=== PATIENT | female | born 1960 | race Caucasian/White ===

== ENCOUNTER 2021-08-21 14:14 | Inpatient (IN) | payer MEDICAID ==
[~2021-08-21] VITALS: Ht 177.8 cm; Wt 107.5 kg
--- NOTE | 2021-08-21 14:44 | NUR ---
BIBRA 81 FOR C/O SOB AND DIZZINESS. OXYGEN SATURATION IN ROOM AIR IS AT 91%. RESPIRATION REGULAR. DENIES PAIN. ATTACHED TO THE MONITOR.
[2021-08-21] MEDS ORDERED: DEXAMETHASONE SOD PHOSPHATE 6 MG in IV D5W 50 ML IV ONE (15:00)
--- NOTE | 2021-08-21 15:02 | NUR ---
JANITORIAL ACCOUNT MANAGER AT PT'S BEDSIDE
--- NOTE | 2021-08-21 15:18 | NUR ---
LAC #20G S/L; PATENT AND INTACT. BLOOD COLLECTED AND SENT TO LAB
[2021-08-21] MEDS ORDERED: DEXAMETHASONE SOD PHOSPHATE 10 MG/ML VIAL ONE (15:24)
[2021-08-21 15:30] LABS: BASOPHILS % (AUTO) 0.7 % (0.0-2.0); EOSINOPHILS % (AUTO) 1.3 % (0.0-6.0); HEMATOCRIT 43 % (33-45); HEMOGLOBIN 14.6 g/dL (11.5-14.8); LYMPHOCYTES # (AUTO) 0.9 K/uL (0.8-4.8); LYMPHOCYTES % (AUTO) 14.9 % (20.0-44.0); MEAN CORPUSCULAR HGB CONC 34 g/dl (31.0-36.0); MEAN CORPUSCULAR VOLUME 89 fL (82-100); MONOCYTES # (AUTO) 0.6 K/uL (0.1-1.30); MONOCYTES % (AUTO) 9.5 % (2.0-12.0); NEUTROPHILS # (AUTO) 4.5 K/uL (1.8-8.9); NEUTROPHILS % (AUTO) 73.6 % (43.0-81.0); PLATELET COUNT (AUTO) 173 K/uL (150-450); RED BLOOD CELL COUNT(AUTO) 4.83 MIL/uL (4.0-5.2); WHITE BLOOD COUNT (AUTO) 6.1 K/uL (4.3-11.0)
[2021-08-21] MEDS ORDERED: DEXAMETHASONE SOD PHOSPHATE 10 MG/ML VIAL IV ONE (15:30)
--- NOTE | 2021-08-21 15:47 | NUR ---
COVID SWAB DONE AND SENT TO THE LAB
[2021-08-21 15:48] LABS: CARBON DIOXIDE 31 mmol/L (21-32); CHLORIDE 101 mmol/L (98-107); GLUCOSE 210 mg/dL (74-106); POTASSIUM 3.9 mmol/L (3.5-5.1); SODIUM SERUM 137 mmol/L (136-145); UREA NITROGEN, BLOOD 16 mg/dL (7-18)
[2021-08-21 15:53] LABS: CREATINE KINASE, TOTAL 150 U/L (26-192)
[2021-08-21] MEDS ORDERED: IV NS 0.9% 1,000 ML BAG IV ONE (16:00)
[2021-08-21 16:03] LABS: ALANINE AMINOTRANSFERASE 35 U/L (12-78); ALBUMIN 3.5 g/dL (3.4-5.0); ALKALINE PHOSPHATASE 122 U/L (46-116); ASPARTATE AMINOTRANSFERASE 21 U/L (15-37); BILIRUBIN,TOTAL 0.7 mg/dL (0.2-1.0); TOTAL PROTEIN, SERUM 7.2 g/dL (6.4-8.2)
--- NOTE | 2021-08-21 16:12 | NUR ---
PT TOLERATING O2 3LPM N/C AT 94%. PT A/OX4. OFFERED BSC BUT PT COULD NOT URINATE AT THIS TIME; WILL TRY AGAIN LATER. IVF LAC #20G NS 1000ML
--- NOTE | 2021-08-21 16:20 | NUR ---
UNABLE TO PROVIDE URINE AT THIS TIME
--- NOTE | 2021-08-21 16:51 | NUR ---
[facility] CALLED DIRECTOR OF BROADCAST PAGED.
[2021-08-21] MEDS ORDERED: ACETAMINOPHEN 325 MG TABLET ONE (17:22)
[2021-08-21] MEDS ORDERED: ACETAMINOPHEN 325 MG TABLET PO ONE (17:30)
[2021-08-21] MEDS ORDERED: DEXTROSE 50%-WATER 50 ML DISP.SYRIN IV PRN (17:30)
[2021-08-21] MEDS ORDERED: ONDANSETRON HCL/PF 4 MG/2 ML VIAL IVP PRN (17:30)
[2021-08-21 17:37] LABS: C-REACTIVE PROTEIN 1.8 mg/dL (0.0-0.9)
--- NOTE | 2021-08-21 17:43 | NUR ---
COVID ANTIGEN COLLECTED AND SENT TO LAB
[2021-08-21] MEDS ORDERED: AZITHROMYCIN 500 MG in IV D5W 250 ML IV SCH (18:00)
[2021-08-21] MEDS ORDERED: INSULIN REGULAR, HUMAN 100 UNIT/ML 10 ML VIAL ONE (18:12)
--- NOTE | 2021-08-21 18:12 | NUR ---
NO AVAILABLE BED YET PER NURSING SUP
[2021-08-21] MEDS: BLOOD SUGAR DIAGNOSTIC 1 EACH STRIP IN SCH ×2 (18:45→22:18)
--- NOTE | 2021-08-21 18:45 | NUR ---
PT HAVING CARDIAC DINNER ORDERED ATE 50%; TOLERATING WELL. BS 198; ADMINISTERED 3 UNITS PER SLIDING SCALE ORDER; R THIGH
[2021-08-21] MEDS: INSULIN REGULAR, HUMAN 100 UNIT/ML 3 ML VIAL SQ PRN ×2 (18:46→22:19)
--- NOTE | 2021-08-21 18:47 | NUR ---
PT SEEN BY TANIA SCHULER
[2021-08-21] MEDS ORDERED: ATEN25TA PO (19:32)
[2021-08-21] MEDS ORDERED: INSU100I26 SQ (19:32)
[2021-08-21] MEDS ORDERED: ATOR20TA PO (19:32)
[2021-08-21] MEDS ORDERED: GABA-532 PO (19:32)
[2021-08-21] MEDS ORDERED: INSU100C10 SQ (19:32)
--- NOTE | 2021-08-21 23:02 | NUR ---
REPORT GIVEN TO TOSHIA GONCALVES RN
--- NOTE | 2021-08-21 23:05 | NUR ---
RN NOTES RECEIVED ER ADMISSION REPORT FROM AMANDA HANNA. ALL PERTINENT ADMISSION INFO REGARDING PT NOTED. WILL WAIT FOR PT TO BE TRANSFERRED TO UNIT AND ADDRESS NEEDS ACCORDINGLY. PRINTING EQUIPMENT MECHANIC APPRENTICE MADE AWARE.
--- NOTE | 2021-08-21 23:15 | NUR ---
RN NOTES RECEIVED PT FROM ER VIA BOBBY ACCOMPANIED BY 2 ER STAFF AND TRANSFERRED TO BED VIA 2 PERSON ASSIST. PT IS A/OX4; ON 3L OF O2 VIA NC , STILL WITH NOTED SOB UPON EXERTION. COMPREHENSIVE PHYSICAL ASSESSMENT AND PATIENT CARE DONE. CALL LIGHT WITHIN REACH, SAFETY MEASURES AND ISOLATION PRECAUTION IN PLACE, WILL CONTINUE MONITOR AND ASSESS THROUGHOUT THE SHIFT. WILL CARRY OUT MD ORDERS ACCORDINGLY. FRONTEND ENGINEER MADE AWARE.
--- NOTE | 2021-08-21 23:20 | NUR ---
PT WAS TRANSFERRED TO FIRST FLOOR UNDER ACLS
--- NOTE | 2021-08-21 23:20 | NUR ---
PT TRANSFERRED TO [facility]-T VIA ACLS & CONTACT DROPLET ISO PRECAUTION. VSS. PT ON O2 3LPM VIA N/C. ALL BELONGINGS WITH PT.
[2021-08-21] MEDS: ACETAMINOPHEN 325 MG TABLET PO PRN (23:41)
[2021-08-22] VITALS: BP 141/78
[2021-08-22] MEDS ORDERED: CIPR2.5D14 EACHEYE (02:50)
[2021-08-22 04:00] VITALS: BP 141/78
--- NOTE | 2021-08-22 04:00 | NUR ---
RN NOTES NO NOTED CHANGES IN PATIENT CONDITION AT THIS TIME; PATIENT VITALS STABLE, NO SIGNS OF ACUTE RESPIRATORY DISTRESS. WILL CONTINUE TO MONITOR AND REASSESS FOR ANY CHANGES THROUGHOUT THE SHIFT.
--- NOTE | 2021-08-22 04:00 | NUR ---
RN NOTES ATTEMPT TO COLLECT URINE @ 0200, PER RESIDENT SHE JUST URINATE, INSTRUCT THE PATIENT IF SHE FEEL THE URGE TO URINATE CALL OR NOTIFIED THE NURSE TO HELP HER TO COLLECT THE URINE. SINCE THEN THE PATIENT IS SLEEPING, UNABLE TO COLLECT URINE.
[2021-08-22 06:56] LABS: BASOPHILS % (AUTO) 0.6 % (0.0-2.0); HEMATOCRIT 39 % (33-45); HEMOGLOBIN 13.4 g/dL (11.5-14.8); LYMPHOCYTES # (AUTO) 0.9 K/uL (0.8-4.8); MEAN CORPUSCULAR HGB CONC 35 g/dl (31.0-36.0); MEAN CORPUSCULAR VOLUME 87 fL (82-100); MONOCYTES # (AUTO) 0.3 K/uL (0.1-1.30); MONOCYTES % (AUTO) 6.1 % (2.0-12.0); NEUTROPHILS # (AUTO) 4.1 K/uL (1.8-8.9); NEUTROPHILS % (AUTO) 76.3 % (43.0-81.0); PLATELET COUNT (AUTO) 176 K/uL (150-450); RED BLOOD CELL COUNT(AUTO) 4.41 MIL/uL (4.0-5.2); WHITE BLOOD COUNT (AUTO) 5.4 K/uL (4.3-11.0)
--- NOTE | 2021-08-22 07:05 | NUR ---
RN CLOSING NOTE: PATIENT REMAINS IN ROOM IN NO SIGNS OF RESPIRATORY DISTRESS, PATIENT STILL ON 3L OF 02 VIA NC ;TOLERATING WELL SATURATING @ >95% SP02. SAFETY MEASURES IMPLEMENTED, BED IN LOWEST POSITION, LOCKED, SIDE RAILS UP, CALL LIGHT WITHIN REACH. ALL NEEDS AND ORDERS ADDRESSED DURING THE SHIFT. IV ACCESS MAINTAINED INTACT, SECURED AND FLUSHING WELL. ALL DUE MEDS GIVEN ORDERED & SCHEDULED ; PATIENT TOLERATED WELL. PATIENT KEPT CLEAN AND COMFORTABLE WITHIN THE SHIFT. PATIENT ENDORSED TO INCOMING SHIFT RN WITH STABLE VITAL SIGN AND FOR CONTINUITY OF CARE.
[2021-08-22 07:16] LABS: BILIRUBIN,TOTAL 0.5 mg/dL (0.2-1.0); CALCIUM, SERUM 8.3 mg/dL (8.5-10.1); CREATININE 0.8 mg/dL (0.6-1.3); MAGNESIUM 1.7 mg/dL (1.8-2.4); PHOSPHORUS 2.9 mg/dL (2.5-4.9); POTASSIUM 3.8 mmol/L (3.5-5.1); TOTAL PROTEIN, SERUM 6.4 g/dL (6.4-8.2)
[2021-08-22 08:00] VITALS: BP 124/71
--- NOTE | 2021-08-22 08:00 | NUR ---
RN NOTES SEEN PATIENT SITING EGE OF THE BED, ON O2-3LNC, NO ACUTE RESPIRATORY DISTRESS, BS-299 MG/DL COVERAGE GVEN, ALSO ADMINISTERED DUE MEDICATION. PATIENT A/O X4, WAS COMPLAINING OF HEADACHE. PATIENT GOING BATHROOM SELF, TOLERATED BREAKFAST WELL. CALL LIGHT WITHIN TO REACH. WILL FOLLOW UP.
[2021-08-22 08:27] LABS: THYROID STIMULATING HORMONE 0.29 uIU/mL (0.358-3.74)
[2021-08-22 08:31] LABS: C-REACTIVE PROTEIN 1.3 mg/dL (0.0-0.9)
[2021-08-22 08:39] LABS: BILIRUBIN,URINE NEGATIVE (NEGATIVE); COLOR,URINE YELLOW (YELLOW); LEUKOCYTE ESTERASE ,URINE TRACE (NEGATIVE); NITRITE, URINE NEGATIVE (NEGATIVE); PROTEIN,URINE NEGATIVE (NEGATIVE); UGLUCOSE 500 MG/DL mg/dL (NEGATIVE); UROBILINOGEN,URINE 0.2 EU/dL (0.2)
[2021-08-22] MEDS ORDERED: DEXAMETHASONE SOD PHOSPHATE 10 MG/ML VIAL IV SCH (09:00)
[2021-08-22 09:08] LABS: BACTERIA,URINE Few /HPF (None Seen); SQUAMOUS EPITHELIAL CELL,UR Few /HPF (None Seen); WBC,URINE 51-80 /HPF (0-3)
[2021-08-22] MEDS: BLOOD SUGAR DIAGNOSTIC 1 EACH STRIP IN SCH ×4 (09:25→21:22)
[2021-08-22] MEDS: DEXAMETHASONE 4 MG TABLET PO SCH (09:25)
[2021-08-22] MEDS: INSULIN REGULAR, HUMAN 100 UNIT/ML 3 ML VIAL SQ PRN ×4 (09:39→21:24)
--- NOTE | 2021-08-22 10:00 | NUR ---
RN NOTES PATIENT REFUSED REMDESEVIRE INFUSION. PATIENT NOTED WANT TO SPEAK HOSPITALIST FOR COMPLICATION OF MEDICATION. NOTIFIED AIRCRAFT LANDING GEAR INSPECTOR ASHLEY CUEVAS.
[2021-08-22 12:00] VITALS: BP 139/77
[2021-08-22] MEDS: Magnesium 1GM/D5W 100ML PREMIX 100 ML IV SCH ×2 (12:38→13:56)
[2021-08-22 16:00] VITALS: BP 152/98
[2021-08-22] MEDS: ATENOLOL 25 MG TABLET PO SCH (16:46)
[2021-08-22] MEDS ORDERED: REMDESIVIR (CHARGED) 200 MG, *LOADING DOSE 1 EA in IV NS 0.9% 210 ML IV ONE (17:00)
[2021-08-22] MEDS ORDERED: GABAPENTIN 300 MG CAPSULE PO SCH (17:00)
--- NOTE | 2021-08-22 18:30 | NUR ---
RN NOTES PATIENT STABLE FINISHED RAMDESEVIR BLOUSE 250ML INFUSION ON LEFT UA INTACT AT THIS TIME, BS- 333 MG/DL COVERAGE GIVEN, DUE MEDICATION ADMINISTERED, CALL LIGHT WITHIN TO REACH. NO SOB NOTED ON O2-3LNC. ASSIST BACK TO THE BED. ENDORSED ONCOMING NURSE FOLLOW PLAN OF CARE.
--- NOTE | 2021-08-22 19:35 | NUR ---
RN NOTE PT RECEIVED IN BED. PT IS ON 3L OF O2 VIA NC SHOWING NO S/S OF RESP DISTRESS. BREATHING EVEN AND UNLABORED. ON PHYSICIAN GYNECOLOGIST SHOWING NSR WITH PVC'S. PT IS ABLE TO AMBULATE. SKIN INTACT. ON CARDIAC DIET. IV ACCESS NOTED LEFT AC #20, LINE FLUSHED, PATENT, AND INTACT WITH NO S/S OF INFILTRATION. ALL SAFETY MEASURES IMPLEMENTED. CALL LIGHT WITHIN REACH. BED ALARM ON. BED LOCKED AND IN LOWEST POSITION. WILL CONTINUE TO MONITOR AND ASSESS FOR ANY CHANGES DURING SHIFT.
[2021-08-22 20:00] VITALS: BP 149/78
[2021-08-22] MEDS: GABAPENTIN 300 MG CAPSULE PO SCH (21:06)
--- NOTE | 2021-08-22 21:10 | NUR ---
RN NOTE PT ONLY WANTED TO TAKE ONE TABLET OF NEURONTIN 300MG DUE TO TAKING NEURONTIN AROUND 1620 DURING DAY SHIFT. 2ND NEURONTIN TABLET IN PATIENT CASSETTE.
[2021-08-22] MEDS ORDERED: INSULIN GLARGINE, 100 UNIT/ML CARTRIDGE SQ SCH (22:00)
[2021-08-23] VITALS: BP 144/68
[2021-08-23 04:00] VITALS: BP 115/53
[2021-08-23 06:45] LABS: ALBUMIN 3.1 g/dL (3.4-5.0); BILIRUBIN,DIRECT 0.1 mg/dL (0.0-0.2); BILIRUBIN,TOTAL 0.4 mg/dL (0.2-1.0); CALCIUM, SERUM 8.3 mg/dL (8.5-10.1); CREATININE 1.1 mg/dL (0.6-1.3); MAGNESIUM 2.2 mg/dL (1.8-2.4); POTASSIUM 3.9 mmol/L (3.5-5.1); TOTAL PROTEIN, SERUM 6.5 g/dL (6.4-8.2)
[2021-08-23 06:50] LABS: BASOPHILS % (AUTO) 0.4 % (0.0-2.0); HEMATOCRIT 40 % (33-45); HEMOGLOBIN 13.7 g/dL (11.5-14.8); LYMPHOCYTES # (AUTO) 1.3 K/uL (0.8-4.8); LYMPHOCYTES % (AUTO) 23.8 % (20.0-44.0); MEAN CORPUSCULAR HGB CONC 34 g/dl (31.0-36.0); MEAN CORPUSCULAR VOLUME 89 fL (82-100); MONOCYTES # (AUTO) 0.5 K/uL (0.1-1.30); NEUTROPHILS # (AUTO) 3.7 K/uL (1.8-8.9); NEUTROPHILS % (AUTO) 66.8 % (43.0-81.0); PLATELET COUNT (AUTO) 181 K/uL (150-450); RED BLOOD CELL COUNT(AUTO) 4.51 MIL/uL (4.0-5.2); WHITE BLOOD COUNT (AUTO) 5.6 K/uL (4.3-11.0)
--- NOTE | 2021-08-23 07:04 | NUR ---
RN NOTE NO CHANGES IN PT CONDITION DURING SHIFT. PT IS ON 3L OF O2 VIA NC SHOWING NO S/S OF RESP DISTRESS. BREATHING EVEN AND UNLABORED. IV ACCESS NOTED LEFT AC #20, LINE FLUSHED, PATENT, AND INTACT WITH NO S/S OF INFILTRATION. ALL DUE MEDS GIVEN ORDERED. PT KEPT CLEAN AND COMFORTABLE. ALL SAFETY MEASURES IMPLEMENTED. CALL LIGHT WITHIN REACH. BED ALARM ON. BED LOCKED AND IN LOWEST POSITION. WILL ENDORSE TO MORNING SHIFT RN FOR DARYA.
[2021-08-23] MEDS: BLOOD SUGAR DIAGNOSTIC 1 EACH STRIP IN SCH ×4 (07:30→23:07)
[2021-08-23 09:00] VITALS: BP 138/76
[2021-08-23] MEDS ORDERED: ATENOLOL 25 MG TABLET PO SCH (09:00)
[2021-08-23] MEDS: GABAPENTIN 300 MG CAPSULE PO SCH ×2 (09:04→22:01)
[2021-08-23] MEDS: ATORVASTATIN 10 MG TABLET PO SCH (09:06)
[2021-08-23] MEDS: DEXAMETHASONE 4 MG TABLET PO SCH (09:06)
[2021-08-23] MEDS: ATENOLOL 25 MG TABLET PO SCH (09:08)
[2021-08-23] MEDS: *INSULIN REGULAR(HUMULIN R)HUM 100 UNIT/ML VIAL SQ PRN ×2 (09:20→23:06)
[2021-08-23] MEDS: ENOXAPARIN SODIUM 40 MG/0.4 ML DISP.SYRIN SQ SCH (09:45)
--- NOTE | 2021-08-23 10:30 | NUR ---
RN NOTE NOTIFIED ASHLEY CUEVAS NP RE: PT'S REQUEST TO RENEW HCTZ .
[2021-08-23 12:00] VITALS: BP 153/83
[2021-08-23] MEDS: HYDROCHLOROTHIAZIDE 25 MG TABLET PO SCH (12:58)
--- NOTE | 2021-08-23 15:58 | NUR ---
PATIENT TRANSFERRED TO [facility] , ALL VS WERE STABLE DURING TRANSFER AND D/C OF IV'S THE HR AND B/P RAISED TO 170/82 AND A PULSE OF 84 , G-TUBE INTACT, WOUND AREAS CLEANSED AND TREATED, PATIENT DRY AND CLEAN, SAFE TRANSFER FROM [facility] TO [facility] TO AMBULANCE FOR TRANSFER, 2 OIL INSPECTOR LIFT AND TRANSFERRED OUT, SAFE TRANSFER INTO AMBULANCE, FACILITY AWARE OF PATIENT TO TRANSFER, ALL DOCUMENTATION, MED ORDERS, AND INFORMATION SENT IN FILE WITH TWO OIL INSPECTOR TO BE GIVEN TO SUPERVISING CHARGE NURSE AT FACILITY. NO SIGNIFICANT CHANGES DURING AM SHIFT, NO SOB , AND NO DISTRESS NOTED. Addendum: 08/23/21 at 1714 by CANDIE GARCIA RN CHARTED ON INCORRECT PATIENT, ERROR, FOR ANOTHER PATIENT
[2021-08-23 16:00] VITALS: BP 130/80
[2021-08-23] MEDS ORDERED: REMDESIVIR (CHARGED) 100 MG in IV NS 0.9% 230 ML IV SCH (17:00)
[2021-08-23] MEDS: REMDESIVIR (CHARGED) 100 MG in IV NS 0.9% 100 ML IV SCH (17:16)
--- NOTE | 2021-08-23 19:04 | NUR ---
PATIENT TOOK NC AND BREATHING TDEVICE OFF OFTEN DURING SHIFT, REDIRECTED IMPORTANCE OF KEEPING THE NC INPLACE IN ORDER TO RECEIVE ENOUGH 02 TO MAINTAIN A NORMAL 02 LEVEL, UNDERSTOOD BUT WOULD STILL TAKE OFF DEVICE OFTEN, NO ADVERSE REACTIONS NOTED TO MEDICATIONS PROVIDED DURING AM SHIFT, IV SITE INTACT PATENT FLUSHING WELL, REPOSITIONED Q 2 HOURS OR MORE PATIENT ABLE TO REPOSITION SELF, BED LOW TO FLOOR, WHEELS LOCKED, ALL SAFETY MEASURES IN PLACE, CALL LIGHT IN REACH.
--- NOTE | 2021-08-23 19:35 | NUR ---
RN NOTE PT RECEIVED IN BED. PT IS ON 3L OF O2 VIA NC SHOWING NO S/S OF RESP DISTRESS. BREATHING EVEN AND UNLABORED. SKIN INTACT. ON CARDIAC DIET. IV ACCESS NOTED LEFT AC #20, LINE FLUSHED, PATENT, AND INTACT WITH NO S/S OF INFILTRATION. ALL SAFETY MEASURES IMPLEMENTED. CALL LIGHT WITHIN REACH. BED ALARM ON. BED LOCKED AND IN LOWEST POSITION. WILL CONTINUE TO MONITOR AND ASSESS FOR ANY CHANGES DURING SHIFT.
[2021-08-23 20:00] VITALS: BP 133/71
--- NOTE | 2021-08-23 23:00 | NUR ---
RN NOTE PT BLOOD SUGAR WAS 402 INITIALLY, AND 410 AFTER SECOND CHECK. SPOKE WITH DR. GUZMAN ABOUT PT BLOOD SUGAR BEING ELEVATED, DR. GUZMAN ORDERED ADDITIONAL 10 UNITS OF INSULIN. TOTAL OF 20 UNITS OF REGULAR INSULIN. WILL RE-ASSESS AND CONTINUE TO MONITOR FOR ANY CHANGES.
[2021-08-23] MEDS: INSULIN GLARGINE, 100 UNIT/ML CARTRIDGE SQ SCH (23:07)
[2021-08-23] MEDS ORDERED: INSULIN REGULAR, HUMAN 100 UNIT/ML 10 ML VIAL SQ ONE (23:30)
[2021-08-24] VITALS: BP 150/75
--- NOTE | 2021-08-24 02:15 | NUR ---
RN NOTE SPOKE WITH DR. GUZMAN ABOUT EXPERIENCING ANXIETY AT TIMES AND UNABLE TO SLEEP. ORDERED ATIVAN 1MG PO Q6H PRN. ORDER NOTED.
[2021-08-24] MEDS ORDERED: LORAZEPAM 1 MG TABLET PO PRN (02:30)
[2021-08-24 04:00] VITALS: BP 115/57
--- NOTE | 2021-08-24 07:20 | NUR ---
RN OPENING NOTE RECEIVE REPORT FROM PHARMACY INTAKE TECHNICIAN NURSE. PATIENT IN STABLE CONDITION AT TIME OF REPORT. RECEIVING OXYGEN VIA NC AT 3L/MIN. PATIENT AMBULATE AND SKIN INTACT. BLOOD SUGAR WAS ABOVE 400 AT PHARMACY INTAKE TECHNICIAN. WILL FOLLOW UP WITH AM BLOOD SUGAR. WILL FOLLOW UP AM LABS. PROPER ISOLATION PRECAUTION IN PLACE. ALL SAFETY MEASURE IN PLACE. BED ON LOWEST POSITION WITH HOB ELEVATED. CALL LIGHT WITHIN REACH. WILL CONTINUE TO MONITOR.
[2021-08-24 07:43] LABS: BASOPHILS % (AUTO) 0.4 % (0.0-2.0); HEMATOCRIT 41 % (33-45); HEMOGLOBIN 13.9 g/dL (11.5-14.8); LYMPHOCYTES # (AUTO) 1.7 K/uL (0.8-4.8); LYMPHOCYTES % (AUTO) 27.2 % (20.0-44.0); MEAN CORPUSCULAR HGB CONC 34 g/dl (31.0-36.0); MEAN CORPUSCULAR VOLUME 88 fL (82-100); MONOCYTES # (AUTO) 0.6 K/uL (0.1-1.30); MONOCYTES % (AUTO) 9.2 % (2.0-12.0); NEUTROPHILS # (AUTO) 3.9 K/uL (1.8-8.9); NEUTROPHILS % (AUTO) 63.2 % (43.0-81.0); PLATELET COUNT (AUTO) 176 K/uL (150-450); RED BLOOD CELL COUNT(AUTO) 4.64 MIL/uL (4.0-5.2); WHITE BLOOD COUNT (AUTO) 6.2 K/uL (4.3-11.0)
[2021-08-24 07:56] LABS: BILIRUBIN,TOTAL 0.4 mg/dL (0.2-1.0); CREATININE 0.9 mg/dL (0.6-1.3); MAGNESIUM 2.3 mg/dL (1.8-2.4); POTASSIUM 3.8 mmol/L (3.5-5.1); TOTAL PROTEIN, SERUM 6.4 g/dL (6.4-8.2)
[2021-08-24 08:00] VITALS: BP 121/84
[2021-08-24] MEDS: BLOOD SUGAR DIAGNOSTIC 1 EACH STRIP IN SCH ×4 (08:05→22:11)
[2021-08-24] MEDS: DEXAMETHASONE 4 MG TABLET PO SCH (08:07)
[2021-08-24] MEDS: ATORVASTATIN 10 MG TABLET PO SCH (08:10)
[2021-08-24] MEDS: GABAPENTIN 300 MG CAPSULE PO SCH ×2 (08:10→21:47)
[2021-08-24] MEDS: ENOXAPARIN SODIUM 40 MG/0.4 ML DISP.SYRIN SQ SCH (08:11)
[2021-08-24] MEDS: INSULIN REGULAR, HUMAN 100 UNIT/ML 3 ML VIAL SQ PRN ×2 (08:12→17:18)
[2021-08-24] MEDS: ATENOLOL 25 MG TABLET PO SCH (08:29)
[2021-08-24] MEDS: HYDROCHLOROTHIAZIDE 25 MG TABLET PO SCH (08:29)
[2021-08-24 12:00] VITALS: BP 121/84
[2021-08-24] MEDS: *INSULIN REGULAR(HUMULIN R)HUM 100 UNIT/ML VIAL SQ PRN ×2 (12:16→22:13)
[2021-08-24 16:00] VITALS: BP 116/72
[2021-08-24] MEDS: REMDESIVIR (CHARGED) 100 MG in IV NS 0.9% 100 ML IV SCH (17:03)
--- NOTE | 2021-08-24 19:07 | NUR ---
RN CLOSING NOTE PATIENT IN STABLE CONDITION WITH NO SIGN OF DISTRESS THROUGH OUT SHIFT. REMAIN ON NC AT 3L/MIN. O2 SAT 93% AND ABOVE. BLOOD SUGAR AT [address] CARMICHAEL WAS NOTIFIED. 15 UNITS OF REGULAR INSULIN WAS GIVEN PER SCALE. NO ADDITIONAL ORDER WAS FROM DR. CARMICHAEL. PROPER PRECAUTION IN PLACE. ALL SAFETY MEASURE IN PLACE. BED ON LOWEST POSITION WITH HOB ELEVATED. 3 SIDE RAIL UP. CALL LIGHT WITHIN REACH. WILL CONTINUE TO MONITOR AND GIVE REPORT TO GRINDER AND HONER OPERATOR AUTOMATIC NURSE.
--- NOTE | 2021-08-24 19:50 | NUR ---
RN NOTE PT RECEIVED IN BED. PT IS ON 3L OF O2 VIA NC SHOWING NO S/S OF RESP DISTRESS. BREATHING EVEN AND UNLABORED. SKIN INTACT. DAY SHIFT RN MENTIONED THAT PT BLOOD SUGAR WAS ELEVATED AT 471 AND 15 UNITS OF INSULIN WAS ADMINISTERED AND PER DR. CARMICHAEL, NO FURTHER ORDERS AT THIS TIME. WILL MONITOR BLOOD SUGAR DURING SHIFT. IV ACCESS NOTED ON LEFT AC #20. LINE FLUSHED, PATENT, AND INTACT WITH NO S/S OF INFILTRATION. ALL SAFETY MEASURES IMPLEMENTED. CALL LIGHT WITHIN REACH. BED ALARM ON. BED LOCKED AND IN LOWEST POSITION. WILL CONTINUE TO MONITOR AND ASSESS FOR ANY CHANGES DURING SHIFT.
[2021-08-24 20:00] VITALS: BP 144/72
--- NOTE | 2021-08-24 22:11 | NUR ---
RN NOTE PT BLOOD SUGAR IS 321. WILL ADMINISTER INSULIN PER SLIDING SCALE.
[2021-08-24] MEDS: INSULIN GLARGINE, 100 UNIT/ML CARTRIDGE SQ SCH (22:13)
[2021-08-25] VITALS: BP 134/84
[2021-08-25 04:00] VITALS: BP 118/63
[2021-08-25 06:47] LABS: BASOPHILS % (AUTO) 0.5 % (0.0-2.0); EOSINOPHILS % (AUTO) 0.1 % (0.0-6.0); HEMATOCRIT 44 % (33-45); HEMOGLOBIN 15.3 g/dL (11.5-14.8); LYMPHOCYTES # (AUTO) 2.2 K/uL (0.8-4.8); MEAN CORPUSCULAR HGB CONC 35 g/dl (31.0-36.0); MEAN CORPUSCULAR VOLUME 88 fL (82-100); MONOCYTES # (AUTO) 0.9 K/uL (0.1-1.30); MONOCYTES % (AUTO) 9.7 % (2.0-12.0); NEUTROPHILS # (AUTO) 5.8 K/uL (1.8-8.9); NEUTROPHILS % (AUTO) 64.7 % (43.0-81.0); PLATELET COUNT (AUTO) 166 K/uL (150-450); RED BLOOD CELL COUNT(AUTO) 5.01 MIL/uL (4.0-5.2); WHITE BLOOD COUNT (AUTO) 8.9 K/uL (4.3-11.0)
--- NOTE | 2021-08-25 06:51 | NUR ---
RN NOTE NO CHANGES IN PT CONDITION DURING SHIFT. PT IS ON 3L OF O2 VIA NC SHOWING NO S/S OF RESP DISTRESS. BREATHING EVEN AND UNLABORED WITH OXYGEN SATURATION >93%. PT IS ABLE TO AMBULATE WITHOUT FEELING SOB OR FATIGUE. IV ACCESS NOTED LEFT AC #20, LINE FLUSHED, PATENT, AND INTACT WITH NO S/S OF INFILTRATION. ALL DUE MEDS GIVEN ORDERED. PT KEPT CLEAN AND COMFORTABLE. ALL SAFETY MEASURES IMPLEMENTED. CALL LIGHT WITHIN REACH. BED ALARM ON. BED LOCKED AND IN LOWEST POSITION. WILL ENDORSE TO MORNING SHIFT RN FOR DARYA.
[2021-08-25 07:16] LABS: CALCIUM, SERUM 8.9 mg/dL (8.5-10.1); MAGNESIUM 2.1 mg/dL (1.8-2.4); PHOSPHORUS 3.4 mg/dL (2.5-4.9); POTASSIUM 3.6 mmol/L (3.5-5.1)
[2021-08-25] MEDS: BLOOD SUGAR DIAGNOSTIC 1 EACH STRIP IN SCH ×4 (07:30→21:48)
[2021-08-25 08:00] VITALS: BP 122/75
--- NOTE | 2021-08-25 08:08 | NUR ---
RN OPENING NOTE PATIENT RECEIVED IN BED, AWAKE. PATIENT ON 3L O2 NC WITH NO SIGNS OF LABORED BREATHING AT THIS TIME. LEFT AC 20G IN PLACE, PATENT WITH NO SIGNS OF INFILTRATION. BED LOCKED AND IN LOWEST POSITION, CALL LIGHT WITHIN REACH, 3 SIDE RAILS UP. ALL SAFETY MEASURES IMPLEMENTED. WILL CONTINUE TO MONITOR.
[2021-08-25] MEDS: HYDROCHLOROTHIAZIDE 25 MG TABLET PO SCH (09:23)
[2021-08-25] MEDS: DEXAMETHASONE 4 MG TABLET PO SCH (09:24)
[2021-08-25] MEDS: ATORVASTATIN 10 MG TABLET PO SCH (09:24)
[2021-08-25] MEDS: ATENOLOL 25 MG TABLET PO SCH (09:24)
[2021-08-25] MEDS: GABAPENTIN 300 MG CAPSULE PO SCH ×2 (09:24→21:48)
[2021-08-25] MEDS: ENOXAPARIN SODIUM 40 MG/0.4 ML DISP.SYRIN SQ SCH (09:25)
[2021-08-25 12:00] VITALS: BP 124/76
[2021-08-25] MEDS: *INSULIN REGULAR(HUMULIN R)HUM 100 UNIT/ML VIAL SQ PRN ×2 (12:13→22:18)
[2021-08-25 15:48] LABS: BILIRUBIN,DIRECT 0.2 mg/dL (0.0-0.2); BILIRUBIN,TOTAL 0.5 mg/dL (0.2-1.0); TOTAL PROTEIN, SERUM 6.3 g/dL (6.4-8.2)
[2021-08-25 16:00] VITALS: BP 123/70
[2021-08-25] MEDS: REMDESIVIR (CHARGED) 100 MG in IV NS 0.9% 100 ML IV SCH (16:44)
[2021-08-25] MEDS: INSULIN REGULAR, HUMAN 100 UNIT/ML 3 ML VIAL SQ PRN (18:01)
--- NOTE | 2021-08-25 18:09 | NUR ---
RN NOTE PATIENT'S BLOOD SUGAR 430. 15 UNITS OF REGULAR INSULIN ADMINISTERED PER ORDERED SLIDING SCALE. DO JANY NOTIFIED. NO NEW ORDERS AT THIS TIME. WILL CONTINUE TO MONITOR.
--- NOTE | 2021-08-25 18:46 | NUR ---
RN CLOSING NOTE PATIENT IN BED, AWAKE, A&OX4. PATIENT ON 3L O2 NC WITH NO SIGNS OF LABORED BREATHING AT THIS TIME. LEFT AC 20G IV IN PLACE, PATENT WITH NO SIGNS OF INFILTRATION. ALL NEEDS ATTENDED DURING SHIFT. NO SIGNS OF DISTRESS NOTED AT THIS TIME. BED LOCKED AND IN LOWEST POSITION, CALL LIGHT WITHIN REACH, 3 SIDE RAILS UP. ALL SAFETY MEASURES IMPLEMENTED. WILL ENDORSE TO SWATCHER NURSE.
--- NOTE | 2021-08-25 19:32 | NUR ---
RN NOTES RECEIVED CARE OF PATIENT WHILE PATIENT IN BED, AWAKE, A&OX4. PATIENT ABLE TO VERBALIZE NEEDS. PATIENT ON 3L O2 NC WITH NO SIGNS OF LABORED BREATHING/ SOB, O2 SAT 95% AT THIS TIME. LEFT AC 20G IV IN PLACE, PATENT WITH NO SIGNS OF INFILTRATION. NO SIGNIFICANT FINDINGS UPON INITIAL NURSING ASSESSMENTS. NO SIGNS OF DISTRESS NOTED AT THIS TIME. ALL SAFETY MEASURES PUT IN PLACE. BED LOCKED AND IN LOWEST POSITION, CALL LIGHT WITHIN REACH, 3 SIDE RAILS UP. WILL CONTINUE TO MONITOR FOR ANY CHANGES.
[2021-08-25 20:00] VITALS: BP 115/54
[2021-08-25] MEDS: INSULIN GLARGINE, 100 UNIT/ML CARTRIDGE SQ SCH (22:21)
[2021-08-26] VITALS: BP 129/66
[2021-08-26 04:00] VITALS: BP 142/75
[2021-08-26 06:37] LABS: BASOPHILS % (AUTO) 0.6 % (0.0-2.0); HEMATOCRIT 43 % (33-45); HEMOGLOBIN 14.7 g/dL (11.5-14.8); LYMPHOCYTES # (AUTO) 1.6 K/uL (0.8-4.8); LYMPHOCYTES % (AUTO) 24.2 % (20.0-44.0); MEAN CORPUSCULAR HGB CONC 34 g/dl (31.0-36.0); MEAN CORPUSCULAR VOLUME 88 fL (82-100); MONOCYTES # (AUTO) 0.6 K/uL (0.1-1.30); MONOCYTES % (AUTO) 9.8 % (2.0-12.0); NEUTROPHILS # (AUTO) 4.2 K/uL (1.8-8.9); NEUTROPHILS % (AUTO) 65.4 % (43.0-81.0); PLATELET COUNT (AUTO) 148 K/uL (150-450); RED BLOOD CELL COUNT(AUTO) 4.89 MIL/uL (4.0-5.2); WHITE BLOOD COUNT (AUTO) 6.4 K/uL (4.3-11.0)
[2021-08-26 07:10] LABS: ALBUMIN 3.1 g/dL (3.4-5.0); BILIRUBIN,DIRECT 0.2 mg/dL (0.0-0.2); BILIRUBIN,TOTAL 0.6 mg/dL (0.2-1.0); CALCIUM, SERUM 8.6 mg/dL (8.5-10.1); MAGNESIUM 1.7 mg/dL (1.8-2.4); PHOSPHORUS 3.7 mg/dL (2.5-4.9); POTASSIUM 3.6 mmol/L (3.5-5.1); TOTAL PROTEIN, SERUM 6.7 g/dL (6.4-8.2)
--- NOTE | 2021-08-26 07:30 | NUR ---
RN MORNING NOTE PT RECEIVED IN BED A/OX4 AND CURRENTLY STABLE. PT CURRENTLY ON 3L O2 VIA NC SAT 92% TOLERATING WELL WITH NO SIGNS OF LABORED BREATHING OR DISTRESS. PT HAS L AC 20G IV ACCESS PATENT AND FLUSHING WELL. ALL SAFETY MEASURES ARE IN PLACE PER HOSPITAL PROTOCOL. WILL CONTINUE TO MONITOR PT THIS SHIFT.
--- NOTE | 2021-08-26 07:36 | NUR ---
RN CLOSING NOTES WILL ENDORSE PATIENT TO DAY SHIFT NURSE WHILE PATIENT IS IN BED, AWAKE, A&OX4. PATIENT ABLE TO VERBALIZE NEEDS. PATIENT ON 3L O2 NC WITH NO SIGNS OF LABORED BREATHING/ SOB, O2 SAT 96% AT THIS TIME. LEFT AC 20G IV IN PLACE, PATENT WITH NO SIGNS OF INFILTRATION. NO SIGNIFICANT FINDINGS UPON ALL NURSING ASSESSMENTS DONE THROUGHOUT THE SHIFT. NO SIGNS OF DISTRESS NOTED AT THIS TIME. ALL SAFETY MEASURES PUT IN PLACE. BED LOCKED AND IN LOWEST POSITION, CALL LIGHT WITHIN REACH, 3 SIDE RAILS UP. WILL ENDORSE TO DAY SHIFT NURSE FOR DARYA.
[2021-08-26 08:00] VITALS: BP 112/56
[2021-08-26] MEDS: BLOOD SUGAR DIAGNOSTIC 1 EACH STRIP IN SCH ×4 (08:05→22:19)
[2021-08-26] MEDS: *INSULIN REGULAR(HUMULIN R)HUM 100 UNIT/ML VIAL SQ PRN ×3 (08:33→22:16)
[2021-08-26] MEDS: GABAPENTIN 300 MG CAPSULE PO SCH ×2 (09:29→21:10)
[2021-08-26] MEDS: ATENOLOL 25 MG TABLET PO SCH (09:30)
[2021-08-26] MEDS: DEXAMETHASONE 4 MG TABLET PO SCH (09:31)
[2021-08-26] MEDS: ATORVASTATIN 10 MG TABLET PO SCH (09:31)
[2021-08-26] MEDS: HYDROCHLOROTHIAZIDE 25 MG TABLET PO SCH (09:32)
[2021-08-26] MEDS: ENOXAPARIN SODIUM 40 MG/0.4 ML DISP.SYRIN SQ SCH (09:37)
[2021-08-26] MEDS ORDERED: MAGNESIUM OXIDE 400 MG TABLET PO ONE (11:00)
[2021-08-26 12:00] VITALS: BP 104/51
[2021-08-26] MEDS: ACETAMINOPHEN 325 MG TABLET PO PRN ×2 (12:16→21:10)
[2021-08-26] MEDS ORDERED: ASPI-1169 PO (15:15)
[2021-08-26] MEDS ORDERED: DEXA6TAB6 PO (15:15)
[2021-08-26 16:00] VITALS: BP 141/83
[2021-08-26] MEDS: REMDESIVIR (CHARGED) 100 MG in IV NS 0.9% 100 ML IV SCH (17:20)
[2021-08-26] MEDS ORDERED: MUPIROCIN OINT 2% 22 GM TUBE NS SCH (18:00)
[2021-08-26] MEDS: INSULIN REGULAR, HUMAN 100 UNIT/ML 3 ML VIAL SQ PRN (18:58)
--- NOTE | 2021-08-26 19:38 | NUR ---
RN NOTES RECEIVED CARE OF PATIENT WHILE PATIENT IN BED, SLEEPING BUT WAKES UP TO NAME, A&OX4. PATIENT ABLE TO VERBALIZE NEEDS. PATIENT ON 3L O2 NC WITH NO SIGNS OF LABORED BREATHING/ SOB, O2 SAT 96% AT THIS TIME. LEFT AC 20G IV IN PLACE, PATENT WITH NO SIGNS OF INFILTRATION. NO SIGNIFICANT FINDINGS UPON INITIAL NURSING ASSESSMENTS. NO SIGNS OF DISTRESS NOTED AT THIS TIME. ALL SAFETY MEASURES PUT IN PLACE. BED LOCKED AND IN LOWEST POSITION, CALL LIGHT WITHIN REACH, 3 SIDE RAILS UP. WILL CONTINUE TO MONITOR FOR ANY CHANGES.
[2021-08-26 20:00] VITALS: BP 138/73
--- NOTE | 2021-08-26 20:12 | NUR ---
RN CLOSING NOTE PT IS SITTING AT BEDSIDE A/OX4 AND CURRENTLY STABLE. PT CURRENTLY ON 3L O2 VIA NC SAT 93% TOLERATING WELL WITH NO SIGNS OF LABORED BREATHING OR DISTRESS. PT HAS L AC 20G IV ACCESS PATENT AND FLUSHING WELL. PT RECEIVED 3 OF 4 REMDESIVIR. PT WILL BE DC'D TODAY AT 2100. ALL SAFETY MEASURES ARE IN PLACE PER HOSPITAL PROTOCOL. WILL ENDORSE TO KNITTING MACHINE FIXER HEAD NURSE FOR DARYA.
--- NOTE | 2021-08-26 21:20 | NUR ---
2119 PATIENT WITH COMPLAIN OF CHEST DISCOMFORT WHEN BREATHING AND COUGHING. VITAL SIGNS TAKEN FOLLOWS: B/P 144/89 HR 87, O2 SAT 94% ON 3LITERS NC. PATIENT IN BED AND IN NO APPARENT DISTRESS. CEMENTING MACHINE OPERATOR [facility] MADE AWARE WITH ORDER TO HOLD DISCHARGE TONIGHT. ORDER NOTED. PATIENT BEING MONITORED CLOSELY.
[2021-08-26] MEDS: INSULIN GLARGINE, 100 UNIT/ML CARTRIDGE SQ SCH (22:17)
[2021-08-27] VITALS: BP 109/53
[2021-08-27] MEDS: ACETAMINOPHEN 325 MG TABLET PO PRN (03:30)
[2021-08-27 04:00] VITALS: BP 110/69
[2021-08-27] MEDS ORDERED: HYDROCODONE/APAP 10/325MG TABLET PO PRN (05:30)
--- NOTE | 2021-08-27 06:43 | NUR ---
RN CLOSING NOTES PATIENT WAS CLOSELY MONITORED THROUGHOUT SHIFT FOR NEW ONSET OF CHEST PAIN UPON BREATHING AND COUGHING. ALL VITAL SIGNS TAKEN FELL WITHIN NORMAL RANGES. LATEST VITAL SIGNS TAKEN: TEMP 99.0, HR 92, RESP 20, O2 SAT 93%, BP 110/69. PATIENT IS ON 3 L O2 THERAPY VIA NC, NO SOB NOTED. PATIENT REMAINS A/OX4, ABLE TO VERBALIZE NEEDS. LEFT AC 20G IV IN PLACE, PATENT WITH NO SIGNS OF INFILTRATION. ALL SAFETY MEASURES PUT IN PLACE. BED LOCKED AND IN LOWEST POSITION, CALL LIGHT WITHIN REACH, 3 SIDE RAILS UP. WILL ENDORSE TO DAY SHIFT NURSE FOR DARYA.
[2021-08-27 07:00] LABS: ALBUMIN 2.8 g/dL (3.4-5.0); BILIRUBIN,DIRECT 0.2 mg/dL (0.0-0.2); BILIRUBIN,TOTAL 0.8 mg/dL (0.2-1.0); CALCIUM, SERUM 8.6 mg/dL (8.5-10.1); CREATININE 0.9 mg/dL (0.6-1.3); MAGNESIUM 1.5 mg/dL (1.8-2.4); POTASSIUM 3.4 mmol/L (3.5-5.1)
[2021-08-27] MEDS: BLOOD SUGAR DIAGNOSTIC 1 EACH STRIP IN SCH ×2 (07:30→12:57)
--- NOTE | 2021-08-27 07:30 | NUR ---
RN OPENING NOTE PT IS SITTING AT BEDSIDE A/OX4 AND CURRENTLY STABLE. PT CURRENTLY ON 3L O2 VIA NC SAT 93% TOLERATING WELL WITH NO SIGNS OF LABORED BREATHING OR DISTRESS. PT HAS L AC 20G IV ACCESS PATENT AND FLUSHING WELL. PT WILL BE DC'D TODAY AT 2100. PT SCHEDULED FOR DC LATER THIS AFTERNOON OR EVENING. ALL SAFETY MEASURES ARE IN PLACE PER HOSPITAL PROTOCOL. WILL CONTINUE TO MONITOR THIS SHIFT..
[2021-08-27] MEDS: *INSULIN REGULAR(HUMULIN R)HUM 100 UNIT/ML VIAL SQ PRN ×2 (08:38→13:50)
[2021-08-27] MEDS: DEXAMETHASONE 4 MG TABLET PO SCH (08:39)
[2021-08-27 08:40] VITALS: BP 113/86
[2021-08-27] MEDS: GABAPENTIN 300 MG CAPSULE PO SCH (08:40)
[2021-08-27] MEDS: ATORVASTATIN 10 MG TABLET PO SCH (08:40)
[2021-08-27] MEDS: HYDROCHLOROTHIAZIDE 25 MG TABLET PO SCH (08:40)
[2021-08-27] MEDS: ATENOLOL 25 MG TABLET PO SCH (08:40)
[2021-08-27] MEDS: ENOXAPARIN SODIUM 40 MG/0.4 ML DISP.SYRIN SQ SCH (08:46)
[2021-08-27] MEDS ORDERED: MAGNESIUM OXIDE 400 MG TABLET PO ONE (10:00)
[2021-08-27] MEDS ORDERED: POTASSIUM CHLORIDE 20 MEQ TAB.PRT.SR PO SCH (10:00)
--- NOTE | 2021-08-27 17:10 | NUR ---
OCULARIST PT DISCHARGED. ALL FORMS AND DOCUMENTS ENDORSED AND GIVEN TO PATIENT ALONG WITH BELONGINGS. PT STABLE AT TIME OF DISCHARGE. ENDORSED AND GAVE REPORT TO [employer] PROFESSIONAL [employer] #[phone].
== END 2021-08-27 17:04 | disposition home or self-care (01) | DRG 137 ==
LOC: ER 14:18 → TRANSITION 17:54 → TELE1 22:28
PROVIDERS: ADMIT Registered Nurse; ATTEND Student in an Organized Health Care Education/Training Program
DX: U07.1 COVID-19 (principal); J96.01 Acute respiratory failure with hypoxia; J12.82 Pneumonia due to coronavirus disease 2019; I10 Essential (primary) hypertension; E66.01 Morbid (severe) obesity due to excess calories; E11.9 Type 2 diabetes mellitus without complications; Z68.35 Body mass index [BMI] 35.0-35.9, adult; Z88.8 Allergy status to other drugs, medicaments and biological substances
CPT/HCPCS: 36415; 71045-TC; 80048-TC; 80053-TC; 80061-TC; 80076-TC; 81001; 82550-TC; 82728-TC; 82962-TC; 83605-TC; 83615-TC; 83735-TC; 83880; 84100-TC; 84443-TC; 84484-TC; 85025-TC; 85378-TC; 85610-TC; 85730-TC; 86140-TC; 86803; 87040-TC; 87081-TC; 87086-TC; 87806; A4216; G0378; J0456; J1100; J1650; J1815; J2405; J3475; J7030; J7050; J7060; J8540; U0003

== ENCOUNTER 2021-08-31 20:43 | Inpatient (IN) | payer MEDICAID ==
[~2021-08-31] VITALS: Ht 152.4 cm; Wt 92.5 kg
[~2021-08-31 20:43] MED LIST: ASPI-1169 PO; ATEN25TA PO; ATOR20TA PO; DEXA6TAB6 PO; GABA-532 PO; INSU100C10 SQ; INSU100I26 SQ
--- NOTE | 2021-08-31 20:49 | NUR ---
LORENA, SON: [phone]
--- NOTE | 2021-08-31 21:05 | NUR ---
PT BIB [facility] AMBULANCE. C/O SOB, SAT 53% ON RA. PT A/O X4, BREATHING QUICKLY WITH LABORED BREATHING. PT ATTACHED TO MONITOR & POX, RECEIVING 10L O2 VIA SIMPLE MASK. MD AT BEDSIDE FOR EVAL, RT AT BEDSIDE. LAC G#20 INITIATED, BLOOD SENT TO LAB. GIVEN BLANKET AND CALL LIGHT. WILL CONTINUE TO MONITOR.
[2021-08-31] MEDS ORDERED: DEXAMETHASONE SOD PHOSPHATE 10 MG/ML VIAL ONE (21:08)
[2021-08-31] MEDS ORDERED: MEROPENEM 1 G VIAL IV ONE (21:09)
[2021-08-31] MEDS ORDERED: VANCOMYCIN 1 GM VIAL ONE (21:09)
--- NOTE | 2021-08-31 21:15 | NUR ---
xray at bedside.
[2021-08-31] MEDS ORDERED: VANCOMYCIN 1 GM in IV D5W 250 ML IV ONE (21:30)
[2021-08-31] MEDS ORDERED: DEXAMETHASONE SOD PHOSPHATE 10 MG/ML VIAL IV ONE (21:30)
[2021-08-31] MEDS ORDERED: MEROPENEM 1,000 MG in IV NS 0.9% 100 ML IV ONE (21:30)
--- NOTE | 2021-08-31 21:30 | NUR ---
high flow settings 40L 85% o2 saturating 86%
[2021-08-31 21:34] LABS: BASOPHILS % (AUTO) 0.2 % (0.0-2.0); HEMATOCRIT 46 % (33-45); HEMOGLOBIN 15.8 g/dL (11.5-14.8); LYMPHOCYTES # (AUTO) 0.8 K/uL (0.8-4.8); LYMPHOCYTES % (AUTO) 7.8 % (20.0-44.0); MEAN CORPUSCULAR HGB CONC 34 g/dl (31.0-36.0); MEAN CORPUSCULAR VOLUME 89 fL (82-100); MONOCYTES # (AUTO) 0.5 K/uL (0.1-1.30); MONOCYTES % (AUTO) 5.2 % (2.0-12.0); NEUTROPHILS # (AUTO) 8.5 K/uL (1.8-8.9); NEUTROPHILS % (AUTO) 86.8 % (43.0-81.0); PLATELET COUNT (AUTO) 143 K/uL (150-450); RED BLOOD CELL COUNT(AUTO) 5.19 MIL/uL (4.0-5.2); WHITE BLOOD COUNT (AUTO) 9.8 K/uL (4.3-11.0)
--- NOTE | 2021-08-31 21:35 | NUR ---
covid swab sent to lab
[2021-08-31 21:44] LABS: D-DIMER 1.19 mg/L(FEU (0.17-0.50)
[2021-08-31 21:47] LABS: CALCIUM, SERUM 8.7 mg/dL (8.5-10.1); CARBON DIOXIDE 31 mmol/L (21-32); CHLORIDE 97 mmol/L (98-107); CREATININE 1.2 mg/dL (0.6-1.3); GLUCOSE 327 mg/dL (74-106); SODIUM SERUM 135 mmol/L (136-145); UREA NITROGEN, BLOOD 30 mg/dL (7-18)
--- NOTE | 2021-08-31 21:50 | NUR ---
RT NOTE HIGH FLOW SETTINGS TITRATED TO 100% DUE TO DESAT.
[2021-08-31 21:52] LABS: ALANINE AMINOTRANSFERASE 30 U/L (12-78); ALKALINE PHOSPHATASE 104 U/L (46-116); ASPARTATE AMINOTRANSFERASE 19 U/L (15-37); BILIRUBIN,DIRECT 0.2 mg/dL (0.0-0.2); BILIRUBIN,TOTAL 0.7 mg/dL (0.2-1.0)
[2021-08-31 22:12] LABS: C-REACTIVE PROTEIN 23.3 mg/dL (0.0-0.9)
--- NOTE | 2021-08-31 22:45 | NUR ---
urine sent to lab
[2021-08-31 23:01] LABS: BILIRUBIN,URINE Negative (NEGATIVE); COLOR,URINE YELLOW (YELLOW); LEUKOCYTE ESTERASE ,URINE Negative (NEGATIVE); NITRITE, URINE Negative (NEGATIVE); PH,URINE 5.5 (5.0-8.0); PROTEIN,URINE >=300 mg/dl (NEGATIVE); UGLUCOSE 500 MG/DL mg/dL (NEGATIVE); UROBILINOGEN,URINE 0.2 EU/dL (0.2)
[2021-08-31 23:02] LABS: BACTERIA,URINE Rare /HPF (None Seen); SQUAMOUS EPITHELIAL CELL,UR Few /HPF (None Seen); WBC,URINE NONE SEEN /HPF (0-3)
--- NOTE | 2021-08-31 23:28 | NUR ---
rt at bedside
--- NOTE | 2021-08-31 23:29 | NUR ---
ana taylor at bedside
[2021-08-31 23:52] LABS: ABG BASE EXCESS 2.3 mmol/L; ABG PCO2 39.3 mmHg (35.0-45.0); ABG PH 7.445 (7.350-7.450); ABG PO2 51.2 mmHg (75.0-100.0); COHb 0.8 % (0.5-1.5); MetHb 0.4 % (0.0-1.5); O2Hb 87.3 % (94.0-97.0); SITE, ABG Right Radial; VENT MODE, BG HFNC 40L 100%
--- NOTE | 2021-08-31 23:58 | NUR ---
RT NOTE ABG DRAWN AND RESULTS GIVEN TO DR. ROLAND. 15L NON REBREATHER ADDED OVER HIGH FLOW CANNULA PER MD ORDER.
[2021-09-01] VITALS (22 sets, daily range): BP systolic 92–167; BP diastolic 49–90
[2021-09-01] MEDS ORDERED: *INSULIN REGULAR(HUMULIN R)HUM 100 UNIT/ML VIAL SQ PRN
[2021-09-01] MEDS ORDERED: ONDANSETRON HCL/PF 4 MG/2 ML VIAL IVP PRN
[2021-09-01] MEDS ORDERED: INSULIN REGULAR, HUMAN 100 UNIT/ML 3 ML VIAL SQ PRN
[2021-09-01] MEDS ORDERED: ALBUTEROL SULFATE 8 GM HFA.AER.AD IH PRN
[2021-09-01] MEDS ORDERED: ACETAMINOPHEN 650 MG/SUPP.RECT RC PRN
--- NOTE | 2021-09-01 00:19 | NUR ---
room 261 icu
--- NOTE | 2021-09-01 01:03 | NUR ---
PER SON, CASSIE, GIVES AUTHORIZATION FOR INTUBATION. 2ND RN, AMA, VERIFIED VIA PHONE
--- NOTE | 2021-09-01 01:09 | NUR ---
ATTEMPTED TO GIVE REPORT. RN ON BREAK. WILL CALL ME BACK
--- NOTE | 2021-09-01 01:28 | NUR ---
ATTEMPTED TO GIVE REPORT, RN ON BREAK.
--- NOTE | 2021-09-01 01:42 | NUR ---
ATTEMPTED TO GIVE REPORT, RN IN PT ROOM
--- NOTE | 2021-09-01 01:49 | NUR ---
REPORT GIVEN TO AMANDA SAENZ FOR DARYA
--- NOTE | 2021-09-01 02:04 | NUR ---
ADMIT NOTE RECEIVED PATIENT FROM ER, TRANSFERRED TO ROOM 261 PER ACLS PROTOCOL. SAFELY TRANSFERRED TO BED. ADMITTING DIAGNOSIS: ACUTE RESPIRATORY FAILURE AND COVID 19 PNA. ON ISOLATION PRECAUTIONS. PATIENT IS ALERT AND ORIENTED X4, ABLE TO MAKE NEEDS KNOWN. ON DOUBLE SET UP HFNC 40L 100% AND NRB 15L, O2 SAT 83%. NOTED WITH TACHYPNEA, COUGHING, AND RUNNY NOSE. COMPLAINED OF HEADACHE AND NECK PAIN, REQUESTING FOR TYLENOL. WILL ADMINISTER PRN. IV ACCESS ON GAB #18 AND LAC #20 PATENT AND INTACT. SKIN ASSESSMENT DONE, NOTED WITH RIGHT LOWER QUADRANT ABDOMEN BRUISE AND PERINEUM/ABDOMINAL FOLDS RASHES. KEPT CLEAN AND DRY. ORIENTED PATIENT TO ROOM AND USE OF CALL LIGHT. BED LOCKED AND IN LOWEST POSITION. CALL LIGHT WITHIN REACH.
[2021-09-01] MEDS ORDERED: ENOXAPARIN SODIUM 100 MG/ML DISP.SYRIN SQ ONE ×2 (02:33)
[2021-09-01] MEDS ORDERED: MEROPENEM 1 G in IV NS 0.9% 100 ML IV ONE (05:00)
[2021-09-01] MEDS ORDERED: MEROPENEM 1 G VIAL IV ONE (05:35)
[2021-09-01 05:54] LABS: BASOPHILS % (AUTO) 0.2 % (0.0-2.0); HEMATOCRIT 41 % (33-45); HEMOGLOBIN 14.4 g/dL (11.5-14.8); LYMPHOCYTES # (AUTO) 0.6 K/uL (0.8-4.8); LYMPHOCYTES % (AUTO) 6.6 % (20.0-44.0); MEAN CORPUSCULAR HGB CONC 35 g/dl (31.0-36.0); MEAN CORPUSCULAR VOLUME 88 fL (82-100); MONOCYTES # (AUTO) 0.6 K/uL (0.1-1.30); MONOCYTES % (AUTO) 6.1 % (2.0-12.0); NEUTROPHILS # (AUTO) 7.9 K/uL (1.8-8.9); NEUTROPHILS % (AUTO) 87.1 % (43.0-81.0); PLATELET COUNT (AUTO) 164 K/uL (150-450); RED BLOOD CELL COUNT(AUTO) 4.66 MIL/uL (4.0-5.2)
--- NOTE | 2021-09-01 06:58 | NUR ---
WOUND CARE CONSULT: REVIEWED CHART, NURSING DOCUMENTATION AND PHOTO WHICH INDICATES DISCOLORATION TO ABDOMEN AND RASH TO ABDOMINAL/GROIN FOLDS AND PERINEUM, PRESENT ON ADMISSION. RECOMMENDATIONS MADE FOR SKIN PROTECTION. DISCUSSED WITH NURSING STAFF. PT IS ON [place] ISOFLEX LOW AIRLOSS BED. MD IN AGREEMENT WITH PLAN OF CARE.
[2021-09-01] MEDS ORDERED: Z GUARD REMEDY 2 OZ OINT TP PRN (07:00)
[2021-09-01 07:13] LABS: ALBUMIN 2.5 g/dL (3.4-5.0); BILIRUBIN,TOTAL 0.5 mg/dL (0.2-1.0); CALCIUM, SERUM 8.4 mg/dL (8.5-10.1); CREATININE 0.9 mg/dL (0.6-1.3); POTASSIUM 3.9 mmol/L (3.5-5.1); TOTAL PROTEIN, SERUM 6.9 g/dL (6.4-8.2)
[2021-09-01] MEDS ORDERED: BLOOD SUGAR DIAGNOSTIC 1 EACH STRIP VI SCH (07:30)
--- NOTE | 2021-09-01 07:30 | NUR ---
OPENING NOTE: REPORT RECEIVED FROM GORDON PATEL. PT ALERT OX3, REPOSITIONS SIDE TO SIDE INDEPENDENTLY. PT IS ON DOUBLE SET UP HIGH FLOW AND NRB MASK. PT IS COVID POSITIVE FROM 08/21 FROM PREVIOUS HOSPITALIZATION. PT CHECKED ON HOURLY AND PRN BY NURSING STAFF.
--- NOTE | 2021-09-01 07:30 | NUR ---
RN NOTE PATIENT IS ALERT AND ORIENTED X4. ON DOUBLE SET UP HFNC 40L 100% AND NRB 15L, O2 SAT 83-88%. IV ACCESS ON GAB #18 AND LAC #20 PATENT AND INTACT. ASSISTED PATIENT ON BEDPAN, WITH X1 SOFT BROWN BM. KEPT CLEAN AND DRY. HENNING CATH DRAINED 700CC YELLOW VERONICA URINE. BED LOCKED AND IN LOWEST POSITION. CALL LIGHT WITHIN REACH. ENDORSED TO AM SHIFT.
[2021-09-01] MEDS ORDERED: DEXTROSE 50%-WATER 50 ML DISP.SYRIN IV PRN ×2 (08:00)
[2021-09-01 08:22] LABS: C-REACTIVE PROTEIN 18.4 mg/dL (0.0-0.9)
[2021-09-01] MEDS ORDERED: CLOTRIMAZOLE 1% 15 GM TUBE TP SCH (09:00)
[2021-09-01] MEDS: DEXAMETHASONE SOD PHOSPHATE 4 MG/ML VIAL IV SCH (09:22)
[2021-09-01] MEDS: PANTOPRAZOLE 40 MG VIAL IV SCH (09:23)
[2021-09-01] MEDS: GABAPENTIN 100 MG CAPSULE PO SCH ×2 (09:23→16:52)
[2021-09-01] MEDS: ATENOLOL 25 MG TABLET PO SCH (09:24)
[2021-09-01] MEDS: ASPIRIN 81 MG TAB.CHEW PO SCH (09:28)
[2021-09-01] MEDS: Z GUARD REMEDY 2 OZ OINT TP SCH (09:29)
[2021-09-01] MEDS: LEVOFLOXACIN 750 MG /D5W 150ML 750 MG in PREMIX 1 EA IV SCH (11:06)
[2021-09-01] MEDS: INSULIN REGULAR, HUMAN 100 UNIT/ML 3 ML VIAL SQ PRN ×3 (12:00→22:14)
[2021-09-01] MEDS: BLOOD SUGAR DIAGNOSTIC 1 EACH STRIP IN SCH ×3 (12:22→22:10)
[2021-09-01] MEDS ORDERED: diphenhydrAMINE HCL 50 MG/ML VIAL IV ONE (12:30)
[2021-09-01] MEDS ORDERED: ACETAMINOPHEN 650 MG/20.3 ML UDC PO ONE (12:30)
[2021-09-01] MEDS ORDERED: TOCILIZUMAB 800 MG in IV NS 0.9% 60 ML IV ONE (13:00)
[2021-09-01] MEDS ORDERED: ENOXAPARIN SODIUM 100 MG/ML DISP.SYRIN SQ SCH (14:00)
[2021-09-01] MEDS: ENOXAPARIN SODIUM 40 MG/0.4 ML DISP.SYRIN SQ SCH (16:53)
[2021-09-01] MEDS ORDERED: MEROPENEM 1 G in IV NS 0.9% 100 ML IV SCH (18:00)
--- NOTE | 2021-09-01 18:53 | NUR ---
END OF SHIFT NOTE: PT SIT UP AT SIDE OF BED SEVERAL TIMES TODAY, APPEARS TO BREATHE EASIER AT SIDE OF BED. PT GOT UP TO BEDSIDE CHAIR X1 TODAY FOR 30 MIN WITHOUT DIFFICULTY. ACTEMRA GIVEN TODAY PER MD ORDERS. BM X1 THIS AM. PT COOPERATIVE. PT CHECKED ON HOURLY AND PRN BY NURSING STAFF.
--- NOTE | 2021-09-01 19:40 | NUR ---
RN NOTE OPENING ICU REC'D PT IN BED, A/O X4 PT IS SITTING ON SIDE OF THE BED. ON HIGH FLOW NASAL CANNULA 40L AT 100% WITH NONREBREATHER AT 15LPM. PT IS AFEBRILE. SINUS RHYTHM ON MONITOR WITH HR 70S. PT HAS LAC #20 FLUSHING WELL. HENNING CATH PRESENT DRAINING YELLOW URINE. DENIES PAIN. ALL NEEDS ATTENDED AT THIS TIME. SAFETY MEASURES IN PLACE. BED LOCKED IN LOWEST POSITION WITH BED ALARM ON. CALL LIGHT WITHIN REACH, WILL CONT TO MONITOR.
[2021-09-01] MEDS ORDERED: VANCOMYCIN 1 GM in IV D5W 250 ML IV SCH (21:00)
--- NOTE | 2021-09-01 21:37 | NUR ---
RN NOTE NOTIFIED OPTOMECHANICAL ENGINEER GANGA HU REGARDING PT NPO. PT IS ALERT, ABLE TO FOLLOW COMMANDS AND SWALLOW SAFELY PER NURS EVAL. ORDERS TO CHANGE DIET TO CCHO AND ACCU CHECK ACHS CARRIED OUT
[2021-09-01] MEDS: CLOTRIMAZOLE 1% 15 GM TUBE TP SCH (21:42)
[2021-09-01] MEDS: ATORVASTATIN 40 MG TABLET PO SCH (21:51)
[2021-09-01] MEDS: INSULIN GLARGINE, 100 UNIT/ML CARTRIDGE SQ SCH (22:14)
[2021-09-01] MEDS: IV NS 0.9% 250 ML IV PRN (23:27)
[2021-09-02] VITALS (24 sets, daily range): BP systolic 100–155; BP diastolic 47–92
[2021-09-02] MEDS: ENOXAPARIN SODIUM 40 MG/0.4 ML DISP.SYRIN SQ SCH ×2 (03:06→16:17)
[2021-09-02 05:07] LABS: BASOPHILS % (AUTO) 0.6 % (0.0-2.0); HEMATOCRIT 44 % (33-45); HEMOGLOBIN 15.2 g/dL (11.5-14.8); LYMPHOCYTES % (AUTO) 20.8 % (20.0-44.0); MEAN CORPUSCULAR HGB CONC 35 g/dl (31.0-36.0); MEAN CORPUSCULAR VOLUME 88 fL (82-100); MONOCYTES # (AUTO) 0.4 K/uL (0.1-1.30); MONOCYTES % (AUTO) 8.5 % (2.0-12.0); NEUTROPHILS # (AUTO) 3.5 K/uL (1.8-8.9); NEUTROPHILS % (AUTO) 70.1 % (43.0-81.0); PLATELET COUNT (AUTO) 168 K/uL (150-450); RED BLOOD CELL COUNT(AUTO) 4.96 MIL/uL (4.0-5.2)
[2021-09-02 05:23] LABS: CALCIUM, SERUM 8.2 mg/dL (8.5-10.1); CREATININE 0.9 mg/dL (0.6-1.3); POTASSIUM 4.6 mmol/L (3.5-5.1)
--- NOTE | 2021-09-02 06:54 | NUR ---
RN NOTE CLOSING ICU NO SIGNIFICANT CHANGES IN PT CONDITION. REMAINS ON HIGHFLOW AND NON REBREATHER O2 SAT 84-91% THROUGHOUT SHIFT. POSITIONAL. PT BETTER WHEN SITTING UP. PT DENIES PAIN. PT OCCASIONALLY ANXIOUS, BUT COOPERATIVE WITH CARE. ALL NEEDS ATTENDED. GAMAL CARE/WOUND CARE PROVIDED. SAFETY MEASURES IN PLACE. WILL ENDORSE CARE TO DAY SHIFT RN FOR CONTINUATION OF CARE.
[2021-09-02 07:34] LABS: ABG OXYGEN SATURATION 85.5 % (92.0-98.5); ABG PCO2 54.8 mmHg (35.0-45.0); ABG PH 7.405 (7.350-7.450); ABG PO2 49.9 mmHg (75.0-100.0); AaDO2 608.3 mmHg; COHb 0.4 % (0.5-1.5); MetHb 0.1 % (0.0-1.5); O2Hb 85.1 % (94.0-97.0); SITE, ABG Right Radial; VENT MODE, BG HFNC + NRB 40L 100%
[2021-09-02] MEDS: BLOOD SUGAR DIAGNOSTIC 1 EACH STRIP IN SCH ×5 (07:58→22:27)
--- NOTE | 2021-09-02 09:00 | NUR ---
Patient request to go to the bedside chair.Patient assisted and linen change provided. Patient teaching done regarding focusing on breathing due to 02 being 84% and patient being on the phone. Patient non compliant and continues to communicate and 02 saturation of 84-85%. Dr Madrid made aware.Patient will be monitored.
[2021-09-02] MEDS: Z GUARD REMEDY 2 OZ OINT TP SCH (09:04)
[2021-09-02] MEDS: CLOTRIMAZOLE 1% 15 GM TUBE TP SCH ×2 (09:04→21:06)
[2021-09-02] MEDS: PANTOPRAZOLE 40 MG VIAL IV SCH (09:29)
[2021-09-02] MEDS: ASPIRIN 81 MG TAB.CHEW PO SCH (09:29)
[2021-09-02] MEDS: DEXAMETHASONE SOD PHOSPHATE 4 MG/ML VIAL IV SCH (09:29)
[2021-09-02] MEDS: GABAPENTIN 100 MG CAPSULE PO SCH ×2 (09:29→16:16)
[2021-09-02] MEDS: ATENOLOL 25 MG TABLET PO SCH (09:30)
[2021-09-02] MEDS: INSULIN REGULAR, HUMAN 100 UNIT/ML 3 ML VIAL SQ PRN ×4 (09:31→22:29)
--- NOTE | 2021-09-02 10:30 | NUR ---
Patient assisted back to bed.
--- NOTE | 2021-09-02 10:54 | NUR ---
Patient stated that greeting card writer is telling all the other staff to look at her and check on her through the window. Patient reassured that those staff members are helping other patient. Patient provided decreased stimuli and non nursing interventions to help with relaxation and agitation
--- NOTE | 2021-09-02 19:00 | NUR ---
RN NOTE RECEIVED PATIENT SEATED UPRIGHT IN BED, AO X 4, IN NO S/SX OF ACUTE DISTRESS AT THIS TIME. SATURATION AT 90% ON 40L VIA HIGH FLOW NC, AND 15L VIA NRB, SR ON THE MONITOR, HR IS 67. NOTED IV SITE AT LAC 20G, AND PHIL MIDLINE, ALL HUBS PATENT AND FLUSHING WELL, NO S/S OF INFECTION. HENNING CATHETER CONNECTED TO URINE BAG IN PLACE, DRAINING TO A CLEAR, YELLOW OUTPUT. SAFETY MEASURES IMPLEMENTED. PATIENT BED ALARM IS ON. HEAD OF BED ELEVATED. BED IS LOCKED, IN LOWEST POSITION AND SIDE RAILS UP. CALL LIGHT WITHIN REACH OF THE PATIENT. WILL CONTINUE TO MONITOR AND REASSESS FOR ANY CHANGES.
--- NOTE | 2021-09-02 19:14 | NUR ---
VACUUM FURNACE OPERATOR CLOSING NOTES Patient currently sitting at the edge of her bed with feet dangling on the side on non rebreather mask at 15 liters and high flow nasal cannula 40 liters with fi02 of 100%. Patient noted with saturation of 91%. Left upper arm midline saline lock,Patient noted with urine output of 500 cc during shift. Patient teaching done during shift for proning and the benefits but refused. Patient refused to lay down on her bed during shift. Endorsed to next shift for DARYA.
[2021-09-02] MEDS: ATORVASTATIN 40 MG TABLET PO SCH (21:37)
[2021-09-02] MEDS: INSULIN GLARGINE, 100 UNIT/ML CARTRIDGE SQ SCH (21:55)
[2021-09-02] MEDS ORDERED: INSULIN REGULAR, HUMAN 100 UNIT/ML 3 ML VIAL SQ PRN (22:00)
[2021-09-02] MEDS ORDERED: DEXTROSE 50%-WATER 50 ML DISP.SYRIN IV PRN (22:30)
[2021-09-03] VITALS (28 sets, daily range): BP systolic 90–171; BP diastolic 43–80
[2021-09-03] MEDS: ENOXAPARIN SODIUM 40 MG/0.4 ML DISP.SYRIN SQ SCH ×2 (03:16→15:49)
[2021-09-03 05:06] LABS: CALCIUM, SERUM 8.4 mg/dL (8.5-10.1)
[2021-09-03 05:11] LABS: BASOPHILS % (AUTO) 0.4 % (0.0-2.0); EOSINOPHILS % (AUTO) 0.2 % (0.0-6.0); HEMATOCRIT 45 % (33-45); HEMOGLOBIN 15.4 g/dL (11.5-14.8); LYMPHOCYTES # (AUTO) 1.6 K/uL (0.8-4.8); LYMPHOCYTES % (AUTO) 26.4 % (20.0-44.0); MEAN CORPUSCULAR HGB CONC 34 g/dl (31.0-36.0); MEAN CORPUSCULAR VOLUME 88 fL (82-100); MONOCYTES # (AUTO) 0.5 K/uL (0.1-1.30); MONOCYTES % (AUTO) 7.9 % (2.0-12.0); NEUTROPHILS # (AUTO) 3.9 K/uL (1.8-8.9); NEUTROPHILS % (AUTO) 65.1 % (43.0-81.0); PLATELET COUNT (AUTO) 172 K/uL (150-450); RED BLOOD CELL COUNT(AUTO) 5.11 MIL/uL (4.0-5.2)
[2021-09-03] MEDS: IV NS 0.9% 250 ML IV PRN (06:30)
[2021-09-03] MEDS: ASPIRIN 81 MG TAB.CHEW PO SCH (08:28)
[2021-09-03] MEDS: BLOOD SUGAR DIAGNOSTIC 1 EACH STRIP IN SCH ×4 (08:28→21:35)
[2021-09-03] MEDS: INSULIN REGULAR, HUMAN 100 UNIT/ML 3 ML VIAL SQ PRN ×4 (08:28→21:37)
[2021-09-03] MEDS: GABAPENTIN 100 MG CAPSULE PO SCH ×2 (08:29→17:04)
[2021-09-03] MEDS: DEXAMETHASONE SOD PHOSPHATE 4 MG/ML VIAL IV SCH (08:29)
[2021-09-03] MEDS: PANTOPRAZOLE 40 MG TABLET.DR PO SCH (08:29)
[2021-09-03] MEDS: ATENOLOL 25 MG TABLET PO SCH (08:29)
[2021-09-03] MEDS: Z GUARD REMEDY 2 OZ OINT TP SCH (08:30)
[2021-09-03] MEDS: CLOTRIMAZOLE 1% 15 GM TUBE TP SCH ×2 (08:30→21:10)
[2021-09-03] MEDS: LEVOFLOXACIN 750 MG /D5W 150ML 750 MG in PREMIX 1 EA IV SCH (11:20)
--- NOTE | 2021-09-03 12:00 | NUR ---
Patient given a bed bath.
--- NOTE | 2021-09-03 12:05 | NUR ---
Patient currently on high flow only 40 liters 100% fi02 with 02 sat of 90-92%. will closely monitor
--- NOTE | 2021-09-03 15:05 | NUR ---
Legal Billing Specialist made aware by tech that patient called for help. Legal Billing Specialist went by the room and started applying PPE. Patient noted with agitation and triggered by tech writer not coming to the room. Patient made aware that staff will need PPE to prevent exposure and unable to open the door to find out what she needs. Patient was approached in calming manner and per patient she is feeling cantu and apologized to the tech writer. Patient teaching done regarding covid protocols.
--- NOTE | 2021-09-03 18:05 | NUR ---
Patient noted with 02 of 84% and back on double 02 set up of non rebreather 15 liters and high anastasiya 40 liters at 100%.
--- NOTE | 2021-09-03 18:55 | NUR ---
PREMIUM SERVICE REPRESENTATIVE CLOSING NOTES Patient currently sitting at the edge of her bed with feet dangling on the side on non rebreather mask at 15 liters and high flow nasal cannula 40 liters with fi02 of 100%. Patient noted with saturation of 87-88%. Left upper arm midline running tko,Patient noted with urine output of 1000 cc during shift. Will endorsed to next shift for DARYA.
--- NOTE | 2021-09-03 19:00 | NUR ---
RN NOTE RECEIVED PATIENT SEATED UPRIGHT IN BED, AO X 4, IN NO S/SX OF ACUTE DISTRESS AT THIS TIME. SATURATION AT 90% ON 40L VIA HIGH FLOW NC, AND 15L VIA NRB, SR ON THE MONITOR, HR IS 65. NOTED IV SITE AT LAC 20G, AND PHIL MIDLINE 18G, ALL HUBS PATENT AND FLUSHING WELL, NO S/S OF INFECTION. HENNING CATHETER CONNECTED TO URINE BAG IN PLACE, DRAINING TO A CLEAR, YELLOW OUTPUT. SAFETY MEASURES IMPLEMENTED. PATIENT BED ALARM IS ON. HEAD OF BED ELEVATED. BED IS LOCKED, IN LOWEST POSITION AND SIDE RAILS UP. CALL LIGHT WITHIN REACH OF THE PATIENT. WILL CONTINUE TO MONITOR AND REASSESS FOR ANY CHANGES.
[2021-09-03] MEDS: ATORVASTATIN 40 MG TABLET PO SCH (21:10)
[2021-09-03] MEDS: INSULIN GLARGINE, 100 UNIT/ML CARTRIDGE SQ SCH (21:38)
[2021-09-04] VITALS (24 sets, daily range): BP systolic 70–159; BP diastolic 41–90
[2021-09-04] MEDS: ENOXAPARIN SODIUM 40 MG/0.4 ML DISP.SYRIN SQ SCH ×2 (02:08→14:49)
[2021-09-04 05:53] LABS: CALCIUM, SERUM 8.7 mg/dL (8.5-10.1); CREATININE 0.9 mg/dL (0.6-1.3); POTASSIUM 3.7 mmol/L (3.5-5.1)
[2021-09-04 05:59] LABS: BASOPHILS # (AUTO) 0.1 K/uL (0.0-0.2); BASOPHILS % (AUTO) 0.7 % (0.0-2.0); EOSINOPHILS % (AUTO) 0.9 % (0.0-6.0); HEMATOCRIT 43 % (33-45); HEMOGLOBIN 14.8 g/dL (11.5-14.8); LYMPHOCYTES # (AUTO) 1.8 K/uL (0.8-4.8); LYMPHOCYTES % (AUTO) 25.2 % (20.0-44.0); MEAN CORPUSCULAR HGB CONC 34 g/dl (31.0-36.0); MEAN CORPUSCULAR VOLUME 88 fL (82-100); MONOCYTES # (AUTO) 0.4 K/uL (0.1-1.30); MONOCYTES % (AUTO) 6.1 % (2.0-12.0); NEUTROPHILS # (AUTO) 4.8 K/uL (1.8-8.9); NEUTROPHILS % (AUTO) 67.1 % (43.0-81.0); PLATELET COUNT (AUTO) 201 K/uL (150-450); RED BLOOD CELL COUNT(AUTO) 4.92 MIL/uL (4.0-5.2); WHITE BLOOD COUNT (AUTO) 7.1 K/uL (4.3-11.0)
[2021-09-04 06:18] LABS: C-REACTIVE PROTEIN 2.3 mg/dL (0.0-0.9)
--- NOTE | 2021-09-04 07:10 | NUR ---
RN NOTE PATIENT ASLEEP IN BED ON SIDE LYING POSITION, HOB ELEVATED, NO SIGN OF ACUTE DISTRESS NOTED, SATURATION AT 90% ON 40 LPM VIA HIGH FLOW NC AT 100% FIO2, AND 15 LPM VIA NRB. REPORT GIVEN TO SUNIL PATEL FOR CONTINUATION OF CARE
--- NOTE | 2021-09-04 07:30 | NUR ---
CHEST PAINTING AND SEALING SUPERVISOR AM NOTE RECEIVED PATIENT ASLEEP, RESPONDS TO NAME AND TOUCH, AO X 4, IN NO S/SX OF ACUTE DISTRESS AT THIS TIME. SATURATION AT 86-88% ON 40L VIA HIGH FLOW NC, AND 15L VIA NRB, SR ON THE MONITOR, HR IS 74. NOTED IV SITE AT LAC 20G, AND PHIL MIDLINE 18G, ALL HUBS PATENT AND FLUSHING WELL, NO S/S OF INFECTION. HENNING CATHETER CONNECTED TO URINE BAG IN PLACE, DRAINING TO A CLEAR, YELLOW OUTPUT. SAFETY MEASURES IMPLEMENTED. PATIENT BED ALARM IS ON. HEAD OF BED ELEVATED. BED IS LOCKED, IN LOWEST POSITION AND SIDE RAILS UP. POC DISCUSSED, VERBALIZED UNDERSTANDING. CALL LIGHT WITHIN REACH OF THE PATIENT. WILL CONTINUE TO MONITOR AND REASSESS FOR ANY CHANGES.
[2021-09-04] MEDS: BLOOD SUGAR DIAGNOSTIC 1 EACH STRIP IN SCH ×4 (07:35→21:26)
[2021-09-04] MEDS: GABAPENTIN 100 MG CAPSULE PO SCH ×2 (08:57→16:52)
[2021-09-04] MEDS: ATENOLOL 25 MG TABLET PO SCH (08:57)
[2021-09-04] MEDS: ASPIRIN 81 MG TAB.CHEW PO SCH (08:57)
[2021-09-04] MEDS: DEXAMETHASONE SOD PHOSPHATE 4 MG/ML VIAL IV SCH (08:58)
[2021-09-04] MEDS: CLOTRIMAZOLE 1% 15 GM TUBE TP SCH ×2 (08:58→20:18)
[2021-09-04] MEDS: PANTOPRAZOLE 40 MG TABLET.DR PO SCH (08:58)
[2021-09-04] MEDS: Z GUARD REMEDY 2 OZ OINT TP SCH (08:59)
--- NOTE | 2021-09-04 09:30 | NUR ---
RN NOTES DUE MEDS GIVEN
[2021-09-04] MEDS: INSULIN REGULAR, HUMAN 100 UNIT/ML 3 ML VIAL SQ PRN ×3 (12:32→21:31)
[2021-09-04] MEDS: IV NS 0.9% 250 ML IV PRN (14:43)
--- NOTE | 2021-09-04 18:35 | NUR ---
LINING CASER CLOSING NOTE PATIENT SITTING IN BED, AO X 4, IN NO S/SX OF ACUTE DISTRESS AT THIS TIME. SATURATION AT 80-97% ON 40L VIA HIGH FLOW NC, AND 15L VIA NRB, SR ON THE MONITOR, HR IS 70s - 80s. NOTED IV SITE AT LAC 20G, AND PHIL MIDLINE 18G, ALL HUBS PATENT AND FLUSHING WELL, NO S/S OF INFECTION. HENNING CATHETER CONNECTED TO URINE BAG IN PLACE, DRAINING TO A CLEAR, YELLOW OUTPUT. 950 ML TOTAL OUTPUT. SAFETY MEASURES IMPLEMENTED. PATIENT BED ALARM IS ON. HEAD OF BED ELEVATED. BED IS LOCKED, IN LOWEST POSITION AND SIDE RAILS UP. CALL LIGHT WITHIN REACH OF THE PATIENT. ALL NEEDS MET AT THIS TIME. PATIENT RECEIVED BREATHING TREAMENT C/O RT. PM CARE DONE EARLIER. WILL ENDORSE TO NEXT SHIFT FOR DARYA.
--- NOTE | 2021-09-04 19:10 | NUR ---
RN NOTE RECEIVED PATIENT IN SITTING ON BED RESTING ALERT ORIETNEDX4 VERBALLY RESPONSIVE ON 40L HIGH FLOW OXYGEN FIO2:100% AND 15L NON REBREATHER MASK O2:82-90% IV SITE IS ON LEFT UPPER ARM MIDLINE AND LEFT AC INTACT PATENT,CONTIENT BOWEL/BLADDER,SAFETY MEASURE IMPLEMENT BED IN LOW POSITION AND LOCKED CALL LIGHT WITHIN REACH CONTINUE TO MONITOR. Addendum: 09/04/21 at 2050 by REBEKAH ARENAS RN HENNING IN PLACE URINE DRAINING YELLOW AND CLEAR BY GRAVITY.
[2021-09-04] MEDS: ATORVASTATIN 40 MG TABLET PO SCH (21:19)
[2021-09-04] MEDS: INSULIN GLARGINE, 100 UNIT/ML CARTRIDGE SQ SCH (21:29)
[2021-09-05] VITALS (24 sets, daily range): BP systolic 107–160; BP diastolic 51–126
[2021-09-05] MEDS: ENOXAPARIN SODIUM 40 MG/0.4 ML DISP.SYRIN SQ SCH ×2 (02:51→15:04)
[2021-09-05] MEDS ORDERED: NA PHOS,M-B/NA PHOS,DI-BA 1 EA ENEMA RC ONE (03:30)
--- NOTE | 2021-09-05 03:40 | NUR ---
RN NOTE PATIENT COMPLAINING NO BOWEL MOVEMENT SINCE SHE HOSPITALIZED CALLED DR AMADA ADAM HE ORDERED FLEET ENEMA NOTED AND CARRIED OUT.
[2021-09-05] MEDS ORDERED: NA PHOS,M-B/NA PHOS,DI-BA 1 EA ENEMA RC PRN (04:00)
[2021-09-05] MEDS ORDERED: DOCUSATE SODIUM 100 MG CAPSULE PO ONE (05:30)
[2021-09-05 05:39] LABS: CALCIUM, SERUM 8.8 mg/dL (8.5-10.1); CREATININE 0.9 mg/dL (0.6-1.3); POTASSIUM 4.1 mmol/L (3.5-5.1)
[2021-09-05 05:41] LABS: BASOPHILS # (AUTO) 0.1 K/uL (0.0-0.2); BASOPHILS % (AUTO) 0.6 % (0.0-2.0); EOSINOPHILS % (AUTO) 1.5 % (0.0-6.0); HEMATOCRIT 43 % (33-45); HEMOGLOBIN 15.1 g/dL (11.5-14.8); LYMPHOCYTES # (AUTO) 1.7 K/uL (0.8-4.8); MEAN CORPUSCULAR HGB CONC 35 g/dl (31.0-36.0); MEAN CORPUSCULAR VOLUME 87 fL (82-100); MONOCYTES # (AUTO) 0.5 K/uL (0.1-1.30); MONOCYTES % (AUTO) 4.8 % (2.0-12.0); NEUTROPHILS # (AUTO) 7.7 K/uL (1.8-8.9); NEUTROPHILS % (AUTO) 76.1 % (43.0-81.0); PLATELET COUNT (AUTO) 171 K/uL (150-450); RED BLOOD CELL COUNT(AUTO) 4.98 MIL/uL (4.0-5.2); WHITE BLOOD COUNT (AUTO) 10.1 K/uL (4.3-11.0)
[2021-09-05] MEDS ORDERED: DOCUSATE SODIUM 100 MG CAPSULE PO PRN (06:00)
--- NOTE | 2021-09-05 06:37 | NUR ---
RN NOTE PATIENT REMAINS ALERT ORIENTED X4 VERBALLY RESPONSIVE ON HIGH FLOW OXYGEN 40L FIO2:100% AND NON REBREATHER MASK 15L O2:81-91 HR ON MONITOR SINUS RHYTHM 69.IV SITE IS ON LEFT UPPER ARM MIDLINE AND LEFT FOREARM INTACT PATENT,HENNING CATHETER IN PLACE.URINE DRAINING YELLOW AND CLEAR BY GRAVITY.SHE HAD ONE BOWEL MOVEMENT IN SHIFT,ALL DUE MEDS GIVEN MD ORDERED KEPT CLEAN AND DRY ALL THE TIME,KEPT COMFORTABLE ALL NEEDS MET,ENDORSE NEXT COMING SHIFT FOR CONTINUATION OF CARE.
--- NOTE | 2021-09-05 07:10 | NUR ---
RN OPENING NOTES RECEIVED PT AWAKE IN BED AT THIS TIME. AOX4, ABLE TO VERBALIZE NEEDS. PT NOTED ON HIGH FLOW 40L@ 100% FIO2 AND NON REBREATHER @ 15LPM SATURATING IN THE 90S. NO S/O OF ANY ACUTE DISTRESS NOTED. SAFETY PRECAUTIONS MAINTAINED AT ALL TIMES. WILL CONTINUE TO MONITOR
[2021-09-05] MEDS: BLOOD SUGAR DIAGNOSTIC 1 EACH STRIP IN SCH ×4 (08:17→21:08)
[2021-09-05] MEDS: GABAPENTIN 100 MG CAPSULE PO SCH ×2 (09:08→16:20)
[2021-09-05] MEDS: ASPIRIN 81 MG TAB.CHEW PO SCH (09:08)
[2021-09-05] MEDS: PANTOPRAZOLE 40 MG TABLET.DR PO SCH (09:08)
[2021-09-05] MEDS: ATENOLOL 25 MG TABLET PO SCH (09:09)
[2021-09-05] MEDS: DEXAMETHASONE SOD PHOSPHATE 4 MG/ML VIAL IV SCH (09:10)
[2021-09-05] MEDS: INSULIN REGULAR, HUMAN 100 UNIT/ML 3 ML VIAL SQ PRN ×4 (09:13→21:10)
[2021-09-05] MEDS: CLOTRIMAZOLE 1% 15 GM TUBE TP SCH ×2 (09:15→21:08)
[2021-09-05] MEDS: Z GUARD REMEDY 2 OZ OINT TP SCH (09:26)
[2021-09-05] MEDS: LEVOFLOXACIN 750 MG /D5W 150ML 750 MG in PREMIX 1 EA IV SCH (11:01)
[2021-09-05] MEDS: IV NS 0.9% 250 ML IV PRN (15:01)
--- NOTE | 2021-09-05 18:17 | NUR ---
RN CLOSING NOTE Patient in bed at this time. patient remains stable throughout shift. all care, needs, medications and treatment performed as anticipated per order. pt kept clean and dry. safety precaution maintained. will endorse to [facility] shift lead nurse for angle
--- NOTE | 2021-09-05 20:11 | NUR ---
RN NOTE PATIENT SITTING ON BED RESTING. ALERT AND ORIENTED X4. VERBALLY RESPONSIVE. ON 40L HIGH FLOW OXYGEN FIO2 100% AND 15L NON REBREATHER MASK, O2 SAT 88%. IV ACCESS ON LEFT UPPER ARM MIDLINE AND LEFT AC#20 INTACT AND PATENT. HENNING CATH NOTED DRAINING YELLOW URINE VIA GRAVITY. SAFETY MEASURES IMPLEMENTED. BED LOCKED AND IN LOWEST POSITION. CALL LIGHT WITHIN REACH. ALL NEEDS ANTICIPATED.
[2021-09-05] MEDS: ATORVASTATIN 40 MG TABLET PO SCH (21:08)
[2021-09-05] MEDS: INSULIN GLARGINE, 100 UNIT/ML CARTRIDGE SQ SCH (21:10)
[2021-09-06] VITALS (55 sets, daily range): BP systolic 45–182; BP diastolic 31–108
[2021-09-06] MEDS: ENOXAPARIN SODIUM 40 MG/0.4 ML DISP.SYRIN SQ SCH ×2 (02:53→16:29)
[2021-09-06 05:20] LABS: CALCIUM, SERUM 8.8 mg/dL (8.5-10.1); CREATININE 0.9 mg/dL (0.6-1.3); POTASSIUM 3.8 mmol/L (3.5-5.1)
[2021-09-06] MEDS ORDERED: hydrOXYzine 10 MG TABLET PO PRN (05:30)
[2021-09-06] MEDS ORDERED: hydrOXYzine HCL SYRUP 10 MG/5 ML UDC PO PRN (05:30)
--- NOTE | 2021-09-06 05:30 | NUR ---
RN NOTE PATIENT STATED SHE IS FEELING ANXIOUS AND REQUESTING FOR PRN MEDICATIONS. PATIENT ON HFNC 40 L FIO2 100% O2 SAT 85-88%. NOTIFIED RAMY ADAM WITH NEW ORDERS FOR ATARAX 50MG PO Q8H PRN, NOTED AND CARRIED OUT.
[2021-09-06 05:35] LABS: BASOPHILS # (AUTO) 0.1 K/uL (0.0-0.2); BASOPHILS % (AUTO) 1.1 % (0.0-2.0); EOSINOPHILS % (AUTO) 1.8 % (0.0-6.0); HEMATOCRIT 46 % (33-45); HEMOGLOBIN 15.9 g/dL (11.5-14.8); LYMPHOCYTES # (AUTO) 1.7 K/uL (0.8-4.8); LYMPHOCYTES % (AUTO) 13.8 % (20.0-44.0); MEAN CORPUSCULAR HGB CONC 34 g/dl (31.0-36.0); MEAN CORPUSCULAR VOLUME 87 fL (82-100); MONOCYTES # (AUTO) 0.4 K/uL (0.1-1.30); MONOCYTES % (AUTO) 3.3 % (2.0-12.0); NEUTROPHILS # (AUTO) 9.9 K/uL (1.8-8.9); PLATELET COUNT (AUTO) 210 K/uL (150-450); RED BLOOD CELL COUNT(AUTO) 5.31 MIL/uL (4.0-5.2); WHITE BLOOD COUNT (AUTO) 12.4 K/uL (4.3-11.0)
--- NOTE | 2021-09-06 07:25 | NUR ---
RN NOTE PATIENT SITTING ON BED RESTING. ALERT AND ORIENTED X4. CONTINUES ON 40L HIGH FLOW OXYGEN FIO2 100% AND 15L NON REBREATHER MASK, O2 SAT 88%. IV ACCESS ON LEFT UPPER ARM MIDLINE AND LEFT AC#20 INTACT AND PATENT. NOTED WITH X2 SOFT BROWN BM DURING THIS SHIFT. ALL NEEDS ATTENDED PROMPTLY. SAFETY MEASURES IMPLEMENTED. BED LOCKED AND IN LOWEST POSITION. CALL LIGHT WITHIN REACH. ENDORSED TO AM SHIFT.
--- NOTE | 2021-09-06 07:49 | NUR ---
SHELL WORKER OPENING NOTE RECEIVED REPORT FROM PM NURSE.PATIENT SITTING ON THE EDGE OF THE BED . INSTRUCTED ABOUT SAFETY AND FALL PRECAUTIONS PATIENT REFUSED TO GO BACK TO BED AND STAY IN THE BED WITH HEAD END ELEVATED.PATIENT STATED THAT PATIENT FEEL COMFORTABLE IN THIS POSITION.ALERT AND ORIENTED X4. CONTINUES ON 40L HIGH FLOW OXYGEN FIO2 100% AND 15L NON REBREATHER MASK, O2 SAT 87%. IV ACCESS ON LEFT UPPER ARM MIDLINE AND LEFT AC#20 INTACT AND PATENT. SAFETY MEASURES IN PLACE.BED IS LOW AND IN LOCKED POSITION.CALL LIGHT IN REACH.SRX2.WILL CONTINUE TO MONITOR.
[2021-09-06] MEDS: ASPIRIN 81 MG TAB.CHEW PO SCH (08:03)
[2021-09-06] MEDS: ATENOLOL 25 MG TABLET PO SCH (08:03)
[2021-09-06] MEDS: DEXAMETHASONE SOD PHOSPHATE 4 MG/ML VIAL IV SCH (08:03)
[2021-09-06] MEDS: GABAPENTIN 100 MG CAPSULE PO SCH ×2 (08:03→16:29)
[2021-09-06] MEDS: PANTOPRAZOLE 40 MG TABLET.DR PO SCH (08:03)
[2021-09-06] MEDS: BLOOD SUGAR DIAGNOSTIC 1 EACH STRIP IN SCH ×4 (08:04→23:26)
[2021-09-06] MEDS: CLOTRIMAZOLE 1% 15 GM TUBE TP SCH ×2 (08:04→21:49)
[2021-09-06] MEDS: Z GUARD REMEDY 2 OZ OINT TP SCH (08:04)
[2021-09-06] MEDS: ACETAMINOPHEN 325 MG TABLET PO PRN (10:30)
[2021-09-06] MEDS ORDERED: HYDROCODONE/APAP 5/325MG TABLET PO STA (11:44)
[2021-09-06] MEDS: INSULIN REGULAR, HUMAN 100 UNIT/ML 3 ML VIAL SQ PRN ×2 (11:46→19:40)
--- NOTE | 2021-09-06 13:45 | NUR ---
PATIENT O2 SAT IN BETWEEN 78-83%.STAT ABG ORDERED.PATIENT STILL AXOX4.RT MADE AWARE.
[2021-09-06 13:46] LABS: ABG BASE EXCESS 4.2 mmol/L; ABG OXYGEN SATURATION 75.5 % (92.0-98.5); ABG PCO2 63.2 mmHg (35.0-45.0); ABG PH 7.329 (7.350-7.450); ABG PO2 42.7 mmHg (75.0-100.0); AaDO2 607.1 mmHg; COHb 0.9 % (0.5-1.5); MetHb 0.2 % (0.0-1.5); O2Hb 74.7 % (94.0-97.0); SITE, ABG Right Radial; VENT MODE, BG NRB+HFNC 40L 100%
--- NOTE | 2021-09-06 15:15 | NUR ---
RT NOTE RT CALLED TO BEDSIDE DUE TO PATIENT INCREASED WOB AND LOW SATURATIONS. DR. HOWE MADE AWARE. ER WAS CALLED TO BEDSIDE TO INTUBATE. VENT SETTINGS CHARTED. ETT 7.5@23CM LIP LINE. TUBE PATENT AND SECURE. VENT ALARMS ON AND AUDIBLE. BVM AT HOB AND VENT PLUGGED IN RED OUTLET. WILL DRAW ABG IN 1 HOUR. Addendum: 09/06/21 at 1606 by ZONIA MOORE RT COLOR CHANGE ON CO2 MONITOR. EQUAL AND BILATERAL CHEST RISE AND BREATH SOUNDS. WILL CONTINUE TO MONITOR.
--- NOTE | 2021-09-06 15:30 | NUR ---
PATIENT HAD SOB,SATURATING IN 69-75%.STAT ABG DONE RELAYED RESULT TO .RECEIVED ORDER TO INTUBATE.FAMILY MADE AWARE.PATIENT IS AXOX4.SPOKE TO FAMILY AND PATIENT .OK TO INTUBATE.ER DR MADE AWARE.PATIENT GOT INTUBATED AT 1515,ETT 04/09@LIP LEVEL.ALL NEEDS MET.HENNING CATH INSERTED.STARTED ON PROPOFOL@1530.SEE IV SPREAD SHEET.
[2021-09-06] MEDS: NOREPINEPHRINE 8 MG in IV NS 0.9% 242 ML IV PRN (16:20)
[2021-09-06 16:50] LABS: ABG BASE EXCESS 2.2 mmol/L; ABG OXYGEN SATURATION 85.2 % (92.0-98.5); ABG PCO2 49.1 mmHg (35.0-45.0); ABG PH 7.378 (7.350-7.450); ABG PO2 51.1 mmHg (75.0-100.0); AaDO2 612.8 mmHg; COHb 0.8 % (0.5-1.5); MetHb 0.3 % (0.0-1.5); O2Hb 84.3 % (94.0-97.0); SITE, ABG Right Radial; VENT MODE, BG AC 26 500 100% +12
--- NOTE | 2021-09-06 16:58 | NUR ---
MADE AWARE ABOUT POST INTUBATION ABG.GOT NEW ORDER FOR PEEP-14.RT MADE AWARE.FAMILY VISITED PATIENT WITH BOTH SONS AND AND GRAND DAUGHTER,ANSWERED ALL QUESTIONS BY CHARGE NURSE AND ME.BELONGINGS SENT WITH FAMILY PHONE AND METAL TILE SETTER, PURSE WITH CREDIT CARDS,2 BRACELET AND EAR RINGS, SIGNED FOR THE BELONGINGS PER SON.2 BRACELET WITH PATIENT IN BOTH HANDS.RECEIVED CONSENT FOR PICC LINE FROM SON CASSIE, EXPLAINED THE PROCEDURE AND ANSWERED ALL QUESTIONS.STARTED ON PROPOFOL AFTER INTUBATION.
[2021-09-06] MEDS ORDERED: PROPOFOL 100 ML IV PRN (17:00)
[2021-09-06] MEDS: PROPOFOL 10MG/ML 50ML 50 ML IV PRN ×2 (18:02→21:03)
--- NOTE | 2021-09-06 18:30 | NUR ---
INSULIN NOT ADMINISTERED. MADE AWARE THAT PATIENT IS NPO NOT ON ANY IVF.WILL FOLLOW UP IN AM.CHANGE ACCUCHECK O Q6H.
--- NOTE | 2021-09-06 19:38 | NUR ---
ENDORSED TO PM NURSE FOR DARYA.PATIENT IS INTUBATED.TOLERATING VENT SETTINGS WELL .ON LEVO AND DIPRIVAN.ALL NEEDS MET.SAFETY AND ASPIRATION MEASURES IN PLACE.
--- NOTE | 2021-09-06 20:10 | NUR ---
RN NOTE PATIENT SEDATED. ON [facility], TOLERATING SETTINGS WELL. NO S/S OF ACUTE DISTRESS. IV ACCESS ON LEFT UPPER ARM MIDLINE AND LEFT AC#20 INTACT AND PATENT. DIPRIVAN INFUSING @ 30MCG AND LEVO @ 0.06. NO S/S OF INFILTRATION. HENNING CATH NOTED DRAINING YELLOW URINE VIA GRAVITY. SAFETY MEASURES IMPLEMENTED. BED LOCKED AND IN LOWEST POSITION. CALL LIGHT WITHIN REACH. WILL CONTINUE TO MONITOR. Addendum: 09/07/21 at 0053 by GORDON DIAZ RN LEVO @ 0.04, NOT 0.06
[2021-09-06] MEDS ORDERED: ETOMIDATE 2 MG/ML VIAL IV ONE (20:42)
[2021-09-06] MEDS ORDERED: ROCURONIUM BROMIDE 50 MG/5 ML IV ONE (20:42)
[2021-09-06] MEDS: ATORVASTATIN 40 MG TABLET PO SCH (21:51)
[2021-09-06] MEDS: INSULIN GLARGINE, 100 UNIT/ML CARTRIDGE SQ SCH (23:00)
--- NOTE | 2021-09-06 23:30 | NUR ---
RN NOTE PATIENT BS 197 AND IS CURRENTLY NPO AND WITH NO IVF. INFORMED RAMY JAIR WITH ORDERS OK TO HOLD LANTUS AND SLIDING SCALE INSULIN.
[2021-09-07] VITALS (42 sets, daily range): BP systolic 91–130; BP diastolic 58–81
[2021-09-07] MEDS: PROPOFOL 10MG/ML 50ML 50 ML IV PRN ×11 (00:02→23:31)
[2021-09-07] MEDS: ENOXAPARIN SODIUM 40 MG/0.4 ML DISP.SYRIN SQ SCH ×2 (03:12→16:04)
[2021-09-07 04:51] LABS: BASOPHILS # (AUTO) 0.2 K/uL (0.0-0.2); EOSINOPHILS % (AUTO) 1.4 % (0.0-6.0); HEMATOCRIT 42 % (33-45); HEMOGLOBIN 14.2 g/dL (11.5-14.8); LYMPHOCYTES # (AUTO) 3.2 K/uL (0.8-4.8); LYMPHOCYTES % (AUTO) 14.7 % (20.0-44.0); MEAN CORPUSCULAR HGB CONC 33 g/dl (31.0-36.0); MEAN CORPUSCULAR VOLUME 88 fL (82-100); MONOCYTES # (AUTO) 0.8 K/uL (0.1-1.30); MONOCYTES % (AUTO) 3.6 % (2.0-12.0); NEUTROPHILS # (AUTO) 17.2 K/uL (1.8-8.9); NEUTROPHILS % (AUTO) 79.3 % (43.0-81.0); PLATELET COUNT (AUTO) 279 K/uL (150-450); RED BLOOD CELL COUNT(AUTO) 4.85 MIL/uL (4.0-5.2); WHITE BLOOD COUNT (AUTO) 21.7 K/uL (4.3-11.0)
[2021-09-07 05:41] LABS: CREATININE 0.9 mg/dL (0.6-1.3); POTASSIUM 3.8 mmol/L (3.5-5.1)
[2021-09-07] MEDS: BLOOD SUGAR DIAGNOSTIC 1 EACH STRIP IN SCH ×3 (06:39→18:29)
--- NOTE | 2021-09-07 08:00 | NUR ---
RN NOTE PT TEMP 100.1. TYLENOL GIVEN NG TUBE. WILL FOLLOW UP
--- NOTE | 2021-09-07 08:00 | NUR ---
RN NOTE PT OBTUNDED ON A VENT - SETTINGS AT TRACH 04/09, AC 26, TV 460, FI02 90%, PEEP 14. TELE READING SBRADY 50-60'S. R NGT PLACED AND NPO. PHIL PANDYALINE AND GAB PIC FLUSHED AND INTACT. IV FLUIDS ARE LEVO AT 0.02MCG/KG/MIN AND DIPROVAN 30MCG/KG/MIN. PT TRIGLYCERIDES ARE 224, SPOKE TO DR. HOWE. INSTRUCTED TO REDRAW TRIGLYCERIDES 12/22 AM LABS.
[2021-09-07 08:03] LABS: BAND % (MANUAL) 1 % (0.0-5.0); EOSINOPHILS % (MANUAL) 1 % (0-4); LYMPHOCYTES % (MANUAL) 6 % (16-48); MONOCYTES % (MANUAL) 4 % (0-11.0); NEUTROPHILS % (MANUAL) 88 (42-76)
[2021-09-07 08:24] LABS: ABG BASE EXCESS 2.7 mmol/L; ABG OXYGEN SATURATION 91.5 % (92.0-98.5); ABG PCO2 35.2 mmHg (35.0-45.0); ABG PH 7.483 (7.350-7.450); ABG PO2 60.6 mmHg (75.0-100.0); COHb 0.5 % (0.5-1.5); MetHb 0.1 % (0.0-1.5); PEEP,BG 14 cm H2O; SITE, ABG Right Radial; VT, ABG 500 mL
[2021-09-07] MEDS: GABAPENTIN 100 MG CAPSULE PO SCH ×2 (08:31→16:04)
[2021-09-07] MEDS: ASPIRIN 81 MG TAB.CHEW PO SCH (08:31)
[2021-09-07] MEDS: DEXAMETHASONE SOD PHOSPHATE 4 MG/ML VIAL IV SCH (08:31)
[2021-09-07] MEDS: ATENOLOL 25 MG TABLET PO SCH ×2 (08:32→08:55)
[2021-09-07] MEDS: Z GUARD REMEDY 2 OZ OINT TP SCH (08:32)
[2021-09-07] MEDS: PANTOPRAZOLE 40 MG TABLET.DR PO SCH (08:32)
[2021-09-07] MEDS: CLOTRIMAZOLE 1% 15 GM TUBE TP SCH ×2 (08:32→21:16)
[2021-09-07] MEDS: ACETAMINOPHEN 325 MG TABLET PO PRN (09:09)
--- NOTE | 2021-09-07 10:51 | NUR ---
RN NOTE SPOKE WITH DIETARY PT ON TUBE FEEDING 20 CC GLUCERNA 1.2 X 24HRS. TITRATE TO 30CC IF TOLERABLE
[2021-09-07] MEDS ORDERED: LEVOFLOXACIN (250MG) 250 MG TABLET PO SCH (11:00)
--- NOTE | 2021-09-07 11:31 | NUR ---
RN NOTE BS 166. PT NPO WILL HOLD INSULIN
[2021-09-07] MEDS: NOREPINEPHRINE 8 MG in IV NS 0.9% 242 ML IV PRN (15:40)
[2021-09-07] MEDS: INSULIN REGULAR, HUMAN 100 UNIT/ML 3 ML VIAL SQ PRN (18:53)
--- NOTE | 2021-09-07 19:47 | NUR ---
RT NOTE PT RECEIVED INTUBATED WITH 7.5 ET TUBE @ 23 CM. CUFF CHECKED. INCREASED FIO2 TO 100% DUE TO LOW SPO2 @ 86%. SUCTION DONE, SMALL THICK SECRETIONS NOTED. ALARMS ON AND AUDIBLE VENT PLUGGED TO RED OUTLET. AMBU BAG @ BEDSIDE. AMANDA LEYVA NOTIFIED.
--- NOTE | 2021-09-07 20:00 | NUR ---
RN NOTE PATIENT SEDATED. ON [facility] VENT, TOLERATING SETTINGS WELL. NO S/S OF RESPIRATORY DISTRESS. IV ACCESS ON LEFT UPPER ARM MIDLINE AND GAB PICC LINE INTACT AND PATENT. DIPRIVAN INFUSING @ 35MCG. NO S/S OF INFILTRATION. HENNING CATH NOTED DRAINING YELLOW URINE VIA GRAVITY. KEPT COMFORTABLE. SAFETY MEASURES IMPLEMENTED. BED LOCKED AND IN LOWEST POSITION. CALL LIGHT WITHIN REACH. WILL CONTINUE TO MONITOR.
[2021-09-07] MEDS: ATORVASTATIN 40 MG TABLET PO SCH (21:16)
[2021-09-07] MEDS: INSULIN GLARGINE, 100 UNIT/ML CARTRIDGE SQ SCH (23:44)
--- NOTE | 2021-09-07 23:44 | NUR ---
RN NOTE NOTIFIED LACY MARIN PATIENT'S BLOOD SUGAR 123, ON GLUCERNA 1.2 @ 20CC/HR AND WITH NO DEXTROSE IVF. LACY MARIN WITH ORDERS TO HOLD LANTUS 75 UNIT DOSE TONIGHT.
[2021-09-08] VITALS (47 sets, daily range): BP systolic 66–187; BP diastolic 44–110
[2021-09-08] MEDS: INSULIN REGULAR, HUMAN 100 UNIT/ML 3 ML VIAL SQ PRN ×5 (00:31→23:22)
[2021-09-08] MEDS: BLOOD SUGAR DIAGNOSTIC 1 EACH STRIP IN SCH ×5 (00:31→23:23)
[2021-09-08] MEDS: PROPOFOL 10MG/ML 50ML 50 ML IV PRN ×9 (01:41→15:28)
[2021-09-08] MEDS: ENOXAPARIN SODIUM 40 MG/0.4 ML DISP.SYRIN SQ SCH ×2 (03:41→15:54)
--- NOTE | 2021-09-08 07:14 | NUR ---
RN NOTE PATIENT SEDATED. ON [facility] VENT, TOLERATING SETTINGS WELL. NO S/S OF RESPIRATORY DISTRESS. IV ACCESS ON LEFT UPPER ARM MIDLINE AND GAB PICC LINE INTACT AND PATENT. DIPRIVAN INFUSING @ 40MCG. NO S/S OF INFILTRATION. HENNING CATH NOTED DRAINING VERONICA URINE OUTPUT 450CC. HAD X1 BM, KEPT CLEAN AND DRY. SAFETY MEASURES IMPLEMENTED. BED LOCKED AND IN LOWEST POSITION. CALL LIGHT WITHIN REACH. ENDORSED TO AM SHIFT.
--- NOTE | 2021-09-08 07:30 | NUR ---
RN NOTES PT FOUND SEMI FOWLERS DISPLAYING NO S/S OF DISTRESS, FLACC = 0, RIKERS = 3 AND BILATERAL RISE AND FALL OF THE CHEST OBSERVED. L UA MIDLINE AND R UA PICC ARE PATIENT AND INTACT. 60 ML RESIDUAL MEASURED. HENNING CATH BELOW PATIENT DRAINING BY GRAVITY. VSS, RN WILL MONITOR AND TREAT PT THROUGHOUT SHIFT. SAFETY MEASURES IN PLACE, BED LOCKED AND IN LOWEST POSITION, SIDE RAILS UPX2, CALL LIGHT WITHIN REACH, BED ALARM ARMED.
[2021-09-08] MEDS: DEXAMETHASONE SOD PHOSPHATE 4 MG/ML VIAL IV SCH (08:53)
[2021-09-08] MEDS: PANTOPRAZOLE 40 MG VIAL IV SCH (08:53)
[2021-09-08] MEDS: PROSOURCE / PROSTAT (PYXIS) 30 ML UDC NG SCH (08:53)
[2021-09-08] MEDS: ASPIRIN 81 MG TAB.CHEW PO SCH (08:53)
[2021-09-08] MEDS: GABAPENTIN 100 MG CAPSULE PO SCH ×2 (08:53→17:20)
[2021-09-08] MEDS: ATENOLOL 25 MG TABLET PO SCH (08:54)
[2021-09-08] MEDS: Z GUARD REMEDY 2 OZ OINT TP SCH (08:55)
[2021-09-08] MEDS: CLOTRIMAZOLE 1% 15 GM TUBE TP SCH ×2 (08:55→21:11)
[2021-09-08 09:30] LABS: BASOPHILS # (AUTO) 0.1 K/uL (0.0-0.2); BASOPHILS % (AUTO) 0.4 % (0.0-2.0); HEMATOCRIT 39 % (33-45); LYMPHOCYTES # (AUTO) 1.8 K/uL (0.8-4.8); LYMPHOCYTES % (AUTO) 12.3 % (20.0-44.0); MEAN CORPUSCULAR HGB CONC 34 g/dl (31.0-36.0); MEAN CORPUSCULAR VOLUME 89 fL (82-100); MONOCYTES # (AUTO) 0.7 K/uL (0.1-1.30); MONOCYTES % (AUTO) 4.8 % (2.0-12.0); NEUTROPHILS # (AUTO) 11.9 K/uL (1.8-8.9); NEUTROPHILS % (AUTO) 80.5 % (43.0-81.0); PLATELET COUNT (AUTO) 184 K/uL (150-450); RED BLOOD CELL COUNT(AUTO) 4.36 MIL/uL (4.0-5.2); WHITE BLOOD COUNT (AUTO) 14.7 K/uL (4.3-11.0)
[2021-09-08] MEDS: FENTANYL CITRAT IV 2,500 MCG in IV NS 0.9% 200 ML IV PRN (11:23)
[2021-09-08] MEDS: MIDAZOLAM HCL 100 MG in IV NS 0.9% 80 ML IV PRN (11:24)
--- NOTE | 2021-09-08 19:05 | NUR ---
RECEIVED PT ON BED ORALLY INTUBATED WITH ETT 7/23CM LIP VENTS SETTING PER MD FIO2 80% PEEP 14 SPO2 88-90% PT IS SEDATED WITH FENTANYL 200 MCG/HR AND VERSED 6 MCG/HR TELE MONITOR READS SINUS RHYTHM 60-70 HAVE RNARE NGT WITH ONGOING GLUCERNA @ 15ML/HR PLACEMENT WAS CHECKED, RESIDUAL >150 WILL HOLD FEEDING AND RECHECKED AGAIN AFTER AN HOUR, HAVE BILATERAL WRIST SOFT RESTRAINTS CIRCULATION WILL BE MONITOR REGULARLY HENNING ON PLACE WITH YELLOW URINE DRAINING VIA GRAVITY, BED ON LOWEST POSITION AND LOCKED SIDE RAILS UP X2 WILL CONT TO MONITOR
--- NOTE | 2021-09-08 19:42 | NUR ---
REPORTED TO HOSPITALIST KAREN MARIN THAT BLOOD CULTURE PRELIM CAME BACK WITH RESULT OF POSITIVE COCCI IN CLUSTER AND PT IS NOT ON ABX OR ID CONSULT, HOSPITALIST MADE AN ORDER AND WILL CARRIED OUT
--- NOTE | 2021-09-08 19:54 | NUR ---
RN NOTES PT FOUND SEMI FOWLERS DISPLAYING NO S/S OF DISTRESS, FLACC = 0, RIKERS = 3 AND BILATERAL RISE AND FALL OF THE CHEST OBSERVED. L UA MIDLINE AND R UA PICC ARE PATIENT AND INTACT. 80 ML RESIDUAL MEASURED. HENNING CATH BELOW PATIENT DRAINING BY GRAVITY. SBAR AND REPORT GIVEN TO HEAD CONCIERGE RN, ALL QUESTIONS ANSWERED. SAFETY MEASURES IN PLACE, BED LOCKED AND IN LOWEST POSITION, SIDE RAILS UPX2, CALL LIGHT WITHIN REACH, BED ALARM ARMED. PT ENDORSED IN STABLE CONDITION FOR DARYA.
[2021-09-08] MEDS ORDERED: VANCOMYCIN 1.5 GM in IV D5W 500 ML IV ONE (20:30)
[2021-09-08] MEDS ORDERED: VANCOMYCIN 1 GM VIAL ONE (21:11)
--- NOTE | 2021-09-08 21:15 | NUR ---
CLEANING AND MAINTENANCE WORKER MADE ME AWARE THAT PT HAVE AND EPISODE OF PVC AND THE RHYTHM CHANGE FROM SINUS RHYTHM TO VTACH, ALSO PT DESATURATE TO 80%, I STOP THE VANCOMYCIN WHICH IS RECENTLY STARTED AND INFORMED THE HOSPITALIST LACY,WILL CONT TO MONITOR THE PT
--- NOTE | 2021-09-08 21:18 | NUR ---
I CHECKED THE PT AND DID NOT SEE ANY REDNESS OF THE BODY BUT HE HR START STARTED TO DECREASE AND COME BACK TO SINUS RHYTHM AFTER I STOP THE VANCOMYCIN, HOSPITALIST MADE AWARE, WILL CONT TO MONITOR THE PT
[2021-09-08] MEDS ORDERED: NOREPINEPHRINE 8MG/250ML RTU 250 ML IV ONE (21:38)
[2021-09-08] MEDS: PIPERACILLIN /TAZOBACTAM 3.375 G in IV D5W 50 ML IV SCH (21:39)
[2021-09-08] MEDS: ATORVASTATIN 40 MG TABLET PO SCH (21:40)
[2021-09-08] MEDS: NOREPINEPHRINE 8 MG in IV NS 0.9% 242 ML IV PRN (21:41)
--- NOTE | 2021-09-08 21:48 | NUR ---
RT NOTE fio2 increased to 100% due to SPO2 desaturating to 74%. RN aware. Will continue to monitor. Addendum: 09/08/21 at 2148 by ANDREY HENRIQUEZ RT Amended: Links added.
[2021-09-08] MEDS: INSULIN GLARGINE, 100 UNIT/ML CARTRIDGE SQ SCH (22:00)
--- NOTE | 2021-09-08 22:05 | NUR ---
INFORMED HOSPITALIST LACY SCHULER ABOUT THE LANTUS 75 UNITS ORDER AND PT BG OF 223, WITH ORDER TO JUST GIVE 50 UNITS LANTUS X1 NOW AND CHANGE THE SSI TO MODERATE TF Q6H NOTED AND CARRIED OUT
[2021-09-08] MEDS ORDERED: INSULIN GLARGINE, 100 UNIT/ML CARTRIDGE SQ ONE (22:30)
[2021-09-09] VITALS (92 sets, daily range): BP systolic 67–145; BP diastolic 39–85
[2021-09-09] MEDS: IV NS 0.9% 250 ML IV PRN ×2 (01:01→21:00)
[2021-09-09] MEDS: FENTANYL CITRAT IV 2,500 MCG in IV NS 0.9% 200 ML IV PRN ×2 (01:09→14:01)
[2021-09-09] MEDS: ENOXAPARIN SODIUM 40 MG/0.4 ML DISP.SYRIN SQ SCH ×2 (03:25→16:31)
[2021-09-09] MEDS: PIPERACILLIN /TAZOBACTAM 3.375 G in IV D5W 50 ML IV SCH ×4 (03:30→21:19)
[2021-09-09 05:17] LABS: CALCIUM, SERUM 8.4 mg/dL (8.5-10.1); POTASSIUM 3.7 mmol/L (3.5-5.1)
[2021-09-09] MEDS: BLOOD SUGAR DIAGNOSTIC 1 EACH STRIP IN SCH ×4 (05:31→23:17)
[2021-09-09] MEDS: INSULIN REGULAR, HUMAN 100 UNIT/ML 3 ML VIAL SQ PRN ×4 (05:33→23:18)
--- NOTE | 2021-09-09 06:28 | NUR ---
PT ON BED STILL ORALLY INTUBATED WITH VENT SETTING PER MD ORDER FIO2 90% SPO2 86-89% NO SIGN OF RESPIRATORY DISTRESS, BEDSIDE MONITOR READS SINUS KIRSTIE 50'S STILL ON LEVOPHED @ 0.02 MCG/KG/MIN, VERSED @ 6 MCG/HR AND FENTANYL @ 200 MCG/HR INFUSING VIA GAB PIC, NO SIGNIFICANT CHANGES ON CONDITION NOTED, ALL NEEDS MET, STILL ON BILATERAL WRIST SOFT RESTRAINT FOR SELF EXTUBATION PRECAUTION CIRCULATION WAS MONITOR AND CHECKED REGULARLY BED ON LOWEST POSITION AND LOCKED SIDERAILS UP X2 WILL CONT TO
[2021-09-09] MEDS: MIDAZOLAM HCL 100 MG in IV NS 0.9% 80 ML IV PRN (07:01)
--- NOTE | 2021-09-09 07:10 | NUR ---
RN NOTES RECEIVED PT IN BED ORALLY INTUBATED WITH ETT 7/23CM, TOLERATING VENT SETTINGS WELL. SEDATED WITH FENTANYL 200 MCG/HR AND VERSED 6 MCG/HR. TELE MONITOR READS SB AT THIS TIME. R NARE NGT IN PLACE WITH ONGOING GLUCERNA @15ML/HR. PLACEMENT CHECKED. RESIDUAL >80ML. BILATERAL SOFT WRIST RESTRAINTS IN PLACE. CIRCULATION CHECKED PER PROTOCOL. HENNING CATH IN PLACE DRAINING YELLOW COLORED URINE VIA GRAVITY. SAFETY MEASURES IN PLACE. BED LOCKED AND IN LOWEST POSITION WITH SIDE RAILS UP X3. WILL CONTINUE TO MONITOR.
[2021-09-09] MEDS: DEXAMETHASONE SOD PHOSPHATE 4 MG/ML VIAL IV SCH (08:50)
[2021-09-09] MEDS: GABAPENTIN 100 MG CAPSULE PO SCH (08:50)
[2021-09-09] MEDS: PANTOPRAZOLE 40 MG VIAL IV SCH (08:50)
[2021-09-09] MEDS: ASPIRIN 81 MG TAB.CHEW PO SCH (08:50)
[2021-09-09] MEDS: PROSOURCE / PROSTAT (PYXIS) 30 ML UDC NG SCH (08:50)
[2021-09-09] MEDS: ATENOLOL 25 MG TABLET PO SCH (08:51)
[2021-09-09] MEDS: CLOTRIMAZOLE 1% 15 GM TUBE TP SCH ×2 (08:51→20:34)
[2021-09-09] MEDS: Z GUARD REMEDY 2 OZ OINT TP SCH (08:52)
[2021-09-09] MEDS: VANCOMYCIN 1 GM in IV D5W 250 ML IV SCH ×2 (09:00→20:34)
[2021-09-09] MEDS ORDERED: PHARMACY TO CHANGE PO MEDS TO GT/NG XX PRN (10:00)
[2021-09-09] MEDS ORDERED: hydrOXYzine 10 MG TABLET GT PRN (10:09)
[2021-09-09] MEDS ORDERED: DOCUSATE SODIUM LIQ 100 MG/10 ML UDC GT PRN (10:30)
[2021-09-09] MEDS ORDERED: DOCUSATE SODIUM LIQ 100 MG/10 ML UDC PO PRN (10:30)
[2021-09-09] MEDS: LEVOFLOXACIN (250MG) 250 MG TABLET GT SCH (11:10)
[2021-09-09] MEDS: GABAPENTIN 100 MG CAPSULE GT SCH (16:29)
[2021-09-09] MEDS: GLUCERNA 1.2 1,000 ML BOTTLE NG PRN (17:36)
--- NOTE | 2021-09-09 19:12 | NUR ---
RN NOTES NO SIGNIFICANT CHANGES THROUGHOUT THE SHIFT. TOLERATING VENT SETTINGS WELL. NO SOB OR ANY RESPIRATORY DISTRESS NOTED. ALL DUE MEDS GIVEN. NEEDS ATTENDED. KEPT CLEAN AND COMFORTABLE. ENDORSED TO NIGHT RN FOR DARYA.
--- NOTE | 2021-09-09 19:15 | NUR ---
RECEIVED PT ON BED ORALLY INTUBATED WITH ETT 7/23CM LIP VENTS SETTING PER MD FIO2 100% PEEP 14 SPO2 86-90% PT IS SEDATED WITH FENTANYL 200 MCG/HR AND VERSED 6 MCG/HR TELE MONITOR READS SINUS KIRSTIE HAVE RNARE NGT WITH ONGOING GLUCERNA @ 15ML/HR PLACEMENT WAS CHECKED, RESIDUAL >200 WILL HOLD FEEDING AND RECHECKED AGAIN AFTER AN HOUR, HAVE BILATERAL WRIST SOFT RESTRAINTS CIRCULATION WILL BE MONITOR REGULARLY HENNING ON PLACE WITH YELLOW URINE DRAINING VIA GRAVITY, BED ON LOWEST POSITION AND LOCKED SIDE RAILS UP X2 WILL CONT TO MONITOR
--- NOTE | 2021-09-09 20:32 | NUR ---
PER AM SHIFT NURSE DR PIPER ORDER TO HOLD THE VANCOMYCIN DUE TO THE REACTION YESTERDAY, WILL F/U AGAIN TOMORROW
--- NOTE | 2021-09-09 20:37 | NUR ---
RT NOTE LATE ENTRY: FIO2 TITRATED TO 80%. NO DESATURATION NOTED. RN AWARE. WILL CONTINUE TO MONITOR Addendum: 09/09/21 at 2351 by ANDREY HENRIQUEZ RT Amended: Links added.
--- NOTE | 2021-09-09 21:20 | NUR ---
INFORMED FLUX CORE WELDER HOSPITALIST LACY SCHULER ABOUT BLOOD SUGAR OF 191 AND AN ORDER OF LANTUS 75 UNITS SQ QHS, AND INFORMED HER THAT PT RESIDUAL IS >180 ML WITH ORDER TO CHANGE LANTUS TO 50 UNITS QHS NOTED AND CARRIED OUT
[2021-09-09] MEDS: INSULIN GLARGINE, 100 UNIT/ML CARTRIDGE SQ SCH (21:34)
[2021-09-09] MEDS ORDERED: ATORVASTATIN 40 MG TABLET GT SCH (22:00)
[2021-09-09] MEDS: NOREPINEPHRINE 8 MG in IV NS 0.9% 242 ML IV PRN (23:47)
[2021-09-10] VITALS (95 sets, daily range): BP systolic 77–154; BP diastolic 49–87
[2021-09-10] MEDS: ENOXAPARIN SODIUM 40 MG/0.4 ML DISP.SYRIN SQ SCH ×2 (02:08→15:32)
[2021-09-10] MEDS: MIDAZOLAM HCL 100 MG in IV NS 0.9% 80 ML IV PRN (02:09)
[2021-09-10] MEDS: PIPERACILLIN /TAZOBACTAM 3.375 G in IV D5W 50 ML IV SCH ×4 (03:14→21:15)
[2021-09-10] MEDS: FENTANYL CITRAT IV 2,500 MCG in IV NS 0.9% 200 ML IV PRN ×2 (04:31→21:10)
[2021-09-10] MEDS: INSULIN REGULAR, HUMAN 100 UNIT/ML 3 ML VIAL SQ PRN ×4 (05:32→23:15)
[2021-09-10] MEDS: BLOOD SUGAR DIAGNOSTIC 1 EACH STRIP IN SCH ×4 (05:33→23:14)
--- NOTE | 2021-09-10 06:43 | NUR ---
PT ON BED STILL ORALLY INTUBATED WITH VENT SETTING PER MD ORDER FIO2 90% SPO2 86-89% NO SIGN OF RESPIRATORY DISTRESS, BEDSIDE MONITOR READS SINUS KIRSTIE 50'S STILL ON LEVOPHED @ 0.02 MCG/KG/MIN, VERSED @ 5 MCG/HR AND FENTANYL @ 175 MCG/HR INFUSING VIA GAB PIC, NO SIGNIFICANT CHANGES ON CONDITION NOTED, ALL NEEDS MET, STILL ON BILATERAL WRIST SOFT RESTRAINT FOR SELF EXTUBATION PRECAUTION CIRCULATION WAS MONITOR AND CHECKED REGULARLY BED ON LOWEST POSITION AND LOCKED SIDERAILS UP X2 WILL CONT TO MONITOR
--- NOTE | 2021-09-10 07:10 | NUR ---
RN NOTES RECEIVED PT IN BED ORALLY INTUBATED WITH ETT 7/23CM, TOLERATING VENT SETTINGS WELL. SEDATED WITH FENTANYL 175MCG/HR AND VERSED 5MCG/HR. TELE MONITOR READS SB AT THIS TIME. R NARE NGT IN PLACE, PLACEMENT CHECKED. FEEDING ON HOLD. RESIDUAL >150ML. BILATERAL SOFT WRIST RESTRAINTS IN PLACE. CIRCULATION CHECKED PER PROTOCOL. HENNING CATH IN PLACE DRAINING YELLOW COLORED URINE VIA GRAVITY. SAFETY MEASURES IN PLACE. BED LOCKED AND IN LOWEST POSITION WITH SIDE RAILS UP X3. WILL CONTINUE TO MONITOR.
[2021-09-10 08:21] LABS: CALCIUM, SERUM 8.6 mg/dL (8.5-10.1); POTASSIUM 3.8 mmol/L (3.5-5.1)
[2021-09-10] MEDS: DEXAMETHASONE SOD PHOSPHATE 4 MG/ML VIAL IV SCH (08:40)
[2021-09-10] MEDS: GABAPENTIN 100 MG CAPSULE GT SCH ×2 (08:40→16:29)
[2021-09-10] MEDS: ASPIRIN 81 MG TAB.CHEW GT SCH (08:40)
[2021-09-10] MEDS: PROSOURCE / PROSTAT (PYXIS) 30 ML UDC NG SCH (08:40)
[2021-09-10] MEDS: PANTOPRAZOLE 40 MG/PACK PACK GT SCH (08:40)
[2021-09-10] MEDS: Z GUARD REMEDY 2 OZ OINT TP SCH (08:41)
[2021-09-10] MEDS: CLOTRIMAZOLE 1% 15 GM TUBE TP SCH ×2 (08:41→21:15)
[2021-09-10] MEDS ORDERED: ATENOLOL 25 MG TABLET GT SCH (09:00)
[2021-09-10 09:27] LABS: ABG BASE EXCESS 5.4 mmol/L; ABG OXYGEN SATURATION 88.8 % (92.0-98.5); ABG PCO2 42.1 mmHg (35.0-45.0); ABG PH 7.466 (7.350-7.450); AaDO2 469.2 mmHg; COHb 0.6 % (0.5-1.5); MetHb 0.3 % (0.0-1.5); PEEP,BG 14 cm H2O; SITE, ABG Right Radial; VT, ABG 460 mL
[2021-09-10] MEDS: ASCORBIC ACID 500 MG TABLET GT SCH (10:50)
[2021-09-10] MEDS: CHOLECALCIFEROL 1,000 UNIT TABLET (VIT D3) GT SCH (10:50)
[2021-09-10] MEDS: VANCOMYCIN 1 GM in IV D5W 250 ML IV SCH ×2 (15:31→20:18)
--- NOTE | 2021-09-10 19:05 | NUR ---
RECEIVED PT ON BED ORALLY INTUBATED WITH ETT 7/23CM LIP VENTS SETTING PER MD FIO2 80% PEEP 15 SPO2 85% PT IS SEDATED WITH FENTANYL 175 MCG/HR AND VERSED 5 MCG/HR TELE MONITOR READS SINUS KIRSTIE 50's HAVE RNARE NGT WITH ONGOING GLUCERNA @ 15ML/HR PLACEMENT WAS CHECKED, RESIDUAL >200 WILL HOLD FEEDING AND RECHECKED AGAIN AFTER AN HOUR, HAVE BILATERAL WRIST SOFT RESTRAINTS CIRCULATION WILL BE MONITOR REGULARLY HENNING ON PLACE WITH YELLOW URINE DRAINING VIA GRAVITY, BED ON LOWEST POSITION AND LOCKED SIDE RAILS UP X2 WILL CONT TO MONITOR
[2021-09-10] MEDS: INSULIN GLARGINE, 100 UNIT/ML CARTRIDGE SQ SCH (21:35)
[2021-09-11] VITALS (96 sets, daily range): BP systolic 76–155; BP diastolic 43–93
[2021-09-11] MEDS: MIDAZOLAM HCL 100 MG in IV NS 0.9% 80 ML IV PRN (00:03)
[2021-09-11] MEDS: NOREPINEPHRINE 8 MG in IV NS 0.9% 242 ML IV PRN (01:33)
[2021-09-11] MEDS: PIPERACILLIN /TAZOBACTAM 3.375 G in IV D5W 50 ML IV SCH ×4 (03:59→22:46)
[2021-09-11] MEDS: IV NS 0.9% 250 ML IV PRN (05:01)
[2021-09-11] MEDS: BLOOD SUGAR DIAGNOSTIC 1 EACH STRIP IN SCH ×4 (05:28→23:05)
[2021-09-11] MEDS: INSULIN REGULAR, HUMAN 100 UNIT/ML 3 ML VIAL SQ PRN ×3 (05:29→18:25)
--- NOTE | 2021-09-11 06:48 | NUR ---
PT ON BED STILL ORALLY INTUBATED WITH VENT SETTING PER MD ORDER FIO2 100% SPO2 86-89% NO SIGN OF RESPIRATORY DISTRESS, BEDSIDE MONITOR READS SINUS KIRSTIE 40'S STILL ON LEVOPHED @ 0.01 MCG/KG/MIN, VERSED @ 5 MCG/HR AND FENTANYL @ 175 MCG/HR INFUSING VIA GAB PIC, NO SIGNIFICANT CHANGES ON CONDITION NOTED, ALL NEEDS MET, STILL ON BILATERAL WRIST SOFT RESTRAINT FOR SELF EXTUBATION PRECAUTION CIRCULATION WAS MONITOR AND CHECKED REGULARLY BED ON LOWEST POSITION AND LOCKED SIDERAILS UP X2 WILL CONT TO MONITOR
[2021-09-11 07:28] LABS: BASOPHILS % (AUTO) 0.3 % (0.0-2.0); EOSINOPHILS % (AUTO) 1.4 % (0.0-6.0); HEMATOCRIT 40 % (33-45); LYMPHOCYTES # (AUTO) 1.2 K/uL (0.8-4.8); LYMPHOCYTES % (AUTO) 8.8 % (20.0-44.0); MEAN CORPUSCULAR HGB CONC 33 g/dl (31.0-36.0); MEAN CORPUSCULAR VOLUME 90 fL (82-100); MONOCYTES # (AUTO) 0.6 K/uL (0.1-1.30); MONOCYTES % (AUTO) 4.3 % (2.0-12.0); NEUTROPHILS # (AUTO) 11.6 K/uL (1.8-8.9); NEUTROPHILS % (AUTO) 85.2 % (43.0-81.0); PLATELET COUNT (AUTO) 179 K/uL (150-450); RED BLOOD CELL COUNT(AUTO) 4.42 MIL/uL (4.0-5.2); WHITE BLOOD COUNT (AUTO) 13.6 K/uL (4.3-11.0)
--- NOTE | 2021-09-11 07:30 | NUR ---
RN NOTES PT FOUND SEMI FOWLERS DISPLAYING NO S/S OF DISTRESS, FLACC = 0, RIKERS = 3 AND BILATERAL RISE AND FALL OF THE CHEST OBSERVED. BILATERAL SOFT RESTRAINTS APPLIED, PULSES PALPATED AND CAP REFILL < 3 SECONDS BILATERALLY. R UA PICC & L UA ML BOTH PATIENT AND INTACT. RESIDUAL > 150 ML, FEEDING RATE REDUCED. RN WILL MONITOR AND TREAT PT THROUGHOUT SHIFT. SAFETY MEASURES IN PLACE, BED LOCKED AND IN LOWEST POSITION, SIDE RAILS UPX2, CALL LIGHT WITHIN REACH, HOB > 30 DEGREES, BED ALARM ARMED.
[2021-09-11] MEDS: ASCORBIC ACID 500 MG TABLET GT SCH (08:20)
[2021-09-11] MEDS: Z GUARD REMEDY 2 OZ OINT TP SCH (08:20)
[2021-09-11] MEDS: PANTOPRAZOLE 40 MG/PACK PACK GT SCH (08:20)
[2021-09-11] MEDS: ASPIRIN 81 MG TAB.CHEW GT SCH (08:20)
[2021-09-11] MEDS: CLOTRIMAZOLE 1% 15 GM TUBE TP SCH ×2 (08:20→20:38)
[2021-09-11] MEDS: VANCOMYCIN 1 GM in IV D5W 250 ML IV SCH ×2 (08:20→20:37)
[2021-09-11] MEDS: CHOLECALCIFEROL 1,000 UNIT TABLET (VIT D3) GT SCH (08:20)
[2021-09-11] MEDS: PROSOURCE / PROSTAT (PYXIS) 30 ML UDC NG SCH (08:21)
[2021-09-11 08:53] LABS: ABG BASE EXCESS 5.8 mmol/L; ABG OXYGEN SATURATION 94.7 % (92.0-98.5); ABG PH 7.457 (7.350-7.450); ABG PO2 75.1 mmHg (75.0-100.0); AaDO2 593.9 mmHg; COHb 0.8 % (0.5-1.5); MetHb 0.3 % (0.0-1.5); O2Hb 93.7 % (94.0-97.0); SITE, ABG Right Radial; VENT MODE, BG AC 26 440 100% +15
--- NOTE | 2021-09-11 11:00 | NUR ---
RN NOTE UNABLE TO DO SEDATION VACATION, MECHANICAL VENT HAS HIGH FIO2 AND PEEP.
[2021-09-11] MEDS: FENTANYL CITRAT IV 2,500 MCG in IV NS 0.9% 200 ML IV PRN (11:18)
[2021-09-11] MEDS: LEVOFLOXACIN (250MG) 250 MG TABLET GT SCH (11:19)
[2021-09-11] MEDS: METOCLOPRAMIDE HCL 10 MG/2 ML VIAL IV SCH ×3 (12:05→23:30)
[2021-09-11] MEDS: ENOXAPARIN SODIUM 40 MG/0.4 ML DISP.SYRIN SQ SCH (15:32)
--- NOTE | 2021-09-11 19:10 | NUR ---
RN NOTES PT FOUND SEMI FOWLERS DISPLAYING NO S/S OF DISTRESS, FLACC = 0, RIKERS = 3 AND BILATERAL RISE AND FALL OF THE CHEST OBSERVED. BILATERAL SOFT RESTRAINTS APPLIED, PULSES PALPATED AND CAP REFILL < 3 SECONDS BILATERALLY. R UA PICC & L UA ML BOTH PATIENT AND INTACT. RESIDUAL ~ 10 ML. SBAR AND REPORT GIVEN TO FINAL INSPECTOR BALANCE WHEEL RN, ALL QUESTIONS ANSWERED. SAFETY MEASURES IN PLACE, BED LOCKED AND IN LOWEST POSITION, SIDE RAILS UPX2, CALL LIGHT WITHIN REACH, HOB > 30 DEGREES, BED ALARM ARMED. PT ENDORSED IN STABLE CONDITION FOR DARYA
[2021-09-11] MEDS: GLUCERNA 1.2 1,000 ML BOTTLE NG PRN (19:52)
[2021-09-11 20:18] LABS: ALBUMIN 2.7 g/dL (3.4-5.0); BILIRUBIN,TOTAL 0.9 mg/dL (0.2-1.0); CALCIUM, SERUM 8.4 mg/dL (8.5-10.1); CREATININE 0.9 mg/dL (0.6-1.3); MAGNESIUM 2.2 mg/dL (1.8-2.4); PHOSPHORUS 3.3 mg/dL (2.5-4.9); POTASSIUM 3.7 mmol/L (3.5-5.1)
[2021-09-11 20:40] LABS: THYROID STIMULATING HORMONE 1.113 uIU/mL (0.358-3.74)
[2021-09-11] MEDS: INSULIN GLARGINE, 100 UNIT/ML CARTRIDGE SQ SCH (22:00)
--- NOTE | 2021-09-11 23:56 | NUR ---
RN NOTE-LANTUS BLOOD SUGAR IS 135 NOTIFIED COSMETIC SALES GANGA MARIN PT HAS BEEN TRENDING IN MID 100S, SCHEDULED LANTUS TO BE ADMINISTERED IS 50 UNITS. PT TUBE FEEDING WAS ON HOLD DURING THE DAY, DUE TO HIGH RESIDUAL. CURRENT TUBE FEEDING RESIDUAL 30 AND RATE OF 15ML. PER COSMETIC SALES, ORDERS TO GIVE 30 UNITS LANTUS ONE TIME CARRIED OUT, NON ADMIN 50 UNITS
[2021-09-12] VITALS (80 sets, daily range): BP systolic 44–158; BP diastolic 25–121
[2021-09-12] MEDS ORDERED: INSULIN GLARGINE, 100 UNIT/ML CARTRIDGE SQ ONE
[2021-09-12] MEDS: MIDAZOLAM HCL 100 MG in IV NS 0.9% 80 ML IV PRN ×2 (00:15→16:30)
[2021-09-12] MEDS: NOREPINEPHRINE 8 MG in IV NS 0.9% 242 ML IV PRN ×2 (01:46→09:57)
[2021-09-12] MEDS: FENTANYL CITRAT IV 2,500 MCG in IV NS 0.9% 200 ML IV PRN ×2 (04:05→15:14)
[2021-09-12 05:01] LABS: BASOPHILS # (AUTO) 0.1 K/uL (0.0-0.2); BASOPHILS % (AUTO) 0.5 % (0.0-2.0); HEMATOCRIT 43 % (33-45); HEMOGLOBIN 14.2 g/dL (11.5-14.8); LYMPHOCYTES # (AUTO) 2.9 K/uL (0.8-4.8); LYMPHOCYTES % (AUTO) 11.8 % (20.0-44.0); MEAN CORPUSCULAR HGB CONC 33 g/dl (31.0-36.0); MEAN CORPUSCULAR VOLUME 90 fL (82-100); MONOCYTES # (AUTO) 1.6 K/uL (0.1-1.30); MONOCYTES % (AUTO) 6.7 % (2.0-12.0); NEUTROPHILS # (AUTO) 18.9 K/uL (1.8-8.9); PLATELET COUNT (AUTO) 244 K/uL (150-450); RED BLOOD CELL COUNT(AUTO) 4.77 MIL/uL (4.0-5.2); WHITE BLOOD COUNT (AUTO) 24.6 K/uL (4.3-11.0)
[2021-09-12] MEDS: PIPERACILLIN /TAZOBACTAM 3.375 G in IV D5W 50 ML IV SCH ×4 (05:05→21:31)
--- NOTE | 2021-09-12 05:10 | NUR ---
RN NOTE- O2 SAT O2 SATURATION NOTED TO DROP TO LOW TO MID 70S. PT HAS LITTLE TO NONE SECRETIONS. NOTIFIED MANAGER OF PROGRAM TANIA, WITH PT CURRENT VENT SETTINGS. ORDERS FOR 6MG DECADRON IVP BID STARTING NOW CARRIED OUT.
[2021-09-12] MEDS: METOCLOPRAMIDE HCL 10 MG/2 ML VIAL IV SCH ×4 (05:58→23:52)
[2021-09-12] MEDS: DEXAMETHASONE SOD PHOSPHATE 4 MG/ML VIAL IV SCH ×3 (05:59→17:04)
[2021-09-12] MEDS: BLOOD SUGAR DIAGNOSTIC 1 EACH STRIP IN SCH ×4 (05:59→23:40)
[2021-09-12] MEDS: INSULIN REGULAR, HUMAN 100 UNIT/ML 3 ML VIAL SQ PRN ×5 (06:20→23:50)
--- NOTE | 2021-09-12 07:20 | NUR ---
RN NOTE PT REMAINS ON SPO2 70S, BREATHING TOLERATED ON CURRENT VENT SETTINGS. LEVO TO KEEP SBP >90. HR INCREASED LEVO TITRATED UP. PT REMAINS ON FENTANYL AND VERSED FOR PAIN COMFORT AND SEDATION. PT HAS NGT FEEDING RUNNING TOLERATED. AFEBRILE. ALL SAFETY MEASURES OBSERVED. LITTLE TO NONE URINE OUTPUT. REPORT GIVEN TO DAY SHIFT NURSE FOR CONTINUATION OF CARE
[2021-09-12] MEDS: CHOLECALCIFEROL 1,000 UNIT TABLET (VIT D3) GT SCH (08:42)
[2021-09-12] MEDS: PANTOPRAZOLE 40 MG/PACK PACK GT SCH (08:42)
[2021-09-12] MEDS: VANCOMYCIN 1 GM in IV D5W 250 ML IV SCH (08:43)
[2021-09-12] MEDS: ASPIRIN 81 MG TAB.CHEW GT SCH (08:43)
[2021-09-12] MEDS: ASCORBIC ACID 500 MG TABLET GT SCH (08:43)
[2021-09-12] MEDS: Z GUARD REMEDY 2 OZ OINT TP SCH (08:44)
[2021-09-12] MEDS: CLOTRIMAZOLE 1% 15 GM TUBE TP SCH ×2 (08:44→20:55)
[2021-09-12] MEDS: PROSOURCE / PROSTAT (PYXIS) 30 ML UDC NG SCH (08:44)
[2021-09-12 09:04] LABS: ABG BASE EXCESS -4.4 mmol/L; ABG OXYGEN SATURATION 74.6 % (92.0-98.5); ABG PCO2 57.3 mmHg (35.0-45.0); ABG PO2 45.5 mmHg (75.0-100.0); AaDO2 610.2 mmHg; COHb 0.9 % (0.5-1.5); MetHb 0.2 % (0.0-1.5); O2Hb 73.8 % (94.0-97.0); SITE, ABG Right Radial
[2021-09-12] MEDS: ACETAMINOPHEN 650 MG/20.3 ML UDC GT PRN (09:48)
[2021-09-12] MEDS: HYDROCORTISONE SOD SUCCINATE 100 MG/2 ML VIAL IV SCH ×3 (09:48→20:55)
[2021-09-12 10:01] LABS: THYROID STIMULATING HORMONE 1.31 uIU/mL (0.358-3.74)
[2021-09-12 10:31] LABS: ALBUMIN 2.2 g/dL (3.4-5.0); BILIRUBIN,TOTAL 0.8 mg/dL (0.2-1.0); CALCIUM, SERUM 6.8 mg/dL (8.5-10.1); CREATININE 1.5 mg/dL (0.6-1.3); MAGNESIUM 1.8 mg/dL (1.8-2.4); PHOSPHORUS 4.3 mg/dL (2.5-4.9); POTASSIUM 3.3 mmol/L (3.5-5.1); TOTAL PROTEIN, SERUM 5.1 g/dL (6.4-8.2)
--- NOTE | 2021-09-12 10:45 | NUR ---
CRITICAL LAB LAB CALLED WITH CRITICAL VALUE, GLUCOSE IS 429. RN ACKNOWLEDGED AND WILL REPORT FINDINGS TO MD IMMEDIATELY.
[2021-09-12] MEDS ORDERED: NOREPINEPHRINE 32 MG in IV NS 0.9% 250 ML IV PRN (11:00)
--- NOTE | 2021-09-12 11:10 | NUR ---
RT PER DR HOWE PEEP INCREASED TO 20. PATIENT IN CRITICAL CONDITION. Addendum: 09/12/21 at 1111 by JENNIFER MORENO RT Amended: Links added.
[2021-09-12] MEDS ORDERED: NOREPINEPHRINE 32 MG in IV NS 0.9% 218 ML IV PRN (12:00)
[2021-09-12] MEDS: NOREPINEPHRINE 32 MG in IV NS 0.9% 218 ML IV PRN (12:08)
--- NOTE | 2021-09-12 13:00 | NUR ---
RN NOTE DARYA GIVEN FROM PRIMARY RN TO AMANDA ADAMS. SBAR AND REPORT GIVEN.
--- NOTE | 2021-09-12 13:02 | NUR ---
RN NOTE RECEIVED REPORT FROM AMANDA CHERRY FOR DARYA.
[2021-09-12] MEDS: IV LR 1000 ML 1,000 ML IV PRN (14:44)
[2021-09-12] MEDS: ENOXAPARIN SODIUM 40 MG/0.4 ML DISP.SYRIN SQ SCH (15:49)
--- NOTE | 2021-09-12 18:46 | NUR ---
RN NOTE PATIENT IS IN BED WITH HOB AT SEMI FOWLERS POSITION. PATIENT IS ON VENT. PATIENT IS SEDATED. GAB PICC AND PHIL MIDLINE ARE PATENT AND INTACT. BED IS LOCKED IN THE LOWEST POSITION, 3 GUARD RAILS RAISED, AND ALL HOSPITAL SAFETY PRECAUTIONS ARE IN PLACE. WILL ENDORSE TO APPLICATIONS DEVELOPER RN.
--- NOTE | 2021-09-12 19:15 | NUR ---
RECEIVED PT ON BED ORALLY INTUBATED WITH ETT 7/23CM LIP VENTS SETTING PER MD FIO2 100% PEEP 20 SPO2 92-93% PT IS SEDATED WITH FENTANYL 175 MCG/HR AND VERSED 6 MCG/HR TELE MONITOR READS SINUS TACHY HAVE RNARE NGT PLACEMENT WAS CHECKED, 80 ML OF BLACK COLORED RESIDUAL NOTED CHARGE NURSE MADE AWARE,HAVE BILATERAL WRIST SOFT RESTRAINTS CIRCULATION WILL BE MONITOR REGULARLY HENNING ON PLACE NO OUTPUT PER AM SHIFT, I FLUSHED THE HENNING CATHETER NOW WITH YELLOW URINE DRAINING VIA GRAVITY ON LOWEST POSITION AND LOCKED SIDE RAILS UP X2 WILL CONT TO MONITOR
[2021-09-12] MEDS: INSULIN GLARGINE, 100 UNIT/ML CARTRIDGE SQ SCH (21:33)
[2021-09-13] VITALS (94 sets, daily range): BP systolic 45–190; BP diastolic 30–126
--- NOTE | 2021-09-13 00:21 | NUR ---
REPORTED TO HOSPITALIST LACY MARIN BIOINFORMATICS SPECIALIST THAT PT BLOOD SUGAR IS 465 AND THE RESIDUAL IS BLACK IN COLOR WITH ORDER TO DC ASPIRIN AND LOVENOX AND ORDER PROTONIX 40 MG IV Q12H AND GIVE LANTUS 20 UNIT X1 NOW AND HOLD GTUBE FEEDING AND PUT THE NGTUBE TO LIS NOTED AND CARRIED OUT
[2021-09-13] MEDS ORDERED: INSULIN GLARGINE, 100 UNIT/ML CARTRIDGE SQ ONE (00:30)
[2021-09-13] MEDS: NOREPINEPHRINE 32 MG in IV NS 0.9% 218 ML IV PRN ×2 (01:33→18:00)
[2021-09-13] MEDS: IV LR 1000 ML 1,000 ML IV PRN ×2 (02:05→23:30)
[2021-09-13] MEDS ORDERED: VANCOMYCIN 1 GM in IV D5W 250 ML IV SCH (03:00)
[2021-09-13] MEDS: FENTANYL CITRAT IV 2,500 MCG in IV NS 0.9% 200 ML IV PRN ×2 (03:33→14:36)
[2021-09-13] MEDS: PIPERACILLIN /TAZOBACTAM 3.375 G in IV D5W 50 ML IV SCH ×4 (04:25→22:30)
[2021-09-13] MEDS: HYDROCORTISONE SOD SUCCINATE 100 MG/2 ML VIAL IV SCH ×3 (04:54→21:40)
[2021-09-13] MEDS: METOCLOPRAMIDE HCL 10 MG/2 ML VIAL IV SCH ×4 (05:03→23:30)
--- NOTE | 2021-09-13 05:15 | NUR ---
REPORTED TO HOSPITALIST ONCRAE MARIN SOLAR POOL HEATING INSTALLER THAT PT BLOOD SUGAR IS 482 AND GAVE 15 UNITS REGULAR INSULIN PER SLIDING SCALE WITH ORDER TO REPEAT ACCUCHECK AFTER 30 MINS NOTED AND CARRIED OUT
[2021-09-13] MEDS: BLOOD SUGAR DIAGNOSTIC 1 EACH STRIP IN SCH ×6 (05:26→22:58)
[2021-09-13] MEDS: INSULIN REGULAR, HUMAN 100 UNIT/ML 3 ML VIAL SQ PRN ×2 (05:29→09:33)
[2021-09-13] MEDS ORDERED: INSULIN REGULAR, HUMAN 100 UNIT/ML 3 ML VIAL SQ ONE (06:00)
--- NOTE | 2021-09-13 06:02 | NUR ---
REPEAT BLOOD SUGAR IS 462 REPORTED TO HOSPITALIST KAREN MARIN PROCUREMENT ACCOUNTANT WITH ORDER TO INCREASE LANTUS TO 75 UNITS QHS AND GIVE 15 UNITS REGULAR INSULIN X1 NOW NOTED AND CARRIED OUT
--- NOTE | 2021-09-13 07:30 | NUR ---
RN NOTES PT FOUND SEMI FOWLERS DISPLAYING NO S/S OF DISTRESS, FLACC = 0, RIKERS = 3 AND BILATERAL RISE AND FALL OF THE CHEST OBSERVED. BILATERAL SOFT RESTRAINTS APPLIED, PULSES PALPATED AND CAP REFILL < 3 SECONDS BILATERALLY. R UA PICC & L UA ML BOTH PATIENT AND INTACT. INTERMIT SUCTION OF STOMACH ONGOING. RN WILL MONITOR AND TREAT PT THROUGHOUT SHIFT. SAFETY MEASURES IN PLACE, BED LOCKED AND IN LOWEST POSITION, SIDE RAILS UPX2, CALL LIGHT WITHIN REACH, HOB > 30 DEGREES, BED ALARM ARMED.
[2021-09-13 07:56] LABS: CALCIUM, SERUM 8.2 mg/dL (8.5-10.1); POTASSIUM 4.6 mmol/L (3.5-5.1)
--- NOTE | 2021-09-13 08:13 | NUR ---
CRITICAL LAB VALUE LAB CALLED, GAVE CRITICAL VALUE: GLUCOSE IS 511. RN WILL INFORM
[2021-09-13 08:37] LABS: ABG BASE EXCESS -6.8 mmol/L; ABG OXYGEN SATURATION 94.1 % (92.0-98.5); ABG PH 7.256 (7.350-7.450); ABG PO2 75.8 mmHg (75.0-100.0); AaDO2 445.3 mmHg; COHb 0.6 % (0.5-1.5); MetHb 0.4 % (0.0-1.5); O2Hb 93.2 % (94.0-97.0); PEEP,BG 20 cm H2O; SITE, ABG Right Radial; VT, ABG 440 mL
--- NOTE | 2021-09-13 08:41 | NUR ---
vent changes below per dr. munoz: fio2 75% peep +18 Addendum: 09/13/21 at 0842 by CHATO JOYA RT Amended: Links added.
[2021-09-13] MEDS: MIDAZOLAM HCL 100 MG in IV NS 0.9% 80 ML IV PRN (09:31)
[2021-09-13] MEDS: CLOTRIMAZOLE 1% 15 GM TUBE TP SCH ×2 (09:33→21:40)
[2021-09-13] MEDS: PROSOURCE / PROSTAT (PYXIS) 30 ML UDC NG SCH (09:33)
[2021-09-13] MEDS: Z GUARD REMEDY 2 OZ OINT TP SCH (09:33)
[2021-09-13] MEDS: ASCORBIC ACID 500 MG TABLET GT SCH (09:33)
[2021-09-13] MEDS: DEXAMETHASONE SOD PHOSPHATE 4 MG/ML VIAL IV SCH ×2 (09:33→16:03)
[2021-09-13] MEDS: PANTOPRAZOLE 40 MG VIAL IV SCH ×2 (09:33→21:40)
[2021-09-13] MEDS: CHOLECALCIFEROL 1,000 UNIT TABLET (VIT D3) GT SCH (09:33)
[2021-09-13] MEDS: INSULIN REGULAR, HUMAN 100 UNIT in IV NS 0.9% 99 ML IV PRN ×6 (11:00→17:04)
[2021-09-13] MEDS: LEVOFLOXACIN (250MG) 250 MG TABLET GT SCH (11:56)
--- NOTE | 2021-09-13 13:44 | NUR ---
fio2 increased from 75 to 80% due to 83% saturation. Addendum: 09/13/21 at 1345 by CHATO JOYA RT Amended: Links added.
[2021-09-13 17:33] LABS: CALCIUM, SERUM 7.8 mg/dL (8.5-10.1); CREATININE 3.1 mg/dL (0.6-1.3); POTASSIUM 3.9 mmol/L (3.5-5.1)
[2021-09-13] MEDS: ACETAMINOPHEN 650 MG/20.3 ML UDC GT PRN (18:03)
--- NOTE | 2021-09-13 19:30 | NUR ---
RN NOTES PT FOUND SEMI FOWLERS DISPLAYING NO S/S OF DISTRESS, FLACC = 0, RIKERS = 3 AND BILATERAL RISE AND FALL OF THE CHEST OBSERVED. BILATERAL SOFT RESTRAINTS APPLIED, PULSES PALPATED AND CAP REFILL < 3 SECONDS BILATERALLY. R UA PICC & L UA ML BOTH PATIENT AND INTACT. INTERMIT SUCTION OF STOMACH ONGOING. SBAR AND REPORT GIVEN TO MANAGER TERMINAL RN, ALL QUESTIONS ANSWERED. SAFETY MEASURES IN PLACE, BED LOCKED AND IN LOWEST POSITION, SIDE RAILS UPX2, CALL LIGHT WITHIN REACH, HOB > 30 DEGREES, BED ALARM ARMED. PT ENDORSED IN STABLE CONDITION FOR DARYA
--- NOTE | 2021-09-13 20:00 | NUR ---
SYSTEMS ADMINISTRATION ANALYST FEET COLD TO TOUCH W/DISCOLORATION NOTED
[2021-09-13] MEDS: INSULIN GLARGINE, 100 UNIT/ML CARTRIDGE SQ SCH (22:31)
[2021-09-14] VITALS (99 sets, daily range): BP systolic 51–193; BP diastolic 30–112
[2021-09-14] MEDS: MIDAZOLAM HCL 100 MG in IV NS 0.9% 80 ML IV PRN ×2 (03:21→21:51)
[2021-09-14] MEDS: FENTANYL CITRAT IV 2,500 MCG in IV NS 0.9% 200 ML IV PRN ×2 (03:51→17:11)
[2021-09-14] MEDS: HYDROCORTISONE SOD SUCCINATE 100 MG/2 ML VIAL IV SCH ×3 (04:30→20:30)
[2021-09-14] MEDS: PIPERACILLIN /TAZOBACTAM 3.375 G in IV D5W 50 ML IV SCH ×4 (04:30→21:05)
[2021-09-14 05:03] LABS: CREATININE 2.8 mg/dL (0.6-1.3)
[2021-09-14] MEDS: BLOOD SUGAR DIAGNOSTIC 1 EACH STRIP IN SCH ×4 (06:03→23:42)
[2021-09-14] MEDS: METOCLOPRAMIDE HCL 10 MG/2 ML VIAL IV SCH ×4 (06:03→23:45)
--- NOTE | 2021-09-14 07:35 | NUR ---
ICU/RN PT IS INTUBATED ON THE VENT AC MODE,FIO2-60%,PEEP-18.SAT O2-92%.SEDATED WITH VERSED AND FENTANYL.ON LEVOPHED DRIP. HAS RIGHT PICC LINE AND LEFT MIDLINE.IV FLUIDS.ON INSULIN DRIP.PT HAS COVID ,PNA.RIGHT NG TUBE CONNECTED TO LOW INTERMEDIATE SUCTION WITH GREEN COLOR OUTPUT.F/C IN PLACE WITH MINIMAL AMOUNT OF URINE OUTPUT.RIGHT RADIAL A-LINE.SUCTION PROVIDED.REPOSITION FOR COMFORT.LABS REVIEW. AWARE.ABG ORDERED.CONTINUE MONITORING.
[2021-09-14] MEDS: PANTOPRAZOLE 40 MG VIAL IV SCH ×2 (08:48→20:30)
[2021-09-14] MEDS: CHOLECALCIFEROL 1,000 UNIT TABLET (VIT D3) GT SCH (08:48)
[2021-09-14] MEDS: DEXAMETHASONE SOD PHOSPHATE 4 MG/ML VIAL IV SCH ×2 (08:48→16:42)
[2021-09-14] MEDS: ASCORBIC ACID 500 MG TABLET GT SCH (08:49)
[2021-09-14] MEDS: PROSOURCE / PROSTAT (PYXIS) 30 ML UDC NG SCH (08:50)
[2021-09-14] MEDS: CLOTRIMAZOLE 1% 15 GM TUBE TP SCH ×2 (08:51→20:30)
[2021-09-14] MEDS: Z GUARD REMEDY 2 OZ OINT TP SCH (08:51)
--- NOTE | 2021-09-14 09:00 | NUR ---
ICU/RN DUE MEDS ARE GIVEN ORDERED.BS-139. NOTIFIED.INSULIN DRIP STOP.
--- NOTE | 2021-09-14 09:30 | NUR ---
ICU/RN UNABLE PROVIDE SEDATION VACATION.PT IS UNSTABLE.ON HIGH FIO2-60%,AND PEEP-18.ON LEVOPHED DRIP.REACTIVE ON PAIN STIMULATION.GENERALIZED EDEMA PRESENT.
[2021-09-14 09:35] LABS: ABG BASE EXCESS -3.2 mmol/L; ABG OXYGEN SATURATION 92.2 % (92.0-98.5); ABG PCO2 37.6 mmHg (35.0-45.0); ABG PH 7.376 (7.350-7.450); ABG PO2 64.9 mmHg (75.0-100.0); AaDO2 321.5 mmHg; COHb 0.2 % (0.5-1.5); MetHb 0.1 % (0.0-1.5); O2Hb 91.9 % (94.0-97.0); PEEP,BG 18 cm H2O; SITE, ABG A-Line; VT, ABG 440 mL
[2021-09-14] MEDS: INSULIN REGULAR, HUMAN 100 UNIT/ML 3 ML VIAL SQ PRN ×3 (12:55→23:43)
[2021-09-14] MEDS ORDERED: FUROSEMIDE 20 MG/2 ML VIAL IV ONE (16:00)
[2021-09-14] MEDS: IV NS 0.9% 250 ML IV PRN (16:16)
[2021-09-14] MEDS: VANCOMYCIN 1 GM in IV D5W 250 ML IV SCH (16:28)
--- NOTE | 2021-09-14 18:05 | NUR ---
ICU/RN DUE MEDS ARE GIVEN ORDERED.PM CARE PROVIDED.PT HAS 3 BM DURING THE DAY.LASIX 80 MG IV GIVEN ORDERED.F/C 100 ML OUTPUT ONLY MD AWARE. ON LEVOPHED DRIP.CONTINUE MONITORING
[2021-09-14] MEDS: NOREPINEPHRINE 32 MG in IV NS 0.9% 218 ML IV PRN (19:08)
--- NOTE | 2021-09-14 19:20 | NUR ---
RECEIVED PT ON BED ORALLY INTUBATED WITH ETT 7/23CM LIP VENTS SETTING PER MD FIO2 60% PEEP 16 SPO2 89-91% PT IS SEDATED WITH FENTANYL 200 MCG/HR AND VERSED 6 MCG/HR ON LEVOPHED @ 0.02 MCG/KG/MIN TO TITRATE PER PROTOCOL TELE MONITOR READS SINUS RHYTHM 60'S HAVE RNARE NGT CONNECTED TO LOW INTERMITTENT SUCTION OF BLACK COLORED RESIDUAL HENNING ON PLACE 100 ML OUTPUT PER AM SHIFT BED ON LOWEST POSITION AND LOCKED SIDE RAILS UP X2 WILL CONT TO MONITOR
[2021-09-14] MEDS: INSULIN GLARGINE, 100 UNIT/ML CARTRIDGE SQ SCH (21:10)
[2021-09-15] VITALS (96 sets, daily range): BP systolic 80–156; BP diastolic 47–85
[2021-09-15] MEDS: PIPERACILLIN /TAZOBACTAM 3.375 G in IV D5W 50 ML IV SCH ×4 (04:04→21:02)
[2021-09-15] MEDS: HYDROCORTISONE SOD SUCCINATE 100 MG/2 ML VIAL IV SCH ×3 (04:53→20:35)
[2021-09-15 05:18] LABS: BASOPHILS % (AUTO) 0.3 % (0.0-2.0); EOSINOPHILS % (AUTO) 0.1 % (0.0-6.0); HEMATOCRIT 35 % (33-45); HEMOGLOBIN 11.6 g/dL (11.5-14.8); LYMPHOCYTES % (AUTO) 5.3 % (20.0-44.0); MEAN CORPUSCULAR HGB CONC 33 g/dl (31.0-36.0); MEAN CORPUSCULAR VOLUME 89 fL (82-100); MONOCYTES # (AUTO) 0.7 K/uL (0.1-1.30); NEUTROPHILS # (AUTO) 16.4 K/uL (1.8-8.9); NEUTROPHILS % (AUTO) 90.3 % (43.0-81.0); PLATELET COUNT (AUTO) 111 K/uL (150-450); RED BLOOD CELL COUNT(AUTO) 3.95 MIL/uL (4.0-5.2); WHITE BLOOD COUNT (AUTO) 18.2 K/uL (4.3-11.0)
[2021-09-15] MEDS: METOCLOPRAMIDE HCL 10 MG/2 ML VIAL IV SCH ×4 (05:25→23:20)
[2021-09-15] MEDS: BLOOD SUGAR DIAGNOSTIC 1 EACH STRIP IN SCH ×4 (05:25→23:44)
[2021-09-15] MEDS: INSULIN REGULAR, HUMAN 100 UNIT/ML 3 ML VIAL SQ PRN ×4 (05:26→23:45)
[2021-09-15 05:42] LABS: ALANINE AMINOTRANSFERASE 37 U/L (12-78); ALBUMIN 2.3 g/dL (3.4-5.0); ALKALINE PHOSPHATASE 69 U/L (46-116); ASPARTATE AMINOTRANSFERASE 23 U/L (15-37); BILIRUBIN,TOTAL 1.1 mg/dL (0.2-1.0); CALCIUM, SERUM 7.9 mg/dL (8.5-10.1); CARBON DIOXIDE 26 mmol/L (21-32); CHLORIDE 110 mmol/L (98-107); CREATININE 2.5 mg/dL (0.6-1.3); GLUCOSE 188 mg/dL (74-106); MAGNESIUM 2.5 mg/dL (1.8-2.4); PHOSPHORUS 3.8 mg/dL (2.5-4.9); POTASSIUM 3.4 mmol/L (3.5-5.1); SODIUM SERUM 147 mmol/L (136-145); TOTAL PROTEIN, SERUM 4.8 g/dL (6.4-8.2); UREA NITROGEN, BLOOD 70 mg/dL (7-18)
--- NOTE | 2021-09-15 06:57 | NUR ---
PT ON BED STILL ORALLY INTUBATED WITH VENT SETTING PER MD ORDER FIO2 60% PEEP 18 SPO2 89-95% NO SIGN OF RESPIRATORY DISTRESS, BEDSIDE MONITOR READS SINUS KIRSTIE 50'S STILL ON LEVOPHED @ 0.01 MCG/KG/MIN, VERSED @ 6 MCG/HR AND FENTANYL @ 200 MCG/HR INFUSING VIA GAB PIC, NO SIGNIFICANT CHANGES ON CONDITION NOTED, ALL NEEDS MET, BED ON LOWEST POSITION AND LOCKED SIDERAILS UP X2 WILL CONT TO MONITOR
[2021-09-15] MEDS: FENTANYL CITRAT IV 2,500 MCG in IV NS 0.9% 200 ML IV PRN ×2 (07:03→19:39)
--- NOTE | 2021-09-15 07:10 | NUR ---
RN NOTES RECEIVED PT IN BED ORALLY INTUBATED WITH ETT 7/23CM, TOLERATING VENT SETTINGS WELL. SEDATED WITH FENTANYL 200MCG/HR AND VERSED 6MCG/HR. LEVO @0.01MCG/KG/MIN. TELE MONITOR READS SB AT THIS TIME. R NARE NGT IN PLACE, PLACEMENT CHECKED. CONNECTED TO LIS. HENNING CATH IN PLACE. SAFETY MEASURES IN PLACE. BED LOCKED AND IN LOWEST POSITION WITH SIDE RAILS UP X3. WILL CONTINUE TO MONITOR.
[2021-09-15] MEDS: CHOLECALCIFEROL 1,000 UNIT TABLET (VIT D3) GT SCH (08:30)
[2021-09-15] MEDS: ASCORBIC ACID 500 MG TABLET GT SCH (08:30)
[2021-09-15] MEDS: PANTOPRAZOLE 40 MG VIAL IV SCH ×2 (08:30→20:35)
[2021-09-15] MEDS: DEXAMETHASONE SOD PHOSPHATE 4 MG/ML VIAL IV SCH ×2 (08:30→17:06)
[2021-09-15] MEDS: CLOTRIMAZOLE 1% 15 GM TUBE TP SCH ×2 (08:31→20:35)
[2021-09-15] MEDS: PROSOURCE / PROSTAT (PYXIS) 30 ML UDC NG SCH (08:31)
[2021-09-15] MEDS: Z GUARD REMEDY 2 OZ OINT TP SCH (08:31)
[2021-09-15 10:55] LABS: ABG BASE EXCESS 1.1 mmol/L; ABG OXYGEN SATURATION 92.3 % (92.0-98.5); ABG PCO2 36.8 mmHg (35.0-45.0); ABG PH 7.448 (7.350-7.450); ABG PO2 66.1 mmHg (75.0-100.0); AaDO2 321.2 mmHg; COHb 0.4 % (0.5-1.5); MetHb 0.2 % (0.0-1.5); O2Hb 91.7 % (94.0-97.0); SITE, ABG Right Radial; VENT MODE, BG AC 26 440 60% +16
[2021-09-15] MEDS ORDERED: POTASSIUM CL. PREMIX PERIPHER. 50 ML IV SCH (11:00)
[2021-09-15] MEDS: LEVOFLOXACIN (250MG) 250 MG TABLET GT SCH (11:26)
[2021-09-15] MEDS: IV NS 0.9% 250 ML IV PRN (11:34)
[2021-09-15] MEDS: MIDAZOLAM HCL 100 MG in IV NS 0.9% 80 ML IV PRN (11:44)
[2021-09-15 17:19] LABS: CALCIUM, SERUM 7.9 mg/dL (8.5-10.1); CREATININE 2.4 mg/dL (0.6-1.3); POTASSIUM 3.3 mmol/L (3.5-5.1)
--- NOTE | 2021-09-15 20:48 | NUR ---
RECEIVED PT ON BED ORALLY INTUBATED WITH ETT 7/23CM LIP VENTS SETTING PER MD FIO2 60% PEEP 16 SPO2 89-91% PT IS SEDATED WITH FENTANYL 200 MCG/HR AND VERSED 6 MCG/HR TELE MONITOR READS SINUS ashley 40'S HAVE RNARE NGT CONNECTED TO LOW INTERMITTENT SUCTION OF GREENISH COLORED RESIDUAL, HENNING ON PLACE 30 ML OUTPUT PER AM SHIFT BED ON LOWEST POSITION AND LOCKED SIDE RAILS UP X2 WILL CONT TO MONITOR
--- NOTE | 2021-09-15 21:05 | NUR ---
REPORTED TO HOSPITALIST KAREN KIRBY JEWELRY MANAGER THAT THE REPEAT K+ IS 3.3 WITH ORDER FOR KCL 20 MEQ IV X1 NOW NOTED AND CARRIED OUT
[2021-09-15 21:28] LABS: CREATINE KINASE, TOTAL 360 U/L (26-192); FERRITIN 602 ng/mL (8-388)
[2021-09-15] MEDS: INSULIN GLARGINE, 100 UNIT/ML CARTRIDGE SQ SCH (21:28)
[2021-09-15 21:30] LABS: C-REACTIVE PROTEIN < 0.2 mg/dL (0.0-0.9)
[2021-09-15] MEDS: POTASSIUM CL. PREMIX PERIPHER. 50 ML IV SCH ×2 (21:36→22:42)
[2021-09-16] VITALS (96 sets, daily range): BP systolic 90–182; BP diastolic 46–96
[2021-09-16] MEDS: VANCOMYCIN 1 GM in IV D5W 250 ML IV SCH (02:55)
--- NOTE | 2021-09-16 02:55 | NUR ---
DUE VANCOMYCIN NOT ADMINISTERED DUE TO VANCO TROUGH 27, ISMAEL PHARMACIST FROM [facility] MADE AWARE, PER ISMAEL MAURICIO TO HOLD THE VANCOMYCIN DUE TO HIGH VANCO TROUGH. WILL CONT TO MONITOR THE PT
[2021-09-16] MEDS: MIDAZOLAM HCL 100 MG in IV NS 0.9% 80 ML IV PRN ×2 (04:03→21:02)
[2021-09-16] MEDS: PIPERACILLIN /TAZOBACTAM 3.375 G in IV D5W 50 ML IV SCH ×4 (04:06→21:19)
--- NOTE | 2021-09-16 04:07 | NUR ---
FIO2 INCREASED 100% DUE TO LOW O2 SAT 88%. RN NOTIFIED.
[2021-09-16] MEDS: HYDROCORTISONE SOD SUCCINATE 100 MG/2 ML VIAL IV SCH ×3 (04:56→21:17)
[2021-09-16 05:14] LABS: BASOPHILS % (AUTO) 0.2 % (0.0-2.0); EOSINOPHILS % (AUTO) 0.2 % (0.0-6.0); HEMATOCRIT 34 % (33-45); HEMOGLOBIN 11.6 g/dL (11.5-14.8); LYMPHOCYTES # (AUTO) 0.6 K/uL (0.8-4.8); LYMPHOCYTES % (AUTO) 8.7 % (20.0-44.0); MEAN CORPUSCULAR HGB CONC 34 g/dl (31.0-36.0); MEAN CORPUSCULAR VOLUME 89 fL (82-100); MONOCYTES # (AUTO) 0.3 K/uL (0.1-1.30); MONOCYTES % (AUTO) 5.1 % (2.0-12.0); NEUTROPHILS # (AUTO) 5.6 K/uL (1.8-8.9); NEUTROPHILS % (AUTO) 85.8 % (43.0-81.0); RED BLOOD CELL COUNT(AUTO) 3.78 MIL/uL (4.0-5.2); WHITE BLOOD COUNT (AUTO) 6.6 K/uL (4.3-11.0)
[2021-09-16] MEDS: METOCLOPRAMIDE HCL 10 MG/2 ML VIAL IV SCH ×3 (05:22→17:12)
[2021-09-16] MEDS: INSULIN REGULAR, HUMAN 100 UNIT/ML 3 ML VIAL SQ PRN ×3 (05:23→18:31)
[2021-09-16] MEDS: BLOOD SUGAR DIAGNOSTIC 1 EACH STRIP IN SCH ×3 (05:27→17:34)
[2021-09-16 05:36] LABS: CREATININE 2.2 mg/dL (0.6-1.3); MAGNESIUM 2.6 mg/dL (1.8-2.4); PHOSPHORUS 3.4 mg/dL (2.5-4.9); POTASSIUM 3.4 mmol/L (3.5-5.1)
--- NOTE | 2021-09-16 07:10 | NUR ---
RN NOTES RECEIVED PT IN BED ORALLY INTUBATED WITH ETT 7/23CM, TOLERATING VENT SETTINGS WELL. SEDATED WITH FENTANYL 200MCG/HR AND VERSED 6MCG/HR. TELE MONITOR READS SB AT THIS TIME. R NARE NGT IN PLACE, PLACEMENT CHECKED. HENNING CATH IN PLACE. SAFETY MEASURES IN PLACE. BED LOCKED AND IN LOWEST POSITION WITH SIDE RAILS UP X3. WILL CONTINUE TO MONITOR.
--- NOTE | 2021-09-16 07:11 | NUR ---
PT ON BED STILL ORALLY INTUBATED WITH VENT SETTING PER MD ORDER FIO2 100% PEEP 16 SPO2 89-93% NO SIGN OF RESPIRATORY DISTRESS, BEDSIDE MONITOR READS SINUS KIRSTIE 40'S STILL VERSED @ 6 MCG/HR AND FENTANYL @ 200 MCG/HR INFUSING VIA GAB PICC, ALL NEEDS MET, BED ON LOWEST POSITION AND LOCKED SIDERAILS UP X2 WILL CONT TO MONITOR
[2021-09-16] MEDS: FENTANYL CITRAT IV 2,500 MCG in IV NS 0.9% 200 ML IV PRN ×2 (07:36→21:01)
[2021-09-16] MEDS: PANTOPRAZOLE 40 MG VIAL IV SCH ×2 (08:22→21:18)
[2021-09-16] MEDS: PROSOURCE / PROSTAT (PYXIS) 30 ML UDC NG SCH (08:22)
[2021-09-16] MEDS: CHOLECALCIFEROL 1,000 UNIT TABLET (VIT D3) GT SCH (08:22)
[2021-09-16] MEDS: ASCORBIC ACID 500 MG TABLET GT SCH (08:22)
[2021-09-16] MEDS: DEXAMETHASONE SOD PHOSPHATE 4 MG/ML VIAL IV SCH ×2 (08:22→17:12)
[2021-09-16] MEDS: CLOTRIMAZOLE 1% 15 GM TUBE TP SCH ×2 (08:23→21:19)
[2021-09-16] MEDS: Z GUARD REMEDY 2 OZ OINT TP SCH (08:23)
[2021-09-16] MEDS ORDERED: POTASSIUM CHLORIDE 20 MEQ POWDER PACKET NG SCH (09:30)
[2021-09-16] MEDS: FUROSEMIDE 100 MG/10 ML VIAL IV SCH ×3 (09:34→17:12)
[2021-09-16 11:12] LABS: ABG OXYGEN SATURATION 91.6 % (92.0-98.5); ABG PCO2 33.1 mmHg (35.0-45.0); ABG PH 7.433 (7.350-7.450); ABG PO2 65.6 mmHg (75.0-100.0); AaDO2 470.1 mmHg; COHb 0.3 % (0.5-1.5); MetHb 0.3 % (0.0-1.5); O2Hb 91.1 % (94.0-97.0); SITE, ABG Left Radial
[2021-09-16 13:58] LABS: BAND % (MANUAL) 1 % (0.0-5.0); LYMPHOCYTES % (MANUAL) 9 % (16-48); MONOCYTES % (MANUAL) 4 % (0-11.0); NEUTROPHILS % (MANUAL) 86 (42-76)
[2021-09-16 14:04] LABS: PLATELET COUNT (AUTO) 86 K/uL (150-450)
[2021-09-16] MEDS: IV NS 0.9% 250 ML IV PRN (14:30)
[2021-09-16] MEDS: GLUCERNA 1.2 1,000 ML BOTTLE NG PRN (15:00)
[2021-09-16 18:10] LABS: CALCIUM, SERUM 8.6 mg/dL (8.5-10.1); CREATININE 2.4 mg/dL (0.6-1.3); POTASSIUM 3.2 mmol/L (3.5-5.1)
--- NOTE | 2021-09-16 19:30 | NUR ---
RN NOTES RECEIVED PT FOR CONTINUITY OF CARE. PATIENT SEDATED, IN NO S/SX OF ACUTE DISTRESS AT THIS TIME; CURRENTLY ON MECHANICAL VENT; SETTINGS PRESCRIBED; WITH 02 SAT >95% AT THIS TIME. WILL ENSURE SAFETY MEASURES WITHIN THE SHIFT. PATIENT BED ALARM IS ON. HEAD OF BED ELEVATED. BED IS LOCKED, IN LOWEST POSITION AND SIDE RAILS UP. CALL LIGHT WITHIN REACH OF THE PATIENT. APPLICABLE ISOLATION PRECAUTIONS IN PLACE. WILL CONTINUE TO MONITOR AND REASSESS FOR ANY CHANGES AND WILL CARRY OUT ANY ONGOING AND ACTIVE MD ORDER.
--- NOTE | 2021-09-16 19:55 | NUR ---
RT NOTE FIO2 TITRATED TO 70%. RN AWARE, WILL CONTINUE TO MONITOR, Addendum: 09/16/21 at 6 by ANDREY HENRIQUEZ RT Amended: Links added.
--- NOTE | 2021-09-16 21:10 | NUR ---
RN NOTES RECEIVED CALL FROM PT'S SON LORENA; PROVIDED GENERAL UPDATES. ADVISED THAT WILL PROVIDE CALL IF THERE'S ANY SIGNIFICANT CHANGES ABOUT PT'S CONDITION. ALSO ADVISED FAMILY IF THEY HAVE SPECIFIC QUESTIONS ABOUT TX PLAN, CALL IN THE AM TO GET IN TOUCH WITH MD. FAMILY ACKNOWLEDGED. VEHICLE BODY SANDER MADE AWARE.
--- NOTE | 2021-09-16 22:00 | NUR ---
RN NOTES NOTED RESIDUAL >150CC, HELD FEEDING AT THIS TIME. CREAM TESTER MADE AWARE AND WILL NOTIFY KAREN PANDYA ( SIDNEY KIRBY,GANGA) NOTIFIED KAREN PANDYA (SIDNEY KIRBY,GANGA) FOR PT STATUS UPDATE; ADVISE ABOUT FEEDING RESIDUAL OF >150CC AND HELD FEEDING. HR RUNNING 40s-50s BUT PER RECORD PT HAS BEEN RUNNING BRADYCARDIA PER TREND AND CARDIO AWARE PER MD NOTES. NO NEW ORDERS FROM KAREN PANDYA. CREAM TESTER MADE AWARE.
[2021-09-16] MEDS: INSULIN GLARGINE, 100 UNIT/ML CARTRIDGE SQ SCH (22:07)
--- NOTE | 2021-09-16 23:26 | NUR ---
RT NOTE FIO2 TITRATED TO 60%. RN AWARE. WILL CONTINUE TO MONITOR. Addendum: 09/16/21 at 2327 by ANDREY HENRIQUEZ RT Amended: Links added.
[2021-09-17] VITALS (70 sets, daily range): BP systolic 82–139; BP diastolic 49–93
[2021-09-17] MEDS: BLOOD SUGAR DIAGNOSTIC 1 EACH STRIP IN SCH ×5 (00:13→23:10)
[2021-09-17] MEDS: INSULIN REGULAR, HUMAN 100 UNIT/ML 3 ML VIAL SQ PRN ×5 (00:13→23:11)
[2021-09-17] MEDS: METOCLOPRAMIDE HCL 10 MG/2 ML VIAL IV SCH ×5 (00:28→23:47)
[2021-09-17] MEDS: PIPERACILLIN /TAZOBACTAM 3.375 G in IV D5W 50 ML IV SCH ×4 (03:48→21:41)
[2021-09-17 04:43] LABS: BASOPHILS % (AUTO) 0.6 % (0.0-2.0); EOSINOPHILS % (AUTO) 0.9 % (0.0-6.0); HEMATOCRIT 32 % (33-45); HEMOGLOBIN 10.7 g/dL (11.5-14.8); LYMPHOCYTES # (AUTO) 0.4 K/uL (0.8-4.8); LYMPHOCYTES % (AUTO) 7.5 % (20.0-44.0); MEAN CORPUSCULAR HGB CONC 34 g/dl (31.0-36.0); MEAN CORPUSCULAR VOLUME 90 fL (82-100); MONOCYTES # (AUTO) 0.3 K/uL (0.1-1.30); MONOCYTES % (AUTO) 5.8 % (2.0-12.0); NEUTROPHILS # (AUTO) 4.2 K/uL (1.8-8.9); NEUTROPHILS % (AUTO) 85.2 % (43.0-81.0); PLATELET COUNT (AUTO) 75 K/uL (150-450); RED BLOOD CELL COUNT(AUTO) 3.54 MIL/uL (4.0-5.2); WHITE BLOOD COUNT (AUTO) 4.9 K/uL (4.3-11.0)
[2021-09-17 05:14] LABS: ALBUMIN 2.1 g/dL (3.4-5.0); CALCIUM, SERUM 7.6 mg/dL (8.5-10.1); CREATININE 2.4 mg/dL (0.6-1.3); MAGNESIUM 2.3 mg/dL (1.8-2.4); PHOSPHORUS 4.5 mg/dL (2.5-4.9); TOTAL PROTEIN, SERUM 4.3 g/dL (6.4-8.2)
[2021-09-17] MEDS: HYDROCORTISONE SOD SUCCINATE 100 MG/2 ML VIAL IV SCH ×3 (05:14→21:38)
[2021-09-17 05:41] LABS: POTASSIUM 2.5 mmol/L (3.5-5.1)
--- NOTE | 2021-09-17 05:54 | NUR ---
RN NOTES RECEIVED CRITICAL LAB RESULT- K 2.5 AND BUN 90 LINTER OPERATOR MADE AWARE. WILL NOTIFY KAREN PANDYA (SIDNEY KIRBY,GANGA) Addendum: 09/17/21 at 0612 by DOMENIC TODD RN RECEIVED ORDER FROM KAREN PANDYA ( SIDNEY KIRBY, GANGA) 40 MEQ POTASSIUM IV AND 40MEQ POTASSIUM VIA GTUBE AND ANOTHER 40 MEQ POTASSIUM VIA GTUBE AFTER 6 HOURS. LINTER OPERATOR MADE AWARE. WILL CARRY OUT ORDER
[2021-09-17] MEDS: POTASSIUM CL. PREMIX PERIPHER. 50 ML IV SCH ×5 (06:25→10:26)
[2021-09-17] MEDS ORDERED: POTASSIUM CHLORIDE 20 MEQ POWDER PACKET GT ONE ×2 (06:30→12:30)
--- NOTE | 2021-09-17 06:53 | NUR ---
RN CLOSING NOTE: PATIENT REMAINS IN ROOM IN NO SIGNS OF RESPIRATORY DISTRESS, PATIENT STILL ON MECH VENT; SETTINGS PRESCRIBED; TOLERATING WELL SATURATING @ >95% SP02. SAFETY MEASURES IMPLEMENTED, BED IN LOWEST POSITION, LOCKED, SIDE RAILS UP, CALL LIGHT WITHIN REACH. ALL NEEDS AND ORDERS ADDRESSED DURING THE SHIFT. IV ACCESS MAINTAINED INTACT, SECURED AND FLUSHING WELL. ALL DUE MEDS GIVEN ORDERED & SCHEDULED ; PATIENT TOLERATED WELL. STILL WITH ONGOING DRIP FOLLOWS: FENTANYL DRIP VIA CHIEF CONTROLLER STATION PUMP @200MCG/HR (20MLS/HR) AND VERSED DRIP VIA CHIEF CONTROLLER STATION PUMP @6MG/HR (6MLS/HR) ALL RUNNING AND MONITORED PER PROTOCOL PATIENT KEPT CLEAN AND COMFORTABLE WITHIN THE SHIFT. PATIENT ENDORSED TO INCOMING SHIFT RN WITH STABLE VITAL SIGN AND FOR CONTINUITY OF CARE.
--- NOTE | 2021-09-17 07:30 | NUR ---
RN NOTES PT FOUND SEMI FOWLERS POSITION DISPLAYING NO S/S OF DISTRESS, FLACC = 0, RIKERS = 3, BILATERAL RISE AND FALL OF THE CHEST OBSERVED. 120 ML RESIDUAL MEASURED. A-LINE IN PLACE, MEASURING BP ACTIVELY, ZEROED AND PLACED AT LEVEL OF HEART. R UA PICC IS PATIENT AND INTACT. HENNING CATH IS BELOW PATIENT DRAINING BY GRAVITY. VSS, RN WILL MONITOR AND TREAT PT THROUGHOUT SHIFT. SAFETY MEASURES IN PLACE, BED LOCKED AND IN LOWEST POSITION, SIDE RAILS UPX2, CALL LIGHT WITHIN REACH, BED ALARM ARMED.
[2021-09-17] MEDS: ASCORBIC ACID 500 MG TABLET GT SCH (08:06)
[2021-09-17] MEDS: PROSOURCE / PROSTAT (PYXIS) 30 ML UDC NG SCH (08:06)
[2021-09-17] MEDS: CLOTRIMAZOLE 1% 15 GM TUBE TP SCH ×2 (08:06→21:40)
[2021-09-17] MEDS: CHOLECALCIFEROL 1,000 UNIT TABLET (VIT D3) GT SCH (08:06)
[2021-09-17] MEDS: PANTOPRAZOLE 40 MG VIAL IV SCH ×2 (08:06→21:38)
[2021-09-17] MEDS: DEXAMETHASONE SOD PHOSPHATE 4 MG/ML VIAL IV SCH ×2 (08:06→17:33)
[2021-09-17] MEDS: Z GUARD REMEDY 4 OZ OINT TP SCH (08:07)
[2021-09-17] MEDS: FENTANYL CITRAT IV 2,500 MCG in IV NS 0.9% 200 ML IV PRN ×2 (08:49→23:13)
[2021-09-17] MEDS: LEVOFLOXACIN (250MG) 250 MG TABLET GT SCH (11:26)
--- NOTE | 2021-09-17 12:00 | NUR ---
RN NOTE PT TEMP IS 91.5 F, RN WILL START THERMAL BLANKET
[2021-09-17 12:20] LABS: ABG BASE EXCESS -5.3 mmol/L; ABG OXYGEN SATURATION 90.8 % (92.0-98.5); ABG PCO2 39.7 mmHg (35.0-45.0); ABG PH 7.326 (7.350-7.450); ABG PO2 68.3 mmHg (75.0-100.0); AaDO2 243.5 mmHg; COHb 0.3 % (0.5-1.5); O2Hb 90.5 % (94.0-97.0); PEEP,BG 10 cm H2O; SITE, ABG A-Line; VT, ABG 440 mL
[2021-09-17 13:42] LABS: LYMPHOCYTES % (MANUAL) 8 % (16-48); MONOCYTES % (MANUAL) 5 % (0-11.0); NEUTROPHILS % (MANUAL) 87 (42-76)
[2021-09-17] MEDS: MIDAZOLAM HCL 100 MG in IV NS 0.9% 80 ML IV PRN (14:41)
[2021-09-17] MEDS: GLUCERNA 1.2 1,000 ML BOTTLE NG PRN (17:32)
[2021-09-17 17:48] LABS: CALCIUM, SERUM 7.6 mg/dL (8.5-10.1); CREATININE 2.3 mg/dL (0.6-1.3); POTASSIUM 3.6 mmol/L (3.5-5.1)
--- NOTE | 2021-09-17 19:27 | NUR ---
RN NOTES PT FOUND SEMI FOWLERS POSITION DISPLAYING NO S/S OF DISTRESS, FLACC = 0, RIKERS = 3, BILATERAL RISE AND FALL OF THE CHEST OBSERVED. 220 ML RESIDUAL MEASURED. R UA PICC IS PATIENT AND INTACT. HENNING CATH IS BELOW PATIENT DRAINING BY GRAVITY. SBAR AND REPORT GIVEN TO POLYSTYRENE BEAD MOLDER RN, ALL QUESTIONS ANSWERED. SAFETY MEASURES IN PLACE, BED LOCKED AND IN LOWEST POSITION, SIDE RAILS UPX2, CALL LIGHT WITHIN REACH, BED ALARM ARMED. PT ENDORSED TO POLYSTYRENE BEAD MOLDER FOR DARYA.
--- NOTE | 2021-09-17 19:30 | NUR ---
RN NOTES RECEIVED PT FOR CONTINUITY OF CARE. PATIENT CURRENTLY SEDATED IN NO ACUTE DISTRESS AT THIS TIME; CURRENTLY ON MECHANICAL VENT; SETTINGS PRESCRIBED WITH 02 SAT 86% AT THE TIME OF RECEIVED. WITH ONGOING FENTANYL DRIP VIA LITHOGRAPH PRINTER PUMP @175MCG/HR AND VERSED DRIP VIA LITHOGRAPH PRINTER PUMP @5MG/HR.WILL ENSURE SAFETY MEASURES WITHIN THE SHIFT. PATIENT BED ALARM IS ON. HEAD OF BED ELEVATED. BED IS LOCKED, IN LOWEST POSITION AND SIDE RAILS UP. CALL LIGHT WITHIN REACH OF THE PATIENT. APPLICABLE ISOLATION PRECAUTIONS IN PLACE. WILL CONTINUE TO MONITOR AND REASSESS FOR ANY CHANGES AND WILL CARRY OUT ANY ONGOING AND ACTIVE MD ORDER.
--- NOTE | 2021-09-17 20:30 | NUR ---
RT fi02 increased due to spo2 dropping into the mid 80s. saturation now 90%. will monitor and try to titrate. notified sol plummer
[2021-09-17] MEDS: INSULIN GLARGINE, 100 UNIT/ML CARTRIDGE SQ SCH (23:11)
[2021-09-18] VITALS (74 sets, daily range): BP systolic 80–151; BP diastolic 45–81
[2021-09-18] MEDS: PIPERACILLIN /TAZOBACTAM 3.375 G in IV D5W 50 ML IV SCH ×4 (04:04→21:06)
[2021-09-18] MEDS: HYDROCORTISONE SOD SUCCINATE 100 MG/2 ML VIAL IV SCH ×3 (04:51→21:05)
[2021-09-18] MEDS: METOCLOPRAMIDE HCL 10 MG/2 ML VIAL IV SCH ×4 (05:01→23:42)
[2021-09-18 05:36] LABS: BASOPHILS % (AUTO) 0.6 % (0.0-2.0); HEMATOCRIT 31 % (33-45); HEMOGLOBIN 10.4 g/dL (11.5-14.8); LYMPHOCYTES # (AUTO) 0.3 K/uL (0.8-4.8); LYMPHOCYTES % (AUTO) 3.5 % (20.0-44.0); MEAN CORPUSCULAR HGB CONC 34 g/dl (31.0-36.0); MEAN CORPUSCULAR VOLUME 90 fL (82-100); MONOCYTES # (AUTO) 0.5 K/uL (0.1-1.30); MONOCYTES % (AUTO) 5.8 % (2.0-12.0); NEUTROPHILS # (AUTO) 7.9 K/uL (1.8-8.9); NEUTROPHILS % (AUTO) 90.1 % (43.0-81.0); PLATELET COUNT (AUTO) 87 K/uL (150-450); RED BLOOD CELL COUNT(AUTO) 3.44 MIL/uL (4.0-5.2); WHITE BLOOD COUNT (AUTO) 8.8 K/uL (4.3-11.0)
[2021-09-18] MEDS: BLOOD SUGAR DIAGNOSTIC 1 EACH STRIP IN SCH ×4 (05:48→23:37)
[2021-09-18] MEDS: INSULIN REGULAR, HUMAN 100 UNIT/ML 3 ML VIAL SQ PRN ×4 (05:49→23:37)
[2021-09-18 06:37] LABS: CALCIUM, SERUM 7.9 mg/dL (8.5-10.1); CREATININE 2.5 mg/dL (0.6-1.3); MAGNESIUM 2.4 mg/dL (1.8-2.4); PHOSPHORUS 5.1 mg/dL (2.5-4.9)
--- NOTE | 2021-09-18 07:05 | NUR ---
RN CLOSING NOTE: PATIENT REMAINS IN ROOM IN NO SIGNS OF RESPIRATORY DISTRESS, PATIENT STILL ON MECH VENT; SETTINGS PRESCRIBED; TOLERATING WELL SATURATING @ >88% SP02. SAFETY MEASURES IMPLEMENTED, BED IN LOWEST POSITION, LOCKED, SIDE RAILS UP, CALL LIGHT WITHIN REACH. ALL NEEDS AND ORDERS ADDRESSED DURING THE SHIFT. IV ACCESS MAINTAINED INTACT, SECURED AND FLUSHING WELL. ALL DUE MEDS GIVEN ORDERED & SCHEDULED ; PATIENT TOLERATED WELL. STILL WITH ONGOING DRIP FOLLOWS: FENTANYL DRIP VIA HABILITATION ASSISTANT PUMP @175MCG/HR AND VERSED DRIP VIA HABILITATION ASSISTANT PUMP @5MG/HR ALL RUNNING AND MONITORED PER PROTOCOL PATIENT KEPT CLEAN AND COMFORTABLE WITHIN THE SHIFT. PATIENT ENDORSED TO INCOMING SHIFT RN WITH STABLE VITAL SIGN AND FOR CONTINUITY OF CARE.
--- NOTE | 2021-09-18 08:02 | NUR ---
RN MORNING NOTE PT RECEIVED IN BED AND IS CURRENTLY STABLE. PT IS ON MECHANICAL VENT WITH SETTINGS PRESCRIBED, TOLERATING WELL O2 SAT 95%, NO SIGNS OF LABORED BREATHING OR DISTRESS. PT HAS ONGOING DRIPS: FENTANYL DRIP VIA CUP SETTER LOCKSTITCH PUMP @175MCG/HR AND VERSED DRIP VIA CUP SETTER LOCKSTITCH PUMP @5MG/HR. PT RECEIVING GTUBE FEEDING GLUCERNA 1.2 @20ML/HR. IV ACCESS R UA PICC AND L UA MIDLINE. BED IS LOCKED IN LOWEST POSITION X2 BED RAILS UP, CALL LIGHT IS WITHIN REACH, ALL HOSPITAL SAFETY MEASURES ARE IN PLACE. WILL CONTINUE TO MONITOR THIS SHIFT.
[2021-09-18 08:10] LABS: LYMPHOCYTES % (MANUAL) 8 % (16-48); MONOCYTES % (MANUAL) 7 % (0-11.0); NEUTROPHILS % (MANUAL) 85 (42-76)
[2021-09-18] MEDS: CLOTRIMAZOLE 1% 15 GM TUBE TP SCH ×2 (08:52→21:06)
[2021-09-18] MEDS: PROSOURCE / PROSTAT (PYXIS) 30 ML UDC NG SCH (08:52)
[2021-09-18] MEDS: Z GUARD REMEDY 4 OZ OINT TP SCH (08:52)
[2021-09-18] MEDS: PANTOPRAZOLE 40 MG VIAL IV SCH ×2 (08:57→21:05)
[2021-09-18] MEDS: ASCORBIC ACID 500 MG TABLET GT SCH (08:57)
[2021-09-18] MEDS: CHOLECALCIFEROL 1,000 UNIT TABLET (VIT D3) GT SCH (08:57)
[2021-09-18] MEDS: DEXAMETHASONE SOD PHOSPHATE 4 MG/ML VIAL IV SCH ×2 (08:57→17:34)
[2021-09-18 09:31] LABS: ABG BASE EXCESS -4.5 mmol/L; ABG OXYGEN SATURATION 90.2 % (92.0-98.5); ABG PH 7.359 (7.350-7.450); ABG PO2 63.6 mmHg (75.0-100.0); AaDO2 287.4 mmHg; COHb 0.3 % (0.5-1.5); MetHb 0.2 % (0.0-1.5); O2Hb 89.7 % (94.0-97.0); PEEP,BG 10 cm H2O; SITE, ABG A-Line; VT, ABG 440 mL
[2021-09-18] MEDS: MIDAZOLAM HCL 100 MG in IV NS 0.9% 80 ML IV PRN (12:08)
[2021-09-18] MEDS: FENTANYL CITRAT IV 2,500 MCG in IV NS 0.9% 200 ML IV PRN (12:09)
--- NOTE | 2021-09-18 19:25 | NUR ---
RN NOTES RECEIVED PT FOR CONTINUITY OF CARE. PATIENT CURRENTLY SEDATED IN NO ACUTE DISTRESS AT THIS TIME; CURRENTLY ON MECHANICAL VENT; SETTINGS PRESCRIBED WITH 02 SAT 95% AT THE TIME OF RECEIVED. WITH ONGOING FENTANYL DRIP VIA DRY FINISHER PUMP @175MCG/HR AND VERSED DRIP VIA DRY FINISHER PUMP @5MG/HR.WILL ENSURE SAFETY MEASURES WITHIN THE SHIFT. PATIENT BED ALARM IS ON. HEAD OF BED ELEVATED. BED IS LOCKED, IN LOWEST POSITION AND SIDE RAILS UP. CALL LIGHT WITHIN REACH OF THE PATIENT. APPLICABLE ISOLATION PRECAUTIONS IN PLACE. WILL CONTINUE TO MONITOR AND REASSESS FOR ANY CHANGES AND WILL CARRY OUT ANY ONGOING AND ACTIVE MD ORDER.
--- NOTE | 2021-09-18 19:26 | NUR ---
RN CLOSING NOTE PT IS IN BED WITH HOB ELEVATED SEMI FOWLERSAND IS CURRENTLY STABLE. PT IS ON MECHANICAL VENT WITH SETTINGS PRESCRIBED, TOLERATING WELL O2 SAT 96%, NO SIGNS OF LABORED BREATHING OR DISTRESS. PT HAS ONGOING DRIPS: FENTANYL DRIP VIA LINER INSTALLER PUMP @175MCG/HR AND VERSED DRIP VIA LINER INSTALLER PUMP @5MG/HR. PT RECEIVING GTUBE FEEDING GLUCERNA 1.2 @20ML/HR AND TOLERATED WELL THROUGHOUT SHIFT. PT HAD 1 BM. IV ACCESS R UA PICC AND L UA MIDLINE PATENT AND FLUSHING WELL. BED IS LOCKED IN LOWEST POSITION X2 BED RAILS UP, CALL LIGHT IS WITHIN REACH, ALL HOSPITAL SAFETY MEASURES ARE IN PLACE. WILL ENDORSE TO DECKHAND MAINTENANCE NURSE FOR DARYA.
[2021-09-18] MEDS ORDERED: INSULIN GLARGINE, 100 UNIT/ML CARTRIDGE SQ ONE (23:19)
[2021-09-18] MEDS: INSULIN GLARGINE, 100 UNIT/ML CARTRIDGE SQ SCH (23:36)
[2021-09-19] VITALS (63 sets, daily range): BP systolic 108–176; BP diastolic 55–97
--- NOTE | 2021-09-19 | NUR ---
RN NOTES PATIENT REMAINED TO BE IN NO SIGNS OF ACUTE RESPIRATORY DISTRESS , VITAL SIGNS STABLE AT THIS TIME. REGULAR TURNING AND REPOSITIONING DONE Q2H AND SUCTIONING RENDERED. WILL CONTINUE TO MONITOR AND REASSESS FOR ANY CHANGES THROUGHOUT THE SHIFT.
[2021-09-19] MEDS: FENTANYL CITRAT IV 2,500 MCG in IV NS 0.9% 200 ML IV PRN ×2 (03:47→19:32)
[2021-09-19] MEDS: PIPERACILLIN /TAZOBACTAM 3.375 G in IV D5W 50 ML IV SCH ×4 (03:55→21:29)
[2021-09-19] MEDS: HYDROCORTISONE SOD SUCCINATE 100 MG/2 ML VIAL IV SCH ×3 (04:57→20:59)
[2021-09-19] MEDS: BLOOD SUGAR DIAGNOSTIC 1 EACH STRIP IN SCH ×3 (05:42→18:24)
[2021-09-19] MEDS: METOCLOPRAMIDE HCL 10 MG/2 ML VIAL IV SCH ×3 (05:42→18:20)
[2021-09-19] MEDS: INSULIN REGULAR, HUMAN 100 UNIT/ML 3 ML VIAL SQ PRN ×3 (05:43→18:33)
[2021-09-19 06:17] LABS: ABG BASE EXCESS -0.1 mmol/L; ABG PCO2 39.4 mmHg (35.0-45.0); COHb 0.6 % (0.5-1.5); MetHb 0.1 % (0.0-1.5); O2Hb 88.4 % (94.0-97.0); SITE, ABG Left Radial
[2021-09-19 06:38] LABS: EOSINOPHILS % (AUTO) 0.1 % (0.0-6.0); HEMATOCRIT 32 % (33-45); HEMOGLOBIN 10.6 g/dL (11.5-14.8); LYMPHOCYTES # (AUTO) 0.4 K/uL (0.8-4.8); LYMPHOCYTES % (AUTO) 3.9 % (20.0-44.0); MEAN CORPUSCULAR HGB CONC 33 g/dl (31.0-36.0); MEAN CORPUSCULAR VOLUME 91 fL (82-100); MONOCYTES # (AUTO) 0.3 K/uL (0.1-1.30); MONOCYTES % (AUTO) 2.8 % (2.0-12.0); NEUTROPHILS # (AUTO) 10.2 K/uL (1.8-8.9); NEUTROPHILS % (AUTO) 93.2 % (43.0-81.0); PLATELET COUNT (AUTO) 80 K/uL (150-450); RED BLOOD CELL COUNT(AUTO) 3.51 MIL/uL (4.0-5.2)
--- NOTE | 2021-09-19 06:55 | NUR ---
RN CLOSING NOTE: PATIENT REMAINS IN ROOM IN NO SIGNS OF RESPIRATORY DISTRESS, PATIENT STILL ON MECH VENT; SETTINGS PRESCRIBED; TOLERATING WELL SATURATING @ >90% SP02. SAFETY MEASURES IMPLEMENTED, BED IN LOWEST POSITION, LOCKED, SIDE RAILS UP, CALL LIGHT WITHIN REACH. ALL NEEDS AND ORDERS ADDRESSED DURING THE SHIFT. IV ACCESS MAINTAINED INTACT, SECURED AND FLUSHING WELL. ALL DUE MEDS GIVEN ORDERED & SCHEDULED ; PATIENT TOLERATED WELL. STILL WITH ONGOING DRIP FOLLOWS: FENTANYL DRIP VIA ASSISTANT CHIEF TRAIN DISPATCHER PUMP @175MCG/HR AND VERSED DRIP VIA ASSISTANT CHIEF TRAIN DISPATCHER PUMP @6MG/HR ALL RUNNING AND MONITORED PER PROTOCOL PATIENT KEPT CLEAN AND COMFORTABLE WITHIN THE SHIFT. PATIENT ENDORSED TO INCOMING SHIFT RN WITH STABLE VITAL SIGN AND FOR CONTINUITY OF CARE.
--- NOTE | 2021-09-19 07:43 | NUR ---
RN MORNING NOTE PT RECEIVED IN BED ON MECHANICAL VENT WITH SETTINGS PRESCRIBED; TOLERATING WELL WITH NO SIGNS OF DISTRESS OR LABORED BREATHING SAT 94% SPO2. GTUBE IS IN PLACE WITH POSITIVE PLACEMENT WITH GLUCERNA 1.2 @20ML/HR. HENNING CATHETER IS IN PLACE DRAINING URINE TO GRAVITY. PT HAS IV ACCESS R UA PICC AND L UA MIDLINE. PT CONTINUES TO HAVE ONGOING DRIPS: FENTANYL DRIP VIA SCREEN PRINTING SUPERVISOR PUMP @175MCG/HR AND VERSED DRIP VIA SCREEN PRINTING SUPERVISOR PUMP @6MG/HR. BED IS LOCKED IN LOWEST POSITION X3 GUARD RAILS UP, ALL HOSPITAL SAFETY MEASURES ARE IN PLACE. WILL CONTINUE TO MONITOR THIS SHIFT.
[2021-09-19] MEDS: MIDAZOLAM HCL 100 MG in IV NS 0.9% 80 ML IV PRN ×2 (08:01→23:04)
[2021-09-19 08:04] LABS: ALBUMIN 2.1 g/dL (3.4-5.0); BILIRUBIN,TOTAL 0.7 mg/dL (0.2-1.0); CALCIUM, SERUM 7.7 mg/dL (8.5-10.1); CREATININE 2.3 mg/dL (0.6-1.3); MAGNESIUM 2.7 mg/dL (1.8-2.4); PHOSPHORUS 4.2 mg/dL (2.5-4.9); POTASSIUM 3.6 mmol/L (3.5-5.1); TOTAL PROTEIN, SERUM 4.4 g/dL (6.4-8.2)
[2021-09-19] MEDS: PROSOURCE / PROSTAT (PYXIS) 30 ML UDC NG SCH (08:11)
[2021-09-19] MEDS: Z GUARD REMEDY 4 OZ OINT TP SCH (08:11)
[2021-09-19] MEDS: CLOTRIMAZOLE 1% 15 GM TUBE TP SCH ×2 (08:11→21:03)
[2021-09-19] MEDS: PANTOPRAZOLE 40 MG VIAL IV SCH ×2 (08:13→20:59)
[2021-09-19] MEDS: DEXAMETHASONE SOD PHOSPHATE 4 MG/ML VIAL IV SCH ×2 (08:14→16:38)
[2021-09-19] MEDS: CHOLECALCIFEROL 1,000 UNIT TABLET (VIT D3) GT SCH (09:37)
[2021-09-19] MEDS: ASCORBIC ACID 500 MG TABLET GT SCH (09:37)
--- NOTE | 2021-09-19 11:15 | NUR ---
RN NOTE GT FEEDING INCREASED GT FEED RATE FROM 20ML TO 40ML/HR, PER DR. HOWE. WILL CONTINUE TO MONITOR.
[2021-09-19] MEDS: LEVOFLOXACIN (250MG) 250 MG TABLET GT SCH (12:51)
[2021-09-19] MEDS: APIXABAN 2.5 MG TABLET PO SCH ×2 (12:53→16:45)
[2021-09-19 13:10] LABS: LYMPHOCYTES % (MANUAL) 3 % (16-48); MONOCYTES % (MANUAL) 1 % (0-11.0); NEUTROPHILS % (MANUAL) 96 (42-76)
--- NOTE | 2021-09-19 18:49 | NUR ---
RN NOTE FLEXISEAL FLEXISEAL INSERTED WITHOUT RESITANCE AND INFLATED. WILL ENDORSE TO AERONAUTICAL PROJECT ENGINEER NURSE.
--- NOTE | 2021-09-19 18:52 | NUR ---
RN CLOSING NOTE PT IS IN BED ON MECHANICAL VENT WITH SETTINGS PRESCRIBED; TOLERATING WELL WITH NO SIGNS OF DISTRESS OR LABORED BREATHING SAT 94% SPO2. ISOLATION WAS DC'D TODAY PER DR. HOWE. GTUBE IS IN PLACE WITH POSITIVE PLACEMENT WITH GLUCERNA 1.2 @40ML/HR. HENNING CATHETER IS IN PLACE DRAINING URINE TO GRAVITY AND PT ALSO HAS FLEXISEAL RECTAL TUBE IN PLACE. PT HAS IV ACCESS R UA PICC AND L UA MIDLINE. PT CONTINUES TO HAVE ONGOING DRIPS: FENTANYL DRIP VIA RECEIVER BULK SYSTEM PUMP @175MCG/HR AND VERSED DRIP VIA RECEIVER BULK SYSTEM PUMP @7MG/HR. BED IS LOCKED IN LOWEST POSITION X3 GUARD RAILS UP, ALL HOSPITAL SAFETY MEASURES ARE IN PLACE. ALL MEDICATIONS GIVEN AND ALL PT NEEDS MET. WILL ENDORSE TO HOSTESS NURSE FOR DARYA.
--- NOTE | 2021-09-19 19:00 | NUR ---
RN NOTE RECEIVED PATIENT IN BED SEDATED,ORALLY INTUBATED ON MECHANICAL VENT,SETTING 04/09 AC 26 TV 440 FIO2:50 PEEP 10,IV SITE IS ON RIGHT UPPER ARM PICC LINE AND LEFT UPPER ARM MID LINE ON VERSED 7ML/HR AND FENTANYL 17.5 ML.AIR LINE ON RIGHT FOREARM,ON OGT ON GLUCERNA 1.2 40CC/HR CHECKED PLACEMENT IN PLACE NO RESIDUAL NOTED,HENNING CATHETER IN PLACE URINE RUNNING YELLOW BY GRAVITY,RECTAL TUBE IN PLACE, SAFETY MEASURE IMPLEMENT HEAD OF THE BED ELEVATED,CONTINUE TO MONITOR.
[2021-09-19] MEDS: INSULIN GLARGINE, 100 UNIT/ML CARTRIDGE SQ SCH (21:52)
[2021-09-19] MEDS: GLUCERNA 1.2 1,000 ML BOTTLE NG PRN (22:42)
[2021-09-20] VITALS (51 sets, daily range): BP systolic 112–167; BP diastolic 56–90
[2021-09-20] MEDS: METOCLOPRAMIDE HCL 10 MG/2 ML VIAL IV SCH ×4 (00:06→17:14)
[2021-09-20] MEDS: BLOOD SUGAR DIAGNOSTIC 1 EACH STRIP IN SCH ×4 (00:07→17:19)
[2021-09-20] MEDS: INSULIN REGULAR, HUMAN 100 UNIT/ML 3 ML VIAL SQ PRN ×4 (00:15→17:20)
[2021-09-20] MEDS: IV NS 0.9% 250 ML IV PRN (02:58)
--- NOTE | 2021-09-20 03:20 | NUR ---
FIO2 increased from 50% to 55% due to SpO2 87% Addendum: 09/20/21 at 0431 by LYLY HARRY RT Amended: Links added.
[2021-09-20] MEDS: PIPERACILLIN /TAZOBACTAM 3.375 G in IV D5W 50 ML IV SCH ×2 (04:06→09:08)
[2021-09-20] MEDS: HYDROCORTISONE SOD SUCCINATE 100 MG/2 ML VIAL IV SCH ×3 (04:07→16:41)
[2021-09-20 05:08] LABS: BASOPHILS # (AUTO) 0.1 K/uL (0.0-0.2); BASOPHILS % (AUTO) 0.5 % (0.0-2.0); EOSINOPHILS % (AUTO) 0.1 % (0.0-6.0); HEMATOCRIT 32 % (33-45); HEMOGLOBIN 10.6 g/dL (11.5-14.8); LYMPHOCYTES # (AUTO) 0.4 K/uL (0.8-4.8); MEAN CORPUSCULAR HGB CONC 33 g/dl (31.0-36.0); MEAN CORPUSCULAR VOLUME 91 fL (82-100); MONOCYTES # (AUTO) 0.4 K/uL (0.1-1.30); MONOCYTES % (AUTO) 3.5 % (2.0-12.0); NEUTROPHILS # (AUTO) 11.7 K/uL (1.8-8.9); NEUTROPHILS % (AUTO) 92.9 % (43.0-81.0); PLATELET COUNT (AUTO) 92 K/uL (150-450); RED BLOOD CELL COUNT(AUTO) 3.55 MIL/uL (4.0-5.2); WHITE BLOOD COUNT (AUTO) 12.6 K/uL (4.3-11.0)
[2021-09-20 05:37] LABS: CALCIUM, SERUM 8.3 mg/dL (8.5-10.1); MAGNESIUM 2.9 mg/dL (1.8-2.4); PHOSPHORUS 3.5 mg/dL (2.5-4.9); POTASSIUM 3.4 mmol/L (3.5-5.1)
[2021-09-20 06:03] LABS: ABG BASE EXCESS 1.2 mmol/L; ABG PCO2 40.3 mmHg (35.0-45.0); ABG PH 7.422 (7.350-7.450); ABG PO2 57.3 mmHg (75.0-100.0); COHb 0.6 % (0.5-1.5); MetHb 0.1 % (0.0-1.5); O2Hb 88.4 % (94.0-97.0); PEEP,BG 10 cm H2O; SITE, ABG Left Radial; VENT MODE, BG AC 26; VT, ABG 440 mL
--- NOTE | 2021-09-20 06:49 | NUR ---
RN NOTE RECEIVED A CRITICAL LAB RESULT BUN IS 94 COMPARE TO YESTERDAY IMPROVED CONTINUE TO MONITOR
--- NOTE | 2021-09-20 07:28 | NUR ---
RN NOTE PATIENT REMAINS ON MECHANICAL VENT ORALLY INTUBATED NO SOB NOT ACUTE DISTRESS NOTED ALL DUE MEDS GIVEN MD ORDERED KEPT CLEAN AND DRY ALL THE TIME,REPOSITIONED EVERY 2 HOURS ALL NEEDS MET ENDORSE NEXT COMING SHIFT FOR CONTINUATION OF CARE.
--- NOTE | 2021-09-20 07:30 | NUR ---
PT RECEIVED IN BED ON MECHANICAL VENT WITH SETTINGS PRESCRIBED; TOLERATING WELL WITH NO SIGNS OF DISTRESS OR LABORED BREATHING SAT 94% SPO2. NGTUBE IS IN PLACE WITH POSITIVE PLACEMENT WITH GLUCERNA 1.2 @40ML/HR. HENNING CATHETER IS IN PLACE DRAINING URINE TO GRAVITY. PT HAS IV ACCESS R UA PICC AND L UA MIDLINE. PT CONTINUES TO HAVE ONGOING DRIPS: FENTANYL DRIP VIA SUPERVISOR CONCRETE STONE FINISHING PUMP @175MCG/HR AND VERSED DRIP VIA SUPERVISOR CONCRETE STONE FINISHING PUMP @7MG/HR. BED IS LOCKED IN LOWEST POSITION X3 GUARD RAILS UP, ALL HOSPITAL SAFETY MEASURES ARE IN PLACE. WILL CONTINUE TO MONITOR THIS SHIFT.
[2021-09-20] MEDS: ASCORBIC ACID 500 MG TABLET GT SCH (08:54)
[2021-09-20] MEDS: CHOLECALCIFEROL 1,000 UNIT TABLET (VIT D3) GT SCH (08:55)
[2021-09-20] MEDS: DEXAMETHASONE SOD PHOSPHATE 4 MG/ML VIAL IV SCH ×2 (08:55→16:41)
[2021-09-20] MEDS: PANTOPRAZOLE 40 MG VIAL IV SCH (08:55)
[2021-09-20] MEDS: PROSOURCE / PROSTAT (PYXIS) 30 ML UDC NG SCH (08:56)
[2021-09-20] MEDS: APIXABAN 2.5 MG TABLET PO SCH ×2 (08:57→16:43)
[2021-09-20] MEDS: Z GUARD REMEDY 4 OZ OINT TP SCH (09:28)
[2021-09-20] MEDS: CLOTRIMAZOLE 1% 15 GM TUBE TP SCH ×2 (09:28→21:31)
[2021-09-20 09:36] LABS: BASOPHILS % (AUTO) 0.1 % (0.0-2.0); EOSINOPHILS % (AUTO) 0.1 % (0.0-6.0); HEMATOCRIT 31 % (33-45); HEMOGLOBIN 10.2 g/dL (11.5-14.8); LYMPHOCYTES # (AUTO) 0.4 K/uL (0.8-4.8); LYMPHOCYTES % (AUTO) 3.1 % (20.0-44.0); MEAN CORPUSCULAR HGB CONC 33 g/dl (31.0-36.0); MEAN CORPUSCULAR VOLUME 92 fL (82-100); MONOCYTES # (AUTO) 0.5 K/uL (0.1-1.30); MONOCYTES % (AUTO) 3.6 % (2.0-12.0); NEUTROPHILS # (AUTO) 12.1 K/uL (1.8-8.9); NEUTROPHILS % (AUTO) 93.1 % (43.0-81.0); PLATELET COUNT (AUTO) 93 K/uL (150-450); RED BLOOD CELL COUNT(AUTO) 3.43 MIL/uL (4.0-5.2)
[2021-09-20] MEDS: POTASSIUM CL. PREMIX PERIPHER. 50 ML IV SCH ×4 (09:58→13:21)
[2021-09-20 10:37] LABS: BAND % (MANUAL) 2 % (0.0-5.0); LYMPHOCYTES % (MANUAL) 5 % (16-48); MONOCYTES % (MANUAL) 1 % (0-11.0); NEUTROPHILS % (MANUAL) 92 (42-76)
[2021-09-20] MEDS: FENTANYL CITRAT IV 2,500 MCG in IV NS 0.9% 200 ML IV PRN (11:07)
[2021-09-20] MEDS: MIDAZOLAM HCL 100 MG in IV NS 0.9% 80 ML IV PRN (13:48)
[2021-09-20] MEDS: PANTOPRAZOLE 40 MG/PACK PACK GT SCH (16:41)
--- NOTE | 2021-09-20 20:00 | NUR ---
ICU NOTES Received patient sedated on Fentanyl gtt and Versed gtt via GAB PICC LINE.Intubated to mechanical vent on full vent support.SR per monitor.VSS.OGT feeding infusing with minimal residual.Aspiration precaution maintained.HOB elevated.FC to gravity.Flexi seal in place with greenish liquid black stool.No acute distress noted.Turned and repositioned. Continue monitoring.
[2021-09-20] MEDS: INSULIN GLARGINE, 100 UNIT/ML CARTRIDGE SQ SCH (21:32)
[2021-09-21] VITALS (37 sets, daily range): BP systolic 113–181; BP diastolic 58–101
[2021-09-21] MEDS: METOCLOPRAMIDE HCL 10 MG/2 ML VIAL IV SCH ×5 (00:16→23:49)
[2021-09-21] MEDS: BLOOD SUGAR DIAGNOSTIC 1 EACH STRIP IN SCH ×5 (00:16→23:49)
[2021-09-21] MEDS: INSULIN REGULAR, HUMAN 100 UNIT/ML 3 ML VIAL SQ PRN ×4 (00:19→23:55)
[2021-09-21] MEDS: MIDAZOLAM HCL 100 MG in IV NS 0.9% 80 ML IV PRN ×2 (01:26→14:58)
[2021-09-21] MEDS: FENTANYL CITRAT IV 2,500 MCG in IV NS 0.9% 200 ML IV PRN ×2 (01:31→14:59)
[2021-09-21 04:56] LABS: CALCIUM, SERUM 8.4 mg/dL (8.5-10.1); CREATININE 1.6 mg/dL (0.6-1.3); POTASSIUM 3.6 mmol/L (3.5-5.1)
[2021-09-21 05:01] LABS: BASOPHILS % (AUTO) 0.3 % (0.0-2.0); HEMATOCRIT 31 % (33-45); HEMOGLOBIN 10.3 g/dL (11.5-14.8); LYMPHOCYTES # (AUTO) 0.4 K/uL (0.8-4.8); LYMPHOCYTES % (AUTO) 4.1 % (20.0-44.0); MEAN CORPUSCULAR HGB CONC 33 g/dl (31.0-36.0); MEAN CORPUSCULAR VOLUME 91 fL (82-100); MONOCYTES # (AUTO) 0.5 K/uL (0.1-1.30); MONOCYTES % (AUTO) 4.7 % (2.0-12.0); NEUTROPHILS # (AUTO) 9.7 K/uL (1.8-8.9); NEUTROPHILS % (AUTO) 90.9 % (43.0-81.0); PLATELET COUNT (AUTO) 97 K/uL (150-450); WHITE BLOOD COUNT (AUTO) 10.6 K/uL (4.3-11.0)
[2021-09-21] MEDS ORDERED: IV NS 0.9% 500 ML IV PRN (05:30)
--- NOTE | 2021-09-21 06:30 | NUR ---
ICU NOTES Patient AM labs resulted.Sodium trending up 156.MANAGER AVIATION,Delia Peguero notified no new orders received.
--- NOTE | 2021-09-21 07:20 | NUR ---
END NOTE Patient remains sedated.No acute distress noted.Tolerating vent settings and Tube feeding. AM care done.Continue same dose of Fentanyl gtt and Versed gtt.No significant changes noted during the shift.Report given to day shift RN for DARYA.
--- NOTE | 2021-09-21 07:30 | NUR ---
RN NOTES PT FOUND SEMI FOWLERS DISPLAYING NO S/S OF DISTRESS, FLACC = 0, RIKERS = 3, BILATERAL RISE AND FALL OF THE CHEST OBSERVED. 80 ML RESIDUAL MEASURED. R UA PICC PATIENT AND INTACT. HENNING CATH BELOW PATIENT DRAINING BY GRAVITY. VSS, RN WILL MONITOR AND TREAT THROUGHOUT SHIFT. SAFETY MEASURES IN PLACE, BED LOCKED AND IN LOWEST POSITION, SIDE RAILS UPX2, CALL LIGHT WITHIN REACH, BED ALARM ARMED.
[2021-09-21] MEDS: GLUCERNA 1.2 1,000 ML BOTTLE NG PRN (07:56)
[2021-09-21] MEDS: HYDROCORTISONE SOD SUCCINATE 100 MG/2 ML VIAL IV SCH ×2 (08:28→16:35)
[2021-09-21] MEDS: DEXAMETHASONE SOD PHOSPHATE 4 MG/ML VIAL IV SCH ×2 (08:28→16:35)
[2021-09-21] MEDS: PROSOURCE / PROSTAT (PYXIS) 30 ML UDC NG SCH (08:28)
[2021-09-21] MEDS: ASCORBIC ACID 500 MG TABLET GT SCH (08:29)
[2021-09-21] MEDS: APIXABAN 2.5 MG TABLET PO SCH ×2 (08:29→16:36)
[2021-09-21] MEDS: CHOLECALCIFEROL 1,000 UNIT TABLET (VIT D3) GT SCH (08:30)
[2021-09-21] MEDS: Z GUARD REMEDY 4 OZ OINT TP SCH (08:30)
[2021-09-21] MEDS: PANTOPRAZOLE 40 MG/PACK PACK GT SCH ×2 (08:30→16:35)
[2021-09-21] MEDS: CLOTRIMAZOLE 1% 15 GM TUBE TP SCH ×2 (08:30→21:32)
[2021-09-21] MEDS ORDERED: IV D5W 1,000 ML IV ONE (09:00)
[2021-09-21 10:49] LABS: LYMPHOCYTES % (MANUAL) 5 % (16-48); MONOCYTES % (MANUAL) 5 % (0-11.0); NEUTROPHILS % (MANUAL) 90 (42-76)
--- NOTE | 2021-09-21 12:30 | NUR ---
MD VISIT. RN SPOKE TO DR. GILES ABOUT PT'S HYPERTENSION. MD VERBALIZED UNDERSTANDING AND INTENTION TO ADDRESS
--- NOTE | 2021-09-21 19:15 | NUR ---
RN NOTES PT FOUND SEMI FOWLERS DISPLAYING NO S/S OF DISTRESS, FLACC = 0, RIKERS = 3, BILATERAL RISE AND FALL OF THE CHEST OBSERVED. 30 ML RESIDUAL MEASURED. R UA PICC PATIENT AND INTACT. HENNING CATH BELOW PATIENT DRAINING BY GRAVITY. SBAR AND REPORT GIVEN TO NETWORKER RN, ALL QUESTIONS ANSWERED. SAFETY MEASURES IN PLACE, BED LOCKED AND IN LOWEST POSITION, SIDE RAILS UPX2, CALL LIGHT WITHIN REACH, BED ALARM ARMED. PT ENDORSED IN STABLE CONDITION FOR DARYA.
--- NOTE | 2021-09-21 19:50 | NUR ---
RT NOTE PT RECEIVED INTUBATED WITH 7.5 ET TUBE @ 23 CM LIP LINE. PT SPO2 NOTED @ 82%. INCREASED FIO2 TO 70%. AMANDA CASTRO @ BEDSIDE. PT TOLERATING WELL. SPO2 @ 90%. SUCTION DONE, ET TUBE SECURED AND PATENT. WILL CONTINUE TO MONITOR CLOSELY.
--- NOTE | 2021-09-21 20:00 | NUR ---
RN OPENING NOTE RECEIVED PATIENT IN BED. SEDATED ON FENTANYL AT 200MCG AND VERSED@7. ON MECHANICAL VENT. ET TUBE 04/08. AC 26, TV 440 FIO2 50%, PEEP 8. O2 SATURATION IS 82-84%. DISCUSSED WITH RT AT BEDSIDE, INCREASED FIO2 TO 70%, O2 AT INCREASED TO 92%. NO S/S PAIN NOTED. TELE MONITOR READS SINUS RHYTHM HR 75. IV ACCESS IN GAB PICC LINE RUNNING D5W@50ML/HR.HENNING CATHETER DRAINING TO GRAVITY URINE IS YELLOW. NGTUBE, RESIDUAL 120CC, FLUSHED WITH NO RESISTANCE, RUNNING GLUCERNA 1.2@20ML/HR. FLEXI-SEAL INTACT, DRAINING TO GRAVITY, BAG CHANGED. BED IS LOW AND LOCKED, HOB ELEVATED IN SEMI FOWLERS, SIDE RIALS UP X2. Addendum: 09/21/21 at 2057 by GLORIA NELSON RN PATIENT HAS A-LINE, ZERO'D. Addendum: 09/21/21 at 2110 by GLORIA NELSON RN GLUCERNA FEED AT 50CC/HR
[2021-09-21] MEDS: INSULIN GLARGINE, 100 UNIT/ML CARTRIDGE SQ SCH (21:38)
[2021-09-22] VITALS (37 sets, daily range): BP systolic 98–184; BP diastolic 52–131
[2021-09-22] MEDS: FENTANYL CITRAT IV 2,500 MCG in IV NS 0.9% 200 ML IV PRN ×2 (02:37→15:16)
[2021-09-22] MEDS: MIDAZOLAM HCL 100 MG in IV NS 0.9% 80 ML IV PRN (04:13)
[2021-09-22 04:48] LABS: BASOPHILS % (AUTO) 0.3 % (0.0-2.0); EOSINOPHILS % (AUTO) 0.1 % (0.0-6.0); HEMATOCRIT 28 % (33-45); HEMOGLOBIN 9.3 g/dL (11.5-14.8); LYMPHOCYTES # (AUTO) 0.4 K/uL (0.8-4.8); LYMPHOCYTES % (AUTO) 4.7 % (20.0-44.0); MEAN CORPUSCULAR HGB CONC 33 g/dl (31.0-36.0); MEAN CORPUSCULAR VOLUME 91 fL (82-100); MONOCYTES # (AUTO) 0.5 K/uL (0.1-1.30); MONOCYTES % (AUTO) 5.7 % (2.0-12.0); NEUTROPHILS # (AUTO) 7.7 K/uL (1.8-8.9); NEUTROPHILS % (AUTO) 89.2 % (43.0-81.0); PLATELET COUNT (AUTO) 92 K/uL (150-450); RED BLOOD CELL COUNT(AUTO) 3.07 MIL/uL (4.0-5.2); WHITE BLOOD COUNT (AUTO) 8.6 K/uL (4.3-11.0)
[2021-09-22 05:13] LABS: CALCIUM, SERUM 8.1 mg/dL (8.5-10.1); CREATININE 1.4 mg/dL (0.6-1.3); MAGNESIUM 2.6 mg/dL (1.8-2.4); PHOSPHORUS 2.9 mg/dL (2.5-4.9); POTASSIUM 3.6 mmol/L (3.5-5.1)
[2021-09-22] MEDS: BLOOD SUGAR DIAGNOSTIC 1 EACH STRIP IN SCH ×3 (05:30→18:00)
[2021-09-22] MEDS: METOCLOPRAMIDE HCL 10 MG/2 ML VIAL IV SCH ×3 (05:30→17:12)
[2021-09-22] MEDS: INSULIN REGULAR, HUMAN 100 UNIT/ML 3 ML VIAL SQ PRN (05:38)
--- NOTE | 2021-09-22 06:17 | NUR ---
RN CLOSING NOTE PATIENT SEDATED. REMAINS ON FENTANYL AT 200MCG AND VERSED@7.ONLY MECHANICAL VENT SETTING CHANGE WAS FIO2 70%. PATIENT CONTINUES TO O2 SATURATION IN 89% AND ABOVE. NO S/S PAIN. CONTINUES TO BE SINUS RHYTHM . GAB PICC LINE, PHIL MIDLINE AND A LINE MAINTAINED. HENNING CATHETER OUTPUT 500CC, YELLOW , SEDIMENT AND CLOUDY. NGTUBE RESIDUAL CHECKED THROUGHOUT SHIFT DECREASED FEEDING BACK DOWN TO @20CC. FLEXI-SEAL OUTPUT 200CC. BED REMAINS LOW AND LOCKED, HOB ELEVATED IN SEMI FOWLERS, SIDE RIALS UP X3.
--- NOTE | 2021-09-22 07:30 | NUR ---
RN NOTES PT FOUND SEMI FOWLERS DISPLAYING NO S/S OF DISTRESS, FLACC = 0, RIKERS = 3, BILATERAL RISE AND FALL OF THE CHEST OBSERVED. 120 ML RESIDUAL MEASURED. R UA PICC PATIENT AND INTACT. HENNING CATH BELOW PATIENT DRAINING BY GRAVITY. FLEXSEAL BELOW PATIENT DRAINING BY GRAVITY. VSS, RN WILL MONITOR AND TREAT THROUGHOUT SHIFT. SAFETY MEASURES IN PLACE, BED LOCKED AND IN LOWEST POSITION, SIDE RAILS UPX2, CALL LIGHT WITHIN REACH, BED ALARM ARMED.
[2021-09-22] MEDS: GLUCERNA 1.2 1,000 ML BOTTLE NG PRN ×2 (08:30→12:34)
[2021-09-22] MEDS: ASCORBIC ACID 500 MG TABLET GT SCH (08:41)
[2021-09-22] MEDS: CHOLECALCIFEROL 1,000 UNIT TABLET (VIT D3) GT SCH (08:41)
[2021-09-22] MEDS: PROSOURCE / PROSTAT (PYXIS) 30 ML UDC NG SCH (08:41)
[2021-09-22] MEDS: HYDROCORTISONE SOD SUCCINATE 100 MG/2 ML VIAL IV SCH ×2 (08:42→17:12)
[2021-09-22] MEDS: PANTOPRAZOLE 40 MG/PACK PACK GT SCH ×2 (08:42→17:12)
[2021-09-22] MEDS: DEXAMETHASONE SOD PHOSPHATE 4 MG/ML VIAL IV SCH ×2 (08:42→17:12)
[2021-09-22] MEDS: CLOTRIMAZOLE 1% 15 GM TUBE TP SCH ×2 (08:44→21:16)
[2021-09-22] MEDS: Z GUARD REMEDY 4 OZ OINT TP SCH (08:44)
[2021-09-22] MEDS: APIXABAN 2.5 MG TABLET PO SCH ×2 (08:44→17:14)
[2021-09-22] MEDS: DEXTROSE 50%-WATER 50 ML DISP.SYRIN IV PRN (16:21)
--- NOTE | 2021-09-22 19:25 | NUR ---
RN NOTES PT FOUND SEMI FOWLERS DISPLAYING NO S/S OF DISTRESS, FLACC = 0, RIKERS = 3, BILATERAL RISE AND FALL OF THE CHEST OBSERVED. 30 ML RESIDUAL MEASURED. R UA PICC PATIENT AND INTACT. HENNING CATH BELOW PATIENT DRAINING BY GRAVITY. FLEXSEAL BELOW PATIENT DRAINING BY GRAVITY. SBAR AND REPORT GIVEN TO STRING TOP SEALER RN, ALL QUESTIONS ANSWERED. SAFETY MEASURES IN PLACE, BED LOCKED AND IN LOWEST POSITION, SIDE RAILS UPX2, CALL LIGHT WITHIN REACH, BED ALARM ARMED. PT ENDORSED IN STABLE CONDITION FOR DARYA.
--- NOTE | 2021-09-22 20:29 | NUR ---
RECEIVED PT INTUBATED 7.0 ETT SECURED AT 23CM AT THE LIP. PT TOLERATING VENT SETTINGS. SX'D SMALL AMT OF THICK ROLLINS SECRETIONS. VENT ALARMS SET AND AUDIBLE. CONTINUE TO MONITOR. Addendum: 09/22/21 at 2030 by LEONARD REYES RT Amended: Links added.
[2021-09-22] MEDS: INSULIN GLARGINE, 100 UNIT/ML CARTRIDGE SQ SCH (21:34)
[2021-09-23] VITALS (29 sets, daily range): BP systolic 115–194; BP diastolic 51–127
[2021-09-23] MEDS: BLOOD SUGAR DIAGNOSTIC 1 EACH STRIP IN SCH ×4 (00:31→18:26)
[2021-09-23] MEDS: METOCLOPRAMIDE HCL 10 MG/2 ML VIAL IV SCH ×4 (00:33→18:24)
[2021-09-23] MEDS: MIDAZOLAM HCL 100 MG in IV NS 0.9% 80 ML IV PRN (03:28)
--- NOTE | 2021-09-23 03:39 | NUR ---
FIO2 TITRATED RN NOTIFIED.
[2021-09-23 03:45] LABS: BASOPHILS % (AUTO) 0.2 % (0.0-2.0); EOSINOPHILS % (AUTO) 0.1 % (0.0-6.0); HEMATOCRIT 31 % (33-45); HEMOGLOBIN 10.3 g/dL (11.5-14.8); LYMPHOCYTES # (AUTO) 0.5 K/uL (0.8-4.8); MEAN CORPUSCULAR HGB CONC 33 g/dl (31.0-36.0); MEAN CORPUSCULAR VOLUME 91 fL (82-100); MONOCYTES # (AUTO) 0.5 K/uL (0.1-1.30); MONOCYTES % (AUTO) 4.6 % (2.0-12.0); NEUTROPHILS # (AUTO) 9.6 K/uL (1.8-8.9); NEUTROPHILS % (AUTO) 90.1 % (43.0-81.0); PLATELET COUNT (AUTO) 103 K/uL (150-450); RED BLOOD CELL COUNT(AUTO) 3.42 MIL/uL (4.0-5.2); WHITE BLOOD COUNT (AUTO) 10.7 K/uL (4.3-11.0)
[2021-09-23 04:01] LABS: CALCIUM, SERUM 8.4 mg/dL (8.5-10.1); CREATININE 1.3 mg/dL (0.6-1.3); MAGNESIUM 2.5 mg/dL (1.8-2.4); PHOSPHORUS 2.6 mg/dL (2.5-4.9); POTASSIUM 3.8 mmol/L (3.5-5.1)
--- NOTE | 2021-09-23 08:00 | NUR ---
rn notes received patient ETT/Vent Dependent at this time, no acute respiratory distress, patient sedated with fentanyl 175 mcg/kg/hr, and versed 5mg/ml/hr on right UA PICC line intact. due medication administered via NGT crushed, keep hob elevated for aspiration precaution, running Glucerna @50ml/hr, rechecked residual is 40ml. Tenorio draining yellow output. iv access on right UA picc line intact, right wrist A line, leaking notified hospitalist about it, assist turn and reposition q 2 hr. will follow up. .
[2021-09-23] MEDS: HYDROCORTISONE SOD SUCCINATE 100 MG/2 ML VIAL IV SCH ×2 (09:28→18:23)
[2021-09-23] MEDS: PANTOPRAZOLE 40 MG/PACK PACK GT SCH ×2 (09:29→18:25)
[2021-09-23] MEDS: DEXAMETHASONE SOD PHOSPHATE 4 MG/ML VIAL IV SCH ×2 (09:29→18:24)
[2021-09-23] MEDS: ASCORBIC ACID 500 MG TABLET GT SCH (09:29)
[2021-09-23] MEDS: CHOLECALCIFEROL 1,000 UNIT TABLET (VIT D3) GT SCH (09:29)
[2021-09-23] MEDS: PROSOURCE / PROSTAT (PYXIS) 30 ML UDC NG SCH (09:30)
[2021-09-23] MEDS: APIXABAN 2.5 MG TABLET PO SCH ×2 (09:30→18:25)
[2021-09-23] MEDS: CLOTRIMAZOLE 1% 15 GM TUBE TP SCH ×2 (09:31→21:25)
[2021-09-23] MEDS: Z GUARD REMEDY 4 OZ OINT TP SCH (09:32)
[2021-09-23] MEDS: FENTANYL CITRAT IV 2,500 MCG in IV NS 0.9% 200 ML IV PRN (10:02)
--- NOTE | 2021-09-23 12:00 | NUR ---
RN NOTES ENDORSED HOSPITALIST DR Carver ABOUT LEAKAGE OF RIGHT ARM A LINE , GET ORDER TO REMOVE. ORDER TAKEN AND CARRIED OUT.
[2021-09-23] MEDS: TOBRAMYCIN OPHTH 5ML 5 ML BOTTLE LEFTEYE SCH ×2 (17:00→21:24)
[2021-09-23] MEDS: GLUCERNA 1.2 1,000 ML BOTTLE NG PRN (18:23)
[2021-09-23] MEDS: IV D5W 1,000 ML IV PRN (18:30)
--- NOTE | 2021-09-23 18:30 | NUR ---
RN NOTES PATIENT PM CARE DONE, DUE MEDICATION ADMINISTERED,SUCTION, MOUTH CARE DONE. VSS, NO ACUTE RESPIRATORY DISTRESS, ASSIST TURN AND, REPOSITION Q 2 HR, INFUSING D5W@60ML/HR . FENTANYL 175 MCG/KG/HR, AND VERSED 5 MG/ML/HR INTACT ON LEFT MIDLINE. DRESSING CHANGED ON RIGHT PICC LINE. KEEP HOB ELEVATED FOR ASPIRATION PRECAUTION. RUNNING GLUCERNA 1.2 @50ML/HR ENDORSED ONCOMING NURSE FOLLOW PLAN OF CARE.
[2021-09-23] MEDS: INSULIN REGULAR, HUMAN 100 UNIT/ML 3 ML VIAL SQ PRN (18:42)
[2021-09-23] MEDS: INSULIN GLARGINE, 100 UNIT/ML CARTRIDGE SQ SCH (22:00)
[2021-09-24] VITALS (40 sets, daily range): BP systolic 111–166; BP diastolic 59–92
[2021-09-24] MEDS: BLOOD SUGAR DIAGNOSTIC 1 EACH STRIP IN SCH ×5 (00:50→23:04)
[2021-09-24] MEDS: METOCLOPRAMIDE HCL 10 MG/2 ML VIAL IV SCH ×5 (00:50→23:12)
[2021-09-24] MEDS: TOBRAMYCIN OPHTH 5ML 5 ML BOTTLE LEFTEYE SCH ×6 (00:50→21:48)
[2021-09-24] MEDS: FENTANYL CITRAT IV 2,500 MCG in IV NS 0.9% 200 ML IV PRN ×2 (00:53→16:17)
[2021-09-24] MEDS: MIDAZOLAM HCL 100 MG in IV NS 0.9% 80 ML IV PRN ×2 (01:05→22:04)
[2021-09-24] MEDS: INSULIN REGULAR, HUMAN 100 UNIT/ML 3 ML VIAL SQ PRN ×5 (01:18→23:09)
[2021-09-24 04:45] LABS: BASOPHILS % (AUTO) 0.3 % (0.0-2.0); EOSINOPHILS % (AUTO) 0.1 % (0.0-6.0); HEMATOCRIT 31 % (33-45); HEMOGLOBIN 10.1 g/dL (11.5-14.8); LYMPHOCYTES # (AUTO) 0.4 K/uL (0.8-4.8); LYMPHOCYTES % (AUTO) 3.8 % (20.0-44.0); MEAN CORPUSCULAR HGB CONC 33 g/dl (31.0-36.0); MEAN CORPUSCULAR VOLUME 93 fL (82-100); MONOCYTES # (AUTO) 0.3 K/uL (0.1-1.30); MONOCYTES % (AUTO) 2.5 % (2.0-12.0); NEUTROPHILS # (AUTO) 10.7 K/uL (1.8-8.9); NEUTROPHILS % (AUTO) 93.3 % (43.0-81.0); PLATELET COUNT (AUTO) 104 K/uL (150-450); RED BLOOD CELL COUNT(AUTO) 3.36 MIL/uL (4.0-5.2); WHITE BLOOD COUNT (AUTO) 11.5 K/uL (4.3-11.0)
[2021-09-24 04:58] LABS: CALCIUM, SERUM 8.5 mg/dL (8.5-10.1); CREATININE 1.2 mg/dL (0.6-1.3); MAGNESIUM 2.5 mg/dL (1.8-2.4); PHOSPHORUS 3.5 mg/dL (2.5-4.9); POTASSIUM 4.3 mmol/L (3.5-5.1)
--- NOTE | 2021-09-24 08:03 | NUR ---
WOUND CARE CONSULT: PT PRESENTS WITH SACRAL DEEP TISSUE INJURY IN EVOLUTION WHICH EXTENDS TO BUTTOCKS. PT NOTED TO HAVE MULTIPLE CO-MORBIDITIES INCLUDING SEPTIC SHOCK, GENERALIZED EDEMA, ACUTE KIDNEY INJURY, RESPIRATORY FAILURE SECONDARY TO COVID 19 PNEUMONIA, DIABETES AND MORBID OBESITY. DUE TO MULTIPLE CO-MORBIDITIES, FURTHER SKIN BREAKDOWN MAY BE UNAVOIDABLE. PITTING EDEMA NOTED TO UPPER EXTREMITIES. RECOMMENDATIONS MADE FOR SKIN PROTECTION AND WOUND CARE. DISCUSSED WITH NURSING STAFF. PT IS ON [facility] LOW AIRSS BED. IN AGREEMENT WITH PLAN OF CARE. Addendum: 09/24/21 at 0806 by EDWINA AGUILAR WNDNU Amended: Links added.
--- NOTE | 2021-09-24 08:10 | NUR ---
RN NOTES WOUND NURSE WITH THE PATIENT AT HIS TIME, DTI ON BUTTOCKS. GET NEW TREATMENT, TURN AND REPOSTION. NO ACUTE RESPIRATORY DISTRESS, SEEN STAPLER HAND AND GET TO STAT ABG ORDER, ORDER TAKEN AD CARRIED OUT. RESIDUAL CHECKED 50ML, DUE MEDICATION ADMINISTERED, INFUSING FENTANYL 175 MCG/KG/HR, VERSED 5 MG/ML, AND D5W @60ML/HR ON LEFT MIDLINE INTACT. HENNING, AND FLEXIESEAL INTACT DRAINING VIA GRAVITY. KEEP HOB ELEVATED FOR ASPIRATION PRECAUTION. WILL FOLLOW UP.
[2021-09-24 08:50] LABS: ABG BASE EXCESS 1.6 mmol/L; ABG OXYGEN SATURATION 94.4 % (92.0-98.5); ABG PH 7.455 (7.350-7.450); ABG PO2 74.7 mmHg (75.0-100.0); AaDO2 240.2 mmHg; COHb 0.1 % (0.5-1.5); MetHb 0.3 % (0.0-1.5); PEEP,BG 10 cm H2O; SITE, ABG Left Radial; VT, ABG 440 mL
[2021-09-24] MEDS: PANTOPRAZOLE 40 MG/PACK PACK GT SCH ×2 (09:31→17:17)
[2021-09-24] MEDS: HYDROCORTISONE SOD SUCCINATE 100 MG/2 ML VIAL IV SCH ×2 (09:31→17:17)
[2021-09-24] MEDS: DEXAMETHASONE SOD PHOSPHATE 4 MG/ML VIAL IV SCH (09:31)
[2021-09-24] MEDS: ASCORBIC ACID 500 MG TABLET GT SCH (09:31)
[2021-09-24] MEDS: CHOLECALCIFEROL 1,000 UNIT TABLET (VIT D3) GT SCH (09:31)
[2021-09-24] MEDS: HYDROCHLOROTHIAZIDE 25 MG TABLET GT SCH (09:32)
[2021-09-24] MEDS: APIXABAN 2.5 MG TABLET PO SCH ×2 (09:33→17:29)
[2021-09-24] MEDS: PROSOURCE / PROSTAT (PYXIS) 30 ML UDC NG SCH (09:34)
[2021-09-24] MEDS: CLOTRIMAZOLE 1% 15 GM TUBE TP SCH ×2 (09:35→21:00)
[2021-09-24] MEDS: Z GUARD REMEDY 4 OZ OINT TP SCH (09:36)
[2021-09-24 10:11] LABS: BAND % (MANUAL) 1 % (0.0-5.0); LYMPHOCYTES % (MANUAL) 4 % (16-48); MONOCYTES % (MANUAL) 1 % (0-11.0); NEUTROPHILS % (MANUAL) 94 (42-76)
[2021-09-24] MEDS: IV D5W 1,000 ML IV PRN (10:55)
--- NOTE | 2021-09-24 12:30 | NUR ---
RN NOTES BS-211MG/DL , COVERAGE GIVEN, ASSIST TURN A D REPOSTION Q 2 HR. PATIENT STABLE.
[2021-09-24] MEDS: GLUCERNA 1.2 1,000 ML BOTTLE NG PRN (17:17)
[2021-09-24] MEDS: DEXAMETHASONE SOD PHOSPHATE 10 MG/ML VIAL IV SCH (17:17)
--- NOTE | 2021-09-24 18:30 | NUR ---
RN NOTES PATIENT HAS NO ACUTE RESPIRATORY DISTRESS,DUE MEDICATION ADMINISTERED, SUCTION, MOUTH CARE. VSS, INFUSING FENTANYL 175MCG/KG/HR, VERSED 5MG/ML, AND D5W@ 60ML/HR ON LEFT MIDLINE INTACT. ASSIST TURN AND REPOSTION Q 2HR. HENNING OUTPUT 600ML, ENDORSED ONCOMING NURSE FOLLOW PLAN OF CARE.
[2021-09-24] MEDS: INSULIN GLARGINE, 100 UNIT/ML CARTRIDGE SQ SCH (23:08)
[2021-09-25] VITALS (30 sets, daily range): BP systolic 109–146; BP diastolic 56–97
[2021-09-25] MEDS: TOBRAMYCIN OPHTH 5ML 5 ML BOTTLE LEFTEYE SCH ×6 (01:19→21:26)
[2021-09-25] MEDS: IV D5W 1,000 ML IV PRN ×2 (02:14→18:03)
[2021-09-25 05:03] LABS: BASOPHILS % (AUTO) 0.2 % (0.0-2.0); HEMATOCRIT 29 % (33-45); HEMOGLOBIN 9.3 g/dL (11.5-14.8); LYMPHOCYTES # (AUTO) 0.4 K/uL (0.8-4.8); LYMPHOCYTES % (AUTO) 3.3 % (20.0-44.0); MEAN CORPUSCULAR HGB CONC 33 g/dl (31.0-36.0); MEAN CORPUSCULAR VOLUME 92 fL (82-100); MONOCYTES # (AUTO) 0.4 K/uL (0.1-1.30); MONOCYTES % (AUTO) 3.2 % (2.0-12.0); NEUTROPHILS % (AUTO) 93.3 % (43.0-81.0); PLATELET COUNT (AUTO) 95 K/uL (150-450); RED BLOOD CELL COUNT(AUTO) 3.09 MIL/uL (4.0-5.2); WHITE BLOOD COUNT (AUTO) 11.8 K/uL (4.3-11.0)
[2021-09-25] MEDS: METOCLOPRAMIDE HCL 10 MG/2 ML VIAL IV SCH ×4 (05:42→23:18)
[2021-09-25] MEDS: BLOOD SUGAR DIAGNOSTIC 1 EACH STRIP IN SCH ×4 (05:42→23:18)
[2021-09-25 05:45] LABS: CREATININE 1.2 mg/dL (0.6-1.3); MAGNESIUM 2.2 mg/dL (1.8-2.4); PHOSPHORUS 3.7 mg/dL (2.5-4.9)
[2021-09-25] MEDS: FENTANYL CITRAT IV 2,500 MCG in IV NS 0.9% 200 ML IV PRN ×2 (05:47→21:30)
[2021-09-25] MEDS: INSULIN REGULAR, HUMAN 100 UNIT/ML 3 ML VIAL SQ PRN ×4 (05:51→23:28)
[2021-09-25] MEDS: CHOLECALCIFEROL 1,000 UNIT TABLET (VIT D3) GT SCH (08:30)
[2021-09-25] MEDS: HYDROCORTISONE SOD SUCCINATE 100 MG/2 ML VIAL IV SCH ×2 (08:30→17:29)
[2021-09-25] MEDS: HYDROCHLOROTHIAZIDE 25 MG TABLET GT SCH (08:30)
[2021-09-25] MEDS: PANTOPRAZOLE 40 MG/PACK PACK GT SCH ×2 (08:30→17:28)
[2021-09-25] MEDS: DEXAMETHASONE SOD PHOSPHATE 10 MG/ML VIAL IV SCH ×2 (08:31→17:29)
[2021-09-25] MEDS: ASCORBIC ACID 500 MG TABLET GT SCH (08:31)
[2021-09-25] MEDS: APIXABAN 2.5 MG TABLET PO SCH ×2 (08:32→17:33)
[2021-09-25] MEDS: PROSOURCE / PROSTAT (PYXIS) 30 ML UDC NG SCH (08:36)
[2021-09-25] MEDS: Z GUARD REMEDY 4 OZ OINT TP SCH (08:51)
[2021-09-25] MEDS: CLOTRIMAZOLE 1% 15 GM TUBE TP SCH ×2 (08:51→21:00)
[2021-09-25 17:05] LABS: BAND % (MANUAL) 2 % (0.0-5.0); LYMPHOCYTES % (MANUAL) 3 % (16-48); MONOCYTES % (MANUAL) 1 % (0-11.0); NEUTROPHILS % (MANUAL) 94 (42-76)
[2021-09-25] MEDS: GLUCERNA 1.2 1,000 ML BOTTLE NG PRN (18:03)
[2021-09-25] MEDS: MIDAZOLAM HCL 100 MG in IV NS 0.9% 80 ML IV PRN (21:31)
[2021-09-25] MEDS: INSULIN GLARGINE, 100 UNIT/ML CARTRIDGE SQ SCH (23:27)
[2021-09-26] VITALS (38 sets, daily range): BP systolic 110–163; BP diastolic 59–91
[2021-09-26] MEDS: TOBRAMYCIN OPHTH 5ML 5 ML BOTTLE LEFTEYE SCH ×6 (01:32→22:36)
[2021-09-26 05:22] LABS: BASOPHILS % (AUTO) 0.3 % (0.0-2.0); HEMATOCRIT 29 % (33-45); HEMOGLOBIN 9.5 g/dL (11.5-14.8); LYMPHOCYTES # (AUTO) 0.5 K/uL (0.8-4.8); LYMPHOCYTES % (AUTO) 3.6 % (20.0-44.0); MEAN CORPUSCULAR HGB CONC 33 g/dl (31.0-36.0); MEAN CORPUSCULAR VOLUME 90 fL (82-100); MONOCYTES # (AUTO) 0.4 K/uL (0.1-1.30); MONOCYTES % (AUTO) 2.7 % (2.0-12.0); NEUTROPHILS # (AUTO) 12.3 K/uL (1.8-8.9); NEUTROPHILS % (AUTO) 93.4 % (43.0-81.0); PLATELET COUNT (AUTO) 96 K/uL (150-450); RED BLOOD CELL COUNT(AUTO) 3.15 MIL/uL (4.0-5.2); WHITE BLOOD COUNT (AUTO) 13.2 K/uL (4.3-11.0)
[2021-09-26 05:48] LABS: CALCIUM, SERUM 8.6 mg/dL (8.5-10.1); CREATININE 1.1 mg/dL (0.6-1.3); MAGNESIUM 2.2 mg/dL (1.8-2.4); PHOSPHORUS 3.5 mg/dL (2.5-4.9); POTASSIUM 3.9 mmol/L (3.5-5.1)
[2021-09-26] MEDS: METOCLOPRAMIDE HCL 10 MG/2 ML VIAL IV SCH ×3 (06:16→17:16)
[2021-09-26] MEDS: BLOOD SUGAR DIAGNOSTIC 1 EACH STRIP IN SCH ×4 (06:16→23:24)
[2021-09-26] MEDS: INSULIN REGULAR, HUMAN 100 UNIT/ML 3 ML VIAL SQ PRN ×4 (06:21→23:30)
--- NOTE | 2021-09-26 08:00 | NUR ---
RN NOTES PATIENT RECEIVED ETT.VENT DEPENDENT AFTER ABG RT TITRATED JANEE TO 8. NO ACUTE RESPIRATORY DISTRESS, RESIDUAL CHECKED 50ML, DUE MEDICATION ADMINISTERED, INFUSING FENTANYL 175 MCG/KG/HR, VERSED 6 MG/ML, AND D5W @60ML/HR ON LEFT MIDLINE INTACT.GET ORDER VIA FL PELEG FOR SEDATION VACATION TODAY, TITRATED SEDATION MEDICATION PER PROTOCOL. SUCTION, MOUTH CARE DONE. HENNING, AND FLEXIESEAL INTACT DRAINING VIA GRAVITY. KEEP HOB ELEVATED FOR ASPIRATION PRECAUTION. WILL FOLLOW UP.
[2021-09-26] MEDS: HYDROCORTISONE SOD SUCCINATE 100 MG/2 ML VIAL IV SCH ×2 (08:40→17:16)
[2021-09-26] MEDS: PANTOPRAZOLE 40 MG/PACK PACK GT SCH ×2 (08:40→17:16)
[2021-09-26] MEDS: HYDROCHLOROTHIAZIDE 25 MG TABLET GT SCH (08:42)
[2021-09-26] MEDS: ASCORBIC ACID 500 MG TABLET GT SCH (08:44)
[2021-09-26] MEDS: DEXAMETHASONE SOD PHOSPHATE 10 MG/ML VIAL IV SCH ×2 (08:45→17:16)
[2021-09-26] MEDS: CHOLECALCIFEROL 1,000 UNIT TABLET (VIT D3) GT SCH (08:45)
[2021-09-26] MEDS: PROSOURCE / PROSTAT (PYXIS) 30 ML UDC NG SCH (08:46)
[2021-09-26] MEDS: CLOTRIMAZOLE 1% 15 GM TUBE TP SCH ×3 (08:47→22:56)
[2021-09-26] MEDS: Z GUARD REMEDY 4 OZ OINT TP SCH (08:47)
[2021-09-26] MEDS: APIXABAN 2.5 MG TABLET PO SCH ×2 (08:55→17:21)
--- NOTE | 2021-09-26 08:58 | NUR ---
RN NOTES PATIENT AT STARTED SEDATION VACATION AT THIS TIME PER DR HOWE. BP 110/66, P-51, WILL FOLLOW UP.
[2021-09-26] MEDS: IV D5W 1,000 ML IV PRN (11:18)
--- NOTE | 2021-09-26 16:16 | NUR ---
RN NOTES PATIENT SON NEXT TO THE BED. PATIENT CALM AND COOPERATIVE, SUCTION.
[2021-09-26 17:54] LABS: LYMPHOCYTES % (MANUAL) 3 % (16-48); MONOCYTES % (MANUAL) 1 % (0-11.0); NEUTROPHILS % (MANUAL) 96 (42-76)
[2021-09-26] MEDS: GLUCERNA 1.2 1,000 ML BOTTLE NG PRN (18:02)
--- NOTE | 2021-09-26 18:38 | NUR ---
rn notes patient trying t get up titrated up fentanyl 125 mcg/kg/hr, no acute respiratory distress,titrated fentanyl 25mcg /kg/hr per protocol.keep hob elevated for aspiration precaution. assist turn and reposition q 2 hr. endorsed oncoming nurse follow plan of care.
[2021-09-26] MEDS: FENTANYL CITRAT IV 2,500 MCG in IV NS 0.9% 200 ML IV PRN (20:11)
[2021-09-26] MEDS ORDERED: INSULIN GLARGINE, 100 UNIT/ML CARTRIDGE SQ ONE (23:09)
[2021-09-26] MEDS: INSULIN GLARGINE, 100 UNIT/ML CARTRIDGE SQ SCH (23:31)
[2021-09-27] VITALS (35 sets, daily range): BP systolic 146–193; BP diastolic 88–112
[2021-09-27] MEDS: METOCLOPRAMIDE HCL 10 MG/2 ML VIAL IV SCH ×5 (00:22→23:50)
--- NOTE | 2021-09-27 00:30 | NUR ---
FLORAL ARTIST ATTMEPTING TO WEAN PT OFF SEDATION TO EVAL NEURO STATUS PER MD; PT AWAKE UNABLE TO FOLLOW COMMANDS ABLE TO NOD NO AND MOUTHING WORDS WHEN ATTEMPTING PT CARE HOWEVER NOTED MOVING BL ARMS; RIGHT MORE THAN LEFT REACHING FOR ET TUBE/LINES; BSWR PLACED AT THIS TIME PRIMARILY TO PREVENT SELF EXTUBATION.
[2021-09-27] MEDS: TOBRAMYCIN OPHTH 5ML 5 ML BOTTLE LEFTEYE SCH ×6 (01:12→21:40)
[2021-09-27] MEDS: IV D5W 1,000 ML IV PRN ×2 (04:50→20:15)
[2021-09-27 05:00] LABS: CALCIUM, SERUM 8.2 mg/dL (8.5-10.1); MAGNESIUM 2.1 mg/dL (1.8-2.4); PHOSPHORUS 3.1 mg/dL (2.5-4.9); POTASSIUM 3.4 mmol/L (3.5-5.1)
[2021-09-27 05:06] LABS: BASOPHILS % (AUTO) 0.2 % (0.0-2.0); HEMATOCRIT 33 % (33-45); HEMOGLOBIN 11.1 g/dL (11.5-14.8); LYMPHOCYTES # (AUTO) 0.7 K/uL (0.8-4.8); LYMPHOCYTES % (AUTO) 3.1 % (20.0-44.0); MEAN CORPUSCULAR HGB CONC 34 g/dl (31.0-36.0); MEAN CORPUSCULAR VOLUME 90 fL (82-100); MONOCYTES # (AUTO) 0.7 K/uL (0.1-1.30); MONOCYTES % (AUTO) 3.3 % (2.0-12.0); NEUTROPHILS # (AUTO) 19.7 K/uL (1.8-8.9); NEUTROPHILS % (AUTO) 93.4 % (43.0-81.0); PLATELET COUNT (AUTO) 136 K/uL (150-450); RED BLOOD CELL COUNT(AUTO) 3.68 MIL/uL (4.0-5.2); WHITE BLOOD COUNT (AUTO) 21.1 K/uL (4.3-11.0)
[2021-09-27] MEDS: INSULIN REGULAR, HUMAN 100 UNIT/ML 3 ML VIAL SQ PRN ×2 (05:33→23:10)
--- NOTE | 2021-09-27 05:49 | NUR ---
POWDER COATER NG TUBE TO LIS PT VOMITED FOUR TIMES LIQUID YELLOW OUTPUT. TUBE FEEDING HELD WELL.
[2021-09-27] MEDS ORDERED: ONDANSETRON HCL/PF 4 MG/2 ML VIAL IV PRN (06:00)
[2021-09-27] MEDS: BLOOD SUGAR DIAGNOSTIC 1 EACH STRIP IN SCH ×4 (06:08→23:04)
--- NOTE | 2021-09-27 08:00 | NUR ---
RN NOTES PATIENT ON SEDATION OF FENTANYL 75MCG/KG/HR, PATIENT EYES IS OPEN, ABLE TO MOVE HANDS AND HEAD. PATIENT ON NGT INTERMITTENT SUCTION, BECAUSE OF VOMITED PREVIOUS SHIFT 4 TIMES FOUR. KEEP HOB ELEVATED FOR ASPIRATION PRECAUTION. PATIENT HAS GENERALIZED EDEMA, PICC LINE ON RIGHT UA INTACT FLASHING WELL, HENNING, AND FLEXISEAL INTACT DRAINING VIA GRAVITY. HOLD AM PO MEDICATION, ASSIST TURN AND REPOSTION Q 2 HR .
[2021-09-27] MEDS: DEXAMETHASONE SOD PHOSPHATE 10 MG/ML VIAL IV SCH ×2 (08:38→16:27)
[2021-09-27] MEDS: HYDROCORTISONE SOD SUCCINATE 100 MG/2 ML VIAL IV SCH ×2 (08:38→16:27)
[2021-09-27] MEDS: Z GUARD REMEDY 4 OZ OINT TP SCH (08:40)
[2021-09-27] MEDS: CLOTRIMAZOLE 1% 15 GM TUBE TP SCH ×2 (08:40→21:40)
[2021-09-27] MEDS: PANTOPRAZOLE 40 MG/PACK PACK GT SCH ×3 (08:41→16:32)
[2021-09-27] MEDS: HYDROCHLOROTHIAZIDE 25 MG TABLET GT SCH (08:41)
[2021-09-27] MEDS: ASCORBIC ACID 500 MG TABLET GT SCH (08:42)
[2021-09-27] MEDS: CHOLECALCIFEROL 1,000 UNIT TABLET (VIT D3) GT SCH (08:42)
[2021-09-27] MEDS: PROSOURCE / PROSTAT (PYXIS) 30 ML UDC NG SCH (08:42)
[2021-09-27] MEDS ORDERED: POTASSIUM CHLORIDE 20 MEQ POWDER PACKET NG SCH (09:00)
[2021-09-27] MEDS: APIXABAN 2.5 MG TABLET PO SCH (09:00)
--- NOTE | 2021-09-27 09:00 | NUR ---
rn notes potassium administered via iv x1 .
[2021-09-27] MEDS ORDERED: hydrALAZINE HCL IV 20 MG VIAL IV PRN ×2 (09:30→20:30)
[2021-09-27] MEDS ORDERED: POTASSIUM CHLORIDE 10 MEQ/50 ML PREMIXED IVPB FOR PERIPHERAL LINE IV ONE (09:30)
[2021-09-27 09:42] LABS: ABG BASE EXCESS 2.9 mmol/L; ABG OXYGEN SATURATION 91.5 % (92.0-98.5); ABG PCO2 37.7 mmHg (35.0-45.0); ABG PH 7.466 (7.350-7.450); ABG PO2 60.9 mmHg (75.0-100.0); AaDO2 253.2 mmHg; MetHb 0.1 % (0.0-1.5); O2Hb 90.5 % (94.0-97.0); PEEP,BG 8 cm H2O; SITE, ABG Right Radial; VT, ABG 440 mL
[2021-09-27] MEDS: LORAZEPAM INJ 2 MG/ML VIAL IV PRN ×4 (09:44→23:50)
--- NOTE | 2021-09-27 09:44 | NUR ---
rn notes administered Ativan 1 mg/ml iv push for anxiety, bp 182/99, p-78. , held am due medication because of npo. patient on ngt suction. keep HOB elevated for aspiration precaution.
[2021-09-27] MEDS: IV NS 0.9% 250 ML IV PRN (09:46)
--- NOTE | 2021-09-27 13:18 | NUR ---
rn notes administered ativan 1 mg ml iv push for anxiety bp 184/103, p-75. bs-73 mg/dl, due medication administered, patient on intermitted ngt suctioning. assist turn ad reposition q 2 hr. will follow up.
[2021-09-27] MEDS: CLONIDINE HCL 0.1MG/24H PTWK 1 EA PATCH TD SCH (16:25)
--- NOTE | 2021-09-27 16:30 | NUR ---
RN NOTES BS-66MG/DL, PER DR HOWE'S ORDER INCREASED D5W @80ML/HR, APPLIED CATAPRES PATCH 0.1 MG BP 170/96 .PATIENT NPO, INTERMITTENT SUCTIONING. PM CARE DONE, SUCTION, MOUTH CARE, ASSIST TURN AND REPOSTION Q 2 HR, RECHECKED CIRCULATION BILATERAL SOFT RESTRAIN. WILL FOLLOW UP.
--- NOTE | 2021-09-27 19:35 | NUR ---
RN NOTES ADMINISTERED ATIVAN 1 MG/ML IV PUSH FOR ANXIETY BP 180/104, P-83.
--- NOTE | 2021-09-27 19:40 | NUR ---
UI LEAD DEVELOPER NOTES RECEIVED PT FOR CONTINUITY OF CARE. PATIENT IN NO S/SX OF ACUTE DISTRESS AT THIS TIME; PATIENT ON MECHANICAL VENT; SETTINGS PRESCRIBED WITH 02 SAT OF 93% AT THE TIME OF RECEIVED. WITH ONGOING FENTANYL DRIP @75MCG/HR MONITORED PER PROTOCOL. WILL ENSURE SAFETY MEASURES WITHIN THE SHIFT. PATIENT BED ALARM IS ON. HEAD OF BED ELEVATED. BED IS LOCKED, IN LOWEST POSITION AND SIDE RAILS UP. CALL LIGHT WITHIN REACH OF THE PATIENT. APPLICABLE ISOLATION PRECAUTIONS IN PLACE. WILL CONTINUE TO MONITOR AND REASSESS FOR ANY CHANGES AND WILL CARRY OUT ANY ONGOING AND ACTIVE MD ORDER.
--- NOTE | 2021-09-27 20:05 | NUR ---
RN NOTES NOTED PT'S BP IS RUNNING >160 SBP ER CHECKING VITAL SIGN TREND FROM AM SHIFT. CATAPRES GIVEN FROM AM SHIFT AROUND 1645 AND ATIVAN GIVEN BY AM SHIFT. NOTIFIED KAREN PANDYA (GANGA LEONARD) AND PROVIDED OTHER PERTINENT PT INFO. KAREN PANDYA ACKNOWLEDGED AND SAID SHE WILL PUT AN ORDER. RN ACKNOWLEDGED./FLORAL DESIGNER MADE AWARE
[2021-09-27] MEDS: INSULIN GLARGINE, 100 UNIT/ML CARTRIDGE SQ SCH (22:00)
[2021-09-27] MEDS: ENALAPRILAT DIHYD. (2.5MG/2ML) 1.25 MG/ML VIAL IV PRN (22:33)
--- NOTE | 2021-09-27 23:00 | NUR ---
RN NOTES ACCU CHECK DONE; 81MG/DL. LANTUS COVERAGE NOT GIVEN (ONCRAE PANDYA NOTIFIED) REGULAR INSULIN PER SLIDING SCALE ALSO NO COVERAGE.
[2021-09-27] MEDS: FENTANYL CITRAT IV 2,500 MCG in IV NS 0.9% 200 ML IV PRN (23:42)
[2021-09-28] VITALS (49 sets, daily range): BP systolic 88–181; BP diastolic 50–98
[2021-09-28] MEDS: TOBRAMYCIN OPHTH 5ML 5 ML BOTTLE LEFTEYE SCH ×6 (01:03→21:35)
[2021-09-28] MEDS: ENALAPRILAT DIHYD. (2.5MG/2ML) 1.25 MG/ML VIAL IV PRN ×2 (04:49→14:46)
[2021-09-28] MEDS: METOCLOPRAMIDE HCL 10 MG/2 ML VIAL IV SCH ×3 (05:00→18:04)
[2021-09-28] MEDS: BLOOD SUGAR DIAGNOSTIC 1 EACH STRIP IN SCH ×3 (06:06→18:04)
[2021-09-28] MEDS: INSULIN REGULAR, HUMAN 100 UNIT/ML 3 ML VIAL SQ PRN ×3 (06:07→18:08)
[2021-09-28 06:17] LABS: BASOPHILS % (AUTO) 0.1 % (0.0-2.0); HEMATOCRIT 30 % (33-45); HEMOGLOBIN 10.2 g/dL (11.5-14.8); LYMPHOCYTES # (AUTO) 0.5 K/uL (0.8-4.8); LYMPHOCYTES % (AUTO) 3.2 % (20.0-44.0); MEAN CORPUSCULAR HGB CONC 34 g/dl (31.0-36.0); MEAN CORPUSCULAR VOLUME 89 fL (82-100); MONOCYTES # (AUTO) 0.9 K/uL (0.1-1.30); MONOCYTES % (AUTO) 5.6 % (2.0-12.0); NEUTROPHILS # (AUTO) 15.3 K/uL (1.8-8.9); NEUTROPHILS % (AUTO) 91.1 % (43.0-81.0); PLATELET COUNT (AUTO) 128 K/uL (150-450); RED BLOOD CELL COUNT(AUTO) 3.34 MIL/uL (4.0-5.2); WHITE BLOOD COUNT (AUTO) 16.8 K/uL (4.3-11.0)
[2021-09-28] MEDS: LORAZEPAM INJ 2 MG/ML VIAL IV PRN ×2 (06:18→21:02)
--- NOTE | 2021-09-28 07:00 | NUR ---
WOUND CARE FOLLOW UP: PT SEEN FOR RE-EVALUATION OF SACRAL DEEP TISSUE INJURY IN EVOLUTION WHICH EXTENDS TO BUTTOCKS. SEROUS DRAINAGE NOTED, NO SIGN OF INFECTION. RECOMMENDATIONS MADE TO CONTINUE PRESENT WOUND TREATMENT. DISCUSSED SKIN PROTECTION WITH NURSING STAFF. PT NOTED TO HAVE GENERALIZED EDEMA WITH SOME WEEPING EDEMA OF UPPER EXTREMITIES. PT NOTED TO HAVE MULTIPLE CO-MORBIDITIES INCLUDING RESPIRATORY FAILURE SECONDARY TO COVID 19 PNEUMONIA. DUE TO MULTIPLE CO-MORBIDITIES, FURTHER SKIN BREAKDOWN MAY BE UNAVOIDABLE. PT IS ON [facility] LOW AIRLOSS BED. IN AGREEMENT WITH PLAN OF CARE. Addendum: 09/28/21 at 0702 by EDWINA AGUILAR WNDNU Amended: Links added.
[2021-09-28 07:04] LABS: CREATININE 0.9 mg/dL (0.6-1.3); MAGNESIUM 1.8 mg/dL (1.8-2.4); PHOSPHORUS 2.8 mg/dL (2.5-4.9); POTASSIUM 3.1 mmol/L (3.5-5.1)
--- NOTE | 2021-09-28 07:14 | NUR ---
RN CLOSING NOTE: PATIENT REMAINS IN ROOM IN NO SIGNS OF RESPIRATORY DISTRESS, PATIENT STILL ON MECH VENT; SETTINGS PRESCRIBED; TOLERATING WELL SATURATING @ >95% SP02. SAFETY MEASURES IMPLEMENTED, BED IN LOWEST POSITION, LOCKED, SIDE RAILS UP, CALL LIGHT WITHIN REACH. ALL NEEDS AND ORDERS ADDRESSED DURING THE SHIFT. IV ACCESS MAINTAINED INTACT, SECURED AND FLUSHING WELL. ALL DUE MEDS GIVEN ORDERED & SCHEDULED ; PATIENT TOLERATED WELL. STILL WITH ONGOING DRIP FOLLOWS: FENTANYL DRIP VIA RISK AND INSURANCE CONSULTANT PUMP @75MCG/HR RUNNING AND MONITORED PER PROTOCOL PATIENT KEPT CLEAN AND COMFORTABLE WITHIN THE SHIFT. PATIENT ENDORSED TO INCOMING SHIFT RN WITH STABLE VITAL SIGN AND FOR CONTINUITY OF CARE.
--- NOTE | 2021-09-28 07:15 | NUR ---
RN NOTES RECEIVED PT IN BED ORALLY INTUBATED WITH ETT 7/23CM, TOLERATING VENT SETTINGS WELL. SEDATED WITH FENTANYL 75MCG/HR. TELE MONITOR READS SR AT THIS TIME. R NARE NGT IN PLACE, PLACEMENT CHECKED. CONNECTED TO LIS. HENNING CATH AND FLEXISEAL IN PLACE. SAFETY MEASURES IN PLACE. BED LOCKED AND IN LOWEST POSITION WITH SIDE RAILS UP X3. WILL CONTINUE TO MONITOR.
[2021-09-28] MEDS: POTASSIUM CL. PREMIX PERIPHER. 50 ML IV SCH ×4 (08:10→11:03)
[2021-09-28] MEDS: HYDROCHLOROTHIAZIDE 25 MG TABLET GT SCH (08:33)
[2021-09-28] MEDS: CHOLECALCIFEROL 1,000 UNIT TABLET (VIT D3) GT SCH (08:33)
[2021-09-28] MEDS: HYDROCORTISONE SOD SUCCINATE 100 MG/2 ML VIAL IV SCH ×2 (08:33→17:09)
[2021-09-28] MEDS: ASCORBIC ACID 500 MG TABLET GT SCH (08:33)
[2021-09-28] MEDS: PANTOPRAZOLE 40 MG/PACK PACK GT SCH ×2 (08:33→17:10)
[2021-09-28] MEDS: PROSOURCE / PROSTAT (PYXIS) 30 ML UDC NG SCH (08:34)
[2021-09-28] MEDS: Z GUARD REMEDY 4 OZ OINT TP SCH (08:35)
[2021-09-28] MEDS: CLOTRIMAZOLE 1% 15 GM TUBE TP SCH ×2 (08:35→21:35)
[2021-09-28] MEDS: DEXAMETHASONE SOD PHOSPHATE 10 MG/ML VIAL IV SCH ×2 (08:36→17:10)
[2021-09-28] MEDS ORDERED: POTASSIUM CHLORIDE 20 MEQ POWDER PACKET GT SCH (09:00)
[2021-09-28] MEDS: IV D5W 1,000 ML IV PRN (09:00)
--- NOTE | 2021-09-28 18:46 | NUR ---
RN NOTES NO SIGNIFICANT CHANGES THROUGHOUT THE SHIFT. TOLERATING VENT SETTINGS WELL. NO SOB OR ANY RESPIRATORY DISTRESS NOTED. ALL DUE MEDS GIVEN. NEEDS ATTENDED. KEPT CLEAN AND COMFORTABLE. WILL ENDORSE TO NIGHT RN FOR DARYA.
--- NOTE | 2021-09-28 20:30 | NUR ---
ICU/[facility] PT IS CURRENTLY NPO WITH N/G TUBE TO LOW INTERMIT SUCTION. PT HAS 200ML FREE WATER FLUSH AT 1999 HOWEVER THIS WAS NOT GIVEN DUE TO THE FACT PT IS CURRENTLY NPO WITH ASPIRATION PRECAUTION.
--- NOTE | 2021-09-28 21:20 | NUR ---
ICU/KETTLE CLEANER PT'S BLOOD PRESSURE IS ELEVATED 170'S, PT IS TO HAVE TRACH 09/29/21. PT WAS ON VERSED AND FENTANYL DRIP BEFORE NOW ONLY ON FENTANYL DRIP. PT WAS GIVEN ATIVAN PRN IM IVP FOR INCREASED BP BY ENVIRONMENTAL STUDIES DEPARTMENT CHAIR NURSE. WILL CONTINUE TO MONITOR THIS PT.
[2021-09-28] MEDS: INSULIN GLARGINE, 100 UNIT/ML CARTRIDGE SQ SCH (21:58)
--- NOTE | 2021-09-28 22:16 | NUR ---
ICU/REMOTE SENSING RESEARCH SCIENTIST PT'S 2200 BLOOD SUGAR IS 147, PT HAS 2200 LANTUS 75UNITS. THIS WAS COVERED WITH SCHEDULED MEDICATION NEXT SUGAR CHECK IS AT MIDNIGHT.
[2021-09-29] VITALS (42 sets, daily range): BP systolic 90–164; BP diastolic 56–96
--- NOTE | 2021-09-29 00:30 | NUR ---
ICU/SHIPS OR BARGES LOADER PT IS NOW NPO DUE TO SURGERY TO HAVE TRACH. ALSO @0000 FREE WATER FLUSH HOWEVER PT IS NPO AND THE N/G TUBE IS TO LOW INTERMIT SUCTION.
[2021-09-29] MEDS: FENTANYL CITRAT IV 2,500 MCG in IV NS 0.9% 200 ML IV PRN (00:41)
[2021-09-29] MEDS: METOCLOPRAMIDE HCL 10 MG/2 ML VIAL IV SCH ×5 (00:42→23:42)
[2021-09-29] MEDS: BLOOD SUGAR DIAGNOSTIC 1 EACH STRIP IN SCH ×5 (01:07→23:36)
[2021-09-29] MEDS: TOBRAMYCIN OPHTH 5ML 5 ML BOTTLE LEFTEYE SCH ×6 (01:07→21:08)
[2021-09-29] MEDS: INSULIN REGULAR, HUMAN 100 UNIT/ML 3 ML VIAL SQ PRN ×2 (01:08→05:05)
--- NOTE | 2021-09-29 02:10 | NUR ---
ICU/NEUROLOGY NURSE PT WAS GIVEN AM CARE, ALONG WITH ORAL CARE. PT TOLERATED THIS WELL, PT'S SATURATION IS 96-98% ON CURRENT VENT SETTINGS. PT WAS TURNED AND REPOSITIONED FOR COMFORT AND CARE. NO ACUTE DISTRESS SEEN AT THIS TIME. WILL CONTINUE TO MONITOR THIS PT.
--- NOTE | 2021-09-29 04:46 | NUR ---
ICU/COMMUNITY DEVELOPMENT COORDINATOR PT IS CURRENTLY NPO FOR SURGERY TO HAVE TRACH. @0400 FREE WATER FLUSH WASN'T GIVEN DUE TO PT IS NPO AND THE N/G TUBE IS TO LOW INTERMIT SUCTION.
[2021-09-29 06:04] LABS: BASOPHILS % (AUTO) 0.1 % (0.0-2.0); HEMATOCRIT 28 % (33-45); HEMOGLOBIN 9.5 g/dL (11.5-14.8); LYMPHOCYTES # (AUTO) 0.4 K/uL (0.8-4.8); LYMPHOCYTES % (AUTO) 3.2 % (20.0-44.0); MEAN CORPUSCULAR HGB CONC 34 g/dl (31.0-36.0); MEAN CORPUSCULAR VOLUME 89 fL (82-100); MONOCYTES # (AUTO) 0.6 K/uL (0.1-1.30); MONOCYTES % (AUTO) 4.4 % (2.0-12.0); NEUTROPHILS # (AUTO) 11.8 K/uL (1.8-8.9); NEUTROPHILS % (AUTO) 92.3 % (43.0-81.0); PLATELET COUNT (AUTO) 120 K/uL (150-450); RED BLOOD CELL COUNT(AUTO) 3.14 MIL/uL (4.0-5.2); WHITE BLOOD COUNT (AUTO) 12.8 K/uL (4.3-11.0)
[2021-09-29 06:11] LABS: ALBUMIN 1.7 g/dL (3.4-5.0); BILIRUBIN,TOTAL 1.1 mg/dL (0.2-1.0); CALCIUM, SERUM 8.1 mg/dL (8.5-10.1); POTASSIUM 3.5 mmol/L (3.5-5.1); TOTAL PROTEIN, SERUM 4.6 g/dL (6.4-8.2)
--- NOTE | 2021-09-29 08:00 | NUR ---
RN NOTES RECEIVED PATIENT EET/VENT , NO ACUTE RESPIRATORY DISTRESS, SEDATED FENTANYL 75 MCG/KG/HR, VSS. NGT INTACT AND CLAMPED, NPO, PATIENT SCHEDULED TRACHEOSTOMY INSERTION TODAY. PO MEDICATION HELD. PATIENT HAS GENERALIZED EDEMA. HENNING DRAINING VIA GRAVITY, FLEXISEAL INTACT. ASSIST TURN AND REPOSTION Q 2 HR. SEEN PATIENT VIA HOSPITALIST DR LEYVA, AND DR HOWE. NO NEW ORDER AT THIS TIME. FILL FOLLOW UP.
[2021-09-29] MEDS: ASCORBIC ACID 500 MG TABLET GT SCH (09:00)
[2021-09-29] MEDS: PROSOURCE / PROSTAT (PYXIS) 30 ML UDC NG SCH (09:00)
[2021-09-29] MEDS: PANTOPRAZOLE 40 MG/PACK PACK GT SCH ×2 (09:00→17:21)
[2021-09-29] MEDS: CHOLECALCIFEROL 1,000 UNIT TABLET (VIT D3) GT SCH (09:00)
[2021-09-29] MEDS: CLOTRIMAZOLE 1% 15 GM TUBE TP SCH ×2 (09:00→21:12)
[2021-09-29] MEDS: HYDROCHLOROTHIAZIDE 25 MG TABLET GT SCH (09:00)
[2021-09-29] MEDS: HYDROCORTISONE SOD SUCCINATE 100 MG/2 ML VIAL IV SCH ×2 (10:33→17:21)
[2021-09-29] MEDS: Z GUARD REMEDY 4 OZ OINT TP SCH (10:36)
[2021-09-29] MEDS: DEXAMETHASONE SOD PHOSPHATE 10 MG/ML VIAL IV SCH ×2 (10:37→17:21)
[2021-09-29] MEDS ORDERED: LIDOCAINE 1% INJ 50 ML MDV IJ ONE (12:00)
--- NOTE | 2021-09-29 12:25 | NUR ---
RN NOTES PATIENT GETTING BEDSIDE PROCEDURE TRACHEOSTOMY AT THIS TIME VIA Dr. ESPINOZA, AND DR HARVEY, ADMINISTERED ROCURONIUM 10 MG IV PUSH, VIA DR ERIC ORDERS, AND TITRATED UP 100 MCG/KG/HR FENTANYL DRIP FOR MORE SEDATION. PATIENT ON PORTEX 8, AC-26, FIO2-100%, AND PEEP 8. PATIENT HAS NO BLEEDING ON TRACHEOSTOMY SIDE, DRESSING INTACT. AM CARE DONE. KEEP HOB ELEVATED, SUCTION, MOUTH CARE DONE. NGT INTACT. FAMILY AWARE OF TRACHEOSTOMY PROCEDURE. WILL FOLLOW UP.
[2021-09-29] MEDS: GLUCERNA 1.2 1,000 ML BOTTLE NG PRN (17:18)
--- NOTE | 2021-09-29 17:22 | NUR ---
rn notes restarted ngt feeding at this time 20ml/hr, residual get 30ml, bs-119 mg/dl. due medication administered. assist turn and reposition q 2 hr.
--- NOTE | 2021-09-29 19:00 | NUR ---
rn notes due medication administered, suction mouth care done, assist turn and reposition q 2 hr, tritiated fentanyl @ 25mcg/kg/hr, assist turn and reposition q 2 hr, trachea dressing intact, no bleeding noted feeding tolerating well 20ml/hr, residual was 30ml. patient has poor urine output 150ml, flashed ngt @200ml of water. endorsed oncoming nurse follow plan of care.
--- NOTE | 2021-09-29 19:43 | NUR ---
PROPERTY CONSULTANT. INITIAL ASSESSMENT. RECEIVED THE PT REST IN BED. TRACH TO VENT CONNECTED. FENTANYL 25MCG/KG/MIN, PT IS VERY LETHARGIC, S/P TRACH TODAY. NGT INTACT. GLUCERNA 20ML/H RUNNING. FC PATENT. URINE DRAINING. FLEXA SEAL INTACT. IV RT UPPER ARM PICC. HOB ELEVATED, TRACH SITE VERY SMALL AMOUNT BLEEDING NOTED. WILL CONTINUE TO MONITOR VITALS.
--- NOTE | 2021-09-29 21:37 | NUR ---
RECEIVED PT EDDIE BRUNNER 8 ON [facility] VENT. NO RESP DISTRESS NOTED. PT TOLERATING VENT SETTINGS. SX'D SMALL AMT OF THICK ROLLINS SECRETIONS. VENT ALARMS SET AND AUDIBLE. CONTINUE TO MONITOR. Addendum: 09/29/21 at 2138 by LEONARD REYES RT Amended: Links added.
[2021-09-29] MEDS: INSULIN GLARGINE, 100 UNIT/ML CARTRIDGE SQ SCH (22:00)
--- NOTE | 2021-09-29 23:31 | NUR ---
agricultural education teacher. easton not given. blood sugar is 100
[2021-09-30] VITALS (42 sets, daily range): BP systolic 110–156; BP diastolic 58–101
--- NOTE | 2021-09-30 | NUR ---
TRUCK SAFETY INSPECTOR. NGT RESIDUAL 100ML+ PT VOMITED COFFEE COLORED VOMITING. NGT FEED STOPPED AT 2100. NGT CONNECTED TO LOW INTERMITTENT SUCTION.HOB ELEVATED. WILL [id number]
--- NOTE | 2021-09-30 04:30 | NUR ---
ROLLER REPAIRER. AM CARE GIVEN. LINEN CHANGED, REMAINING SAME VENT SETTING TOLERATED WELL. SAT 98, NO ACUTE DISTRESS NOTED FC PATENT. URINE DRAINING. FLEXA SEAL INTACT. YAEL SOFT WRIST RESTRAINT CHECKED AND RELEASED. NO INJURY OR REDNESS NOTED. WILL CONTINUE TO MONITOR VITALS.
--- NOTE | 2021-09-30 04:34 | NUR ---
ELECTRIC CLOCK MECHANIC. FENTANYL DRIP STOPPED AT 2100
[2021-09-30] MEDS: BLOOD SUGAR DIAGNOSTIC 1 EACH STRIP IN SCH ×4 (05:10→23:52)
[2021-09-30] MEDS: METOCLOPRAMIDE HCL 10 MG/2 ML VIAL IV SCH ×4 (05:11→23:53)
[2021-09-30] MEDS: TOBRAMYCIN OPHTH 5ML 5 ML BOTTLE LEFTEYE SCH ×5 (05:16→21:15)
[2021-09-30 05:31] LABS: BASOPHILS % (AUTO) 0.3 % (0.0-2.0); HEMATOCRIT 27 % (33-45); HEMOGLOBIN 9.3 g/dL (11.5-14.8); LYMPHOCYTES # (AUTO) 0.5 K/uL (0.8-4.8); LYMPHOCYTES % (AUTO) 3.4 % (20.0-44.0); MEAN CORPUSCULAR HGB CONC 35 g/dl (31.0-36.0); MEAN CORPUSCULAR VOLUME 88 fL (82-100); MONOCYTES # (AUTO) 0.7 K/uL (0.1-1.30); NEUTROPHILS # (AUTO) 12.6 K/uL (1.8-8.9); NEUTROPHILS % (AUTO) 91.3 % (43.0-81.0); PLATELET COUNT (AUTO) 134 K/uL (150-450); RED BLOOD CELL COUNT(AUTO) 3.08 MIL/uL (4.0-5.2); WHITE BLOOD COUNT (AUTO) 13.8 K/uL (4.3-11.0)
[2021-09-30 05:45] LABS: ALBUMIN 1.7 g/dL (3.4-5.0); CREATININE 0.9 mg/dL (0.6-1.3); TOTAL PROTEIN, SERUM 4.7 g/dL (6.4-8.2)
[2021-09-30] MEDS ORDERED: IV D5/ 0.9% NACL 1,000 ML IV SCH (06:00)
--- NOTE | 2021-09-30 07:16 | NUR ---
agricultural production engineer bed scale not working
--- NOTE | 2021-09-30 08:00 | NUR ---
RN NOTES RECEIVED PATIENT ON TRACHEA /VENT DEPENDENT , SHILEY #8, INTACT DRESSING NO BLEEDING. PATIENT ON INTERMITTENT SUCTIONING OF NGT PER NIGHT NURSE PATIENT VOMITED COFFEE GROUND EMESIS . NPO HELD PO MEDICATION. SEEN PATIENT VIA HOSPITALIST DR GUTIERREZ , AND GET TO ORDER RESUME NGT FEEDING LATER. PATIENT NEED GT PLACEMENT. KEEP HOB ELEVATED ALL THE TIME FOR ASPIRATION PRECAUTION. PATIENT REMAINING SAME VENT SETTING TOLERATED WELL. SAT 98, NO ACUTE DISTRESS NOTED FC PATENT. INFUSING D5NS @100ML/HR ON GAB PICC LINE INTACT. URINE DRAINING. FLEXA SEAL INTACT. YAEL UPPER SOFT WRIST RESTRAINT CHECKED AND RELEASED. WILL FOLLOW UP.
[2021-09-30] MEDS: HYDROCHLOROTHIAZIDE 25 MG TABLET GT SCH (08:50)
[2021-09-30] MEDS: PANTOPRAZOLE 40 MG/PACK PACK GT SCH (08:50)
[2021-09-30] MEDS: CHOLECALCIFEROL 1,000 UNIT TABLET (VIT D3) GT SCH (08:50)
[2021-09-30] MEDS: ASCORBIC ACID 500 MG TABLET GT SCH (08:50)
[2021-09-30] MEDS: PROSOURCE / PROSTAT (PYXIS) 30 ML UDC NG SCH (08:51)
[2021-09-30] MEDS ORDERED: POTASSIUM CHLORIDE 20 MEQ POWDER PACKET GT SCH (09:00)
[2021-09-30] MEDS: HYDROCORTISONE SOD SUCCINATE 100 MG/2 ML VIAL IV SCH ×2 (09:16→17:12)
[2021-09-30] MEDS: DEXAMETHASONE SOD PHOSPHATE 10 MG/ML VIAL IV SCH ×2 (09:16→17:12)
[2021-09-30] MEDS: CLOTRIMAZOLE 1% 15 GM TUBE TP SCH ×2 (09:17→21:15)
[2021-09-30] MEDS: Z GUARD REMEDY 4 OZ OINT TP SCH (09:18)
[2021-09-30] MEDS: PANTOPRAZOLE 40 MG VIAL IV SCH ×2 (09:41→21:15)
[2021-09-30] MEDS: POTASSIUM CL. PREMIX PERIPHER. 50 ML IV SCH ×6 (09:41→15:18)
[2021-09-30] MEDS: IV D5W 1,000 ML IV PRN (11:22)
--- NOTE | 2021-09-30 12:29 | NUR ---
RN NOTES BS-105 MG/DL, PATIENT STILL NPO FOR NGT SUCTIONING INTERMITTENT . INFUSING D5W @75 ML/HR, AN KCL @10MEQ ON GAB PICC LINE INTACT.
[2021-09-30] MEDS ORDERED: VECURONIUM 10 MG VIAL IV ONE (14:03)
--- NOTE | 2021-09-30 16:30 | NUR ---
rn notes patients son's next to the bed, patient awake trying to communicate with writing down in the paper. Patient refused pain, suction, refused mouth care, pm care done, removed bilateral wrist restrain at this time . Patient able to elevated both arms, but still weak,and generalized edema elevated extremities using pillows. bs-154mg/dl. patient schedule peg placemnt tomorrow 10/01/21 1100 am. Get consent form signed via son name Patrik. due medication administered. Infusing D5W @75 ml/hr on GAB picc line intact. dressing changed.
[2021-09-30] MEDS ORDERED: PANTOPRAZOLE 40 MG VIAL IV SCH (17:00)
--- NOTE | 2021-09-30 18:30 | NUR ---
RN NOTES PATIENT REMAIN STABLE, AWAKE,FOOLOW DIRECTION, VSS, NO ACUTE RESPIRATORY DISTRESS. SCHEDULED PEG PLACEMENT TOMORROW 10/01/21 @1100AM, NPO MIDNIGHT. ASSIST TURN AND REPOSTION Q2 HR. ENDORSED ONCOMING NURSE FOLLOW PLAN OF CARE.
--- NOTE | 2021-09-30 20:00 | NUR ---
ICU NOTES Received patient awake alert non verbal following commands.Son at bedside and patient interacting with sons instructions.With trach to vent on AC mode well tolerated no acute distress noted.SR.VSS.NGT to R nares to LIWS draining dark green output.FC to gravity. Kept NPO except meds per order.Flexi seal in place.Turned and repositioned.Continue monitoring.
--- NOTE | 2021-09-30 20:20 | NUR ---
RECEIVED PT TRACHED KANNAN 8 ON VENT. PT IS AWAKE AND FOLLOW COMMANDS. NO RESP DISTRESS. SX'D SMALL AMT OF THIN TINGED SECRETIONS. VENT ALARMS SET AND AUDIBLE. AMBU BAG AT BEDSIDE. CONTINUE TO MONITOR. Addendum: 09/30/21 at 2021 by LEONARD REYES RT Amended: Links added.
[2021-09-30] MEDS: TEMAZEPAM 15 MG CAPSULE PO PRN (21:16)
--- NOTE | 2021-09-30 21:20 | NUR ---
ICU NOTES Patient awake and wants son to stay at bedside.Reassured.Patient trying to pull NGT.Bilateral soft wrist restraints applied for safety MD aware.Sleeping pills administered per son's request.Continue to monitor.
[2021-09-30] MEDS: INSULIN GLARGINE, 100 UNIT/ML CARTRIDGE SQ SCH (21:33)
[2021-10-01] VITALS (30 sets, daily range): BP systolic 85–182; BP diastolic 46–112
[2021-10-01] MEDS: IV D5W 1,000 ML IV PRN ×3 (00:40→13:29)
[2021-10-01] MEDS: TOBRAMYCIN OPHTH 5ML 5 ML BOTTLE LEFTEYE SCH ×6 (00:49→21:04)
[2021-10-01 05:49] LABS: BASOPHILS % (AUTO) 0.2 % (0.0-2.0); EOSINOPHILS % (AUTO) 0.2 % (0.0-6.0); HEMATOCRIT 25 % (33-45); HEMOGLOBIN 8.2 g/dL (11.5-14.8); LYMPHOCYTES # (AUTO) 0.4 K/uL (0.8-4.8); LYMPHOCYTES % (AUTO) 4.4 % (20.0-44.0); MEAN CORPUSCULAR HGB CONC 33 g/dl (31.0-36.0); MEAN CORPUSCULAR VOLUME 90 fL (82-100); MONOCYTES # (AUTO) 0.5 K/uL (0.1-1.30); MONOCYTES % (AUTO) 4.8 % (2.0-12.0); NEUTROPHILS # (AUTO) 8.7 K/uL (1.8-8.9); NEUTROPHILS % (AUTO) 90.4 % (43.0-81.0); PLATELET COUNT (AUTO) 140 K/uL (150-450); RED BLOOD CELL COUNT(AUTO) 2.75 MIL/uL (4.0-5.2); WHITE BLOOD COUNT (AUTO) 9.7 K/uL (4.3-11.0)
[2021-10-01 06:15] LABS: ALBUMIN 1.7 g/dL (3.4-5.0); BILIRUBIN,TOTAL 1.1 mg/dL (0.2-1.0); CALCIUM, SERUM 7.9 mg/dL (8.5-10.1); CREATININE 0.9 mg/dL (0.6-1.3); POTASSIUM 3.3 mmol/L (3.5-5.1); TOTAL PROTEIN, SERUM 4.5 g/dL (6.4-8.2)
[2021-10-01] MEDS: METOCLOPRAMIDE HCL 10 MG/2 ML VIAL IV SCH ×4 (06:20→23:59)
[2021-10-01] MEDS: BLOOD SUGAR DIAGNOSTIC 1 EACH STRIP IN SCH ×3 (06:20→17:02)
--- NOTE | 2021-10-01 06:50 | NUR ---
ICU NOTES Patient able to sleep for several hours.VSS.SR.Oral care done.Bathed and linens changed. Turned and repositioned.Patient for EGD and PEG placement today at 11AM consent signed. Lab called regarding Lactic acid 3.5 this morning.Paged Duke Scott NP for orders.Will endorse to day shift for DARYA.
--- NOTE | 2021-10-01 07:04 | NUR ---
ICU NOTES. Please disregard Lactic Acid result wrong entry.
[2021-10-01] MEDS ORDERED: LABETALOL 20 MG/4 ML VIAL IV PRN (08:00)
[2021-10-01] MEDS ORDERED: POTASSIUM CL. PREMIX PERIPHER. 50 ML IV SCH (08:00)
--- NOTE | 2021-10-01 08:00 | NUR ---
ICU/RN PT IS NEW TRACH ON THE VENT AC MODE,FIO2-50%,SAT O2-94%.PT IS AWAKE,FOLLOWS COMMAND.V/S STABLE,AFEBRILE.NO PAIN REPORTED AT THIS TIME.GENERALIZED EDEMA NG TUBE CONNECTED TO SUCTION WITH BROWN COLOR RESIDUAL.PT IS NPO.WAITING FOR EGD AND PEG PLACEMENT.RIGHT UPPER ARM PICC LINE .IV INFUSING ORDERED.F/C DRAINING WITH YELLOW URINE.LOWER BACK WOUND COVERED WITH DRESSING. MULTIPLY BRUISES NOTED ALL OVER THE BODY.SUCTION PROVIDED.REPOSITION FOR COMFORT.
[2021-10-01] MEDS: POTASSIUM CL. PREMIX PERIPHER. 50 ML IV SCH ×4 (08:40→11:50)
[2021-10-01] MEDS: DEXAMETHASONE SOD PHOSPHATE 10 MG/ML VIAL IV SCH ×2 (08:40→16:03)
[2021-10-01] MEDS: PANTOPRAZOLE 40 MG VIAL IV SCH ×2 (08:40→21:04)
[2021-10-01] MEDS: HYDROCORTISONE SOD SUCCINATE 100 MG/2 ML VIAL IV SCH ×2 (08:40→16:03)
[2021-10-01] MEDS: HYDROCHLOROTHIAZIDE 25 MG TABLET GT SCH (08:41)
[2021-10-01] MEDS: CHOLECALCIFEROL 1,000 UNIT TABLET (VIT D3) GT SCH (08:41)
[2021-10-01] MEDS: ASCORBIC ACID 500 MG TABLET GT SCH (08:41)
[2021-10-01] MEDS: PROSOURCE / PROSTAT (PYXIS) 30 ML UDC NG SCH (08:43)
[2021-10-01] MEDS: CLOTRIMAZOLE 1% 15 GM TUBE TP SCH ×2 (08:43→21:04)
[2021-10-01] MEDS: Z GUARD REMEDY 4 OZ OINT TP SCH (08:44)
[2021-10-01] MEDS: ALBUMIN 25% 25 GM in PREMIX 1 EA IV SCH ×2 (08:58→21:04)
--- NOTE | 2021-10-01 09:10 | NUR ---
ICU/RN DUE MEDS ARE GIVEN ORDERED.LABS REVIEW.MD AWARE .NEW ORDERS RECEIVED.
[2021-10-01] MEDS ORDERED: ANESTHESIA TRAY IN PYXIS 1 EA TRAY MC ONE (09:15)
--- NOTE | 2021-10-01 11:00 | NUR ---
ICU/RN EGD AND PEG PLACEMENT CANCELL FOR TODAY.DUE TO OR UNDERSTAFF.
[2021-10-01] MEDS: INSULIN REGULAR, HUMAN 100 UNIT/ML 3 ML VIAL SQ PRN ×2 (13:31→17:44)
--- NOTE | 2021-10-01 18:00 | NUR ---
ICU/RN DUE MEDS ARE GIVEN ORDERED.PM CARE PROVIDED.RECTAL TUBE REMOVED.PT HAS SOFT STOOL.WOUND DRESSING DONE ORDERED.SUCTION PROVIDED.REPOSITION FOR COMFORT.V/S STABLE,AFEBRILE.CONTINUE MONITORING.
--- NOTE | 2021-10-01 20:00 | NUR ---
ICU NOTES Received patient resting in no acute distress.With trach to mechanical vent.Continue on same vent settings well tolerated.O2 saturation mid 90's.SR.VSS.R Nares NGT to LIWS draining brownish output. Maintain on NPO status.IVF infusing well to GAB PICC LINE .Site intact.FC to gravity drainage.Turned and repositioned.
[2021-10-01] MEDS: INSULIN GLARGINE, 100 UNIT/ML CARTRIDGE SQ SCH (22:00)
[2021-10-02] VITALS (40 sets, daily range): BP systolic 82–156; BP diastolic 50–89
[2021-10-02] MEDS: INSULIN REGULAR, HUMAN 100 UNIT/ML 3 ML VIAL SQ PRN ×4 (00:01→23:35)
[2021-10-02] MEDS: BLOOD SUGAR DIAGNOSTIC 1 EACH STRIP IN SCH ×5 (00:06→23:34)
[2021-10-02] MEDS: TOBRAMYCIN OPHTH 5ML 5 ML BOTTLE LEFTEYE SCH ×6 (00:27→21:23)
[2021-10-02] MEDS: IV D5W 1,000 ML IV PRN ×2 (02:24→19:55)
[2021-10-02] MEDS: METOCLOPRAMIDE HCL 10 MG/2 ML VIAL IV SCH ×3 (05:45→17:20)
[2021-10-02 06:13] LABS: BASOPHILS % (AUTO) 0.2 % (0.0-2.0); EOSINOPHILS % (AUTO) 0.3 % (0.0-6.0); HEMATOCRIT 22 % (33-45); HEMOGLOBIN 7.4 g/dL (11.5-14.8); LYMPHOCYTES # (AUTO) 0.5 K/uL (0.8-4.8); LYMPHOCYTES % (AUTO) 5.7 % (20.0-44.0); MEAN CORPUSCULAR HGB CONC 34 g/dl (31.0-36.0); MEAN CORPUSCULAR VOLUME 89 fL (82-100); MONOCYTES # (AUTO) 0.5 K/uL (0.1-1.30); MONOCYTES % (AUTO) 5.7 % (2.0-12.0); NEUTROPHILS # (AUTO) 7.8 K/uL (1.8-8.9); NEUTROPHILS % (AUTO) 88.1 % (43.0-81.0); PLATELET COUNT (AUTO) 131 K/uL (150-450); RED BLOOD CELL COUNT(AUTO) 2.43 MIL/uL (4.0-5.2); WHITE BLOOD COUNT (AUTO) 8.9 K/uL (4.3-11.0)
[2021-10-02 06:38] LABS: ALBUMIN 2.5 g/dL (3.4-5.0); BILIRUBIN,TOTAL 1.5 mg/dL (0.2-1.0); CREATININE 0.9 mg/dL (0.6-1.3); POTASSIUM 2.9 mmol/L (3.5-5.1); TOTAL PROTEIN, SERUM 4.9 g/dL (6.4-8.2)
--- NOTE | 2021-10-02 07:40 | NUR ---
ICU/RN PT HAS NEW TRACH COUPLE DAYS AGO.ON THE VENT AC MODE.FIO2-40%.SAT O2-95-%.V/S STABLE AFEBRILE.AWAKE,ALERT.NPO/WAITING FOR G-TUBE PLACEMENT.F/C DRAINING WITH YELLOW URINE.GENERALIZED EDEMA PRESENT. SACRAL WOUND COVERED WITH DRESSING.MULTIPLY BRUISES NOTED ALL OVER THE BODY.LABS REVIEW. NOTIFIED.K-2.9. NEW ORDERS RECEIVED.CONTINUE MONITORING.
[2021-10-02] MEDS: POTASSIUM CL. PREMIX PERIPHER. 50 ML IV SCH ×10 (08:24→15:05)
[2021-10-02] MEDS: PANTOPRAZOLE 40 MG VIAL IV SCH ×2 (08:25→21:23)
[2021-10-02] MEDS: DEXAMETHASONE SOD PHOSPHATE 10 MG/ML VIAL IV SCH ×2 (08:25→17:20)
[2021-10-02] MEDS: ASCORBIC ACID 500 MG TABLET GT SCH (08:25)
[2021-10-02] MEDS: HYDROCORTISONE SOD SUCCINATE 100 MG/2 ML VIAL IV SCH ×2 (08:25→17:20)
[2021-10-02] MEDS: CHOLECALCIFEROL 1,000 UNIT TABLET (VIT D3) GT SCH (08:25)
[2021-10-02] MEDS: PROSOURCE / PROSTAT (PYXIS) 30 ML UDC NG SCH (08:27)
[2021-10-02] MEDS: CLOTRIMAZOLE 1% 15 GM TUBE TP SCH ×2 (08:29→21:22)
[2021-10-02] MEDS: Z GUARD REMEDY 4 OZ OINT TP SCH (08:29)
[2021-10-02] MEDS: HYDROCHLOROTHIAZIDE 25 MG TABLET GT SCH (08:30)
[2021-10-02] MEDS ORDERED: ANESTHESIA TRAY IN PYXIS 1 EA TRAY MC ONE (12:25)
--- NOTE | 2021-10-02 13:56 | NUR ---
ICU/RN EGD DONE .NEW G-TUBE PLACED.CONTINUE MONITORING.
[2021-10-02] MEDS ORDERED: Sodium Phosphate 15 MMOL in IV NS 0.9% 250 ML IV SCH (15:00)
[2021-10-02] MEDS ORDERED: GLUCERNA 1.2 1,000 ML BOTTLE NG PRN (17:00)
[2021-10-02] MEDS: LORAZEPAM INJ 2 MG/ML VIAL IV PRN ×2 (18:40→18:44)
--- NOTE | 2021-10-02 20:00 | NUR ---
ICU NOTES Received patient resting with trach on mechanical vent on AC mode well tolerated.O2 saturation Hi 90's.SR.Afebrile.With new GT clamped and site intact.Remain NPO with IV D5W infusing via GAB PICC LINE.FC to gravity drainage.Turned and repositioned to comfort.No acute distress noted.
[2021-10-02 20:44] LABS: HEMOGLOBIN 7.4 g/dL (11.5-14.8)
[2021-10-02] MEDS: INSULIN GLARGINE, 100 UNIT/ML CARTRIDGE SQ SCH (21:25)
[2021-10-03] VITALS (10 sets, daily range): BP systolic 129–159; BP diastolic 45–95
[2021-10-03] MEDS: METOCLOPRAMIDE HCL 10 MG/2 ML VIAL IV SCH ×5 (00:23→23:26)
[2021-10-03] MEDS: TOBRAMYCIN OPHTH 5ML 5 ML BOTTLE LEFTEYE SCH ×6 (01:11→20:28)
[2021-10-03] MEDS: BLOOD SUGAR DIAGNOSTIC 1 EACH STRIP IN SCH ×4 (05:20→23:23)
[2021-10-03 06:07] LABS: ALBUMIN 2.4 g/dL (3.4-5.0); BILIRUBIN,TOTAL 1.2 mg/dL (0.2-1.0); CALCIUM, SERUM 8.5 mg/dL (8.5-10.1); PHOSPHORUS 2.7 mg/dL (2.5-4.9)
--- NOTE | 2021-10-03 06:10 | NUR ---
ICU NOTES Patient awake alert follows simple commands in no acute distress.VS remains stable.SR.No significant changes noted during the night.AM care done.All due medications administered. Turned and repositioned.Patient transferred to [facility] RM 120 BED1 via bed in stable condition. All patient medications and belongings transferred with patient.Report given to AMANDA ALMAZAN for continuity of care.
--- NOTE | 2021-10-03 06:15 | NUR ---
carole rn notes Received pts report at bedside from Rn Shawn icu nurse for continuity of care .pts on ventilator dependent ac setting as ordered . no sob no distress noted , pts on f/c intact and patent , gt feeding to start at 8am , hussein intact and patent . will endorse to nicole for continuity of care.
[2021-10-03 06:23] LABS: BASOPHILS % (AUTO) 0.1 % (0.0-2.0); EOSINOPHILS % (AUTO) 0.2 % (0.0-6.0); HEMATOCRIT 23 % (33-45); HEMOGLOBIN 7.7 g/dL (11.5-14.8); LYMPHOCYTES # (AUTO) 0.7 K/uL (0.8-4.8); LYMPHOCYTES % (AUTO) 8.1 % (20.0-44.0); MEAN CORPUSCULAR HGB CONC 34 g/dl (31.0-36.0); MEAN CORPUSCULAR VOLUME 89 fL (82-100); MONOCYTES # (AUTO) 0.5 K/uL (0.1-1.30); NEUTROPHILS # (AUTO) 7.2 K/uL (1.8-8.9); NEUTROPHILS % (AUTO) 85.6 % (43.0-81.0); PLATELET COUNT (AUTO) 139 K/uL (150-450); RED BLOOD CELL COUNT(AUTO) 2.56 MIL/uL (4.0-5.2); WHITE BLOOD COUNT (AUTO) 8.4 K/uL (4.3-11.0)
--- NOTE | 2021-10-03 08:00 | NUR ---
carole rn notes Received pts in bed awake .pts on ventilator dependent ac setting as ordered . no sob no distress noted , pts on f/c intact and patent , gt feeding to start as ordered hussein intact and patent . on tele monitor sb 51 hussein picc line in place and flushed well will monitor
[2021-10-03] MEDS ORDERED: POTASSIUM CHLORIDE 20 MEQ POWDER PACKET GT SCH (08:30)
[2021-10-03] MEDS: PANTOPRAZOLE 40 MG VIAL IV SCH ×2 (09:00→20:25)
[2021-10-03] MEDS: HYDROCORTISONE SOD SUCCINATE 100 MG/2 ML VIAL IV SCH ×2 (09:00→12:39)
[2021-10-03] MEDS: HYDROCHLOROTHIAZIDE 25 MG TABLET GT SCH (09:02)
[2021-10-03] MEDS: CHOLECALCIFEROL 1,000 UNIT TABLET (VIT D3) GT SCH (09:03)
[2021-10-03] MEDS: ASCORBIC ACID 500 MG TABLET GT SCH (09:03)
[2021-10-03] MEDS: DEXAMETHASONE SOD PHOSPHATE 10 MG/ML VIAL IV SCH ×2 (09:05→16:33)
[2021-10-03] MEDS ORDERED: PANT40TA2 PO (09:17)
[2021-10-03] MEDS ORDERED: DEXA6TAB6 PO (09:17)
[2021-10-03] MEDS ORDERED: CLON1PAT TD (09:17)
[2021-10-03] MEDS ORDERED: FLUD0.1T PO (09:20)
[2021-10-03] MEDS: CLOTRIMAZOLE 1% 15 GM TUBE TP SCH ×2 (09:21→20:28)
[2021-10-03] MEDS: Z GUARD REMEDY 4 OZ OINT TP SCH (09:21)
[2021-10-03] MEDS ORDERED: HYDR100V6 IV (09:21)
[2021-10-03] MEDS: PROSOURCE / PROSTAT (PYXIS) 30 ML UDC NG SCH (09:23)
--- NOTE | 2021-10-03 10:30 | NUR ---
carole rn note g tube feeding started as ordered keep hob elevated seen by castillo
[2021-10-03] MEDS: DEXTROSE 50%-WATER 50 ML DISP.SYRIN IV PRN ×2 (12:07→17:50)
--- NOTE | 2021-10-03 15:50 | NUR ---
carole rn note rounds made , all needs attended. turn reposition done spoke with updated with patent condition , will cont to monitor
[2021-10-03] MEDS: ACETAMINOPHEN 650 MG/20.3 ML UDC GT PRN (18:12)
--- NOTE | 2021-10-03 18:19 | NUR ---
[facility] RN NOTE CONT ON VENT SETTING ORDERED BLOOD SUGAR 58 MG\ DL, D50% GIVEN IV ORDERED ,WITH G TUBE FEEDING ORDERED KRP HOB ELEVATED AT ALL TIME,WITH HENNING CATH TO GRAVITY , C\O BODY PAIN TYLENOL VIA G TUBE GIVEN ORDERED WILL CONT TO MONITOR
[2021-10-03] MEDS: INSULIN GLARGINE, 100 UNIT/ML CARTRIDGE SQ SCH (22:00)
[2021-10-03] MEDS: INSULIN REGULAR, HUMAN 100 UNIT/ML 3 ML VIAL SQ PRN (23:24)
[2021-10-04] VITALS (7 sets, daily range): BP systolic 130–155; BP diastolic 49–80
[2021-10-04] MEDS ORDERED: Sodium Phosphate 30 MMOL in IV NS 0.9% 250 ML IV SCH ×2
[2021-10-04] MEDS: TOBRAMYCIN OPHTH 5ML 5 ML BOTTLE LEFTEYE SCH ×6 (01:18→21:23)
[2021-10-04] MEDS: DEXTROSE 50%-WATER 50 ML DISP.SYRIN IV PRN (04:59)
[2021-10-04] MEDS: INSULIN REGULAR, HUMAN 100 UNIT/ML 3 ML VIAL SQ PRN (05:09)
[2021-10-04] MEDS: BLOOD SUGAR DIAGNOSTIC 1 EACH STRIP IN SCH ×3 (05:09→17:58)
[2021-10-04] MEDS: METOCLOPRAMIDE HCL 10 MG/2 ML VIAL IV SCH ×4 (05:10→23:59)
--- NOTE | 2021-10-04 07:22 | NUR ---
RN NOTE PATIENT IS IN BED WITH HOB AT SEMI FOWLERS POSITION. PATIENT IS ON TRACH/VENT WITH NO SIGNS OF SOB. PATIENT IS AOX0. GTUBE IS IN PLACE. GAB MIDLINE IS PATENT AND INTACT. BED IS LOCKED IN THE LOWEST POSITION, 3 GUARD RAILS RAISED, CALL V[place] WITHIN REACH, AND ALL HOSPITAL SAFETY PRECAUTIONS ARE BEING FOLLOWED. WILL CONTINUE TO MONITOR THROUGHOUT SHIFT.
--- NOTE | 2021-10-04 07:25 | NUR ---
PATIENT AWAKE A/O MOUTH WORDS, ON MECHANICAL VENTILATOR, TOLERATED SETTINGS WELL, NO SOB/UNLABORED BREATHING, NSR ON TELE MONITOR, NO SIGNIFICANT CHANGE IN CONDITION DURING THE NIGHT, SAFETY MEASURES IN PLACE WITH BED IN LOW AND LOCKED, HOB ELEVATED IN SEMI FOWLERS, SIDE RAILS UP X 2, ENDORSED TO BRYAN FOR CONTINUATION OF CARE.
[2021-10-04] MEDS: HYDROCORTISONE SOD SUCCINATE 100 MG/2 ML VIAL IV SCH (08:14)
[2021-10-04] MEDS: CHOLECALCIFEROL 1,000 UNIT TABLET (VIT D3) GT SCH (08:14)
[2021-10-04] MEDS: DEXAMETHASONE SOD PHOSPHATE 10 MG/ML VIAL IV SCH ×2 (08:14→16:36)
[2021-10-04] MEDS: ASCORBIC ACID 500 MG TABLET GT SCH (08:14)
[2021-10-04] MEDS: CLOTRIMAZOLE 1% 15 GM TUBE TP SCH ×2 (08:15→21:23)
[2021-10-04] MEDS: Z GUARD REMEDY 4 OZ OINT TP SCH (08:15)
[2021-10-04] MEDS: PANTOPRAZOLE 40 MG VIAL IV SCH (08:15)
[2021-10-04] MEDS: PROSOURCE / PROSTAT (PYXIS) 30 ML UDC NG SCH (08:18)
[2021-10-04] MEDS: HYDROCHLOROTHIAZIDE 25 MG TABLET GT SCH (09:00)
--- NOTE | 2021-10-04 09:00 | NUR ---
AMANDA NOTE AWAITING [facility] TO ADMINISTER HYDROCHLOROTHIAZIDE. Addendum: 10/04/21 at 0944 by BRYAN GARCIA RN OKAY PER DR. GUZMAN Addendum: 10/04/21 at 1024 by BRYAN GARCIA RN HANG TO HOLD HYDROCHLOROTHIAZIDE TODAY PER DR GUZMAN
[2021-10-04] MEDS: PROSOURCE / PROSTAT (PYXIS) 30 ML UDC PEG SCH ×3 (10:30→16:37)
--- NOTE | 2021-10-04 11:10 | NUR ---
AMANDA MAURICIO PER TO HOLD 1030 PROSTAT. Addendum: 10/04/21 at 1321 by BRYAN GARCIA RN HANG TO HOLD PROSTAT FOR REST OF DAY
[2021-10-04 13:23] LABS: BASOPHILS % (AUTO) 0.3 % (0.0-2.0); EOSINOPHILS % (AUTO) 0.6 % (0.0-6.0); HEMATOCRIT 24 % (33-45); HEMOGLOBIN 8.3 g/dL (11.5-14.8); LYMPHOCYTES # (AUTO) 0.4 K/uL (0.8-4.8); LYMPHOCYTES % (AUTO) 5.6 % (20.0-44.0); MEAN CORPUSCULAR HGB CONC 34 g/dl (31.0-36.0); MEAN CORPUSCULAR VOLUME 89 fL (82-100); MONOCYTES # (AUTO) 0.2 K/uL (0.1-1.30); MONOCYTES % (AUTO) 3.4 % (2.0-12.0); NEUTROPHILS # (AUTO) 6.3 K/uL (1.8-8.9); NEUTROPHILS % (AUTO) 90.1 % (43.0-81.0); PLATELET COUNT (AUTO) 150 K/uL (150-450); RED BLOOD CELL COUNT(AUTO) 2.75 MIL/uL (4.0-5.2)
[2021-10-04 13:36] LABS: ALBUMIN 2.3 g/dL (3.4-5.0); CALCIUM, SERUM 8.2 mg/dL (8.5-10.1); POTASSIUM 3.3 mmol/L (3.5-5.1); TOTAL PROTEIN, SERUM 5.1 g/dL (6.4-8.2)
[2021-10-04] MEDS: PANTOPRAZOLE 40 MG/PACK PACK NG SCH (16:36)
[2021-10-04] MEDS: CLONIDINE HCL 0.1MG/24H PTWK 1 EA PATCH TD SCH (16:36)
--- NOTE | 2021-10-04 17:25 | NUR ---
RN NOTE PATIENT TRANSPORTED TO ROOM 316-1. REPORT GIVEN TO AMANDA BEAN.
--- NOTE | 2021-10-04 17:30 | NUR ---
YARN CARRIER NOTES RECEIVED PT FROM [facility] ENDORSED BY BRYAN VIA HOSPITAL BED. PATIENT ON BED AWAKE AND A/O X2. ON MECHANICAL VENT TOLERATING WELL. NO SOB NOTED. NOT IN DISTRESS. WITH NO COMPLAINTS OF PAIN OR DISCOMFORT AT THIS TIME. WITH IV ACCESS AT RIGHT UPPER ARM MIDLINE, SALINE LOCKED, PATENT AND INTACT. SAFETY MEASURES IN PLACED. CALL LIGHT WITHIN REACH. BED ON LOWEST LOCKED POSITION, SIDE RAILS UP X2. WILL CONTINUE TO MONITOR.
--- NOTE | 2021-10-04 19:30 | NUR ---
LINING INSERTER OPENING NOTES RECEIVED PATIENT RESTING ON BED AND A/0 X2. ON MECHANICAL VENT TOLERATING WELL. NO SOB OR S/S OF RESPIRATORY DISTRESS NOTED. ON EXTERNAL EXTRUSION BENDER READING SR 76 BPM. IV ACCESS AT GAB MIDLINE SALINE LOCKED, PATENT AND INTACT. WITH HENNING CATHETER IN PLACE DRAINING CLEAR YELLOW URINE. ON GLUCERNA 1.2 FEEDING AT 20ML/HR VIA G-TUBE. SAFETY PRECAUTIONS IN PLACE. BED IN LOWEST LOCKED POSITION, HOB ELEVATED, SIDE RAILS UP X2, AND CALL LIGHT AND TABLE WITHIN REACH. WILL CONTINUE WITH PLAN OF CARE.
--- NOTE | 2021-10-04 20:00 | NUR ---
TIN POURER CLOSING NOTES PATIENT RESTING ON BED AND A/0 X2. ON MECHANICAL VENT TOLERATING WELL. NO SOB NOTED. NOT IN DISTRESS. WITH NO COMPLAINTS OF PAIN OR DISCOMFORT AT THIS TIME. WITH IV ACCESS AT RIGHT UPPER ARM MIDLINE SALINE LOCKED, PATENT AND INTACT. WITH HENNING CATHETER IN PLACED DRAINING CLEAR YELLOW URINE. ON GLUCERNA 1.2 FEEDING AT 20ML/HR VIA G-TUBE. SAFETY MEASURES IN PLACED. CALL LIGHT WITHIN REACH. BED ON LOWEST LOCKED POSITION. WILL ENDORSE TO NEXT SHIFT.
--- NOTE | 2021-10-04 20:50 | NUR ---
RN NOTE CALLED PHARMACY TO OBTAIN MISSING MEDICATIONS FOR PT INCLUDING CLOTRIMAZOLE OINTMENT, TOBRAMYCIN EYE DROPS, AND LANTUS. WILL ADMINISTER ONCE OBTAINED. CHARGE NURSE ANAMARIA AND PHARMACY AWARE.
[2021-10-04] MEDS: INSULIN GLARGINE, 100 UNIT/ML CARTRIDGE SQ SCH (22:25)
[2021-10-04] MEDS: LORAZEPAM INJ 2 MG/ML VIAL IV PRN (23:59)
[2021-10-05 00:32] VITALS: BP 163/94
[2021-10-05] MEDS: TOBRAMYCIN OPHTH 5ML 5 ML BOTTLE LEFTEYE SCH ×6 (01:24→20:48)
[2021-10-05 04:31] VITALS: BP 161/95
[2021-10-05] MEDS: METOCLOPRAMIDE HCL 10 MG/2 ML VIAL IV SCH ×4 (05:50→23:18)
[2021-10-05] MEDS: BLOOD SUGAR DIAGNOSTIC 1 EACH STRIP IN SCH ×5 (05:55→23:51)
--- NOTE | 2021-10-05 07:00 | NUR ---
HOSPITAL STAFF PHARMACIST CLOSING NOTES PATIENT RESTING ON BED AND A/0 X2. ON MECHANICAL VENT TOLERATING WELL. NO SOB OR S/S OF RESPIRATORY DISTRESS NOTED. ON EXTERNAL TYPESETTING MACHINE TENDER READING SR 82 BPM. IV ACCESS AT GAB MIDLINE SALINE LOCKED, PATENT AND INTACT. WITH HENNING CATHETER IN PLACE DRAINING CLEAR YELLOW URINE. ON GLUCERNA 1.2 FEEDING AT 35ML/HR VIA G-TUBE. ALL NEEDS MET AT THIS TIME. SAFETY PRECAUTIONS IN PLACE. ALL NEEDS MET AT THIS TIME. BED IN LOWEST LOCKED POSITION, HOB ELEVATED, SIDE RAILS UP X2, AND CALL LIGHT AND TABLE WITHIN REACH. WILL ENDORSE TO ONCOMING SHIFT FOR DARYA.
--- NOTE | 2021-10-05 07:25 | NUR ---
MATERIAL ATTENDANT OPENING NOTES PATIENT RESTING IN BED AND A/0 X2. ON MECHANICAL VENT TOLERATING WELL. NO SOB OR S/S OF RESPIRATORY DISTRESS NOTED. ON EXTERNAL SHIRT CLEANER READING SR 80 BPM. IV ACCESS AT GAB MIDLINE SALINE LOCKED, PATENT AND INTACT. WITH HENNING CATHETER IN PLACE DRAINING CLEAR YELLOW URINE. ON GLUCERNA 1.2 FEEDING AT 35ML/HR VIA G-TUBE. SAFETY PRECAUTIONS IN PLACE; BED IN LOW POSITION AND LOCKED, RAILS UP X2, CALL LIGHT WITHIN REACH. WILL CONTINUE TO MONITOR PATIENT.
[2021-10-05 07:52] LABS: BASOPHILS % (AUTO) 0.3 % (0.0-2.0); EOSINOPHILS % (AUTO) 1.5 % (0.0-6.0); HEMATOCRIT 24 % (33-45); HEMOGLOBIN 8.1 g/dL (11.5-14.8); LYMPHOCYTES % (AUTO) 15.4 % (20.0-44.0); MEAN CORPUSCULAR HGB CONC 34 g/dl (31.0-36.0); MEAN CORPUSCULAR VOLUME 89 fL (82-100); MONOCYTES # (AUTO) 0.5 K/uL (0.1-1.30); MONOCYTES % (AUTO) 8.1 % (2.0-12.0); NEUTROPHILS # (AUTO) 4.9 K/uL (1.8-8.9); NEUTROPHILS % (AUTO) 74.7 % (43.0-81.0); PLATELET COUNT (AUTO) 157 K/uL (150-450); RED BLOOD CELL COUNT(AUTO) 2.68 MIL/uL (4.0-5.2); WHITE BLOOD COUNT (AUTO) 6.6 K/uL (4.3-11.0)
--- NOTE | 2021-10-05 08:23 | NUR ---
WOUND CARE FOLLOW UP: ATTEMPTED TO DO RE-EVALUATION OF SACRAL/BUTTOCKS AREA BUT PT ADAMANTLY REFUSED SKIN ASSESSMENT. PT IS ON HESHAM ISOFLEX LOW AIRLOSS BED. ALL SKIN PROTECTION MEASURES IN PLACE. DISCUSSED WITH NURSING STAFF. WILL SEE PT PT CONDITION PERMITS. MD IN AGREEMENT WITH PLAN OF CARE.
[2021-10-05 08:25] LABS: ALBUMIN 2.3 g/dL (3.4-5.0); BILIRUBIN,TOTAL 1.1 mg/dL (0.2-1.0); CALCIUM, SERUM 8.4 mg/dL (8.5-10.1); POTASSIUM 2.9 mmol/L (3.5-5.1); TOTAL PROTEIN, SERUM 5.1 g/dL (6.4-8.2)
[2021-10-05 08:34] VITALS: BP 149/84
[2021-10-05] MEDS: ASCORBIC ACID 500 MG TABLET GT SCH (09:25)
[2021-10-05] MEDS: PANTOPRAZOLE 40 MG/PACK PACK NG SCH ×2 (09:25→17:39)
[2021-10-05] MEDS: CHOLECALCIFEROL 1,000 UNIT TABLET (VIT D3) GT SCH (09:25)
[2021-10-05] MEDS: HYDROCHLOROTHIAZIDE 25 MG TABLET GT SCH (09:26)
[2021-10-05] MEDS: HYDROCORTISONE SOD SUCCINATE 100 MG/2 ML VIAL IV SCH (09:28)
[2021-10-05] MEDS: DEXAMETHASONE SOD PHOSPHATE 10 MG/ML VIAL IV SCH (09:30)
[2021-10-05] MEDS: PROSOURCE / PROSTAT (PYXIS) 30 ML UDC PEG SCH ×3 (09:32→17:39)
[2021-10-05] MEDS: CLOTRIMAZOLE 1% 15 GM TUBE TP SCH ×2 (09:32→20:48)
[2021-10-05] MEDS: Z GUARD REMEDY 4 OZ OINT TP SCH (09:32)
[2021-10-05] MEDS: POTASSIUM CHLORIDE 20 MEQ POWDER PACKET GT SCH ×3 (10:15→11:51)
[2021-10-05 12:24] VITALS: BP 159/80
[2021-10-05 16:28] VITALS: BP_SYST 142; BP_SYST 149; BP_DIAS 79; BP_DIAS 84
[2021-10-05] MEDS: ACETAMINOPHEN 650 MG/20.3 ML UDC GT PRN (19:00)
--- NOTE | 2021-10-05 19:04 | NUR ---
WIND TUNNEL ENGINEER NOTES PATIENT COMPLAINING OF MILD PAIN; REQUESTING PAIN MEDICATION. PRN TYLENOL ADMINISTERED.
--- NOTE | 2021-10-05 19:19 | NUR ---
MS RN CLOSING NOTES PATIENT REMAINS IN BED, AWAKE, A/O X2. PATIENT ON VENT, TOLERATING SETTINGS WELL; BREATHING EVEN AND UNLABORED. NO S/S OF DISTRESS NOTED. ALL NEEDS ATTENDED DURING THE DAY. WILL ENDORSE TO RECYCLING CREW SUPERVISOR NURSE FOR DARYA.
--- NOTE | 2021-10-05 19:35 | NUR ---
CABLE SYSTEMS INSTALLER OPENING NOTES RECEIVED PATIENT AWAKE IN BED AND A/0 X2. ON MECHANICAL VENT TOLERATING WELL. NO SOB OR S/S OF RESPIRATORY DISTRESS NOTED. ON EXTERNAL MEDICAL STAFFING COORDINATOR READING SR 78 BPM. IV ACCESS AT GAB MIDLINE SALINE LOCKED, PATENT AND INTACT. WITH HENNING CATHETER IN PLACE DRAINING CLEAR YELLOW URINE. ON GLUCERNA 1.2 FEEDING AT 35ML/HR VIA G-TUBE. SAFETY PRECAUTIONS IN PLACE. BED IN LOWEST LOCKED POSITION, HOB ELEVATED, SIDE RAILS UP X2, AND CALL LIGHT AND TABLE WITHIN REACH. WILL CONTINUE WITH PLAN OF CARE.
[2021-10-05] MEDS: GLUCERNA 1.2 1,000 ML BOTTLE PEG SCH (20:48)
[2021-10-05 21:13] VITALS: BP 107/51
[2021-10-05] MEDS: INSULIN GLARGINE, 100 UNIT/ML CARTRIDGE SQ SCH (22:39)
[2021-10-05] MEDS: INSULIN REGULAR, HUMAN 100 UNIT/ML 3 ML VIAL SQ PRN (23:53)
[2021-10-06] MEDS: TOBRAMYCIN OPHTH 5ML 5 ML BOTTLE LEFTEYE SCH ×6 (00:15→20:28)
[2021-10-06 00:31] VITALS: BP 111/59
[2021-10-06 04:36] VITALS: BP 118/60
[2021-10-06] MEDS: BLOOD SUGAR DIAGNOSTIC 1 EACH STRIP IN SCH ×4 (05:19→23:46)
[2021-10-06] MEDS: INSULIN REGULAR, HUMAN 100 UNIT/ML 3 ML VIAL SQ PRN ×4 (05:26→23:55)
[2021-10-06] MEDS: METOCLOPRAMIDE HCL 10 MG/2 ML VIAL IV SCH ×3 (05:27→17:32)
--- NOTE | 2021-10-06 06:29 | NUR ---
METEOROLOGY FACULTY MEMBER CLOSING NOTES PATIENT RESTING IN BED AND EASILY AROUSABLE. A/0 X2. ON MECHANICAL VENT TOLERATING WELL. NO SOB OR S/S OF RESPIRATORY DISTRESS NOTED. ON EXTERNAL PRINTING PRESS MACHINIST READING SR 74 BPM. IV ACCESS AT GAB MIDLINE SALINE LOCKED, PATENT AND INTACT. WITH HENNING CATHETER IN PLACE DRAINING CLEAR YELLOW URINE. ON GLUCERNA 1.2 FEEDING AT 45ML/HR VIA G-TUBE. ALL NEEDS MET AT THIS TIME. SAFETY PRECAUTIONS IN PLACE. ALL NEEDS MET AT THIS TIME. BED IN LOWEST LOCKED POSITION, HOB ELEVATED, SIDE RAILS UP X2, AND CALL LIGHT AND TABLE WITHIN REACH. WILL ENDORSE TO ONCOMING SHIFT FOR DARYA.
[2021-10-06 06:57] LABS: BASOPHILS % (AUTO) 0.3 % (0.0-2.0); EOSINOPHILS % (AUTO) 2.3 % (0.0-6.0); LYMPHOCYTES # (AUTO) 0.7 K/uL (0.8-4.8); LYMPHOCYTES % (AUTO) 11.1 % (20.0-44.0); MEAN CORPUSCULAR HGB CONC 34 g/dl (31.0-36.0); MEAN CORPUSCULAR VOLUME 89 fL (82-100); MONOCYTES # (AUTO) 0.5 K/uL (0.1-1.30); MONOCYTES % (AUTO) 7.7 % (2.0-12.0); NEUTROPHILS # (AUTO) 5.1 K/uL (1.8-8.9); NEUTROPHILS % (AUTO) 78.6 % (43.0-81.0); PLATELET COUNT (AUTO) 133 K/uL (150-450); RED BLOOD CELL COUNT(AUTO) 2.29 MIL/uL (4.0-5.2); WHITE BLOOD COUNT (AUTO) 6.5 K/uL (4.3-11.0)
--- NOTE | 2021-10-06 07:30 | NUR ---
GEOSPATIAL APPLICATIONS DEVELOPER NOTES PT IN BED, ASLEEP, EASY TO AROUSE, ALERT AND ABLE TO ANSWER QUESTIONS WITH HEAD GESTURES, NOT IN DISTRESS, ON VENT/TRACH, KEPT WARM AND COMFORTABLE IN BED.
[2021-10-06 07:32] LABS: BILIRUBIN,TOTAL 0.8 mg/dL (0.2-1.0); CALCIUM, SERUM 8.1 mg/dL (8.5-10.1); CREATININE 1.1 mg/dL (0.6-1.3); PHOSPHORUS 2.4 mg/dL (2.5-4.9); TOTAL PROTEIN, SERUM 4.6 g/dL (6.4-8.2)
[2021-10-06 08:00] VITALS: BP 146/71
[2021-10-06 08:06] LABS: HEMATOCRIT 20 % (33-45)
[2021-10-06] MEDS: CHOLECALCIFEROL 1,000 UNIT TABLET (VIT D3) GT SCH (08:42)
[2021-10-06] MEDS: PANTOPRAZOLE 40 MG/PACK PACK NG SCH ×2 (08:42→17:32)
[2021-10-06] MEDS: ASCORBIC ACID 500 MG TABLET GT SCH (08:43)
[2021-10-06] MEDS: HYDROCHLOROTHIAZIDE 25 MG TABLET GT SCH (08:43)
[2021-10-06] MEDS: HYDROCORTISONE SOD SUCCINATE 100 MG/2 ML VIAL IV SCH (08:43)
[2021-10-06] MEDS: PROSOURCE / PROSTAT (PYXIS) 30 ML UDC PEG SCH ×3 (08:51→18:11)
[2021-10-06] MEDS: CLOTRIMAZOLE 1% 15 GM TUBE TP SCH ×2 (09:00→21:24)
[2021-10-06] MEDS ORDERED: POTASSIUM CHLORIDE 20 MEQ POWDER PACKET GT ONE (09:00)
[2021-10-06] MEDS ORDERED: NEUTRA PHOS 1 POWD.PACKET GT ONE ×2 (10:00→12:30)
--- NOTE | 2021-10-06 10:08 | NUR ---
fio2 increased from 45% to 50% due to 88% spo2. Addendum: 10/06/21 at 1204 by CHATO JOYA RT Amended: Links added.
[2021-10-06 12:00] VITALS: BP 126/58
[2021-10-06] MEDS: Z GUARD REMEDY 4 OZ OINT TP SCH (12:17)
[2021-10-06 16:00] VITALS: BP 120/58
[2021-10-06] MEDS: ACETAMINOPHEN 650 MG/20.3 ML UDC GT PRN (18:10)
--- NOTE | 2021-10-06 18:10 | NUR ---
AIRCONDITIONING ENGINEER NOTES NOTED WITH BODY TEMP OF 100 DEG, TYLENOL GIVEN ORDERED, COOLING MEASURES PROVIDED, BLOOD TRANSFUSION HELD FOR NOW, WILL CONTINUE TO MONITOR.
--- NOTE | 2021-10-06 19:00 | NUR ---
KETTLE FIRER NOTES PT IN BED, RESTING, NOT IN DISTRESS, NOT IN PAIN, FAMILY VISITING, PM MEDS GIVEN ORDERED, RECHECKED BODY TEMP, 97.8 NOW, GT FEEDING INFUSING WELL, TOLERATES WELL, ENDORSED TO MARKETING DATA SPECIALIST NURSE FOR CONTINUITY OF CARE.
[2021-10-06 20:00] VITALS: BP 112/58
[2021-10-06] MEDS: GLUCERNA 1.2 1,000 ML BOTTLE PEG SCH (21:46)
[2021-10-06] MEDS: INSULIN GLARGINE, 100 UNIT/ML CARTRIDGE SQ SCH (22:07)
--- NOTE | 2021-10-06 23:30 | NUR ---
RE: Blood transfusion: Patient's temp now 98.7 1 unit PRBC ordered. went to the lab was told if the patient's HBG not below 7.0 they will not release blood. Also no one at night here to release blood unless there is an emergency. Kristie Chapa MD and made her aware of the situation and that the patient has a CBC ordered for the AM and will see what the HBG is and give the the 1 unit as ordered
[2021-10-07] VITALS (7 sets, daily range): BP systolic 113–155; BP diastolic 57–93
[2021-10-07] MEDS: METOCLOPRAMIDE HCL 10 MG/2 ML VIAL IV SCH ×4 (00:06→17:46)
[2021-10-07] MEDS: TOBRAMYCIN OPHTH 5ML 5 ML BOTTLE LEFTEYE SCH ×6 (00:46→21:10)
--- NOTE | 2021-10-07 04:06 | NUR ---
CLOSING NOTES: ALERT TO NURSE IN THE ROOM AND CARE BEING DONE ORIENTATED X2. WILL LOOK AT YOU WHEN HER NAME IS SPOKEN. SHE IS COOPERATIVE. FREQUENT ORAL CARE GIVEN SHE IS COOPERATIVE WITH THIS BEING DONE MAX ASSIST WITH ADL WILL ASSIST WHEN BEING REPOSITIONED AND CLEANED. MOISTURE DAMAGE TO THE BUTOOCK. ATTEMPT TO KEEP HER CLEAN AND DR AND REPOSIOTIONED OFF HER BUTTOCK PILLOW BEING USED\ HENNING DRAIAGE CLEAR YELLOW ASPIRATION PRECAUTIONS GT FEEDING AT 55 ML HR TOLERANCE GOOD NO RESIDUAL GOOD BM THIS 12 HOUR
[2021-10-07] MEDS: BLOOD SUGAR DIAGNOSTIC 1 EACH STRIP IN SCH ×3 (06:01→17:40)
[2021-10-07] MEDS: INSULIN REGULAR, HUMAN 100 UNIT/ML 3 ML VIAL SQ PRN ×3 (06:09→17:43)
[2021-10-07 07:05] LABS: ALBUMIN 1.9 g/dL (3.4-5.0); BILIRUBIN,TOTAL 0.6 mg/dL (0.2-1.0); CALCIUM, SERUM 8.1 mg/dL (8.5-10.1); PHOSPHORUS 2.3 mg/dL (2.5-4.9); POTASSIUM 3.3 mmol/L (3.5-5.1)
[2021-10-07 07:11] LABS: BASOPHILS % (AUTO) 0.4 % (0.0-2.0); EOSINOPHILS % (AUTO) 2.6 % (0.0-6.0); HEMATOCRIT 22 % (33-45); HEMOGLOBIN 7.4 g/dL (11.5-14.8); LYMPHOCYTES # (AUTO) 0.7 K/uL (0.8-4.8); LYMPHOCYTES % (AUTO) 10.4 % (20.0-44.0); MEAN CORPUSCULAR HGB CONC 34 g/dl (31.0-36.0); MEAN CORPUSCULAR VOLUME 89 fL (82-100); MONOCYTES # (AUTO) 0.5 K/uL (0.1-1.30); NEUTROPHILS # (AUTO) 5.7 K/uL (1.8-8.9); NEUTROPHILS % (AUTO) 79.6 % (43.0-81.0); PLATELET COUNT (AUTO) 171 K/uL (150-450); RED BLOOD CELL COUNT(AUTO) 2.45 MIL/uL (4.0-5.2); WHITE BLOOD COUNT (AUTO) 7.2 K/uL (4.3-11.0)
--- NOTE | 2021-10-07 08:00 | NUR ---
RN Opening Note Patient received in bed, does not appears distress, able to responds physical stimuli. Skin is warm to touch, keep clean/dry, intact midline site. Respiratory even and unlabored with ventilator. Kept elevated HOB for ensure air/aspiration precaution and remains lower position of the bed. call light within reach, will continue to monitor.
--- NOTE | 2021-10-07 09:00 | NUR ---
Patient noticed decreased O2sat, RT increased Fio2 up to 100%, and O2sat 94-96% subside now. Continue to monitor.
[2021-10-07] MEDS: HYDROCORTISONE SOD SUCCINATE 100 MG/2 ML VIAL IV SCH (09:37)
[2021-10-07] MEDS: ASCORBIC ACID 500 MG TABLET GT SCH (09:37)
[2021-10-07] MEDS: CHOLECALCIFEROL 1,000 UNIT TABLET (VIT D3) GT SCH (09:38)
[2021-10-07] MEDS: PANTOPRAZOLE 40 MG/PACK PACK NG SCH ×2 (09:38→17:46)
[2021-10-07] MEDS: HYDROCHLOROTHIAZIDE 25 MG TABLET GT SCH (09:38)
[2021-10-07] MEDS: PROSOURCE / PROSTAT (PYXIS) 30 ML UDC PEG SCH ×3 (09:38→17:42)
[2021-10-07] MEDS: CLOTRIMAZOLE 1% 15 GM TUBE TP SCH ×2 (09:51→21:10)
[2021-10-07] MEDS: Z GUARD REMEDY 4 OZ OINT TP SCH (09:51)
[2021-10-07 10:03] LABS: TOTAL PROTEIN, SERUM 4.9 g/dL (6.4-8.2)
--- NOTE | 2021-10-07 10:25 | NUR ---
Pt placed on 100% FiO2 , due to saturation dropping to 88% on 60% fiO2. Pt spaO2 95% on 100% FiO2 now. Notified nurse and charge nurse.
[2021-10-07] MEDS ORDERED: K PHOS NEUTRAL 250 MG TABLET PO ONE (10:30)
--- NOTE | 2021-10-07 10:45 | NUR ---
PT AWAKE AND ALERT AND IS REFUSING TO HAVE AN ABG DONE. NOTIFIED NURSE AND CHARGE NURSE. RT WILL CONTINUE TO MONITOR THE PT .
--- NOTE | 2021-10-07 11:44 | NUR ---
RN NOTE PATIENT AGREED TO HAVE ABG. RESULT CAME BACK AND TEXTED DR. PIMENTEL REGARDING p02 BEING LOW. HE REPLIED THAT IT IS OKAY AND JUST CONTINUE WITH THE SAME SETTING. RT WESLY AND AMANDA LOCO NOTIFIED.
--- NOTE | 2021-10-07 11:53 | NUR ---
ABG reported to charge nurse and doctor , per MD pt to remain on current settings.
--- NOTE | 2021-10-07 14:00 | NUR ---
Patient noticed increased HR up to 128, sinus rhythm, Dr. Quintanilla made aware,no new order at this time.
--- NOTE | 2021-10-07 18:11 | NUR ---
[facility] transfer to [facility], given report to Kam/RN include picker machine operator time.
--- NOTE | 2021-10-07 18:30 | NUR ---
RN Closing Note Patient is resting in bed. No distress observed, respiratory even and unlabored with ventilator. Patient hold discharge due to Fio2 100% currently. Skin is warm to touch, keep clean/dry. Intact piccline site, good patency feeding tube. Kept elevated HOB for ensure airway and aspiration precaution, Also lower position of the bed for safety. Call light within reach, all needs met. will endorse bill collector.
--- NOTE | 2021-10-07 18:48 | NUR ---
PEEP OF [address] PIMENTEL. AMANDA AWARE. Addendum: 10/07/21 at 1849 by WESLY LANGLEY RT Amended: Links added.
--- NOTE | 2021-10-07 19:50 | NUR ---
RN NOTE PATIENT WAS DESATURATING FROM 70-80% AND WAS PUT ON FI02 AT 100%. DR PIMENTEL WAS MADE AWARE AND HE ORDERED TO INCREASE PEEP FROM 5 TO 10 AND TO REMAIN THE FI02 SETTING. PATIENT TO BE TRANSFERRED TO ICU, MINE UTILITY OPERATOR CRYSTAL WAS ALSO MADE AWARE.
--- NOTE | 2021-10-07 20:05 | NUR ---
NEUROLOGY SPECIALIST NOTES PT DESATURATING. WITH VENT SETTINGS AC 26, TV 440, PEEP 10 FIO2 100%. LATEST O2 SAT 94%. AWAITING FOR ICU BED. BALL ASSEMBLER AND RN COMPUTED TOMOGRAPHY TECHNOLOGIST AWARE. MD CARMICHAEL NOTIFIED RE PT'S CONDITION. WILL CONTINUE TO MONITOR.
[2021-10-07] MEDS: INSULIN GLARGINE, 100 UNIT/ML CARTRIDGE SQ SCH (22:00)
[2021-10-07] MEDS: GLUCERNA 1.2 1,000 ML BOTTLE PEG SCH (22:54)
[2021-10-08] VITALS (12 sets, daily range): BP systolic 92–157; BP diastolic 46–77
[2021-10-08] MEDS: BLOOD SUGAR DIAGNOSTIC 1 EACH STRIP IN SCH ×5 (00:11→23:35)
[2021-10-08] MEDS: METOCLOPRAMIDE HCL 10 MG/2 ML VIAL IV SCH ×5 (00:11→23:35)
[2021-10-08] MEDS: INSULIN REGULAR, HUMAN 100 UNIT/ML 3 ML VIAL SQ PRN ×5 (00:12→23:50)
--- NOTE | 2021-10-08 00:30 | NUR ---
FAST FOOD ATTENDANT NOTES ABG RESULTS IN. PH 7.546, PCO2 35.6, PO2 66.4, HCO3 30.2. STILL AWAITING FOR ICU BED. CAMPUS SUPERVISOR & RN MOLD FILLER AND DRAINER AWARE. WILL CONTINUE TO MONITOR
[2021-10-08] MEDS: TOBRAMYCIN OPHTH 5ML 5 ML BOTTLE LEFTEYE SCH ×6 (01:00→21:30)
--- NOTE | 2021-10-08 01:00 | NUR ---
ABLE BODIED SEAMAN NOTES PT'S FIO2 TITRATED TO 50. PT SATURATING @ 93-95%. STILL NO ICU BED AVAILABLE PER RN SEQUENCING MACHINE OPERATOR. WILL CONTINUE TO MONITOR.
[2021-10-08] MEDS: ACETAMINOPHEN 650 MG/20.3 ML UDC GT PRN ×3 (03:46→21:28)
--- NOTE | 2021-10-08 04:00 | NUR ---
GROUND PRODUCTS DIRECTOR NOTES PT SLEEPING AT THIS TIME. NOT IN ANY DISTRESS. NO SOB NOTED. WITH FIO2 @ 50% SATURATING @ 95%. PER RN CENSUS TAKER, WILL HAVE TO KEEP PT IN TELE FLOOR FOR NOW PT IS TOLERATING 50% FIO2. GROUND OPERATIONS CREW MEMBER AWARE. AWARE. WILL CONTINUE TO MONITOR.
--- NOTE | 2021-10-08 05:44 | NUR ---
ABG in pt chart. ABG results not transferring over.
--- NOTE | 2021-10-08 06:46 | NUR ---
APPLICATION ARCHITECT MANAGER NOTES AWAKE & ALERT. NOT IN ANY DISTRESS. NO SOB NOTED. DENIES ANY PAIN OR DISCOMFORT AT THIS TIME. WITH VENT SETTINGS AC 26, PEEP 10, TV 440, FIO2 50%. ON TELE SR @ 69 WITH IV-ML PATENT & INTACT. WITH GTF INFUSING WELL. AM CARE DONE. MONITORED ACCORDINGLY. CALL LIGHT WITHIN REACH. BED IN LOWEST POSITION. SR UP X 3 WITH BED ALARM ON FOR SAFETY. WILL ENDORSE TO NEXT SHIFT.
[2021-10-08 07:23] LABS: BASOPHILS % (AUTO) 0.4 % (0.0-2.0); EOSINOPHILS % (AUTO) 1.9 % (0.0-6.0); LYMPHOCYTES # (AUTO) 0.7 K/uL (0.8-4.8); LYMPHOCYTES % (AUTO) 10.7 % (20.0-44.0); MEAN CORPUSCULAR HGB CONC 34 g/dl (31.0-36.0); MEAN CORPUSCULAR VOLUME 89 fL (82-100); MONOCYTES # (AUTO) 0.5 K/uL (0.1-1.30); MONOCYTES % (AUTO) 7.9 % (2.0-12.0); NEUTROPHILS # (AUTO) 5.2 K/uL (1.8-8.9); NEUTROPHILS % (AUTO) 79.1 % (43.0-81.0); PLATELET COUNT (AUTO) 160 K/uL (150-450); RED BLOOD CELL COUNT(AUTO) 2.16 MIL/uL (4.0-5.2); WHITE BLOOD COUNT (AUTO) 6.6 K/uL (4.3-11.0)
[2021-10-08 07:41] LABS: HEMOGLOBIN 6.5 g/dL (11.5-14.8)
[2021-10-08 07:42] LABS: HEMATOCRIT 19 % (33-45)
[2021-10-08 07:57] LABS: ALBUMIN 1.6 g/dL (3.4-5.0); BILIRUBIN,TOTAL 0.6 mg/dL (0.2-1.0); CREATININE 1.1 mg/dL (0.6-1.3); TOTAL PROTEIN, SERUM 4.6 g/dL (6.4-8.2)
--- NOTE | 2021-10-08 08:00 | NUR ---
RN Opening Note Patient received in bed, does not appears distress, able to responds physical stimuli. Skin is warm to touch, keep clean/dry, intact midline site. Respiratory even and unlabored with ventilator at Fio2 50%, O2sat 94-95%. Kept elevated HOB for ensure air/aspiration precaution and remains lower position of the bed. call light within reach, will continue to monitor.
[2021-10-08 08:50] LABS: POTASSIUM 2.8 mmol/L (3.5-5.1)
[2021-10-08] MEDS ORDERED: POTASSIUM CHLORIDE 20 MEQ POWDER PACKET GT ONE (09:30)
[2021-10-08] MEDS: CHOLECALCIFEROL 1,000 UNIT TABLET (VIT D3) GT SCH (09:43)
[2021-10-08] MEDS: ASCORBIC ACID 500 MG TABLET GT SCH (09:43)
[2021-10-08] MEDS: HYDROCORTISONE SOD SUCCINATE 100 MG/2 ML VIAL IV SCH (09:44)
[2021-10-08] MEDS ORDERED: POTASSIUM CHLORIDE 20 MEQ POWDER PACKET ONE (09:47)
[2021-10-08] MEDS: PROSOURCE / PROSTAT (PYXIS) 30 ML UDC PEG SCH ×3 (09:50→17:16)
[2021-10-08] MEDS: PANTOPRAZOLE 40 MG/PACK PACK NG SCH ×2 (09:51→17:04)
[2021-10-08] MEDS: CLOTRIMAZOLE 1% 15 GM TUBE TP SCH ×2 (09:56→21:30)
[2021-10-08] MEDS: Z GUARD REMEDY 4 OZ OINT TP SCH (09:56)
[2021-10-08 11:06] LABS: BAND % (MANUAL) 5 % (0.0-5.0); EOSINOPHILS % (MANUAL) 3 % (0-4); LYMPHOCYTES % (MANUAL) 12 % (16-48); MONOCYTES % (MANUAL) 6 % (0-11.0); NEUTROPHILS % (MANUAL) 74 (42-76)
--- NOTE | 2021-10-08 15:00 | NUR ---
Patient c/o headache, given Tylenol 650mg, reassess pain scale is 4/10.
--- NOTE | 2021-10-08 18:30 | NUR ---
RN Closing Note Patient is resting in bed. S/P RBC x 1 unit No distress or adverse reaction observed from blood trans fusion. Respiratory even and unlabored with ventilator, Fio2 50%, peep at 10 O2sat 94-95% stable. Skin is warm to touch, keep clean/dry. Intact piccline site, good patency feeding tube. Noticed Potassium level 2.8 and new order 60meq. Kept elevated HOB for ensure airway and aspiration precaution, Also lower position of the bed for safety. Call light within reach, all needs met. will endorse caustic cresylate shift superintendent.
[2021-10-08] MEDS ORDERED: POTASSIUM CHLORIDE 20 MEQ POWDER PACKET GT SCH (19:30)
--- NOTE | 2021-10-08 19:35 | NUR ---
TELERN FULLY AWAKE,VENT DEPENDENT, NO RESPIRATORY DISTRESS. ABLE TO MOUTH WORDS AND ABLE TO EXPRESS HER NEEDS THRU GESTURES. SEEN BY RT FI02 TO 50% TOLERATED. GT FEEDINGS TOLERATED LESS THAN 5 CC RESIDUALS OBTAINED. MAINTAINED HOB UP TO 35 TO 40 DEGREES. REPOSITIONED PER PATIENTS COMFORT, SR ON THE MONITOR.
[2021-10-08] MEDS: GLUCERNA 1.2 1,000 ML BOTTLE PEG SCH (20:37)
--- NOTE | 2021-10-08 21:25 | NUR ---
TELERN VERBALIZING HEADACHE, TYLENOL 650 MG VIA GT ADMINISTERED.
[2021-10-08] MEDS: TEMAZEPAM 15 MG CAPSULE PO PRN (23:35)
[2021-10-08] MEDS: INSULIN GLARGINE, 100 UNIT/ML CARTRIDGE SQ SCH (23:49)
[2021-10-09] VITALS: BP 122/62
--- NOTE | 2021-10-09 | NUR ---
TELE/RN NOTE RECEIVED REPORT FROM SY PATEL FOR DARYA.
[2021-10-09] MEDS: TOBRAMYCIN OPHTH 5ML 5 ML BOTTLE LEFTEYE SCH ×6 (01:00→21:41)
[2021-10-09] MEDS: ACETAMINOPHEN 650 MG/20.3 ML UDC GT PRN ×3 (03:58→18:51)
[2021-10-09 04:00] VITALS: BP 159/90
--- NOTE | 2021-10-09 05:16 | NUR ---
TITRATE O2 TO 45%, CHARGE NURSE SY NOTIFIED. SPO2 100%
[2021-10-09] MEDS: LORAZEPAM INJ 2 MG/ML VIAL IV PRN (06:13)
[2021-10-09] MEDS: BLOOD SUGAR DIAGNOSTIC 1 EACH STRIP IN SCH ×3 (06:13→18:15)
[2021-10-09] MEDS: METOCLOPRAMIDE HCL 10 MG/2 ML VIAL IV SCH ×3 (06:13→17:13)
[2021-10-09] MEDS ORDERED: HYDROCODONE/APAP 5/325MG TABLET PO ONE (06:16)
--- NOTE | 2021-10-09 06:30 | NUR ---
TELE/RN CLOSING NOTE PATIENT CURRENTLY RESTING IN BED. AWAKE, ALERT AND ORIENTED X 3. ABLE TO MOUTH WORDS. DENIES PAIN AT THIS TIME. CONTINUES ON MECHANICAL VENT WITH PATIENT TOLERATING SETTINGS WELL. IV ACCESS TO RIGHT UPPER ARM MIDLINE INTACT, PATENT AND SALINE LOCKED. CONTINUES ON IV ABX. GT IN PLACE WITH NO RESIDUAL NOTED. CONTINUES ON TF @55ML/HR. HENNING CATHETER IN PLACE DRAINING CLEAR, YELLOW URINE TO GRAVITY. CALL LIGHT WITHIN REACH. ASPIRATION, FALL AND SAFETY PRECAUTIONS MAINTAINED. WILL ENDORSE PLAN OF CARE TO ONCOMING SHIFT.
[2021-10-09] MEDS: INSULIN REGULAR, HUMAN 100 UNIT/ML 3 ML VIAL SQ PRN ×2 (06:59→18:17)
--- NOTE | 2021-10-09 07:30 | NUR ---
ELECTRICIAN ELEVATOR MAINTENANCE Opening Note Patient received in bed awake. No distress noted. able to responds when asking. Skin is warm to touch, keep clean/dry, intact midline site. Respiratory even and unlabored with ventilator . O2sat 94-95%. Kept elevated HOB for ensure air/aspiration precaution . On gtube of glucerna @ 55 ml/hr. on tele monitoring reading of sr=78. call light within reach, bed in the lowest position and locked. side rails up times 2. will continue to monitor.
[2021-10-09 08:00] VITALS: BP 145/71
[2021-10-09] MEDS: ASCORBIC ACID 500 MG TABLET GT SCH (09:13)
[2021-10-09] MEDS: CHOLECALCIFEROL 1,000 UNIT TABLET (VIT D3) GT SCH (09:13)
[2021-10-09] MEDS: HYDROCORTISONE SOD SUCCINATE 100 MG/2 ML VIAL IV SCH (09:13)
[2021-10-09] MEDS: PANTOPRAZOLE 40 MG/PACK PACK NG SCH ×2 (09:13→17:13)
[2021-10-09] MEDS: PROSOURCE / PROSTAT (PYXIS) 30 ML UDC PEG SCH ×3 (09:14→17:13)
[2021-10-09] MEDS: CLOTRIMAZOLE 1% 15 GM TUBE TP SCH ×2 (09:15→21:41)
[2021-10-09] MEDS: Z GUARD REMEDY 4 OZ OINT TP SCH (09:16)
[2021-10-09 12:00] VITALS: BP 129/76
[2021-10-09 12:47] LABS: BASOPHILS # (AUTO) 0.1 K/uL (0.0-0.2); BASOPHILS % (AUTO) 0.6 % (0.0-2.0); EOSINOPHILS % (AUTO) 2.7 % (0.0-6.0); HEMATOCRIT 28 % (33-45); HEMOGLOBIN 9.6 g/dL (11.5-14.8); LYMPHOCYTES # (AUTO) 0.9 K/uL (0.8-4.8); MEAN CORPUSCULAR HGB CONC 34 g/dl (31.0-36.0); MEAN CORPUSCULAR VOLUME 89 fL (82-100); MONOCYTES # (AUTO) 0.7 K/uL (0.1-1.30); MONOCYTES % (AUTO) 7.1 % (2.0-12.0); NEUTROPHILS # (AUTO) 7.8 K/uL (1.8-8.9); NEUTROPHILS % (AUTO) 80.6 % (43.0-81.0); PLATELET COUNT (AUTO) 156 K/uL (150-450); RED BLOOD CELL COUNT(AUTO) 3.17 MIL/uL (4.0-5.2); WHITE BLOOD COUNT (AUTO) 9.6 K/uL (4.3-11.0)
[2021-10-09 12:59] LABS: ALBUMIN 1.9 g/dL (3.4-5.0); BILIRUBIN,TOTAL 0.6 mg/dL (0.2-1.0); CALCIUM, SERUM 8.9 mg/dL (8.5-10.1); POTASSIUM 3.7 mmol/L (3.5-5.1); TOTAL PROTEIN, SERUM 5.5 g/dL (6.4-8.2)
[2021-10-09 16:00] VITALS: BP 152/80
[2021-10-09] MEDS: GLUCERNA 1.2 1,000 ML BOTTLE PEG SCH (18:50)
--- NOTE | 2021-10-09 19:15 | NUR ---
GEOLOGICAL DRAFTER OPENING NOTES: RECEIVED PATIENT IN BED, AWAKE, NON VERBAL, NO S/S OF DISTRESS NOTED. NO COMPLAIN OF PAIN. NO MOANING. CALL LIGHT WITHIN REACH BED ALARM ON. BED IN LOWEST AND LOCKED POSITION. HOB ELEVATED AT ALL TIMES. WITH TF RUNNING AT 55ML/ HR. WITH TRACH INTACT, ON MECHANICAL VENT, SATTING 98%. SON AT THE BEDSIDE. WITH HENNING CATH INTACT DRAINING CLEAR YELLOW URINE.
[2021-10-09 19:36] LABS: OCCULT BLOOD STOOL NEGATIVE (NEGATIVE)
--- NOTE | 2021-10-09 19:38 | NUR ---
CATALOG SPECIALIST closing Note Patient in bed awake. No distress noted. able to responds when asking. Skin is warm to touch, keep clean/dry, intact midline site. Respiratory even and unlabored with ventilator . O2sat 94-95%. Kept elevated HOB for ensure air/aspiration precaution . On gtube of glucerna @ 55 ml/hr. on tele monitoring.All due meds given as ordered. son and visited the patient.Tenorio intact draining well. call light within reach, bed in the lowest position and locked. side rails up times 2. will endorse to incoming shift for angle.
[2021-10-09 20:00] VITALS: BP 140/88
--- NOTE | 2021-10-09 20:48 | NUR ---
PATIENT ON TELE MONITOR- SINUS TACHY-111.
[2021-10-09] MEDS: INSULIN GLARGINE, 100 UNIT/ML CARTRIDGE SQ SCH (21:33)
[2021-10-10] VITALS (7 sets, daily range): BP systolic 131–165; BP diastolic 70–91
[2021-10-10] MEDS: INSULIN REGULAR, HUMAN 100 UNIT/ML 3 ML VIAL SQ PRN ×4 (01:11→19:05)
[2021-10-10] MEDS: METOCLOPRAMIDE HCL 10 MG/2 ML VIAL IV SCH ×4 (01:12→18:34)
[2021-10-10] MEDS: TOBRAMYCIN OPHTH 5ML 5 ML BOTTLE LEFTEYE SCH ×6 (01:15→20:46)
[2021-10-10] MEDS: TEMAZEPAM 15 MG CAPSULE PO PRN (01:25)
[2021-10-10] MEDS: LORAZEPAM INJ 2 MG/ML VIAL IV PRN ×2 (04:35→15:05)
[2021-10-10] MEDS: BLOOD SUGAR DIAGNOSTIC 1 EACH STRIP IN SCH ×5 (06:00→23:52)
--- NOTE | 2021-10-10 07:30 | NUR ---
LADLE PULLER Opening Note Patient received in bed awake. No distress noted. able to responds when asking. Skin is warm to touch, keep clean/dry, intact midline site. Respiratory even and unlabored with ventilator . O2sat 94-95%. Kept elevated HOB for ensure air/aspiration precaution . On gtube of glucerna @ 55 ml/hr. on tele monitoring . call light within reach, bed in the lowest position and locked. side rails up times 2. will continue to monitor.
[2021-10-10] MEDS: HYDROCORTISONE SOD SUCCINATE 100 MG/2 ML VIAL IV SCH (08:14)
[2021-10-10] MEDS: ASCORBIC ACID 500 MG TABLET GT SCH (08:14)
[2021-10-10] MEDS: PANTOPRAZOLE 40 MG/PACK PACK NG SCH ×2 (08:14→18:36)
[2021-10-10] MEDS: PROSOURCE / PROSTAT (PYXIS) 30 ML UDC PEG SCH ×3 (08:14→18:34)
[2021-10-10] MEDS: CHOLECALCIFEROL 1,000 UNIT TABLET (VIT D3) GT SCH (08:14)
[2021-10-10] MEDS: CLOTRIMAZOLE 1% 15 GM TUBE TP SCH ×2 (08:19→20:46)
[2021-10-10] MEDS: Z GUARD REMEDY 4 OZ OINT TP SCH (08:20)
--- NOTE | 2021-10-10 08:59 | NUR ---
RT Was notified by RN on vent change orders per MD order. Decrease 50% FIO2 to 40%, decrease PEEP +10 to PEEP +5. No increase of wob, no signs and symptoms of respiratory distress. Will continue to closely monitor.
--- NOTE | 2021-10-10 08:59 | NUR ---
RN NOTES DR ABRAHAM VISITED THE PATIENT AT 0859 , VERBAL ORDER OF FIO2 40% AND PEEP 5 GIVEN .
[2021-10-10] MEDS: GLUCERNA 1.2 1,000 ML BOTTLE PEG SCH (18:35)
--- NOTE | 2021-10-10 19:30 | NUR ---
PERINATAL INSTRUCTOR NOTES PER RT,PATIENT WAS PLACED ON 50% FIO2,PATIENT DESATURATE.
--- NOTE | 2021-10-10 19:30 | NUR ---
SOURCING ASSISTANT CLOSING Note Patient in bed awake. No distress noted. able to responds when asking. Skin is warm to touch, keep clean/dry, intact midline site. Respiratory even and unlabored with ventilator . O2sat 94-95%. Kept elevated HOB for ensure air/aspiration precaution . On gtube of glucerna @ 55 ml/hr. on tele monitoring . call light within reach, bed in the lowest position and locked. side rails up times 2. all due meds and treatments given as ordered. will endorse incoming shift for angle.
--- NOTE | 2021-10-10 19:45 | NUR ---
MORTICIAN INVESTIGATOR NOTES RECEIVED REPORT FROM DUANE RN,PATIENT ON BED ON FOWLERS POSITION,VISITOR AT BEDSIDE, ON TRACH TO VENT,SETTINGS TOLERATED WELL.WITH GT FEEDING OF GLUCERNA AT 55ML/HR RATE,NO N/V/D/ NOTED,HENNING CATH IN PLACE DRAINING YELLOWISH OUTPUT.FULL CODE,WILL CONTINUE TO MONITOR STATUS.
[2021-10-10] MEDS: INSULIN GLARGINE, 100 UNIT/ML CARTRIDGE SQ SCH (21:45)
--- NOTE | 2021-10-10 21:45 | NUR ---
CENTRAL SUPPLY AIDE NOTES ACCU-CHECK BLOOD SUGAR CHECK 160,DUE LANTUS 75U GIVEN SQ SCHEDULED.GT FEEDING IN PROGRESS.
[2021-10-11] VITALS (7 sets, daily range): BP systolic 106–141; BP diastolic 67–84
[2021-10-11] MEDS: METOCLOPRAMIDE HCL 10 MG/2 ML VIAL IV SCH ×4 (00:04→17:15)
[2021-10-11] MEDS: INSULIN REGULAR, HUMAN 100 UNIT/ML 3 ML VIAL SQ PRN ×5 (00:15→22:50)
--- NOTE | 2021-10-11 00:30 | NUR ---
CLINICAL IMPLEMENTATION SPECIALIST NOTES ACCU-CHECK BLOOD SUGAR HCECK 169,COVERED WITH HUMULIN R 3 UNITS PER SLIDING SCALE.
[2021-10-11] MEDS: TOBRAMYCIN OPHTH 5ML 5 ML BOTTLE LEFTEYE SCH ×6 (01:00→22:11)
--- NOTE | 2021-10-11 05:00 | NUR ---
COMMERCIAL CONSTRUCTION PROJECT MANAGER NOTES MORNING CARE RENDERED WITH MITCHEL BARRAGAN,TOLERATED WELL.DRESSING CHANGED DONE TO SACRAL AREA,REPOSITIONED.
--- NOTE | 2021-10-11 05:30 | NUR ---
PERFECT BINDER SETTER NOTES ACCU-CHECK BLOOD SUGAR CHECK 225,COVERED WITH HUMULIN R 6 UNITS PER SLIDING SCALE.GT FEEDING IN PROGRESS.
[2021-10-11] MEDS: BLOOD SUGAR DIAGNOSTIC 1 EACH STRIP IN SCH ×4 (05:43→22:52)
--- NOTE | 2021-10-11 06:49 | NUR ---
REVIEWER SALES NOTES RESTING COMFORTABLY ON BED AT THE MOMENT,O2 SAT 94%,HR-98.GT FEEDING IN PROGRESS.FOR D/C PLANNING WHEN LABS VALUES IMPROVES AND O2 SAT IMPROVE.IN NO ACUTE DISTRESS.
--- NOTE | 2021-10-11 07:30 | NUR ---
IMPROVEMENT DIRECTOR OPENING NOTES RECEIVED PATIENT ON BED, AWAKE AND A/O X 2-3. ON TRACH TO VENT,SETTINGS TOLERATED WELL. WITH GT FEEDING OF GLUCERNA AT 55ML/HR RATE TOLERATING WELL. WITH HENNING CATH IN PLACED DRAINING CLEAR YELLOWISH OUTPUT. ON TELE MONITOR CURRENTLY READING SINUS TACHYCARDIA AT 107BPM. WITH IV ACCESS AT RIGHT UPPER ARM MIDLINE G18 SALINE LOCKED, PATENT AND INTACT. SAFETY MEASURES IN PLACED. CALL LIGHT WITHIN REACH. BED ON LOWEST LOCKED POSITION, SIDE RAILS UP X2. WILL CONTINUE TO MONITOR.
[2021-10-11] MEDS: PANTOPRAZOLE 40 MG/PACK PACK NG SCH ×2 (09:22→17:14)
[2021-10-11] MEDS: ASCORBIC ACID 500 MG TABLET GT SCH (09:22)
[2021-10-11] MEDS: CHOLECALCIFEROL 1,000 UNIT TABLET (VIT D3) GT SCH (09:22)
[2021-10-11] MEDS: HYDROCORTISONE SOD SUCCINATE 100 MG/2 ML VIAL IV SCH (09:22)
[2021-10-11] MEDS: PROSOURCE / PROSTAT (PYXIS) 30 ML UDC PEG SCH ×3 (09:23→17:36)
[2021-10-11] MEDS: CLOTRIMAZOLE 1% 15 GM TUBE TP SCH ×2 (09:24→22:12)
[2021-10-11] MEDS: Z GUARD REMEDY 4 OZ OINT TP SCH (09:24)
[2021-10-11] MEDS: CLONIDINE HCL 0.1MG/24H PTWK 1 EA PATCH TD SCH (16:00)
[2021-10-11] MEDS: GLUCERNA 1.2 1,000 ML BOTTLE PEG SCH (18:04)
--- NOTE | 2021-10-11 19:10 | NUR ---
METAL MACHINIST CLOSING NOTES PATIENT ON BED, RESTING AND A/O X 2-3. ON TRACH TO VENT,SETTINGS TOLERATED WELL. WITH GT FEEDING OF GLUCERNA AT 55ML/HR RATE TOLERATING WELL. WITH HENNING CATH IN PLACED DRAINING CLEAR YELLOWISH OUTPUT. ON TELE MONITOR CURRENTLY READING SINUS TACHYCARDIA AT 112BPM. WITH IV ACCESS AT RIGHT UPPER ARM MIDLINE G18 SALINE LOCKED, PATENT AND INTACT. DUE MEDS GIVEN. SAFETY MEASURES IN PLACED. CALL LIGHT WITHIN REACH. BED ON LOWEST LOCKED POSITION, SIDE RAILS UP X2. WILL ENDORSE TO NEXT SHIFT FOR DARYA.
--- NOTE | 2021-10-11 19:45 | NUR ---
TELERN ASLEEP EASILY AWAKENED WHEN CALLED. VENT DEPENDENT, NO RESPIRATORY DISTRESS. V/S STABLE. GT FEEDINGS TOLERATED LESS THAN 5CC RESIDUALS OBTAINED. HOB 30 TO 40 DEGREES AT ALL TIMES. POSITIONED PER PATIENTS' COMFORT. CONTINUED
[2021-10-11] MEDS: NYSTATIN TOP POWDER 15 GM BOTTLE TP SCH (21:30)
[2021-10-11] MEDS: INSULIN GLARGINE, 100 UNIT/ML CARTRIDGE SQ SCH (22:52)
--- NOTE | 2021-10-11 23:00 | NUR ---
TELERN BS WAS 227 COVERED WITH REGULAR INSULIN SQ PER SLIDING SCALE, OTHER DUE MEDS GIVEN.HS CARE STARTED, HAD JARAD BM SOFT IN CONSISTENCY. RESISTIVE TO CARE AT THIS TIME,, EXPLAINED NEED TO CLEAN AND CHANGE, SACRAL WOUND WITH DRESSING CONTAMINATED.AGREED TO BE CHANGED AFTER FEW MINUTES. PARTIALLY BATHED REPOSITIONED.
[2021-10-12] VITALS (7 sets, daily range): BP systolic 110–153; BP diastolic 50–81
[2021-10-12] MEDS: METOCLOPRAMIDE HCL 10 MG/2 ML VIAL IV SCH ×5 (01:11→23:17)
[2021-10-12] MEDS: TOBRAMYCIN OPHTH 5ML 5 ML BOTTLE LEFTEYE SCH ×6 (01:15→21:12)
[2021-10-12] MEDS ORDERED: METOCLOPRAMIDE HCL 10 MG/2 ML VIAL ONE (05:28)
[2021-10-12] MEDS: BLOOD SUGAR DIAGNOSTIC 1 EACH STRIP IN SCH ×4 (06:27→23:07)
--- NOTE | 2021-10-12 06:45 | NUR ---
TELERN HAD ANOTHER LARGE BM SOFT, SACRAL DRESSING CHANGED, CLEANSED WITH SALINE PAT DRY COVERED WITH MEPILEX AND ABDOMINAL PADS. REFUSED TAPE. POSITIONED PER PATIENTS' COMFORT. SUCTIONED CLEAR THICK MUCUS . VENT SETTINGS REMAINS UNCHANGED. EASILY DESAT ON INCREASE ACTIVITY. NO RESPIRATORY DISTRESS. ABLE TO EXPRESS HER NEEDS. CONTINUED MONITORING.
--- NOTE | 2021-10-12 07:30 | NUR ---
LOG PREPARER OPENING NOTES RECEIVED PATIENT ON BED, RESTING AND A/O X 2-3. ON TRACH TO VENT,SETTINGS TOLERATED WELL. WITH GT FEEDING OF GLUCERNA AT 55ML/HR RATE TOLERATING WELL. WITH HENNING CATH IN PLACED DRAINING CLEAR YELLOWISH OUTPUT. ON TELE MONITOR CURRENTLY READING SINUS TACHYCARDIA AT 112BPM. WITH IV ACCESS AT RIGHT UPPER ARM MIDLINE G18 SALINE LOCKED, PATENT AND INTACT. DUE MEDS GIVEN. SAFETY MEASURES IN PLACED. CALL LIGHT WITHIN REACH. BED ON LOWEST LOCKED POSITION, SIDE RAILS UP X2. WILL CONTINUE TO MONITOR.
--- NOTE | 2021-10-12 07:37 | NUR ---
WOUND CARE FOLLOW UP: PT SEEN FOR RE-EVALUATION OF SACRAL DEEP TISSUE INJURY IN EVOLUTION WHICH EXTENDS TO BUTTOCKS. WOUND BED CHANGES NOTED TO INCLUDE LARGER SIZE BUT NO ODOR OR ANY SIGN OF INFECTION. WILL DISCUSS TREATMENT PLAN WITH SURGICAL TEAM CURRENTLY ON CASE. PT SOMETIMES IS UNCOOPERATIVE AND REFUSES ASSESSMENTS. PT HAS MULTIPLE CO-MORBIDITIES INCLUDING ACUTE RENAL FAILURE, G I BLEED, RESPIRATORY FAILURE SECONDARY TO COVID 19 PNEUMONIA, ADRENAL INSUFFICIENCY, DIABETES, OBESITY AND GENERALIZED EDEMA. DUE TO MULTIPLE CO-MORBIDITIES, FURTHER SKIN BREAKDOWN MAY BE UNAVOIDABLE. ALL SKIN PROTECTION MEASURES AREA IN PLACE AND WERE DISCUSSED WITH NURSING STAFF. PT IS ON HESHAM ISOFLEX LOW AIRLOSS BED. PT FOLLOWED BY COUNTERINTELLIGENCE AGENT. IN AGREEMENT WITH PLAN OF CARE. Addendum: 10/12/21 at 0746 by EDWINA AGUILAR WNDNU Amended: Links added.
--- NOTE | 2021-10-12 09:06 | NUR ---
WOUND CARE: DISCUSSED WOUND WITH SURGICAL P.A. CURRENTLY ON CASE. WOUND TREATMENT ORDERS UPDATED AND DISCUSSED WITH NURSING STAFF. IN AGREEMENT WITH PLAN OF CARE.
[2021-10-12] MEDS: INSULIN REGULAR, HUMAN 100 UNIT/ML 3 ML VIAL SQ PRN ×4 (09:45→23:15)
[2021-10-12] MEDS: HYDROCORTISONE SOD SUCCINATE 100 MG/2 ML VIAL IV SCH (09:49)
[2021-10-12] MEDS: Z GUARD REMEDY 4 OZ OINT TP SCH (09:49)
[2021-10-12] MEDS: CHOLECALCIFEROL 1,000 UNIT TABLET (VIT D3) GT SCH (09:50)
[2021-10-12] MEDS: ASCORBIC ACID 500 MG TABLET GT SCH (09:50)
[2021-10-12] MEDS: PANTOPRAZOLE 40 MG/PACK PACK NG SCH ×2 (09:50→16:33)
[2021-10-12] MEDS: PROSOURCE / PROSTAT (PYXIS) 30 ML UDC PEG SCH ×3 (09:51→16:33)
[2021-10-12] MEDS: CLOTRIMAZOLE 1% 15 GM TUBE TP SCH ×2 (10:04→21:15)
[2021-10-12] MEDS: NYSTATIN TOP POWDER 15 GM BOTTLE TP SCH ×2 (10:22→16:33)
[2021-10-12] MEDS: DAKINS QUARTER STRENGTH (0.125%) 480 ML BOTTLE TOP SCH (11:16)
[2021-10-12] MEDS: GLUCERNA 1.2 1,000 ML BOTTLE PEG SCH (11:17)
[2021-10-12] MEDS: ACETAMINOPHEN 650 MG/20.3 ML UDC GT PRN ×2 (14:33→21:19)
--- NOTE | 2021-10-12 16:00 | NUR ---
RN NOTES PATIENT REFUSED FOR CHANGE OF LINENS, GOWN AND SACRAL WOUND CARE. WILL FOLLOW-UP.
--- NOTE | 2021-10-12 16:25 | NUR ---
RN NOTES PATIENT HAS BEEN COMPLAINING OF PAIN ON BOTH LEGS AT THE SCALE OF 8/10 AND IS REQUESTING FOR PAIN MEDICATION OTHER THAN TYLENOL. REPORTED TO DR. ADAM AND ORDERED NORCO 10MG PRN FOR PAIN Q6H.
[2021-10-12] MEDS: HYDROCODONE/APAP 10/325MG TABLET PO PRN (16:33)
--- NOTE | 2021-10-12 18:30 | NUR ---
RN NOTES PATIENT STILL REFUSED FOR WOUND CARE AND CHANGE OF LINENS.
--- NOTE | 2021-10-12 18:41 | NUR ---
TANK CAR LOADER CLOSING NOTES PATIENT ON BED, RESTING AND A/O X 3. ON TRACH TO VENT, SETTINGS TOLERATED WELL. WITH GT FEEDING OF GLUCERNA AT 55ML/HR RATE TOLERATING WELL. WITH HENNING CATH IN PLACED DRAINING CLEAR YELLOWISH OUTPUT OF 650ML. ON TELE MONITOR CURRENTLY READING SINUS RHYTHM AT 100BPM. WITH IV ACCESS AT RIGHT UPPER ARM MIDLINE G18 SALINE LOCKED, PATENT AND INTACT. DUE MEDS GIVEN. SAFETY MEASURES IN PLACED. CALL LIGHT WITHIN REACH. BED ON LOWEST LOCKED POSITION, SIDE RAILS UP X2. WILL ENDORSE TO NEXT SHIFT FOR DARYA.
--- NOTE | 2021-10-12 19:20 | NUR ---
CONTINUITY OF CARE Patient awake, on Mechanical vent. Trach intact. Sinus Tach HR 102 in the Tele monitor. Gtube feeding at 55 ml/hr. Maintained upright posture. Tenorio cath draining yellow urine. Patient refused to be turned and repositioned. GAB midline intact. Cont to provide care. Call light within reach.
--- NOTE | 2021-10-12 21:21 | NUR ---
LEG PAIN Patient c/o mild pain in her right leg. Tylenol via GTube given will reassess pain.
[2021-10-12] MEDS: INSULIN GLARGINE, 100 UNIT/ML CARTRIDGE SQ SCH (23:13)
[2021-10-13] VITALS: BP 114/53
[2021-10-13] MEDS: TOBRAMYCIN OPHTH 5ML 5 ML BOTTLE LEFTEYE SCH ×7 (01:00→23:59)
--- NOTE | 2021-10-13 01:20 | NUR ---
DE SAT ON FiO2 55% Patient de sat to high 88-89%. Suction trach. Patient appears not in respiratory distress, denies SOB, no c/o chest pain. Informed RT.
--- NOTE | 2021-10-13 01:26 | NUR ---
PT STARTED TO DESAT BELOW 90 ON FIO2 OF 55%. PT IS NOW ON 75% FIO2 SATURATING AT 94%. RN AWARE. WILL CONT TO MONITOR PT. Addendum: 10/13/21 at 0127 by KERA REYNA RT Amended: Links added.
[2021-10-13 04:00] VITALS: BP 123/79
[2021-10-13] MEDS: METOCLOPRAMIDE HCL 10 MG/2 ML VIAL IV SCH ×4 (05:14→23:58)
[2021-10-13] MEDS: BLOOD SUGAR DIAGNOSTIC 1 EACH STRIP IN SCH ×3 (05:16→17:44)
[2021-10-13] MEDS: INSULIN REGULAR, HUMAN 100 UNIT/ML 3 ML VIAL SQ PRN ×3 (05:20→18:05)
--- NOTE | 2021-10-13 05:46 | NUR ---
END OF SHIFT REPORT Patient is A/O x3. Sinus tach HR 111 in the Tele monitor. Remains on Mech vent. Setting on F1O2 was changed, now on 65% with Oxygen sat improved to 94%. Right leg pain managed with Tylenol and positioning. Afebrile. Wound care done. Gtube feeding at 55 ml/hr. Maintained upright posture. Turned and repositioned. Tenorio cath to gravity, draining yellow urine. Plan for dc to SNF. Will endorse to oncoming RN.
[2021-10-13 06:48] LABS: BASOPHILS # (AUTO) 0.1 K/uL (0.0-0.2); BASOPHILS % (AUTO) 1.2 % (0.0-2.0); EOSINOPHILS % (AUTO) 1.4 % (0.0-6.0); HEMATOCRIT 26 % (33-45); HEMOGLOBIN 8.9 g/dL (11.5-14.8); LYMPHOCYTES # (AUTO) 0.9 K/uL (0.8-4.8); LYMPHOCYTES % (AUTO) 11.1 % (20.0-44.0); MEAN CORPUSCULAR HGB CONC 34 g/dl (31.0-36.0); MEAN CORPUSCULAR VOLUME 88 fL (82-100); MONOCYTES # (AUTO) 0.5 K/uL (0.1-1.30); MONOCYTES % (AUTO) 6.3 % (2.0-12.0); NEUTROPHILS # (AUTO) 6.8 K/uL (1.8-8.9); PLATELET COUNT (AUTO) 272 K/uL (150-450); RED BLOOD CELL COUNT(AUTO) 3.01 MIL/uL (4.0-5.2); WHITE BLOOD COUNT (AUTO) 8.5 K/uL (4.3-11.0)
--- NOTE | 2021-10-13 07:53 | NUR ---
BACKEND PYTHON DEVELOPER OPENING NOTE Patient in bed, awake. A/O x 3, able to make needs known. On mechanical ventilator, tolerating current settings well. No SOB or s/s of distress noted. Tenorio catheter in place, draining to a yellow colored urine. G-tube in place running Glucerna 1.2 at 55 ml/hr. On tele monitoring showing sinus tachycardia, HR at 103. Safety precautions in place: bed in low, locked position; siderails up x 2; call light within reach. Will continue to monitor.
[2021-10-13 08:00] VITALS: BP 136/75
[2021-10-13 08:01] LABS: ALBUMIN 1.7 g/dL (3.4-5.0); BILIRUBIN,TOTAL 0.5 mg/dL (0.2-1.0); CALCIUM, SERUM 8.9 mg/dL (8.5-10.1); CREATININE 0.9 mg/dL (0.6-1.3); MAGNESIUM 2.3 mg/dL (1.8-2.4); PHOSPHORUS 3.4 mg/dL (2.5-4.9); POTASSIUM 3.9 mmol/L (3.5-5.1); TOTAL PROTEIN, SERUM 5.7 g/dL (6.4-8.2)
[2021-10-13] MEDS: ASCORBIC ACID 500 MG TABLET GT SCH (09:36)
[2021-10-13] MEDS: HYDROCORTISONE SOD SUCCINATE 100 MG/2 ML VIAL IV SCH (09:37)
[2021-10-13] MEDS: CHOLECALCIFEROL 1,000 UNIT TABLET (VIT D3) GT SCH (09:37)
[2021-10-13] MEDS: PANTOPRAZOLE 40 MG/PACK PACK NG SCH ×2 (09:37→17:10)
[2021-10-13] MEDS: LORAZEPAM INJ 2 MG/ML VIAL IV PRN ×3 (09:38→22:26)
[2021-10-13] MEDS: PROSOURCE / PROSTAT (PYXIS) 30 ML UDC PEG SCH ×3 (09:42→17:10)
[2021-10-13] MEDS: CLOTRIMAZOLE 1% 15 GM TUBE TP SCH ×2 (09:43→21:24)
[2021-10-13] MEDS: NYSTATIN TOP POWDER 15 GM BOTTLE TP SCH ×2 (09:44→17:43)
[2021-10-13] MEDS: Z GUARD REMEDY 4 OZ OINT TP SCH (09:45)
[2021-10-13] MEDS: DAKINS QUARTER STRENGTH (0.125%) 480 ML BOTTLE TOP SCH (09:45)
[2021-10-13] MEDS ORDERED: BUMETANIDE INJ 4 MG in IV NS 0.9% 24 ML IV ONE (13:30)
[2021-10-13] MEDS: GLUCERNA 1.2 1,000 ML BOTTLE PEG SCH (15:02)
[2021-10-13 16:00] VITALS: BP 122/79
--- NOTE | 2021-10-13 16:02 | NUR ---
RT Per Dr. Kadeem Bruno, patient titrated to FIO2 40% and within 5 minutes patient desaturated to 85%. Increased FIO2 back to 65%. SPO2 94%
--- NOTE | 2021-10-13 19:39 | NUR ---
APPLICATION SYSTEMS ARCHITECT CLOSING NOTE Patient in bed, resting comfortably. A/O x 3, able to mouth words. On mechanical ventilator, tolerating current settings well. FiO2 still at 65%. No SOB or s/s of distress noted. Tenorio catheter in place, draining to a yellow colored urine. G-tube in place running Glucerna 1.2 at 55 ml/hr. On tele monitoring showing sinus tachycardia, HR at 111. All needs attended to. Due meds given. Safety precautions maintained: bed in low, locked position; siderails up x 2; call light within reach. Will endorse to [employer] shift lead nurse for DARYA.
--- NOTE | 2021-10-13 19:46 | NUR ---
RN OPENING NOTES RECEIVED PT IN BED, AWAKE. AOx2. ON TRACH AND VENT AND TOLERATING WELL. NO SOB NOTED. NO S/SX OF RESPIRATORY DISTRESS NOTED. TELE MONITOR DETECTS SINUS TACHYCARDIA WITH RATE OF 102. IV ACCESS IN GAB MIDLINE. IV IS INTACT, PATENT, AND FLUSHING WELL. SAFETY PRECAUTIONS IN PLACE: BED IN LOWEST, LOCKED POSITION, BRAKES ON. SIDERAILS UPx2, AND BRAKES ON. TABLE AND CALL LIGHT WITHIN REACH. WILL CONTINUE TO MONITOR.
[2021-10-13 20:00] VITALS: BP 102/56
[2021-10-13] MEDS: INSULIN GLARGINE, 100 UNIT/ML CARTRIDGE SQ SCH (21:56)
--- NOTE | 2021-10-13 22:27 | NUR ---
ADMINISTERED ATIVAN PER MD ORDER. VS WNL. WILL CONTINUE TO MONITOR.
[2021-10-14] VITALS (15 sets, daily range): BP systolic 99–138; BP diastolic 65–82
[2021-10-14] MEDS: BLOOD SUGAR DIAGNOSTIC 1 EACH STRIP IN SCH ×4 (00:11→17:52)
[2021-10-14] MEDS: INSULIN REGULAR, HUMAN 100 UNIT/ML 3 ML VIAL SQ PRN ×4 (00:20→18:16)
[2021-10-14] MEDS: TOBRAMYCIN OPHTH 5ML 5 ML BOTTLE LEFTEYE SCH ×5 (05:49→23:05)
[2021-10-14] MEDS: METOCLOPRAMIDE HCL 10 MG/2 ML VIAL IV SCH ×3 (06:10→16:06)
--- NOTE | 2021-10-14 06:59 | NUR ---
RN CLOSING NOTES PT IN BED, AWAKE. AOx2. ON TRACH AND VENT AND TOLERATING WELL. NO SOB NOTED. NO S/SX OF RESPIRATORY DISTRESS NOTED. TELE MONITOR DETECTS SINUS TACHYCARDIA WITH RATE OF 102. IV ACCESS IN GAB PICC LINE IV IS INTACT, PATENT, AND FLUSHING WELL. ALL NEEDS MET. PT KEPT CLEAN AND DRY. SAFETY PRECAUTIONS IN PLACE: BED IN LOWEST, LOCKED POSITION, BRAKES ON. SIDERAILS UPx2, AND BRAKES ON. TABLE AND CALL LIGHT WITHIN REACH. WILL ENDORSE TO ONCOMING SHIFT FOR DARYA.
[2021-10-14 07:05] LABS: CALCIUM, SERUM 8.6 mg/dL (8.5-10.1); CREATININE 0.9 mg/dL (0.6-1.3); MAGNESIUM 2.1 mg/dL (1.8-2.4); POTASSIUM 3.2 mmol/L (3.5-5.1)
[2021-10-14 07:34] LABS: BASOPHILS # (AUTO) 0.1 K/uL (0.0-0.2); BASOPHILS % (AUTO) 1.1 % (0.0-2.0); EOSINOPHILS % (AUTO) 1.2 % (0.0-6.0); HEMATOCRIT 26 % (33-45); HEMOGLOBIN 8.9 g/dL (11.5-14.8); LYMPHOCYTES % (AUTO) 11.5 % (20.0-44.0); MEAN CORPUSCULAR HGB CONC 34 g/dl (31.0-36.0); MEAN CORPUSCULAR VOLUME 87 fL (82-100); MONOCYTES # (AUTO) 0.7 K/uL (0.1-1.30); MONOCYTES % (AUTO) 8.1 % (2.0-12.0); NEUTROPHILS # (AUTO) 6.7 K/uL (1.8-8.9); NEUTROPHILS % (AUTO) 78.1 % (43.0-81.0); PLATELET COUNT (AUTO) 295 K/uL (150-450); WHITE BLOOD COUNT (AUTO) 8.6 K/uL (4.3-11.0)
--- NOTE | 2021-10-14 07:57 | NUR ---
METAL MODEL MAKER OPENING NOTE Patient in bed, asleep. A/O x 3. On mechanical ventilator, tolerating current settings well. No SOB or s/s of distress noted. Tenorio catheter in place, draining to a yellow colored urine. G-tube in place running Glucerna 1.2 at 55 ml/hr. On tele monitoring showing sinus tachycardia, HR on the 100's. Safety precautions in place: bed in low, locked position; siderails up x 2; call light within reach. Will continue to monitor.
[2021-10-14] MEDS: HYDROCORTISONE SOD SUCCINATE 100 MG/2 ML VIAL IV SCH (09:16)
[2021-10-14] MEDS: PANTOPRAZOLE 40 MG/PACK PACK NG SCH ×2 (09:17→17:51)
[2021-10-14] MEDS: ASCORBIC ACID 500 MG TABLET GT SCH (09:17)
[2021-10-14] MEDS: CHOLECALCIFEROL 1,000 UNIT TABLET (VIT D3) GT SCH (09:17)
[2021-10-14] MEDS: FUROSEMIDE 100 MG/10 ML VIAL IV SCH ×3 (09:19→17:57)
[2021-10-14] MEDS: POTASSIUM CHLORIDE 20 MEQ TAB.PRT.SR PO SCH ×3 (09:19→11:33)
[2021-10-14] MEDS: PROSOURCE / PROSTAT (PYXIS) 30 ML UDC PEG SCH ×3 (09:28→17:51)
[2021-10-14] MEDS: DAKINS QUARTER STRENGTH (0.125%) 480 ML BOTTLE TOP SCH (09:28)
[2021-10-14] MEDS: NYSTATIN TOP POWDER 15 GM BOTTLE TP SCH ×2 (09:29→17:52)
[2021-10-14] MEDS: CLOTRIMAZOLE 1% 15 GM TUBE TP SCH ×2 (09:29→21:56)
[2021-10-14] MEDS: Z GUARD REMEDY 4 OZ OINT TP SCH (09:29)
--- NOTE | 2021-10-14 10:50 | NUR ---
RN NOTE Patient's Hr went up to 140 showing AFib on tele monitor. SPO2 at 90% with 60% FiO2 on the vent settings. Dr. Kadeem Bruno notified. EKG stat ordered and showed AFib, tachycardia.
[2021-10-14] MEDS ORDERED: AMIODARONE 150 MG in IV D5W 100 ML IV ONE (13:00)
[2021-10-14] MEDS ORDERED: AMIODARONE 450 MG in IV D5W 241 ML IV PRN (13:00)
[2021-10-14] MEDS ORDERED: DILTIAZEM HCL 25 MG IV IV ONE (13:30)
--- NOTE | 2021-10-14 13:45 | NUR ---
PT ARRIVED IN ICU FROM 3W VIA BED FOR RAPID AFIB. PT APPEARS TO BE SINUS RHYTHM/SINUS TACH AT THIS TIME. PT ALERT, OX3. LARGE LIQUID BM NOTED. PT DOES NOT APPEAR TO BE IN DISTRESS. BEDSIDE REPORT RECEIVED FROM BAILEY RN. WILL CONTINUE TO MONITOR.
--- NOTE | 2021-10-14 13:45 | NUR ---
RN NOTE Patient transferred to ICU as per Dr. Kadeem Bruno's order. Report given to Isabella at bedside.
[2021-10-14 17:47] LABS: BAND % (MANUAL) 6 % (0.0-5.0); EOSINOPHILS % (MANUAL) 3 % (0-4); LYMPHOCYTES % (MANUAL) 12 % (16-48); METAMYELOCYTES % 1 % (0-0); MONOCYTES % (MANUAL) 6 % (0-11.0); NEUTROPHILS % (MANUAL) 72 (42-76)
[2021-10-14] MEDS: METOPROLOL TARTRATE 25 MG TABLET PO SCH ×2 (17:53→21:46)
--- NOTE | 2021-10-14 19:00 | NUR ---
END OF SHIFT NOTE: PT REMAINED IN SR THE REST OF THE SHIFT. PER DR. ADAM KEEP IN ICU OVERNIGHT. PT DENIED PAIN OR NEEDS. ATTEMPTED TO GET TUBE FEEDING PUMP FROM [employer], NONE AVAILABLE AT THIS TIME, WILL ENDORSE TO NEXT SHIFT. LARGE BM CLEANED UP AFTER PATIENT ARRIVED AT 1345, DRESSING CHANGED ON SACRAL WOUND. PT CHECKED ON HOURLY AND PRN BY NURSING STAFF.
--- NOTE | 2021-10-14 19:10 | NUR ---
RN NOTES RECEIVED REPORT FROM MORNING RN. PATIENT A/O X3 ABLE TO MAKE NEEDS KNOWN BY MOUTHING WORDS. WITH TRACH INTACT CONNECTED TO MV WITH PRESCRIBED SETTINGS. WITH IV ACCESS AT GAB PICC LINE FLUSHES WELL. WITH PEG INTACT CONNECTED TO CONTINUOS FEEDING GLUCERNA AT 55CC/HR TOLERATING WELL NO GASTRIC RESIDUAL NOTED. WITH HENNING CATHETER CONNECTED TO URINE BAG DRAINING WELL. VITAL SIGNS TAKEN AND RECORDED AFEBRILE. ALL SAFETY MEASURES IN PLACE AT ALL TIMES. HOB ELEVATED. CALL LIGHT WITHIN REACH. BED ON LOWEST POSITION AND LOCKED. WILL CLOSELY MONITOR THE PATIENT
[2021-10-14] MEDS: LORAZEPAM INJ 2 MG/ML VIAL IV PRN (20:23)
[2021-10-14] MEDS: INSULIN GLARGINE, 100 UNIT/ML CARTRIDGE SQ SCH (21:54)
--- NOTE | 2021-10-14 22:00 | NUR ---
RN NOTES BS 118 DUE LANTUS GIVEN ORDERED. WILL MONITOR THE PATIENT
[2021-10-14] MEDS: GLUCERNA 1.2 1,000 ML BOTTLE PEG SCH (22:03)
[2021-10-15] VITALS (19 sets, daily range): BP systolic 100–143; BP diastolic 56–85
--- NOTE | 2021-10-15 | NUR ---
RN NOTES BS 108MG/DL NO COVERAGE. PATIENT REMAINS STABLE NO COMPLAINS OF PAIN OR DISCOMFORT. WILL CONTINUE TO MONITOR.
[2021-10-15] MEDS: METOCLOPRAMIDE HCL 10 MG/2 ML VIAL IV SCH ×5 (00:32→23:39)
[2021-10-15] MEDS: BLOOD SUGAR DIAGNOSTIC 1 EACH STRIP IN SCH ×5 (00:35→23:21)
[2021-10-15] MEDS: TOBRAMYCIN OPHTH 5ML 5 ML BOTTLE LEFTEYE SCH ×6 (00:35→20:56)
[2021-10-15 04:35] LABS: BASOPHILS # (AUTO) 0.1 K/uL (0.0-0.2); EOSINOPHILS % (AUTO) 0.7 % (0.0-6.0); HEMATOCRIT 26 % (33-45); HEMOGLOBIN 8.5 g/dL (11.5-14.8); LYMPHOCYTES # (AUTO) 1.3 K/uL (0.8-4.8); LYMPHOCYTES % (AUTO) 10.1 % (20.0-44.0); MEAN CORPUSCULAR HGB CONC 33 g/dl (31.0-36.0); MEAN CORPUSCULAR VOLUME 89 fL (82-100); MONOCYTES # (AUTO) 0.7 K/uL (0.1-1.30); MONOCYTES % (AUTO) 5.6 % (2.0-12.0); NEUTROPHILS # (AUTO) 10.3 K/uL (1.8-8.9); NEUTROPHILS % (AUTO) 82.6 % (43.0-81.0); PLATELET COUNT (AUTO) 361 K/uL (150-450); RED BLOOD CELL COUNT(AUTO) 2.92 MIL/uL (4.0-5.2); WHITE BLOOD COUNT (AUTO) 12.5 K/uL (4.3-11.0)
[2021-10-15 05:00] LABS: ALBUMIN 1.9 g/dL (3.4-5.0); BILIRUBIN,TOTAL 0.6 mg/dL (0.2-1.0); CALCIUM, SERUM 8.7 mg/dL (8.5-10.1); CREATININE 1.1 mg/dL (0.6-1.3); MAGNESIUM 1.8 mg/dL (1.8-2.4); PHOSPHORUS 3.8 mg/dL (2.5-4.9); POTASSIUM 3.8 mmol/L (3.5-5.1)
--- NOTE | 2021-10-15 05:15 | NUR ---
RT NOTE LATE ENTRY FIO2 TITRATED TO 60%. O2 SATURATION @ 96% NO RESP DISTRESS OR SOB NOTED. RN AWARE. WILL CONTINUE TO MONITOR. Addendum: 10/15/21 at 0543 by ANDREY HENRIQUEZ RT Amended: Links added.
[2021-10-15] MEDS: HYDROCODONE/APAP 10/325MG TABLET PO PRN ×2 (05:21→23:45)
--- NOTE | 2021-10-15 06:00 | NUR ---
RN NOTES BS 118MG/DL. NO COVERAGE
--- NOTE | 2021-10-15 06:52 | NUR ---
RN NOTES PATIENT REMAINS STABLE NO SIGNIFICANT CHANGES IN HEALTH CONDITION. ALL DUE MEDS GIVEN ORDERED. FIO2 CHANGE TO 60% TOLERATED WELL SATING 98%. ALL SAFETY MEASURES IN PLACE AT ALL TIMES. HOB ELEVATED. CALL LIGHT WITHIN REACH. BED ON LOWEST POSITION AND LOCKED.WILL ENDORSED
--- NOTE | 2021-10-15 07:20 | NUR ---
RN OPENING NOTES RECEIVED PT AWAKE, A/O X3. ABLE TO MOUTH WORDS. TRACH OF S#8 CONNECTED TO MECH VENT TOLERATING SETTINGS WELL. IV ACCESS AT GAB PICC LINE INTACT, PATENT AND FLUSHED. PEG TUBE IN PLACE WITH FEEDING GLUCERNA @ 55CC/HR TOLERATING WELL. NO RESIDUAL NOTED. HENNING CATH IN PLACE CONNECTED TO URINE BAG DRAINING WELL. SAFETY MEASURES IN PLACE. HOB ELEVATED. CALL LIGHT WITHIN REACH. BED LOCKED AND IN LOWEST POSITION WITH SIDE RAILS UP X3. WILL CONTINUE TO MONITOR.
--- NOTE | 2021-10-15 08:01 | NUR ---
WOUND CARE FOLLOW UP: PT IN ICU AT THIS TIME. PT SEEN FOR RE-EVALUATION OF SACRAL DEEP TISSUE INJURY WHICH CONTINUES TO EVOLVE. DISCUSSED WOUND TREATMENT WITH NURSING STAFF, DIRECTOR AND SURGICAL P.A. CURRENTLY ON CASE. PT IS ON HESHAM ISOFLEX LOW AIRLOSS BED. PT REFUSES TURNING/ASSESSMENT AND WOUND TREATMENT AT TIMES PER NURSING STAFF. PT NOTED WITH MULTIPLE CO-MORBIDITIES INCLUDING ACUTE RENAL FAILURE, VENTILATOR-DEPENDENCE SECONDARY TO COVID 19 PNEUMONIA, DIABETES AND OBESITY. DUE TO MULTIPLE CO-MORBIDITIES, FURTHER SKIN BREAKDOWN MAY BE UNAVOIDABLE. DISCUSSED SKIN PROTECTION WITH NURSING STAFF. MD IN AGREEMENT WITH PLAN OF CARE. Addendum: 10/15/21 at 0805 by EDWINA AGUILAR WNDNU Amended: Links added.
[2021-10-15] MEDS: ASCORBIC ACID 500 MG TABLET GT SCH (09:02)
[2021-10-15] MEDS: CHOLECALCIFEROL 1,000 UNIT TABLET (VIT D3) GT SCH (09:02)
[2021-10-15] MEDS: HYDROCORTISONE SOD SUCCINATE 100 MG/2 ML VIAL IV SCH (09:02)
[2021-10-15] MEDS: Z GUARD REMEDY 4 OZ OINT TP SCH (09:03)
[2021-10-15] MEDS: NYSTATIN TOP POWDER 15 GM BOTTLE TP SCH ×2 (09:03→17:35)
[2021-10-15] MEDS: PROSOURCE / PROSTAT (PYXIS) 30 ML UDC PEG SCH ×3 (09:04→17:35)
[2021-10-15] MEDS: CLOTRIMAZOLE 1% 15 GM TUBE TP SCH ×2 (09:04→21:00)
[2021-10-15] MEDS: DAKINS QUARTER STRENGTH (0.125%) 480 ML BOTTLE TOP SCH (09:04)
[2021-10-15] MEDS: METOPROLOL TARTRATE 25 MG TABLET PO SCH ×2 (09:08→20:54)
[2021-10-15] MEDS: PANTOPRAZOLE 40 MG/PACK PACK NG SCH ×2 (09:09→17:35)
[2021-10-15] MEDS ORDERED: BUMETANIDE INJ 4 MG in IV NS 0.9% 24 ML IV ONE (18:00)
--- NOTE | 2021-10-15 18:00 | NUR ---
RN NOTES TRANSFERRED PT TO 3W ROOM 317 PER PROTOCOL. REPORT GIVEN TO CELINA PATEL AT BEDSIDE FOR DARYA. VS STABLE. NOT IN DISTRESS.
[2021-10-15] MEDS: GLUCERNA 1.2 1,000 ML BOTTLE PEG SCH (18:28)
--- NOTE | 2021-10-15 18:30 | NUR ---
TRANS IN NOTES RECEIVED PATIENT FROM ICU VIA BED, ACCOMPANIED BY ARNULFO PATEL. PATIENT IS ALERT AND ORIENTED X 2. ABLE TO MOUTH WORDS. ON VENT TOLERATING SETTING WELL. IV ACCESS GAB PICC LINE, PATENT AND FLUSHES WELL. G-TUBE IN PLACE, RESUME FEEDING OF GLUCERNA 1.2 X 55 CC/HR, TOLERATING WELL, NO RESIDUAL NOTED. STARTED BUMEX INFUSION ORDERED. WITH FC CONNECTED TO URINE BAG DRAINING YELLOW COLORED URINE. HOOKED TO TELE MONITOR READING SHOWING ST HR AT 118. BLOOD SUGAR CHECKED RESULT WAS 122, NO INSULIN COVERAGE NEEDED. SAFETY PRECAUTIONS IN PLACE: BED ON LOWEST LOCKED POSITION, SIDE RAILS UP X 2, CALL LIGHT WITHIN EASY REACH. WILL ENDORSED TO ONCOMING SHIFT FOR DARYA.
--- NOTE | 2021-10-15 19:30 | NUR ---
RN NOTE RECEIVED PATIENT IN BED, AO X 2-3, IN NO S/SX OF ACUTE DISTRESS AT THIS TIME. ON TRACH TO MECHANICAL VENT WITH SETTINGS PRESCRIBED, SATURATION AT 98%, ST ON THE MONITOR, HR IS 106. NOTED GAB PICCLINE, 1 HUB CLOGGED, NO S/S OF INFECTION. NOTED GTUBE INTACT POSITIVE PLACEMENT NOTED, NO RESIDUAL, WITH TUBE FEEDING OF GLUCERNA AT 55 ML/HR. HENNING CATHETER CONNECTED TO URINE BAG IN PLACE, DRAINING TO A CLEAR, YELLOW OUTPUT. SAFETY MEASURES IMPLEMENTED. PATIENT BED ALARM IS ON. HEAD OF BED ELEVATED. BED IS LOCKED, IN LOWEST POSITION AND SIDE RAILS UP. CALL LIGHT WITHIN REACH OF THE PATIENT. WILL CONTINUE TO MONITOR AND REASSESS FOR ANY CHANGES.
[2021-10-15] MEDS: LORAZEPAM INJ 2 MG/ML VIAL IV PRN (22:04)
[2021-10-15] MEDS: INSULIN REGULAR, HUMAN 100 UNIT/ML 3 ML VIAL SQ PRN (23:27)
[2021-10-15] MEDS: INSULIN GLARGINE, 100 UNIT/ML CARTRIDGE SQ SCH (23:29)
[2021-10-16] VITALS: BP_SYST 122; BP_SYST 127; BP_DIAS 78; BP_DIAS 89
[2021-10-16] MEDS: TEMAZEPAM 15 MG CAPSULE PO PRN (00:45)
[2021-10-16] MEDS: TOBRAMYCIN OPHTH 5ML 5 ML BOTTLE LEFTEYE SCH ×6 (01:08→21:17)
[2021-10-16 04:00] VITALS: BP 113/67
[2021-10-16] MEDS: METOCLOPRAMIDE HCL 10 MG/2 ML VIAL IV SCH ×4 (05:14→18:00)
[2021-10-16] MEDS: BLOOD SUGAR DIAGNOSTIC 1 EACH STRIP IN SCH ×4 (06:12→23:27)
[2021-10-16 07:08] LABS: BASOPHILS # (AUTO) 0.1 K/uL (0.0-0.2); BASOPHILS % (AUTO) 0.7 % (0.0-2.0); HEMATOCRIT 26 % (33-45); HEMOGLOBIN 8.3 g/dL (11.5-14.8); LYMPHOCYTES # (AUTO) 1.3 K/uL (0.8-4.8); LYMPHOCYTES % (AUTO) 10.5 % (20.0-44.0); MEAN CORPUSCULAR HGB CONC 32 g/dl (31.0-36.0); MEAN CORPUSCULAR VOLUME 88 fL (82-100); MONOCYTES # (AUTO) 0.8 K/uL (0.1-1.30); MONOCYTES % (AUTO) 6.2 % (2.0-12.0); NEUTROPHILS # (AUTO) 10.2 K/uL (1.8-8.9); NEUTROPHILS % (AUTO) 81.6 % (43.0-81.0); PLATELET COUNT (AUTO) 394 K/uL (150-450); RED BLOOD CELL COUNT(AUTO) 2.92 MIL/uL (4.0-5.2); WHITE BLOOD COUNT (AUTO) 12.5 K/uL (4.3-11.0)
[2021-10-16 07:52] LABS: CALCIUM, SERUM 9.2 mg/dL (8.5-10.1); CREATININE 1.2 mg/dL (0.6-1.3); MAGNESIUM 2.1 mg/dL (1.8-2.4); POTASSIUM 3.1 mmol/L (3.5-5.1)
--- NOTE | 2021-10-16 07:57 | NUR ---
RN OPENING NOTES PATIENT AWAKE IN BED RESTING, A/O X4. NO S/S OF PAIN NOTED AT THIS TIME. ON VENT WITH SETTING PRESCRIBED, SATURATION AT 98, NO DISTRESS OR SHORTNESS OF BREATH NOTED. IV ACCESS GAB PICC LINE, INTACT, PATENT AND FLUSHING WELL. PATIENT HAVE EXTERNAL SKIP LOCATOR, ST AND HR OF 106. PATIENT HAVE HENNING CATHETER, IN PLACED AND DRAINING WELL. FALL AND SAFETY MEASURES IN PLACE, BED ALARM ON, BED IN LOW AND LOCK POSITION, CALL LIGHT AND TABLE WITHIN EASY REACH, SIDE RAILS UP X2. WILL CONTINUE TO MONITOR.
[2021-10-16 08:00] VITALS: BP 125/74
[2021-10-16] MEDS: PROSOURCE / PROSTAT (PYXIS) 30 ML UDC PEG SCH ×3 (09:45→17:48)
[2021-10-16] MEDS: PANTOPRAZOLE 40 MG/PACK PACK NG SCH ×2 (09:46→17:48)
[2021-10-16] MEDS: METOPROLOL TARTRATE 25 MG TABLET PO SCH ×2 (09:46→21:18)
[2021-10-16] MEDS: CHOLECALCIFEROL 1,000 UNIT TABLET (VIT D3) GT SCH (09:46)
[2021-10-16] MEDS: HYDROCORTISONE SOD SUCCINATE 100 MG/2 ML VIAL IV SCH (09:46)
[2021-10-16] MEDS: ASCORBIC ACID 500 MG TABLET GT SCH (09:47)
[2021-10-16] MEDS: CLOTRIMAZOLE 1% 15 GM TUBE TP SCH ×2 (09:48→21:17)
[2021-10-16] MEDS: NYSTATIN TOP POWDER 15 GM BOTTLE TP SCH ×2 (09:48→17:48)
[2021-10-16] MEDS: DAKINS QUARTER STRENGTH (0.125%) 480 ML BOTTLE TOP SCH (09:49)
[2021-10-16] MEDS: Z GUARD REMEDY 4 OZ OINT TP SCH (09:50)
[2021-10-16] MEDS ORDERED: POTASSIUM CHLORIDE 20 MEQ POWDER PACKET GT ONE ×2 (10:30→19:30)
[2021-10-16 12:00] VITALS: BP 125/74
[2021-10-16] MEDS ORDERED: BUMETANIDE INJ 4 MG in IV NS 0.9% 24 ML IV ONE (12:00)
[2021-10-16] MEDS ORDERED: BUMETANIDE INJ 8 MG in IV NS 0.9% 48 ML IV ONE (12:00)
[2021-10-16] MEDS: INSULIN REGULAR, HUMAN 100 UNIT/ML 3 ML VIAL SQ PRN ×2 (14:51→18:14)
[2021-10-16 16:00] VITALS: BP 137/79
[2021-10-16] MEDS ORDERED: POTASSIUM CHLORIDE 20 MEQ TAB.PRT.SR PO ONE (17:00)
[2021-10-16] MEDS: GLUCERNA 1.2 1,000 ML BOTTLE PEG SCH (18:54)
--- NOTE | 2021-10-16 19:21 | NUR ---
RN CLOSING NOTES PATIENT AWAKE IN BED RESTING, A/O X4. NO S/S OF PAIN NOTED AT THIS TIME. ON VENT WITH SETTING PRESCRIBED, SATURATION AT 94, NO DISTRESS OR SHORTNESS OF BREATH NOTED. IV ACCESS GAB PICC LINE, INTACT, PATENT AND FLUSHING WELL. PATIENT HAVE EXTERNAL DIRECTOR OF EVENT MANAGEMENT, ST AND HR OF 104. PATIENT HAVE HENNING CATHETER, IN PLACED AND DRAINING WELL. FALL AND SAFETY MEASURES IN PLACE, BED ALARM ON, BED IN LOW AND LOCK POSITION, CALL LIGHT AND TABLE WITHIN EASY REACH, SIDE RAILS UP X2. WILL ENDORSE TO CUT OUT WORKER.
--- NOTE | 2021-10-16 19:35 | NUR ---
PORTABLE ROUTER OPERATOR OPENING NOTES PATIENT LAYING AWAKE IN BED. A/O X3-4. PATIENT WITH REGULAR AND UNLABORED BREATHING, ON MECHNICAL VENT. SETTINGS TRACH SHILEY #8 AC 26 FIO2 50% TV 440 PEEP 5 TOLERATED WELL. NO SIGNS AND SYMPTOMS OF DISCOMFORT AT THIS TIME. NO COMPLAINS OF PAIN OR DISCOMFORT AT THIS TIME. IV ACCESS GAB PICC LINE SL . IV ACCESS PATENT AND INTACT. SAFETY PRECAUTIONS ENFORCED WITH BED LOCKED AND AT LOWEST POSITION. SIDERAILS UP X2. CALL LIGHT WITHIN REACH AT ALL TIMES. WILL CONTINUE TO MONITOR PATIENT.
[2021-10-16 20:21] VITALS: BP 116/75
[2021-10-16] MEDS: HYDROCODONE/APAP 10/325MG TABLET PO PRN (23:00)
[2021-10-16] MEDS: INSULIN GLARGINE, 100 UNIT/ML CARTRIDGE SQ SCH (23:26)
[2021-10-17 00:25] VITALS: BP 101/66
[2021-10-17] MEDS: TOBRAMYCIN OPHTH 5ML 5 ML BOTTLE LEFTEYE SCH ×6 (00:47→21:58)
[2021-10-17] MEDS: METOCLOPRAMIDE HCL 10 MG/2 ML VIAL IV SCH ×4 (00:47→17:11)
[2021-10-17 04:54] VITALS: BP 99/54
[2021-10-17] MEDS: BLOOD SUGAR DIAGNOSTIC 1 EACH STRIP IN SCH ×3 (05:58→17:11)
[2021-10-17 06:58] LABS: BASOPHILS # (AUTO) 0.1 K/uL (0.0-0.2); EOSINOPHILS % (AUTO) 1.2 % (0.0-6.0); HEMATOCRIT 27 % (33-45); HEMOGLOBIN 8.7 g/dL (11.5-14.8); LYMPHOCYTES # (AUTO) 1.5 K/uL (0.8-4.8); LYMPHOCYTES % (AUTO) 11.7 % (20.0-44.0); MEAN CORPUSCULAR HGB CONC 32 g/dl (31.0-36.0); MEAN CORPUSCULAR VOLUME 89 fL (82-100); MONOCYTES # (AUTO) 0.8 K/uL (0.1-1.30); NEUTROPHILS % (AUTO) 80.1 % (43.0-81.0); PLATELET COUNT (AUTO) 482 K/uL (150-450); RED BLOOD CELL COUNT(AUTO) 3.02 MIL/uL (4.0-5.2); WHITE BLOOD COUNT (AUTO) 12.5 K/uL (4.3-11.0)
[2021-10-17 07:12] LABS: CALCIUM, SERUM 9.5 mg/dL (8.5-10.1); CREATININE 1.4 mg/dL (0.6-1.3); MAGNESIUM 2.2 mg/dL (1.8-2.4); PHOSPHORUS 3.7 mg/dL (2.5-4.9); POTASSIUM 3.8 mmol/L (3.5-5.1)
--- NOTE | 2021-10-17 07:20 | NUR ---
HOPPER FILLER CLOSING NOTES PATIENT STILL LAYING AWAKE IN BED. A/O X3-4. PATIENT WITH REGULAR AND UNLABORED BREATHING, ON MECHNICAL VENT. SETTINGS TRACH SHILEY #8 AC 26 FIO2 50% TV 440 PEEP 5 TOLERATED WELL. NO SIGNS AND SYMPTOMS OF DISCOMFORT AT THIS TIME. NO COMPLAINS OF PAIN OR DISCOMFORT AT THIS TIME. PATIENT ON TELE MONITOR READING SR @100 BPM. IV ACCESS GAB PICC LINE SL . IV ACCESS PATENT AND INTACT. SAFETY PRECAUTIONS ENFORCED WITH BED LOCKED AND AT LOWEST POSITION. SIDERAILS UP X2. CALL LIGHT WITHIN REACH AT ALL TIMES. WILL ENDORSE CONTINUITY OF CARE TO DAY SHIFT NURSE.
--- NOTE | 2021-10-17 07:23 | NUR ---
RN OPENING NOTES RECEIVED PATIENT AWAKE IN BED RESTING, A/O X4. NO S/S OF PAIN NOTED AT THIS TIME. PATIENT BREATHING EVENLY AND NONLABORED ON VENT WITH SETTING PRESCRIBED, SATURATION AT 98, NO DISTRESS OR SHORTNESS OF BREATH NOTED. IV ACCESS GAB PICC LINE, INTACT, PATENT AND FLUSHING WELL. PATIENT HAVE EXTERNAL MAIL WEIGHER. PATIENT HAS HENNING CATHETER, IN PLACED AND DRAINING WELL. FALL AND SAFETY MEASURES IN PLACE, BED ALARM ON, BED IN LOW AND LOCK POSITION, CALL LIGHT AND TABLE WITHIN EASY REACH, SIDE RAILS UP X2. WILL CONTINUE TO MONITOR.
[2021-10-17 08:00] VITALS: BP 109/54
[2021-10-17] MEDS: CHOLECALCIFEROL 1,000 UNIT TABLET (VIT D3) GT SCH (08:04)
[2021-10-17] MEDS: PANTOPRAZOLE 40 MG/PACK PACK NG SCH ×2 (08:04→17:11)
[2021-10-17] MEDS: HYDROCORTISONE SOD SUCCINATE 100 MG/2 ML VIAL IV SCH (08:04)
[2021-10-17] MEDS: ASCORBIC ACID 500 MG TABLET GT SCH (08:04)
[2021-10-17] MEDS: METOPROLOL TARTRATE 25 MG TABLET PO SCH ×2 (08:06→21:00)
[2021-10-17] MEDS: NYSTATIN TOP POWDER 15 GM BOTTLE TP SCH ×2 (08:08→17:11)
[2021-10-17] MEDS: CLOTRIMAZOLE 1% 15 GM TUBE TP SCH ×2 (08:09→21:59)
[2021-10-17] MEDS: PROSOURCE / PROSTAT (PYXIS) 30 ML UDC PEG SCH ×3 (08:09→17:11)
[2021-10-17] MEDS: Z GUARD REMEDY 4 OZ OINT TP SCH (08:09)
[2021-10-17] MEDS: DAKINS QUARTER STRENGTH (0.125%) 480 ML BOTTLE TOP SCH (08:09)
[2021-10-17] MEDS: HYDROCODONE/APAP 10/325MG TABLET PO PRN (10:31)
[2021-10-17] MEDS ORDERED: acetaZOLAMIDE SODIUM 500 MG/VIAL VIAL IV ONE (11:00)
[2021-10-17] MEDS: LORAZEPAM INJ 2 MG/ML VIAL IV PRN ×2 (11:10→20:01)
[2021-10-17] MEDS: INSULIN REGULAR, HUMAN 100 UNIT/ML 3 ML VIAL SQ PRN ×2 (11:12→17:11)
[2021-10-17 12:00] VITALS: BP 98/54
[2021-10-17] MEDS: GLUCERNA 1.2 1,000 ML BOTTLE PEG SCH (14:21)
[2021-10-17 16:00] VITALS: BP 126/86
--- NOTE | 2021-10-17 18:31 | NUR ---
RN CLOSING NOTES PATIENT AWAKE IN BED RESTING, A/O X4. NO S/S OF PAIN NOTED AT THIS TIME. PATIENT BREATHING EVENLY AND NONLABORED ON VENT WITH SETTING PRESCRIBED, SATURATION AT 92, NO DISTRESS OR SHORTNESS OF BREATH NOTED. IV ACCESS GAB PICC LINE, INTACT, PATENT AND FLUSHING WELL. PATIENT HAVE EXTERNAL BRICK CARRIER SHOWING NSR @ 88. PATIENT COMPLAINED OF ANXIETY AND PAIN DURING SHIFT, PRN MEDICATIONS GIVEN VITALS MAINTAINED WNL. ALL MEDICATIONS GIVEN ORDERED. PATIENT KEPT CLEAN AND DRY, WOUND CARE PERFORMED DURING SHIFT. Q2HR TURNING AND REPOSITIONING PERFORMED DURING SHIFT. PATIENT HAS HENNING CATHETER, IN PLACED AND DRAINING WELL. FALL AND SAFETY MEASURES IN PLACE, BED ALARM ON, BED IN LOW AND LOCK POSITION, CALL LIGHT AND TABLE WITHIN EASY REACH, SIDE RAILS UP X2. WILL ENDORSE TO ONCOMING SHIFT
--- NOTE | 2021-10-17 19:48 | NUR ---
TELE OPENING NOTE PATIENT RECEIVED AWAKE IN BED. A/OX3. NO S/S OF DISTRESS, BREATHING BY VENT. TELE MONITOR REVEALS ST 110. SAFETY MEASURES IN PLACE: BED AT LOWEST POSITION, RAILS UP X2, CALL VÁZQUEZ WITHIN REACH. WILL CONTINUE TO MONITOR.
[2021-10-17] MEDS: INSULIN GLARGINE, 100 UNIT/ML CARTRIDGE SQ SCH (21:54)
[2021-10-18] MEDS: BLOOD SUGAR DIAGNOSTIC 1 EACH STRIP IN SCH ×4 (00:35→18:06)
[2021-10-18] MEDS: METOCLOPRAMIDE HCL 10 MG/2 ML VIAL IV SCH ×4 (00:35→18:06)
[2021-10-18] MEDS: TOBRAMYCIN OPHTH 5ML 5 ML BOTTLE LEFTEYE SCH ×6 (01:30→21:15)
--- NOTE | 2021-10-18 06:28 | NUR ---
DESULFURIZER OPERATOR CLOSING NOTE PATIENT ASLEEP IN BED. A/OX4. NO S/S OF DISTRESS, BREATHING BY VENT WITHOUT DIFFICULTY. GAB PICC SL INTACT AND PATENT. SAFETY MEASURES IN PLACE: BED AT LOWEST POSITION, RAILS UP X2, CALL VÁZQUEZ WITHIN REACH. WILL ENDORSE TO FOLLOWING SHIFT FOR DARYA.
[2021-10-18 07:13] LABS: BASOPHILS # (AUTO) 0.1 K/uL (0.0-0.2); BASOPHILS % (AUTO) 0.9 % (0.0-2.0); EOSINOPHILS % (AUTO) 1.2 % (0.0-6.0); HEMATOCRIT 21 % (33-45); LYMPHOCYTES # (AUTO) 1.4 K/uL (0.8-4.8); LYMPHOCYTES % (AUTO) 10.1 % (20.0-44.0); MEAN CORPUSCULAR HGB CONC 33 g/dl (31.0-36.0); MEAN CORPUSCULAR VOLUME 89 fL (82-100); MONOCYTES % (AUTO) 7.1 % (2.0-12.0); NEUTROPHILS # (AUTO) 11.2 K/uL (1.8-8.9); NEUTROPHILS % (AUTO) 80.7 % (43.0-81.0); PLATELET COUNT (AUTO) 520 K/uL (150-450); RED BLOOD CELL COUNT(AUTO) 2.34 MIL/uL (4.0-5.2); WHITE BLOOD COUNT (AUTO) 13.8 K/uL (4.3-11.0)
--- NOTE | 2021-10-18 07:30 | NUR ---
PT RECEIVED RESTING COMFORTABLY IN BED. NO S/S OR C/O PAIN OR DISTRESS NOTED. SIDE RAILS UP X2, CALL LIGHT LEFT WITHIN REACH. WILL CONTINUE PLAN OF CARE.
[2021-10-18 07:40] LABS: HEMOGLOBIN 6.9 g/dL (11.5-14.8)
[2021-10-18 07:59] LABS: CALCIUM, SERUM 9.7 mg/dL (8.5-10.1); CREATININE 1.4 mg/dL (0.6-1.3); MAGNESIUM 2.5 mg/dL (1.8-2.4); PHOSPHORUS 4.3 mg/dL (2.5-4.9); POTASSIUM 3.4 mmol/L (3.5-5.1)
[2021-10-18 08:00] VITALS: BP 104/54
[2021-10-18] MEDS: CHOLECALCIFEROL 1,000 UNIT TABLET (VIT D3) GT SCH (08:43)
[2021-10-18] MEDS: HYDROCORTISONE SOD SUCCINATE 100 MG/2 ML VIAL IV SCH (08:43)
[2021-10-18] MEDS: PANTOPRAZOLE 40 MG/PACK PACK NG SCH ×2 (08:43→18:06)
[2021-10-18] MEDS: ASCORBIC ACID 500 MG TABLET GT SCH (08:44)
[2021-10-18] MEDS: METOPROLOL TARTRATE 25 MG TABLET PO SCH ×2 (09:00→20:49)
[2021-10-18] MEDS: PROSOURCE / PROSTAT (PYXIS) 30 ML UDC PEG SCH ×3 (09:10→18:06)
[2021-10-18] MEDS: DAKINS QUARTER STRENGTH (0.125%) 480 ML BOTTLE TOP SCH (09:19)
[2021-10-18] MEDS: CLOTRIMAZOLE 1% 15 GM TUBE TP SCH ×2 (09:19→21:15)
[2021-10-18] MEDS: NYSTATIN TOP POWDER 15 GM BOTTLE TP SCH ×2 (09:22→18:06)
[2021-10-18] MEDS: Z GUARD REMEDY 4 OZ OINT TP SCH (09:23)
[2021-10-18] MEDS ORDERED: POTASSIUM CHLORIDE 20 MEQ POWDER PACKET PO ONE (10:00)
[2021-10-18 10:02] LABS: BAND % (MANUAL) 4 % (0.0-5.0); EOSINOPHILS % (MANUAL) 1 % (0-4); LYMPHOCYTES % (MANUAL) 21 % (16-48); MONOCYTES % (MANUAL) 3 % (0-11.0); NEUTROPHILS % (MANUAL) 71 (42-76)
[2021-10-18 10:42] LABS: HEMOGLOBIN 7.8 g/dL (11.5-14.8)
[2021-10-18 12:00] VITALS: BP 124/69
[2021-10-18] MEDS: LORAZEPAM INJ 2 MG/ML VIAL IV PRN ×2 (15:54→22:34)
[2021-10-18 16:00] VITALS: BP 124/77
[2021-10-18] MEDS: CLONIDINE HCL 0.1MG/24H PTWK 1 EA PATCH TD SCH (18:07)
[2021-10-18] MEDS: HYDROCODONE/APAP 10/325MG TABLET PO PRN (18:11)
--- NOTE | 2021-10-18 19:00 | NUR ---
CHANGE OF SHIFT REPORT PT RESTING COMFORTABLY IN BED. NO S/S OR C/O PAIN OR DISTRESS NOTED. SIDE RAILS UP X2, CALL LIGHT LEFT WITHIN REACH. PT KEPT CLEAN, DRY, AND COMFORTABLE, NO SIGNIFICANT CHANGES SINCE PREVIOUS SHIFT. WILL GIVE REPORT TO MITCHELL PATEL.
--- NOTE | 2021-10-18 19:30 | NUR ---
RN OPENING NOTES RECEIVED PT IN BED, ASLEEP. AOx1-2. ON TRACH AND TOLERATING WELL. NO SOB NOTED. NO S/SX OF RESPIRATORY DISTRESS NOTED. TELE MONITOR DETECTS SR WITH RATE IN 80s. IV ACCESS IN GAB PICC LINE. IV IS INTACT, PATENT, AND FLUSHING WELL. SAFETY PRECAUTIONS IN PLACE: BED IN LOWEST, LOCKED POSITION, SIDERAILS UPx2, AND BRAKES ON. TABLE AND CALL LIGHT WITHIN REACH. WILL CONTINUE TO MONITOR.
[2021-10-18 20:00] VITALS: BP 101/64
[2021-10-18] MEDS: INSULIN GLARGINE, 100 UNIT/ML CARTRIDGE SQ SCH (21:19)
[2021-10-18] MEDS: GLUCERNA 1.2 1,000 ML BOTTLE PEG SCH (21:20)
--- NOTE | 2021-10-18 22:34 | NUR ---
ADMINISTERED ATIVAN PER MD ORDER. VS WNL. WILL CONTINUE TO MONITOR.
[2021-10-19] VITALS (9 sets, daily range): BP systolic 92–138; BP diastolic 53–94
[2021-10-19] MEDS: BLOOD SUGAR DIAGNOSTIC 1 EACH STRIP IN SCH ×4 (00:05→18:39)
[2021-10-19] MEDS: METOCLOPRAMIDE HCL 10 MG/2 ML VIAL IV SCH ×4 (00:07→18:00)
[2021-10-19] MEDS: TOBRAMYCIN OPHTH 5ML 5 ML BOTTLE LEFTEYE SCH ×6 (01:02→21:38)
--- NOTE | 2021-10-19 01:03 | NUR ---
ADMNISTERED NORCO PER MD ORDER. VS WNL. WILL CONTINUE TO MONITOR.
[2021-10-19] MEDS: HYDROCODONE/APAP 10/325MG TABLET PO PRN (01:17)
--- NOTE | 2021-10-19 06:15 | NUR ---
RT PT RECVD AWAKE AND RESPONSIVE ON CURRENT AC SETTINGS, TRACH IS PATENT AND SECURED. SUCTION Q2/PRN. VENT IS PLUGGED INTO RED OUTLET WITH ALARMS ON AND AUDIBLE. SPARE TRACH AND AMBU AT BEDSIDE. FIO2 WAS INCREASED TO 60% THEN 65% THIS MORNING DUE TO DESATURATION AND RN WAS KEPT INFORMED. SPO2 CURRENTLY 92%. NO SOB NOTED THROUGHOUT SHIFT.
[2021-10-19 06:42] LABS: BASOPHILS # (AUTO) 0.2 K/uL (0.0-0.2); BASOPHILS % (AUTO) 0.9 % (0.0-2.0); HEMATOCRIT 24 % (33-45); HEMOGLOBIN 7.8 g/dL (11.5-14.8); LYMPHOCYTES # (AUTO) 1.2 K/uL (0.8-4.8); LYMPHOCYTES % (AUTO) 7.8 % (20.0-44.0); MEAN CORPUSCULAR HGB CONC 33 g/dl (31.0-36.0); MEAN CORPUSCULAR VOLUME 88 fL (82-100); MONOCYTES % (AUTO) 6.2 % (2.0-12.0); NEUTROPHILS # (AUTO) 13.5 K/uL (1.8-8.9); NEUTROPHILS % (AUTO) 84.1 % (43.0-81.0); PLATELET COUNT (AUTO) 579 K/uL (150-450); RED BLOOD CELL COUNT(AUTO) 2.72 MIL/uL (4.0-5.2)
--- NOTE | 2021-10-19 07:03 | NUR ---
WOUND CARE FOLLOW UP: PT SEEN FOR RE-ASSESSMENT OF SACRAL DEEP TISSUE INJURY WHICH REMAINS IN EVOLUTION. WOUND BED CHANGES NOTED TO INCLUDE SOME YELLOW AND BROWN NECROTIC TISSUE. NO SIGN OF INFECTION NOTED. NO PERIWOUND ERYTHEMA NOTED. NO ODOR WAS NOTED. RECOMMEND CONTINUE PRESENT WOUND TREATMENT. DISCUSSED WITH NURSING STAFF AND SURGICAL TEAM CURRENTLY ON CASE. PT IS ON HESHAM ISOFLEX LOW AIRLOSS BED. PT CONTINUES TO HAVE MULTIPLE CO-MORBIDITIES INCLUDING VENTILATOR-DEPENDENCE SECONDARY TO COVID 19 PNEUMONIA, OBESITY, DIABETES, AND GI BLEED. DUE TO MULTIPLE CO-MORBIDITIES, FURTHER SKIN BREAKDOWN MAY BE UNAVOIDABLE. ALL SKIN PROTECTION MEASURES IN PLACE. MD IN AGREEMENT WITH PLAN OF CARE. Addendum: 10/19/21 at 0709 by EDWINA AGUILAR WNDNU Amended: Links added.
--- NOTE | 2021-10-19 07:07 | NUR ---
RN CLOSING NOTES PT IN BED, ASLEEP. AOx1-2. ON TRACH AND TOLERATING WELL. NO SOB NOTED. NO S/SX OF RESPIRATORY DISTRESS NOTED. TELE MONITOR DETECTS SR WITH RATE IN 80s - 100s. IV ACCESS IN GAB PICC LINE. IV IS INTACT, PATENT, AND FLUSHING WELL. ALL NEEDS MET. PT KEPT CLEAN AND DRY. SEEN BY WOUND CARE NURSE. SAFETY PRECAUTIONS IN PLACE: BED IN LOWEST, LOCKED POSITION, SIDERAILS UPx2, AND BRAKES ON. TABLE AND CALL LIGHT WITHIN REACH. WILL ENDORSE TO ONCOMING SHIFT FOR DARYA.
[2021-10-19 07:28] LABS: CALCIUM, SERUM 9.2 mg/dL (8.5-10.1); CREATININE 1.3 mg/dL (0.6-1.3); MAGNESIUM 2.5 mg/dL (1.8-2.4); POTASSIUM 3.2 mmol/L (3.5-5.1)
--- NOTE | 2021-10-19 07:30 | NUR ---
tele blood bank technician: notes received pt in bed awake, able to make needs known by mouthing words. vent dependent. remains on 65% fio2. hob elevated. will continue to monitor.
--- NOTE | 2021-10-19 08:00 | NUR ---
tele risk assessment analyst: notes r.t. at bedside and titrated fio2 to 40% and stayed 20 minutes at bedside. per r.t. fio2 to 100% and abg is drawn. cn made aware. pt satting at 94%. hob elevated. pt remains awake and alert. will continue to monitor.
--- NOTE | 2021-10-19 08:45 | NUR ---
tele rand cementer: notes daniella tejada (acnp) here and made aware of pt condition and fio2.
--- NOTE | 2021-10-19 08:58 | NUR ---
tele clinical informatics spec: notes lyle (r.t.) here and informed me that abg results were showed to dr. munoz (pulva) and to put her on 65% fio2 and monitor. dr. munoz to come and evaluate her per r.t. charge nurse aware.
[2021-10-19] MEDS: ASCORBIC ACID 500 MG TABLET GT SCH (09:00)
--- NOTE | 2021-10-19 09:15 | NUR ---
tele hand stonecutter: notes monitored pt for 10 minutes, pt unable to tolerate 65% fio2, satting between 82%-84%. dr. munoz notified and made aware with order to transfer to icu. cn and rn water plant pump operator supervisor made aware. awaiting for room assignment. pt made aware.
--- NOTE | 2021-10-19 09:22 | NUR ---
m/enmanuel ponce: notes dr. munoz notified and informed md that pt code status is dnr/dni. dr. munoz says still icu due to high aspiration risk. cn made aware. Addendum: 10/19/21 at 1124 by LÁZARO EID LVN above charting error, wrong pt.
--- NOTE | 2021-10-19 09:45 | NUR ---
tele septic pump truck driver: notes stacia () notified and informed him of transfer to icu due to desaturation, spoke to him over the phone.
--- NOTE | 2021-10-19 10:53 | NUR ---
PT ARRIVED IN ICU FROM 3W FOR RESPIRATORY DISTRESS. PT IS ALERT, APPEARS ANXIOUS. O2 SATS IN THE 80'S ON 100 FI02 ON THE VENT. PT SETTLED IN ROOM BY RN. WILL FOLLOW MD ORDERS. PT CHECKED ON HOURLY AND PRN BY NURSING STAFF.
--- NOTE | 2021-10-19 10:55 | NUR ---
tele sales attendant building materials: notes here visiting and aware of moving to icu room 255. ask if he wants to take her valuables, but refused.
--- NOTE | 2021-10-19 11:05 | NUR ---
tele reference investigator: notes transferred pt to icu room 255 via bed with monitors accompanied by r.t. and 2 nurses. report given to odessa (rn) for continuity of care.
[2021-10-19] MEDS: CHOLECALCIFEROL 1,000 UNIT TABLET (VIT D3) GT SCH (11:26)
[2021-10-19] MEDS: PROSOURCE / PROSTAT (PYXIS) 30 ML UDC PEG SCH ×3 (11:27→17:00)
--- NOTE | 2021-10-19 11:49 | NUR ---
RT PATIENT REC'D TRANSFER FROM [facility], PER DR HOWE PEEP INCREASED TO 10, FIO2 100%. PATIENT AWAKE AND RESPONSIVE. AMBU BAG AT HOB Addendum: 10/19/21 at 1228 by JENNIFER MORENO RT Amended: Links added.
[2021-10-19] MEDS: PANTOPRAZOLE 40 MG/PACK PACK NG SCH ×2 (12:00→17:00)
[2021-10-19] MEDS ORDERED: VANCOMYCIN 1.5 GM in IV D5W 500 ML IV SCH (12:00)
[2021-10-19] MEDS: POTASSIUM CHLORIDE 20 MEQ POWDER PACKET GT SCH ×2 (12:00→12:19)
[2021-10-19] MEDS: HYDROCORTISONE SOD SUCCINATE 100 MG/2 ML VIAL IV SCH (12:00)
[2021-10-19] MEDS: METOPROLOL TARTRATE 25 MG TABLET PO SCH ×2 (12:01→21:00)
[2021-10-19] MEDS: DAKINS QUARTER STRENGTH (0.125%) 480 ML BOTTLE TOP SCH (12:01)
[2021-10-19] MEDS: CLOTRIMAZOLE 1% 15 GM TUBE TP SCH ×2 (12:02→21:00)
[2021-10-19] MEDS: Z GUARD REMEDY 4 OZ OINT TP SCH (12:02)
[2021-10-19] MEDS: NYSTATIN TOP POWDER 15 GM BOTTLE TP SCH ×2 (12:02→18:40)
[2021-10-19] MEDS ORDERED: MEROPENEM 500 MG in IV NS 0.9% 50 ML IV SCH (13:00)
[2021-10-19] MEDS: INSULIN REGULAR, HUMAN 100 UNIT/ML 3 ML VIAL SQ PRN ×2 (13:07→18:48)
[2021-10-19] MEDS: LORAZEPAM INJ 2 MG/ML VIAL IVP PRN ×2 (14:32→21:41)
[2021-10-19] MEDS: MEROPENEM 1 G in IV NS 0.9% 100 ML IV SCH (14:32)
[2021-10-19] MEDS ORDERED: IV NS 0.9% 250 ML IV PRN (15:00)
[2021-10-19 16:39] LABS: BAND % (MANUAL) 1 % (0.0-5.0); EOSINOPHILS % (MANUAL) 1 % (0-4); LYMPHOCYTES % (MANUAL) 8 % (16-48); METAMYELOCYTES % 2 % (0-0); MONOCYTES % (MANUAL) 4 % (0-11.0); MYELOCYTES % 2 % (0-0); NEUTROPHILS % (MANUAL) 82 (42-76)
--- NOTE | 2021-10-19 19:36 | NUR ---
RN NOTE RECEIVED PATIENT IN BED, SLEEPING, AROUSABLE TO NAME AND TOUCH. AOX1 AT THIS TIME. BREATHING EVEN AND UNLABORED. ON VENT WITH SETTINGS OF AC: 26, TV 440, FIO2, 100, PEEP: 12.0. ON TELE MONITORING. SINUS TACHYCARDIA AT 125 BPM. SKIN WARM AND DRY. NOTED WITH RIGHT UPPER ARM PICC LINE. NO BLEEDING. NOTED WITH G-TUBE PRESENT. NO FEEDING AT THIS TIME. NOTED WITH HENNING CATHETER, DRAINING YELLOW URINE, NO HEMATURIA. BED LOW, IN LOCKED POSITION. CALL LIGHT WITHIN REACH.
[2021-10-19] MEDS: INSULIN GLARGINE, 100 UNIT/ML CARTRIDGE SQ SCH (21:35)
--- NOTE | 2021-10-19 23:00 | NUR ---
RN NOTE CLOTRIMAZOLE MEDICATION NOT AVAILABLE AT BEDSIDE OR MED ROOM. FAXED MEDICATION ORDER TO WALLPAPER PRINTER, PER WALLPAPER PRINTER, MED IS ALSO NOT AVAILABLE. WILL FOLLOW UP WITH PHARMACY IN AM. CHARGE NURSE MADE AWARE. Z-GUARD APPLIED INSTEAD. PATIENT KEPT CLEAN AND DRY.
[2021-10-20] VITALS (28 sets, daily range): BP systolic 38–164; BP diastolic 19–96
[2021-10-20] MEDS: ACETAMINOPHEN 650 MG/20.3 ML UDC GT PRN ×2 (00:30→07:55)
--- NOTE | 2021-10-20 00:34 | NUR ---
RN NOTE PATIENT NOTED WITH TEMPERATURE OF 101.2 VIA ORAL ROUTE. COOLING MEASURES INITIATED. ADMINISTERED TYLENOL 650 MG VIA GT PER MD ORDER. WILL CONTINUE TO MONITOR. CALL LIGHT WITHIN REACH.
[2021-10-20] MEDS: BLOOD SUGAR DIAGNOSTIC 1 EACH STRIP IN SCH ×2 (00:35→05:08)
[2021-10-20] MEDS: MEROPENEM 1 G in IV NS 0.9% 100 ML IV SCH (00:36)
[2021-10-20] MEDS: METOCLOPRAMIDE HCL 10 MG/2 ML VIAL IV SCH ×2 (00:37→05:17)
[2021-10-20] MEDS: TOBRAMYCIN OPHTH 5ML 5 ML BOTTLE LEFTEYE SCH ×3 (00:37→08:16)
[2021-10-20] MEDS: INSULIN REGULAR, HUMAN 100 UNIT/ML 3 ML VIAL SQ PRN ×2 (00:38→05:15)
[2021-10-20] MEDS: GLUCERNA 1.2 1,000 ML BOTTLE PEG SCH (04:38)
[2021-10-20 04:43] LABS: BASOPHILS # (AUTO) 0.3 K/uL (0.0-0.2); BASOPHILS % (AUTO) 1.3 % (0.0-2.0); HEMATOCRIT 22 % (33-45); HEMOGLOBIN 7.2 g/dL (11.5-14.8); LYMPHOCYTES # (AUTO) 1.1 K/uL (0.8-4.8); LYMPHOCYTES % (AUTO) 4.4 % (20.0-44.0); MEAN CORPUSCULAR HGB CONC 32 g/dl (31.0-36.0); MEAN CORPUSCULAR VOLUME 88 fL (82-100); MONOCYTES # (AUTO) 1.9 K/uL (0.1-1.30); MONOCYTES % (AUTO) 7.5 % (2.0-12.0); NEUTROPHILS # (AUTO) 21.9 K/uL (1.8-8.9); NEUTROPHILS % (AUTO) 86.8 % (43.0-81.0); PLATELET COUNT (AUTO) 577 K/uL (150-450); RED BLOOD CELL COUNT(AUTO) 2.53 MIL/uL (4.0-5.2); WHITE BLOOD COUNT (AUTO) 25.3 K/uL (4.3-11.0)
[2021-10-20 05:00] LABS: CREATININE 1.7 mg/dL (0.6-1.3); MAGNESIUM 2.4 mg/dL (1.8-2.4); PHOSPHORUS 3.5 mg/dL (2.5-4.9); POTASSIUM 3.8 mmol/L (3.5-5.1)
--- NOTE | 2021-10-20 07:30 | NUR ---
RN MORNING NOTE PT RECEIVED IN BED WITH HOB 40DEGREES. PT IS ON MECHANICAL VENT WITH PRESCRIBED SETTINGS TOLERATING WELL WITH NO SIGNS OF DISTRESS OR LABORED BREATHING SAT 99%. GTUBE IS IN PLACE WITH POSITIVE PLACEMENT IN FUSING WITH GLUCERNA 1.2 @55ML/HR >20ML RESIDUAL. FC IS IN PLACE DRAINING URINE TO GRAVITY. IV ACCESS R UA PICC LINE. BED IS LOCKED IN LOWEST POSITION ALL HOSPITAL SAFETY MEASURES ARE IN PLACE WILL CONTINUE TO MONITOR THIS SHIFT.
--- NOTE | 2021-10-20 07:30 | NUR ---
RN MORNING NOTE PT RECEIVED IN BED WITH HOB 35 DEGREES. PT IS ON MECHANICAL VENT WITH PRESCRIBED SETTINGS TOLERATING WELL WITH NO SIGNS OF DISTRESS OR LABORED BREATHING SAT 99%. PT IS SEDATED ON DIPRIVAN @50MCG/HR. GTUBE IS IN PLACE WITH POSITIVE PLACEMENT IN FUSING WITH JEVITY 1.2 @15ML/HR >20ML RESIDUAL. FC IS IN PLACE DRAINING URINE TO GRAVITY. IV ACCESS R SUBCLAVIAN TRIPLE LUMEN. BED IS LOCKED IN LOWEST POSITION ALL HOSPITAL SAFETY MEASURES ARE IN PLACE WILL CONTINUE TO MONITOR THIS SHIFT. Addendum: 10/20/21 at 1843 by FRANDY PRATT RN ACCIDENTAL NOTE FROM WRONG PATIENT
--- NOTE | 2021-10-20 07:55 | NUR ---
RN NOTE PT TEMP 99.5. TYLENOL GIVEN. WILL REASSESS.
[2021-10-20] MEDS: CHOLECALCIFEROL 1,000 UNIT TABLET (VIT D3) GT SCH (08:14)
[2021-10-20] MEDS: METOPROLOL TARTRATE 25 MG TABLET PO SCH (08:15)
[2021-10-20] MEDS: ASCORBIC ACID 500 MG TABLET GT SCH (08:15)
[2021-10-20] MEDS: PANTOPRAZOLE 40 MG/PACK PACK NG SCH (08:16)
[2021-10-20] MEDS: HYDROCORTISONE SOD SUCCINATE 100 MG/2 ML VIAL IV SCH (08:16)
[2021-10-20] MEDS: DAKINS QUARTER STRENGTH (0.125%) 480 ML BOTTLE TOP SCH (08:17)
[2021-10-20] MEDS: CLOTRIMAZOLE 1% 15 GM TUBE TP SCH (08:18)
[2021-10-20] MEDS: Z GUARD REMEDY 4 OZ OINT TP SCH (08:18)
[2021-10-20] MEDS: PROSOURCE / PROSTAT (PYXIS) 30 ML UDC PEG SCH (08:26)
[2021-10-20] MEDS ORDERED: PROPOFOL 100 ML IV PRN (08:30)
[2021-10-20] MEDS: NYSTATIN TOP POWDER 15 GM BOTTLE TP SCH (09:43)
[2021-10-20] MEDS ORDERED: ENOXAPARIN SODIUM 100 MG/ML DISP.SYRIN SQ SCH (10:00)
[2021-10-20] MEDS ORDERED: IV NS 0.9% 500 ML IV ONE (10:30)
--- NOTE | 2021-10-20 10:43 | NUR ---
RN NOTE NO PALPABLE PULSE, PEA ON THE MONITOR, CODE BLUE INITIATED. REFER TO CODE BLUE SHEET. FAMILY AND MD AWARE.
[2021-10-20] MEDS ORDERED: PHENYLEPHRINE 100 MG in IV NS 0.9% 240 ML IV PRN (11:00)
[2021-10-20] MEDS ORDERED: EPINEPHRINE (1:10,000) SYRINGE 1 MG/10 ML DISP.SYRIN IVP ONE ×3 (11:05→13:06)
--- NOTE | 2021-10-20 11:08 | NUR ---
RN NOTE NO PALPABLE PULSE, PEA ON THE MONITOR, CODE BLUE INITIATED. REFER TO CODE BLUE SHEET. FAMILY AND MD AWARE.
[2021-10-20 11:09] LABS: HEMATOCRIT 23 % (33-45)
[2021-10-20 11:15] LABS: BASOPHILS # (AUTO) 0.4 K/uL (0.0-0.2); BASOPHILS % (AUTO) 1.1 % (0.0-2.0); EOSINOPHILS % (AUTO) 0.1 % (0.0-6.0); HEMOGLOBIN 7.3 g/dL (11.5-14.8); MEAN CORPUSCULAR HGB CONC 32 g/dl (31.0-36.0); MEAN CORPUSCULAR VOLUME 89 fL (82-100); MONOCYTES # (AUTO) 1.5 K/uL (0.1-1.30); MONOCYTES % (AUTO) 4.2 % (2.0-12.0); NEUTROPHILS # (AUTO) 30.3 K/uL (1.8-8.9); NEUTROPHILS % (AUTO) 83.6 % (43.0-81.0); PLATELET COUNT (AUTO) 686 K/uL (150-450); RED BLOOD CELL COUNT(AUTO) 2.54 MIL/uL (4.0-5.2)
[2021-10-20 11:23] LABS: WHITE BLOOD COUNT (AUTO) 36.3 K/uL (4.3-11.0)
--- NOTE | 2021-10-20 11:31 | NUR ---
RN NOTE NO PALPABLE PULSE, PEA ON THE MONITOR, CODE BLUE INITIATED. REFER TO CODE BLUE SHEET. FAMILY AND MD AWARE.
[2021-10-20] MEDS ORDERED: VANCOMYCIN 1.25 GM in IV D5W 250 ML IV SCH (12:00)
[2021-10-20] MEDS ORDERED: NOREPINEPHRINE 32 MG in IV NS 0.9% 218 ML IV PRN ×2 (12:00→12:30)
--- NOTE | 2021-10-20 12:54 | NUR ---
RN NOTE NO PALPABLE PULSE, ASYSTOLE ON THE MONITOR, CODE BLUE INITIATED. REFER TO CODE BLUE SHEET. FAMILY AND MD AWARE.
[2021-10-20] MEDS ORDERED: SODIUM BICARBONATE SYR 50 MEQ/50 ML DISP.SYRIN IV ONE (13:06)
--- NOTE | 2021-10-20 13:41 | NUR ---
PATIENT ASYSTOLE ON MONITOR. NO PALPABLE PULSES. NO HEART TONE AUSCULTATED. PUPILS FIXED AND DILATED. S/P FULL ARREST X 4 . PATIENT CODE STATUS CHANGED TO DNR BY FAMILY. PRONOUNCED.
--- NOTE | 2021-10-20 14:25 | NUR ---
RN NOTE CONTACTED [facility] AND SPOKE WITH KENNY. PER [facility], PT IS NOT A CANDIDATE. REFERENCE # [id number].
[2021-10-20 14:44] LABS: BAND % (MANUAL) 3 % (0.0-5.0); LYMPHOCYTES % (MANUAL) 14 % (16-48); METAMYELOCYTES % 1 % (0-0); MONOCYTES % (MANUAL) 7 % (0-11.0); MYELOCYTES % 1 % (0-0); NEUTROPHILS % (MANUAL) 74 (42-76)
[2021-10-21 10:08] LABS: ABG BASE EXCESS 7.6 mmol/L; ABG OXYGEN SATURATION 69.1 % (92.0-98.5); ABG PCO2 44.7 mmHg (35.0-45.0); ABG PH 7.473 (7.350-7.450); ABG PO2 36.4 mmHg (75.0-100.0); AaDO2 197.4 mmHg; COHb 0.6 % (0.5-1.5); MetHb 0.3 % (0.0-1.5); O2Hb 68.5 % (94.0-97.0); PEEP,BG 5 cm H2O; SITE, ABG Right Radial; VT, ABG 440 mL
[2021-10-21 10:16] LABS: ABG BASE EXCESS 6.4 mmol/L; ABG PCO2 43.5 mmHg (35.0-45.0); ABG PH 7.467 (7.350-7.450); ABG PO2 59.5 mmHg (75.0-100.0); COHb 0.3 % (0.5-1.5); MetHb 0.1 % (0.0-1.5); O2Hb 89.6 % (94.0-97.0); SITE, ABG Right Radial
[2021-10-21 11:01] LABS: ABG BASE EXCESS -13.6 mmol/L; ABG OXYGEN SATURATION 61.7 % (92.0-98.5); ABG PH 7.077 (7.350-7.450); ABG PO2 44.2 mmHg (75.0-100.0); AaDO2 612.8 mmHg; COHb 0.3 % (0.5-1.5); MetHb 0.3 % (0.0-1.5); O2Hb 61.3 % (94.0-97.0); SITE, ABG Right Radial; VENT MODE, BG ac 26 440 100% +12
== END 2021-10-20 19:40 | DRG 5 ==
LOC: ER 20:49 → ICU 09-01 00:35 → TELE1 10-03 06:00 → TELE-TD 10-03 06:53 → TELE1 10-04 15:43 → TELE 10-04 16:54 → ICU 10-14 13:54 → TELE 10-15 18:07 → ICU 10-19 11:11
PROVIDERS: ADMIT Nurse Practitioner Acute Care; ATTEND Nurse Practitioner Acute Care
PROC: XW033H5 Introduction of Tocilizumab into Peripheral Vein, Percutaneous Approach, New Technology Group 5 (ICD-10-PCS; principal; 2021-09-01)
PROC: 5A1955Z Respiratory Ventilation, Greater than 96 Consecutive Hours (ICD-10-PCS; 2021-09-06)
PROC: 0BH18EZ Insertion of Endotracheal Airway into Trachea, Via Natural or Artificial Opening Endoscopic (ICD-10-PCS; 2021-09-06)
PROC: 02HV33Z Insertion of Infusion Device into Superior Vena Cava, Percutaneous Approach (ICD-10-PCS; 2021-09-06)
PROC: B548ZZA Ultrasonography of Superior Vena Cava, Guidance (ICD-10-PCS; 2021-09-06)
PROC: 03HB33Z Insertion of Infusion Device into Right Radial Artery, Percutaneous Approach (ICD-10-PCS; 2021-09-14)
PROC: 0B113F4 Bypass Trachea to Cutaneous with Tracheostomy Device, Percutaneous Approach (ICD-10-PCS; 2021-09-29)
PROC: 0BJ08ZZ Inspection of Tracheobronchial Tree, Via Natural or Artificial Opening Endoscopic (ICD-10-PCS; 2021-09-29)
PROC: 0DH63UZ Insertion of Feeding Device into Stomach, Percutaneous Approach (ICD-10-PCS; 2021-10-02)
PROC: 30233N1 Transfusion of Nonautologous Red Blood Cells into Peripheral Vein, Percutaneous Approach (ICD-10-PCS; 2021-10-08)
PROC: 5A12012 Performance of Cardiac Output, Single, Manual (ICD-10-PCS; 2021-10-20)
DX: A41.89 Other specified sepsis (principal); J12.82 Pneumonia due to coronavirus disease 2019; N17.0 Acute kidney failure with tubular necrosis; R65.21 Severe sepsis with septic shock; I50.33 Acute on chronic diastolic (congestive) heart failure; E43 Unspecified severe protein-calorie malnutrition; U07.1 COVID-19; D68.69 Other thrombophilia; J96.01 Acute respiratory failure with hypoxia; J96.02 Acute respiratory failure with hypercapnia; J15.9 Unspecified bacterial pneumonia; D69.6 Thrombocytopenia, unspecified; L89.156 Pressure-induced deep tissue damage of sacral region; I95.9 Hypotension, unspecified; I48.91 Unspecified atrial fibrillation; I82.411 Acute embolism and thrombosis of right femoral vein; E66.01 Morbid (severe) obesity due to excess calories; Z68.42 Body mass index [BMI] 45.0-49.9, adult; Z79.4 Long term (current) use of insulin; E11.65 Type 2 diabetes mellitus with hyperglycemia; D64.9 Anemia, unspecified; E87.4 Mixed disorder of acid-base balance; E87.1 Hypo-osmolality and hyponatremia; E88.09 Other disorders of plasma-protein metabolism, not elsewhere classified; N18.9 Chronic kidney disease, unspecified; L30.4 Erythema intertrigo; I13.0 Hypertensive heart and chronic kidney disease with heart failure and stage 1 through stage 4 chronic kidney disease, or unspecified chronic kidney disease; E11.22 Type 2 diabetes mellitus with diabetic chronic kidney disease; R00.1 Bradycardia, unspecified; M62.50 Muscle wasting and atrophy, not elsewhere classified, unspecified site; E78.1 Pure hyperglyceridemia; E87.0 Hyperosmolality and hypernatremia; E87.6 Hypokalemia; H10.9 Unspecified conjunctivitis; R74.01 Elevation of levels of liver transaminase levels; K92.2 Gastrointestinal hemorrhage, unspecified; E78.5 Hyperlipidemia, unspecified; R13.10 Dysphagia, unspecified; R62.7 Adult failure to thrive; Z79.82 Long term (current) use of aspirin; K44.9 Diaphragmatic hernia without obstruction or gangrene; Z66 Do not resuscitate
CPT/HCPCS: 31720; 36415; 36569; 36600; 43760; 71045-TC; 74018; 80048-TC; 80053-TC; 80061-TC; 80076-TC; 80202-TC; 81001; 82272-TC; 82533; 82550-TC; 82553; 82728-TC; 82803-TC; 82962-TC; 83605-TC; 83615-TC; 83735-TC; 83880; 84100-TC; 84132-TC; 84443-TC; 84478-TC; 84484-TC; 85025-TC; 85027-TC; 85378-TC; 85385-TC; 85730-TC; 86140-TC; 86480; 86850-TC; 87040-TC; 87081-TC; 87086-TC; 87186-TC; 87899; 93970-TC; 94002-TC; 94003-TC; 94760-TC; 94762-TC; 94799-TC; 99082-TC; A4216; A4623; A6253; A6403; A7526; A9563; C9113; G0378; J0171; J0282; J0690; J1100; J1120; J1200; J1650; J1720; J1815; J1940; J1956; J2060; J2185; J2250; J2370; J2405; J2543; J2704; J2765; J3010; J3262; J3370; J3480; J3490; J7030; J7040; J7042; J7050; J7060; J7070; J7120; P9016; P9047; Q0177; U0003